=== PATIENT | female | born 1930 | race Caucasian/White ===

== ENCOUNTER 2017-06-30 16:02 | Emergency (ER) | payer OTHER, MEDICARE ==
[~2017-06-30] VITALS: Ht 152.4 cm; Wt 60.0 kg
[~2017-06-30 16:02] MED LIST: ASPI325T PO; BRIM0.2S EACH EYE; CHOL1CAP6 PO; EVIS60TA PO; LEVO EACH EYE; OMEG100010 MT; OXYC5 PO; ROSU40 PO; SYNT75TA PO; VITD400 PO
[2017-06-30 16:11] VITALS: BP 172/94; PULSE 77; RESP 16; TEMP 98.2; O2SAT 98
[2017-06-30] MEDS ORDERED: LEVO75TA3 PO (17:21)
[2017-06-30] MEDS ORDERED: OMEGCAP PO (17:21)
[2017-06-30] MEDS ORDERED: ASPI-516 CHEW (17:21)
[2017-06-30] MEDS ORDERED: VITA1000 PO (17:21)
[2017-06-30] MEDS ORDERED: COEN1CAP19 PO (17:21)
[2017-06-30] MEDS ORDERED: VITA10002 PO (17:21)
[2017-06-30] MEDS ORDERED: LOVA40TA PO (17:21)
[2017-06-30] MEDS ORDERED: DOXY100C PO (17:21)
[2017-06-30] MEDS ORDERED: TRAM50TA PO (17:21)
[2017-06-30] MEDS ORDERED: SODIUM CHLOR 0.9% 1000 ML INJ 1,000 ML IV SCH (17:23)
--- NOTE | 2017-06-30 17:25 | PD ---
HPI Chief Complaint: GI Complaint Time Seen by Provider: 17:17 Travel History International Travel<30 days: No Contact w/Intl Traveler<30days: No Traveled to known affect area: No History of Present Illness HPI 87-year-old female here for evaluation of nausea and vomiting. The patient had a basal cell carcinoma removed from her nose yesterday and was started on doxycycline and tramadol. Symptoms started shortly after taking these medications. The patient is had several episodes of vomiting since yesterday evening. She reports the emesis is brown, nonbloody. Last bowel movement was yesterday. No diarrhea. No abdominal pain. No chest pain or dyspnea. No fevers. PFSH Past Medical History Cancer: Yes (SKIN LESION) High Cholesterol: Yes Endocrine: Yes Immune Disorder: No Musculoskeletal: No Neurologic: Yes (NEUROPATHY) Psychiatric: No Thyroid Disease: Yes ?: Not Menopausal: Yes Tubal Ligation: Yes Past Surgical History Appendectomy: Yes Gynecologic Surgery: Yes (TUBAL LIGATION) Pacemaker: No Social History Alcohol Use: Yes (1 WINE EVERY OTHER MONTH) Tobacco Use: No Substance Use: No Allergies-Medications (Allergen,Severity, Reaction): Coded Allergies: guaifenesin (Verified Adverse Reaction, Severe, "MAKES ME HIGH", 06/30/17) Reported Meds & Prescriptions Reported Meds & Active Scripts Active Reported Vitamin B-12 (Cyanocobalamin) 1,000 Mcg Tab 1,000 Mcg PO DAILY [place]-3 Fish Oil/Vitamin (Fish Oil-Cholecalciferol) 1,000-1,000 Mg Cap 1 Cap PO DAILY Vitamin D-1000 (Cholecalciferol) 1,000 Unit Tab 1,000 Units PO DAILY Tramadol (Tramadol HCl) 50 Mg Tab 50 Mg PO Q4H PRN Doxycycline Hyclate 100 Mg Cap 100 Mg PO BID Lovastatin 40 Mg Tab 40 Mg PO DAILY Levothyroxine (Levothyroxine Sodium) 75 Mcg Tab 75 Mcg PO DAILY Aspirin 81 Mg Chew 81 Mg CHEW DAILY Co Q10 (Ubidecarenone) 100 Mg Capsule 1 Cap PO DAILY Review of Systems Except as stated in HPI: all other systems reviewed are Neg Physical Exam Narrative GENERAL: Well-developed, well-nourished, comfortable, no apparent distress. SKIN: Focused skin assessment warm/dry. Dressing on the nose that is clean, dry , intact. HEAD: Atraumatic. Normocephalic. EYES: Pupils equal and round. No scleral icterus. No injection or drainage. ENT: Mucous membranes pink and dry. NECK: Trachea midline. No JVD. CARDIOVASCULAR: Regular rate and rhythm. RESPIRATORY: No accessory muscle use. Clear to auscultation. Breath sounds equal bilaterally. GASTROINTESTINAL: Abdomen soft, non-tender, nondistended. Normal bowel sounds. MUSCULOSKELETAL: No obvious deformities. No clubbing. No cyanosis. No edema. NEUROLOGICAL: Awake and alert. No obvious cranial nerve deficits. Motor grossly within normal limits. Normal speech. PSYCHIATRIC: Appropriate mood and affect; insight and judgment normal. Data Data Last Documented VS Vital Signs Date Time Temp Pulse Resp B/P (MAP) Pulse Ox O2 Delivery O2 Flow Rate FiO2 06/30/17 17:39 97 Room Air 06/30/17 16:11 98.2 77 16 172/94 (120) Orders Orders Complete Blood Count With Diff (06/30/17 17:23) Comprehensive Metabolic Panel (06/30/17 17:23) Lipase (06/30/17 17:23) Prothrombin Time / Inr (Pt) (06/30/17 17:23) Act Partial Throm Time (Ptt) (06/30/17 17:23) Iv Access Insert/Monitor (06/30/17 17:23) Ecg Monitoring (06/30/17 17:23) Oximetry (06/30/17 17:23) Ondansetron Inj (Zofran Inj) (06/30/17 17:30) Sodium Chlor 0.9% 1000 Ml Inj (Ns 1000 M (06/30/17 17:23) Sodium Chloride 0.9% Flush (Ns Flush) (06/30/17 17:30) Labs Laboratory Tests Test 06/30/17 17:35 White Blood Count 11.0 TH/MM3 Red Blood Count 5.77 MIL/MM3 Hemoglobin 16.5 GM/DL Hematocrit 49.0 % Mean Corpuscular Volume 84.9 FL Mean Corpuscular Hemoglobin 28.7 PG Mean Corpuscular Hemoglobin Concent 33.8 % Red Cell Distribution Width 12.9 % Platelet Count 345 TH/MM3 Mean Platelet Volume 7.5 FL Neutrophils (%) (Auto) 79.2 % Lymphocytes (%) (Auto) 9.6 % Monocytes (%) (Auto) 6.7 % Eosinophils (%) (Auto) 0.1 % Basophils (%) (Auto) 4.4 % Neutrophils # (Auto) 8.7 TH/MM3 Lymphocytes # (Auto) 1.1 TH/MM3 Monocytes # (Auto) 0.7 TH/MM3 Eosinophils # (Auto) 0.0 TH/MM3 Basophils # (Auto) 0.5 TH/MM3 CBC Comment DIFF FINAL Differential Comment Prothrombin Time 10.5 SEC Prothromb Time International Ratio 1.0 RATIO Activated Partial Thromboplast Time 24.4 SEC Blood Urea Nitrogen 18 MG/DL Creatinine 0.68 MG/DL Random Glucose 157 MG/DL Total Protein 8.2 GM/DL Albumin 3.6 GM/DL Calcium Level 9.0 MG/DL Alkaline Phosphatase 102 U/L Aspartate Amino Transf (AST/SGOT) 19 U/L Alanine Aminotransferase (ALT/SGPT) 20 U/L Total Bilirubin 0.8 MG/DL Sodium Level 131 MEQ/L Potassium Level 4.0 MEQ/L Chloride Level 95 MEQ/L Carbon Dioxide Level 25.1 MEQ/L Anion Gap 11 MEQ/L Estimat Glomerular Filtration Rate 82 ML/MIN Lipase 72 U/L MDM Medical Decision Making Medical Screen Exam Complete: Yes Emergency Medical Condition: Yes Differential Diagnosis Adverse medication reaction, dehydration, bowel obstruction, Narrative Course Vital signs show heart rate 77, blood pressure 172/94, pulse ox 98% on room air , oral temp of 98.2F. CBC: WBC 11, hemoglobin 16.5, hematocrit 49, platelets 345. CMP is remarkable for sodium 131, chloride 95, random glucose 157, otherwise unremarkable. Lipase is 72. Patient was given a liter of normal saline IV, IV Zofran, and on reassessment she feels improved. She is tolerating clear liquids orally and has not vomited while in the emergency department. I believe that her nausea is likely secondary to the medication she was started on yesterday which include doxycycline and tramadol. Her license issuer has recommended that she discontinue these medications. I will discharge her home with a prescription for Zofran, and she will follow-up with her license issuer tomorrow. She'll be staying with her daughter madeleine who is in the exam room with her. They feel very comfortable with this plan. They were advised on when to return to the emergency department. Diagnosis Primary Impression: Nausea and vomiting Qualified Codes: R11.2 - Nausea with vomiting, unspecified Referrals: Diving Supervisor 1 day Primary Care Physician 3 days Additional Instructions: Follow-up with your license issuer tomorrow as scheduled. Stay hydrated with plenty of fluids. Takes Zofran for nausea. Return to the emergency department for worsening symptoms or any other concerns as discussed. Scripts Ondansetron Odt (Zofran Odt) 4 Mg Tab 4 MG SL Q8HR Y for Nausea/Vomiting, #20 TAB 0 Refills Prov: Anurag Felipe MD 06/30/17 Disposition: 01 DISCHARGE HOME Condition: Stable Anurag Felipe MD Jun 30, 2017 17:25
[2017-06-30] MEDS ORDERED: ONDANSETRON HCL 4 MG/2 ML VIAL IVP ONE (17:30)
[2017-06-30] MEDS ORDERED: SODIUM CHLORIDE 0.9% FLUSH 10 ML FLUSH IV FLUSH PRN (17:30)
[2017-06-30 17:39] VITALS: O2SAT 97
[2017-06-30 17:42] LABS: AUTOMATED NEUTROPHIL # 8.7 TH/MM3 (1.8-7.7); BASOPHIL # 0.5 TH/MM3 (0-0.2); BASOPHIL % 4.4 % (0.0-2.0); EOSINOPHIL % 0.1 % (0.0-4.0); HEMOGLOBIN 16.5 GM/DL (11.6-15.3); LYMPH % 9.6 % (9.0-44.0); LYMPHOCYTE # 1.1 TH/MM3 (1.0-4.8); MEAN CELL VOLUME 84.9 FL (80.0-100.0); MEAN CORPUSCULAR HEMOGLOBIN 28.7 PG (27.0-34.0); MEAN CORPUSCULAR HGB CONC 33.8 % (32.0-36.0); MEAN PLATELET VOLUME 7.5 FL (7.0-11.0); MONO % 6.7 % (0.0-8.0); MONOCYTE # 0.7 TH/MM3 (0-0.9); NEUT % 79.2 % (16.0-70.0); PLATELET COUNT 345 TH/MM3 (150-450); RED BLOOD COUNT 5.77 MIL/MM3 (4.00-5.30); RED CELL DISTRIBUTION WIDTH 12.9 % (11.6-17.2)
[2017-06-30 18:06] LABS: CHLORIDE 95 MEQ/L (98-107); SODIUM (NA) 131 MEQ/L (136-145)
[2017-06-30 18:11] LABS: ALBUMIN 3.6 GM/DL (3.4-5.0); BICARBONATE 25.1 MEQ/L (21.0-32.0); BLOOD UREA NITROGEN 18 MG/DL (7-18); GLUCOSE,RANDOM 157 MG/DL (74-106); LIPASE 72 U/L (73-393)
[2017-06-30 18:13] LABS: ALT (GPT) 20 U/L (10-53); AST (GOT) 19 U/L (15-37); CREATININE 0.68 MG/DL (0.50-1.00); GLOMERULAR FILTRATION RATE 82 ML/MIN (>89)
[2017-06-30 18:15] LABS: TOTAL BILIRUBIN ADULT 0.8 MG/DL (0.2-1.0); TOTAL PROTEIN 8.2 GM/DL (6.4-8.2)
[2017-06-30 18:16] LABS: ALKALINE PHOSPHATASE 102 U/L (45-117)
[2017-06-30 18:30] LABS: PROTHROMBIN TIME - PATIENT 10.5 SEC (9.8-11.6)
[2017-06-30] MEDS ORDERED: ZOFR4TAB3 SL (19:17)
[2017-06-30 19:45] VITALS: BP 156/66
== END 2017-06-30 19:53 | disposition home or self-care (01) ==
LOC: PHED 16:02
DX: R11.2 Nausea with vomiting, unspecified (principal); E78.00 Pure hypercholesterolemia, unspecified; E07.9 Disorder of thyroid, unspecified; G62.9 Polyneuropathy, unspecified; Z98.890 Other specified postprocedural states; Z85.828 Personal history of other malignant neoplasm of skin
CPT/HCPCS: 80053; 83690; 85025; 85610; 85730; 96361; 96374; 99284; J2405; J7030

== ENCOUNTER 2017-11-06 21:24 | Emergency (ER) | payer MEDICARE, OTHER ==
[~2017-11-06] VITALS: Ht 157.5 cm; Wt 57.0 kg
[~2017-11-06 21:24] MED LIST changes: +ASPI-516 CHEW; -ASPI325T PO; -BRIM0.2S EACH EYE; -CHOL1CAP6 PO; +COEN1CAP19 PO; +DOXY100C PO; -EVIS60TA PO; -LEVO EACH EYE; +LEVO75TA3 PO; +LOVA40TA PO; -OMEG100010 MT; +OMEGCAP PO; -OXYC5 PO; -ROSU40 PO; -SYNT75TA PO; +TRAM50TA PO; +VITA1000 PO; +VITA10002 PO; -VITD400 PO; +ZOFR4TAB3 SL
[2017-11-06 21:33] VITALS: BP 185/78; PULSE 81; RESP 18; TEMP 98.3; O2SAT 99
[2017-11-06] MEDS ORDERED: LISI40TA PO (21:55)
[2017-11-06 22:08] VITALS: BP 156/75; PULSE 83; RESP 18; O2SAT 98
[2017-11-06] MEDS ORDERED: SODIUM CHLORIDE 0.9% FLUSH 10 ML FLUSH IVF PRN (22:30)
[2017-11-06 22:55] LABS: AUTOMATED NEUTROPHIL # 7.2 TH/MM3 (1.8-7.7); BASOPHIL # 0.3 TH/MM3 (0-0.2); BASOPHIL % 2.9 % (0.0-2.0); EOSINOPHIL # 0.3 TH/MM3 (0-0.4); EOSINOPHIL % 2.2 % (0.0-4.0); HEMATOCRIT 43.9 % (35.0-46.0); LYMPH % 20.5 % (9.0-44.0); LYMPHOCYTE # 2.4 TH/MM3 (1.0-4.8); MEAN CELL VOLUME 84.8 FL (80.0-100.0); MEAN CORPUSCULAR HEMOGLOBIN 28.9 PG (27.0-34.0); MEAN PLATELET VOLUME 7.5 FL (7.0-11.0); MONO % 11.1 % (0.0-8.0); MONOCYTE # 1.3 TH/MM3 (0-0.9); NEUT % 63.3 % (16.0-70.0); PLATELET COUNT 351 TH/MM3 (150-450); RED BLOOD COUNT 5.18 MIL/MM3 (4.00-5.30); RED CELL DISTRIBUTION WIDTH 12.5 % (11.6-17.2); WHITE BLOOD COUNT 11.5 TH/MM3 (4.0-11.0)
[2017-11-06 23:02] LABS: CHLORIDE 100 MEQ/L (98-107); SODIUM (NA) 134 MEQ/L (136-145)
[2017-11-06 23:05] LABS: ALBUMIN 3.6 GM/DL (3.4-5.0); BICARBONATE 26.8 MEQ/L (21.0-32.0); CALCIUM 8.7 MG/DL (8.5-10.1); GLUCOSE,RANDOM 150 MG/DL (74-106)
[2017-11-06 23:06] LABS: BLOOD UREA NITROGEN 18 MG/DL (7-18)
[2017-11-06 23:07] LABS: PROTHROMBIN TIME - PATIENT 10.1 SEC (9.8-11.6)
[2017-11-06 23:08] LABS: ALT (GPT) 21 U/L (10-53); AST (GOT) 13 U/L (15-37)
[2017-11-06 23:09] LABS: CREATININE 0.73 MG/DL (0.50-1.00); GLOMERULAR FILTRATION RATE 75 ML/MIN (>89)
--- NOTE | 2017-11-06 23:09 | PD ---
HPI Chief Complaint: Hypertension Time Seen by Provider: 21:32 Travel History International Travel<30 days: No Contact w/Intl Traveler<30days: No Traveled to known affect area: No History of Present Illness HPI Patient is an 87-year-old female with history of hypertension, hyperlipidemia, presents the emergency room with multiple complaints. Patient reports that she was recently diagnosed with hypertension, reports that she was initially started on lisinopril 10 mg, she is currently taking lisinopril 40 mg. Patient reports that she feels as if her blood pressure is not well controlled, reports that today, her blood pressure went up to systolics of 190s. Patient reports that for the past month, she has not been feeling well. Patient reports that over the past month, she has been feeling weak in her arms or legs, reports that sometimes she feels so weak, sometimes she has difficulty ambulating. She did see her primary care doctor, Dr. Mckinnon, reports that he ordered a bunch of blood work last week which included a CBC, BMP, TSH, vitamin B12 levels, reports that all her lab work was normal. Patient unsure why she feels this weakness. Patient denies any headache or dizziness, denies any vision changes, denies any chest pain or shortness of breath. Patient reports that she has a normal appetite, denies any abdominal pain. Patient denies any dysuria, urinary urgency or frequency. Patient requesting cardiac cath for further evaluation of her symptoms. Patient at this time has no chest pain or shortness of breath, reports that she does not see a sales department manager but is in the process of getting a sales department manager. Patient would like to know why she has been feeling so weak for the past month. PFSH Past Medical History Cancer: Yes (SKIN LESION) High Cholesterol: Yes Diminished Hearing: No Endocrine: Yes Immune Disorder: No Musculoskeletal: No Neurologic: Yes (NEUROPATHY) Psychiatric: No Thyroid Disease: Yes Tetanus Vaccination: > 5 Years Influenza Vaccination: Yes ?: Not Menopausal: Yes Tubal Ligation: Yes Past Surgical History Appendectomy: Yes Gynecologic Surgery: Yes (TUBAL LIGATION) Pacemaker: No Other Surgery: Yes Social History Alcohol Use: Yes (1 WINE EVERY OTHER MONTH) Tobacco Use: No Substance Use: No Allergies-Medications (Allergen,Severity, Reaction): Coded Allergies: guaifenesin (Verified Adverse Reaction, Severe, "MAKES ME HIGH", 11/06/17) Reported Meds & Prescriptions Reported Meds & Active Scripts Active Reported Lisinopril 40 Mg Tab 40 Mg PO DAILY Vitamin B-12 (Cyanocobalamin) 1,000 Mcg Tab 1,000 Mcg PO DAILY [place]-3 Fish Oil/Vitamin (Fish Oil-Cholecalciferol) 1,000-1,000 Mg Cap 1 Cap PO DAILY Vitamin D-1000 (Cholecalciferol) 1,000 Unit Tab 1,000 Units PO DAILY Lovastatin 40 Mg Tab 40 Mg PO DAILY Levothyroxine (Levothyroxine Sodium) 75 Mcg Tab 75 Mcg PO DAILY Aspirin 81 Mg Chew 81 Mg CHEW DAILY Co Q10 (Ubidecarenone) 100 Mg Capsule 1 Cap PO DAILY Review of Systems General / Constitutional: No: Fever Eyes: No: Visual changes HENT: No: Headaches Cardiovascular: No: Chest Pain or Discomfort Respiratory: No: Shortness of Breath Gastrointestinal: No: Abdominal Pain Genitourinary: No: Dysuria Musculoskeletal: No: Pain Skin: No Rash Neurologic: Positive: Weakness Psychiatric: No: Depression Endocrine: No: Polydipsia Hematologic/Lymphatic: No: Easy Bruising Physical Exam Narrative GENERAL: NAD SKIN: Focused skin assessment warm/dry. HEAD: Atraumatic. Normocephalic. EYES: Pupils equal and round. No scleral icterus. No injection or drainage. ENT: No nasal bleeding or discharge. Mucous membranes pink and moist. NECK: Trachea midline. No JVD. CARDIOVASCULAR: Regular rate and rhythm. No murmur appreciated. RESPIRATORY: No accessory muscle use. Clear to auscultation. Breath sounds equal bilaterally. GASTROINTESTINAL: Abdomen soft, non-tender, nondistended. Hepatic and splenic margins not palpable. MUSCULOSKELETAL: No obvious deformities. No clubbing. No cyanosis. No edema. NEUROLOGICAL: Awake and alert. No obvious cranial nerve deficits. Motor grossly within normal limits. Normal speech. CN 2- 12 grossly intact with no neurological deficits PSYCHIATRIC: Appropriate mood and affect; insight and judgment normal. Data Data Last Documented VS Vital Signs Date Time Temp Pulse Resp B/P (MAP) Pulse Ox O2 Delivery O2 Flow Rate FiO2 11/06/17 23:51 78 18 156/74 (101) 98 Room Air 11/06/17 21:33 98.3 Orders Orders Electrocardiogram (11/06/17 22:27) Prothrombin Time / Inr (Pt) (11/06/17 22:27) Act Partial Throm Time (Ptt) (11/06/17 22:27) Complete Blood Count With Diff (11/06/17 22:27) Comprehensive Metabolic Panel (11/06/17 22:) Creatine Kinase (Cpk) (11/06/17 22:27) Troponin I (11/06/17 22:27) Urinalysis - C+S If Indicated (11/06/17 22:27) Ct Brain W/O Iv Contrast(Rout) (11/06/17 22:27) Chest, Single Ap (11/06/17 22:27) Ecg Monitoring (11/06/17 22:) Iv Access Insert/Monitor (11/06/17 22:) Oximetry (11/06/17 22:) Sodium Chloride 0.9% Flush (Ns Flush) (11/06/17 22:30) Urine Culture (11/06/17 23:50) Ceftriaxone Inj (Rocephin Inj) (11/07/17 00:15) Labs Laboratory Tests Test 11/06/17 22:45 11/06/17 23:50 White Blood Count 11.5 TH/MM3 Red Blood Count 5.18 MIL/MM3 Hemoglobin 15.0 GM/DL Hematocrit 43.9 % Mean Corpuscular Volume 84.8 FL Mean Corpuscular Hemoglobin 28.9 PG Mean Corpuscular Hemoglobin Concent 34.0 % Red Cell Distribution Width 12.5 % Platelet Count 351 TH/MM3 Mean Platelet Volume 7.5 FL Neutrophils (%) (Auto) 63.3 % Lymphocytes (%) (Auto) 20.5 % Monocytes (%) (Auto) 11.1 % Eosinophils (%) (Auto) 2.2 % Basophils (%) (Auto) 2.9 % Neutrophils # (Auto) 7.2 TH/MM3 Lymphocytes # (Auto) 2.4 TH/MM3 Monocytes # (Auto) 1.3 TH/MM3 Eosinophils # (Auto) 0.3 TH/MM3 Basophils # (Auto) 0.3 TH/MM3 CBC Comment DIFF FINAL Differential Comment Prothrombin Time 10.1 SEC Prothromb Time International Ratio 1.0 RATIO Activated Partial Thromboplast Time 25.1 SEC Blood Urea Nitrogen 18 MG/DL Creatinine 0.73 MG/DL Random Glucose 150 MG/DL Total Protein 7.4 GM/DL Albumin 3.6 GM/DL Calcium Level 8.7 MG/DL Alkaline Phosphatase 87 U/L Aspartate Amino Transf (AST/SGOT) 13 U/L Alanine Aminotransferase (ALT/SGPT) 21 U/L Total Bilirubin 0.4 MG/DL Sodium Level 134 MEQ/L Potassium Level 3.7 MEQ/L Chloride Level 100 MEQ/L Carbon Dioxide Level 26.8 MEQ/L Anion Gap 7 MEQ/L Estimat Glomerular Filtration Rate 75 ML/MIN Total Creatine Kinase 31 U/L Troponin I 0.02 NG/ML Urine Color YELLOW Urine Turbidity CLEAR Urine pH 5.5 Urine Specific [place] 1.010 Urine Protein NEG mg/dL Urine Glucose (UA) NEG mg/dL Urine Ketones NEG mg/dL Urine Occult Blood TRACE Urine Nitrite NEG Urine Bilirubin NEG Urine Urobilinogen 0.2 MG/DL Urine Leukocyte Esterase SMALL Urine RBC 3-5 /hpf Urine WBC 9-14 /hpf Urine Squamous Epithelial Cells 6-8 /hpf Urine Bacteria MANY /hpf Microscopic Urinalysis Comment CULTURE INDICATED MDM Medical Decision Making Medical Screen Exam Complete: Yes Emergency Medical Condition: Yes Medical Record Reviewed: Yes Interpretation(s) EKG at 2237: NSR at 80bpm, qt/qtc: 357/393, no acute st or t wave changes Vital Signs Date Time Temp Pulse Resp B/P (MAP) Pulse Ox O2 Delivery O2 Flow Rate FiO2 11/06/17 22:08 83 18 156/75 (102) 98 Room Air 11/06/17 21:37 81 18 99 Room Air 11/06/17 21:33 98.3 81 18 185/78 (113) 99 Differential Diagnosis Accelerated hypertension, CVA, ACS, arrhythmia, electrolyte abnormality, infection Narrative Course During the course of the patients emergency department visit, the patients history, examination, and differential diagnosis were reviewed with the patient. The patient was placed on a director private music therapy agency with oximetry and frequent blood pressure monitoring. The patient had an IV access obtained and blood work sent for analysis. The patients laboratory studies were reviewed and remarkable for Laboratory Tests Test 11/06/17 22:45 11/06/17 23:50 White Blood Count 11.5 TH/MM3 (4.0-11.0) Red Blood Count 5.18 MIL/MM3 (4.00-5.30) Hemoglobin 15.0 GM/DL (11.6-15.3) Hematocrit 43.9 % (35.0-46.0) Mean Corpuscular Volume 84.8 FL (80.0-100.0) Mean Corpuscular Hemoglobin 28.9 PG (27.0-34.0) Mean Corpuscular Hemoglobin Concent 34.0 % (32.0-36.0) Red Cell Distribution Width 12.5 % (11.6-17.2) Platelet Count 351 TH/MM3 (150-450) Mean Platelet Volume 7.5 FL (7.0-11.0) Neutrophils (%) (Auto) 63.3 % (16.0-70.0) Lymphocytes (%) (Auto) 20.5 % (9.0-44.0) Monocytes (%) (Auto) 11.1 % (0.0-8.0) Eosinophils (%) (Auto) 2.2 % (0.0-4.0) Basophils (%) (Auto) 2.9 % (0.0-2.0) Neutrophils # (Auto) 7.2 TH/MM3 (1.8-7.7) Lymphocytes # (Auto) 2.4 TH/MM3 (1.0-4.8) Monocytes # (Auto) 1.3 TH/MM3 (0-0.9) Eosinophils # (Auto) 0.3 TH/MM3 (0-0.4) Basophils # (Auto) 0.3 TH/MM3 (0-0.2) CBC Comment DIFF FINAL Differential Comment Prothrombin Time 10.1 SEC (9.8-11.6) Prothromb Time International Ratio 1.0 RATIO Activated Partial Thromboplast Time 25.1 SEC (24.3-30.1) Blood Urea Nitrogen 18 MG/DL (7-18) Creatinine 0.73 MG/DL (0.50-1.00) Random Glucose 150 MG/DL (74-106) Total Protein 7.4 GM/DL (6.4-8.2) Albumin 3.6 GM/DL (3.4-5.0) Calcium Level 8.7 MG/DL (8.5-10.1) Alkaline Phosphatase 87 U/L (45-117) Aspartate Amino Transf (AST/SGOT) 13 U/L (15-37) Alanine Aminotransferase (ALT/SGPT) 21 U/L (10-53) Total Bilirubin 0.4 MG/DL (0.2-1.0) Sodium Level 134 MEQ/L (136-145) Potassium Level 3.7 MEQ/L (3.5-5.1) Chloride Level 100 MEQ/L (98-107) Carbon Dioxide Level 26.8 MEQ/L (21.0-32.0) Anion Gap 7 MEQ/L (5-15) Estimat Glomerular Filtration Rate 75 ML/MIN (>89) Total Creatine Kinase 31 U/L (26-192) Troponin I 0.02 NG/ML (0.02-0.05) Urine Color YELLOW (YELLW/STRAW) Urine Turbidity CLEAR (CLEAR) Urine pH 5.5 (5.0-8.5) Urine Specific [place] 1.010 (1.002-1.035) Urine Protein NEG mg/dL (NEG-TRACE) Urine Glucose (UA) NEG mg/dL (NEG) Urine Ketones NEG mg/dL (NEG) Urine Occult Blood TRACE (NEG) Urine Nitrite NEG (NEG) Urine Bilirubin NEG (NEG) Urine Urobilinogen 0.2 MG/DL (LESS THAN Urine Leukocyte Esterase SMALL (NEG) Urine RBC 3-5 /hpf (0-3) Urine WBC 9-14 /hpf (0-5) Urine Squamous Epithelial Cells 6-8 /hpf (0-5) Urine Bacteria MANY /hpf (NONE) Microscopic Urinalysis Comment CULTURE INDICATED Radiology studies were reviewed and remarkable for Last Impressions Head CT 11/06/172226 Signed Impressions: Service Date/Time: Monday, November 06, 2017 22:54 - CONCLUSION: 1. No acute intracranial abnormalities. Michael Rodriguez MD Chest X-Ray 11/06/[id number] Signed Impressions: Service Date/Time: Monday, November 06, 2017 22:47 - CONCLUSION: 1. No active disease. Apical pleural thickening. Michael Rodriguez MD All labs reviewed, CT of the head with no acute intracranial abnormalities, x- ray of the chest with no active disease. UA is positive for small leuk esterase , 9-14 white blood cells, many bacteria, culture was sent. Patient was given 1 g of Rocephin IV, she will be sent home with a prescription for Macrobid. Her EKG was benign. Patient is smiling and laughing on exam, she is nontoxic and well-appearing. Vital Signs Date Time Temp Pulse Resp B/P (MAP) Pulse Ox O2 Delivery O2 Flow Rate FiO2 11/06/17 23:51 78 18 156/74 (101) 98 Room Air 11/06/17 22:08 83 18 156/75 (102) 98 Room Air 11/06/17 21:37 81 18 99 Room Air 11/06/17 21:33 98.3 81 18 185/78 (113) 99 Vital signs have been stable while in the emergency room. Plan to treat patient for her UTI, this could be the source of patient's generalized weakness. Plan to have patient follow-up with her primary care doctor and return to the emergency room as needed. Patient as well as family members happy with plan of care, they will return to the emergency room as needed. Diagnosis Primary Impression: Generalized weakness Additional Impression: UTI (urinary tract infection) Qualified Codes: N30.01 - Acute cystitis with hematuria Patient Instructions: General Instructions Additional Instructions: Please provide patient with a copy of their lab work and studies at discharge* * Please follow up with your primary care doctor in 1-2 days Return to the ER if symptoms worsen or progress Return to the ER as needed Please follow up with all cultures from today Med/Other Pt SpecificInfo: Prescription(s) given Scripts Nitrofurantoin Monohydrate Macrocrystals (Macrobid) 100 Mg Capsule 100 MG PO BID for Infection for 10 Days, #20 CAP 0 Refills Prov: Melba Horn DO 11/07/17 Disposition: 01 DISCHARGE HOME Condition: Stable Melba Horn DO November 06, 2017 23:09
[2017-11-06 23:10] LABS: TOTAL BILIRUBIN ADULT 0.4 MG/DL (0.2-1.0); TOTAL PROTEIN 7.4 GM/DL (6.4-8.2)
[2017-11-06 23:11] LABS: ALKALINE PHOSPHATASE 87 U/L (45-117)
--- NOTE | 2017-11-06 23:12 | RADRPT ---
EXAM DATE/TIME: 11/06/2017 22:47 [facility] COMPARISON: No previous studies available for comparison. INDICATIONS : Shortness of breath. MEDICAL HISTORY : None. SURGICAL HISTORY : None. ENCOUNTER: Initial ACUITY: 1 day PAIN SCORE: 0/10 LOCATION: Bilateral chest FINDINGS: A single view of the chest demonstrates the lungs to be symmetrically aerated without evidence of mas s, infiltrate or effusion. There is apical pleural thickening. The cardiomediastinal contours are unr emarkable. Osseous structures are intact. CONCLUSION: 1. No active disease. Apical pleural thickening. Michael Rodriguez MD on November 06, 2017 at 23:10 Board Certified Radiologist. This report was verified electronically.
[2017-11-06 23:13] LABS: TROPONIN I 0.02 NG/ML (0.02-0.05)
--- NOTE | 2017-11-06 23:14 | RADRPT ---
EXAM DATE/TIME: 11/06/2017 22:54 [facility] COMPARISON: CT BRAIN W/O CONTRAST, May 07, 2013, 1:19. INDICATIONS : General weakness. RADIATION DOSE: 55.69 CTDIvol (mGy) MEDICAL HISTORY : Hypertension. SURGICAL HISTORY : None. ENCOUNTER: Initial ACUITY: 1 day PAIN SCALE: 0/10 LOCATION: cranial TECHNIQUE: Multiple contiguous axial images were obtained of the head. Using automated exposure control and adj ustment of the mA and/or kV according to patient size, radiation dose was kept as low as reasonably a chievable to obtain optimal diagnostic quality images. DICOM format image data is available electro nically for review and comparison. FINDINGS: CEREBRUM: The ventricles are normal for age. No evidence of midline shift, mass lesion, hemorrhage or acute in farction. No extra-axial fluid collections are seen. POSTERIOR FOSSA: The cerebellum and brainstem are intact. The 4th ventricle is midline. The cerebellopontine angle i s unremarkable. EXTRACRANIAL: The visualized portion of the orbits is intact. SKULL: The calvaria is intact. No evidence of skull fracture. CONCLUSION: 1. No acute intracranial abnormalities. Michael Rodriguez MD on November 06, 2017 at 23:11 Board Certified Radiologist. This report was verified electronically.
[2017-11-06 23:51] VITALS: BP 156/74; PULSE 78; RESP 18; O2SAT 98
[2017-11-06 23:56] LABS: BILIRUBIN, URINE NEG (NEG); BLOOD, URINE TRACE (NEG); GLUCOSE,URINE NEG (NEG); KETONE, URINE NEG (NEG); NITRITE,URINE NEG (NEG); PH, URINE 5.5 (5.0-8.5); URINE COLOR YELLOW (YELLW/STRAW); URINE LEUKOCYTE ESTERASE SMALL (NEG)
[2017-11-07 00:04] LABS: BACTERIA, URINE MANY /hpf
[2017-11-07] MEDS ORDERED: cefTRIAXone INJ 1,000 MG in SODIUM CHLORIDE 0.9% INJ 100 ML IV ONE (00:15)
[2017-11-07] MEDS ORDERED: MACR100C2 PO (00:20)
[2017-11-07 01:05] VITALS: BP 157/72; PULSE 77; RESP 18; O2SAT 98
--- NOTE | 2017-11-07 13:44 | EKG ---
Date Performed: 11/06/2017 Time Performed: 22:37:29 PTAGE: 87 years EKG: Sinus rhythm NORMAL ECG PREVIOUS TRACING : 05/07/2013 08.13 Since the previous tracing, no significant change noted DOCTOR: Evaristo Haas Interpretating Date/Time 11/07/2017 13:42:01
== END 2017-11-07 01:10 | disposition home or self-care (01) ==
LOC: PHED 21:24
DX: R53.1 Weakness (principal); N30.01 Acute cystitis with hematuria; I10 Essential (primary) hypertension; B96.20 Unspecified Escherichia coli [E. coli] as the cause of diseases classified elsewhere; E78.00 Pure hypercholesterolemia, unspecified; E07.9 Disorder of thyroid, unspecified; Z86.69 Personal history of other diseases of the nervous system and sense organs; Z85.828 Personal history of other malignant neoplasm of skin
CPT/HCPCS: 70450; 71045; 80053; 81001; 82550; 84484; 85025; 85610; 85730; 87077; 87086; 87186; 93005; 96374; 99285; J0696

== ENCOUNTER 2018-01-07 17:14 | Inpatient (IN) ==
--- NOTE | 2018-01-07 19:23 | ED ---
HPI General Chief complaint: Weakness Stated complaint: weakness/evac Time Seen by Provider: 01/07/18 19:16 Source: patient and family Mode of arrival: wheelchair Limitations: physical limitation History of Present Illness HPI Narrative: 87-year-old female patient presents to the ER today brought in by family because she has had worsening weakness which is generalized, worse over the last 2 days to the point where she cannot get up on her own, having difficulty doing daily functions, feels she has trouble clearing her throat, coughing up clear phlegm. Family states that this has been an ongoing thing for 5 months, and is currently being evaluated by neurology Dr. 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 Patient was also seen by ENT today and they had thought that she is having sinusitis and has her on antibiotics currently as well. Patient denies any fevers, chest pains, vomiting, diarrhea, abdominal pains, or other symptoms. They do not know of any sick contacts. Related Data Home Medications Medication Instructions Recorded Confirmed aspirin [Aspir-81] 81 mg PO DAILY 12/25/17 01/07/18 levothyroxine 75 mcg PO DAILY 12/25/17 01/07/18 montelukast 10 mg PO QPM 12/25/17 01/07/18 omeprazole 40 mg PO DAILY 12/25/17 01/07/18 cholecalciferol (vitamin D3) 4,000 unit PO DAILY 01/07/18 01/07/18 [Vitamin D3] coenzyme Q10 [Co Q-10] 30 mg PO DAILY 01/07/18 01/07/18 docosahexanoic acid-epa [Fish Oil] 1 cap PO DAILY 01/07/18 01/07/18 ipratropium bromide 2 spray INTRANASAL BID 01/07/18 01/07/18 metoprolol succinate 50 mg PO DAILY 01/07/18 01/07/18 mupirocin 1 applic TOPICAL BID 01/07/18 01/07/18 spironolactone 25 mg PO DAILY 01/07/18 01/07/18 valsartan 320 mg PO DAILY 01/07/18 01/07/18 Allergies Allergy/AdvReac Type Severity Reaction Status Date / Time doxycycline Allergy Severe Nausea/Vomi Verified 01/07/18 19:34 ting guaifenesin AdvReac Severe "MAKES ME Verified 01/07/18 19:30 HIGH" Review of Systems Except as stated in HPI: all other systems reviewed are negative [facility] Medical History Medical History Basal cell carcinoma (Acute) GERD (gastroesophageal reflux disease) (Acute) High cholesterol (Acute) Hypertension (Acute) Hypothyroid (Acute) Surgical History Surgical History H/O endarterectomy (Acute) Social History Social History Substance History: No History of Abuse Second Hand Smoke Exposure: No Smoking Status: Never smoker How Often Do You Have a Drink Containing Alcohol: Never Recent Travel in [facility] within the Last 8 Weeks: No Recent Out of Country Travel within the Last 8 Weeks: No Exam Narrative Exam Narrative: GENERAL: Well-developed elderly female patient currently in moderate distress. Awake and oriented 3. SKIN: Focused skin assessment warm/dry. HEAD: Atraumatic. Normocephalic. EYES: Pupils equal and round. No scleral icterus. No injection or drainage. ENT: No nasal bleeding or discharge. Mucous membranes pink and moist. NECK: Trachea midline. No JVD. Supple. CARDIOVASCULAR: Regular rate and rhythm. No murmur appreciated. RESPIRATORY: No accessory muscle use. Clear to auscultation. Breath sounds equal bilaterally. GASTROINTESTINAL: Abdomen soft, non-tender, nondistended. Hepatic and splenic margins not palpable. MUSCULOSKELETAL: No obvious deformities. No clubbing. No cyanosis. No edema. NEUROLOGICAL: Awake and alert. No obvious cranial nerve deficits. Motor grossly weak, no asymmetry. Normal speech. PSYCHIATRIC: Appropriate mood and affect; insight and judgment normal. Course Hospital Course: Patient has no focal deficits but this appears to be generalized weakness, and is gotten acutely worse according to her daughters. She cannot perform functions of daily living, cannot get up and do things on her own, and this is a significant change from the recent baseline. CAT scan did not show any signs of acute processes. Her lab work was fairly unremarkable except for low sodium. She was given IV fluids in the ER. At this point, my plan would be to admit her for further evaluation by PT and neurology. Case is discussed with Dr. Mcdowell for admission. Initial Documented Vital Signs Temperature 98.1 F 01/07/18 17:25 Pulse Rate 77 01/07/18 17:25 Respiratory Rate 16 01/07/18 17:25 Blood Pressure 149/82 H 01/07/18 17:25 Pulse Oximetry 97 01/07/18 17:25 Last Documented Vital Signs Temperature 98.1 F 01/07/18 17:25 Pulse Rate 74 01/07/18 20:52 Respiratory Rate 16 01/07/18 20:52 Blood Pressure 128/62 01/07/18 20:52 Pulse Oximetry 97 01/07/18 20:52 Medical Decision Making Differential Diagnosis Differential Diagnosis: Electrolyte abnormalities versus sepsis versus pneumonia versus CVA versus GBS Lab Data Result diagrams: 01/07/18 19:33 01/07/18 19:33 Lab Results 01/07/18 01/07/18 01/07/18 Range/Units 19:33 19:33 19:33 WBC (4.0-11.0) th/mm3 RBC (4.00-5.30) mil/mm3 Hgb (11.6-15.3) gm/dL Hct (35.0-46.0) % MCV (80.0-100.0) fL MCH (27.0-34.0) pg MCHC (32.0-36.0) % RDW (11.6-17.2) % Plt Count (150-450) th/mm3 MPV (7.0-11.0) fL Neut % (Auto) (16.0-70.0) % Lymph % (Auto) (9.0-44.0) % [place] % (Auto) (0.0-8.0) % Eos % (Auto) (0.0-4.0) % Baso % (Auto) (0.0-2.0) % Neut # (Auto) (1.8-7.7) th/mm3 Lymph # (Auto) (1.0-4.8) th/mm3 [place] # (Auto) (0.0-0.9) th/mm3 Eos # (Auto) (0.0-0.4) th/mm3 Baso # (Auto) (0.0-0.2) th/mm3 WBC Differential Differential Comment ESR (0-30) mm/hr Sodium (136-145) meq/L Potassium (3.5-5.1) meq/L Chloride (98-107) meq/L Carbon Dioxide (21.0-32.0) meq/L Anion Gap (5-15) meq/L BUN (7-18) mg/dL Creatinine (0.50-1.00) mg/dL Estimated GFR (>89) mL/min Random Glucose (74-106) mg/dL Calcium (8.5-10.1) mg/dL Phosphorus 3.4 (2.5-4.9) mg/dL Magnesium 2.4 (1.5-2.5) mg/dL Total Bilirubin (0.2-1.0) mg/dL AST (15-37) U/L ALT (10-53) U/L Alkaline Phosphatase (45-117) U/L Troponin I (0.02-0.05) ng/mL B-Natriuretic Peptide 23 (0-100) pg/mL Total Protein (6.4-8.2) g/dL Albumin (3.4-5.0) g/dL TSH 1.430 (0.358-3.740) uIU/mL Cortisol 13.5 mcg/dL Urine Color (Yellw/Straw) Urine Clarity (Clear) Urine pH (5.0-8.5) Ur Specific [place] (1.002-1.035) Urine Protein (Neg-Trace) mg/dL Urine Glucose (UA) (Negative) mg/dL Urine Ketones (Negative) mg/dL Urine Occult Blood (Negative) Urine Nitrate (Negative) Urine Bilirubin (Negative) Urine Urobilinogen (Less than 2) mg/dL Ur Leukocyte Esterase (Negative) Urine RBC (0-3) /hpf Urine WBC (0-5) /hpf Ur Squamous Epith Cells (0-5) /hpf Urine Mucus (Occasional) /lpf Micro UA Comment Urine Culture Comments 01/07/18 01/07/18 01/07/18 Range/Units 19:33 19:33 19:33 WBC 12.3 H (4.0-11.0) th/mm3 RBC 5.71 H (4.00-5.30) mil/mm3 Hgb 16.2 H (11.6-15.3) gm/dL Hct 48.7 H (35.0-46.0) % MCV 85.3 (80.0-100.0) fL MCH 28.4 (27.0-34.0) pg MCHC 33.3 (32.0-36.0) % RDW 13.0 (11.6-17.2) % Plt Count 414 (150-450) th/mm3 MPV 7.6 (7.0-11.0) fL Neut % (Auto) 68.4 (16.0-70.0) % Lymph % (Auto) 20.8 (9.0-44.0) % [place] % (Auto) 8.6 H (0.0-8.0) % Eos % (Auto) 1.2 (0.0-4.0) % Baso % (Auto) 1.0 (0.0-2.0) % Neut # (Auto) 8.4 H (1.8-7.7) th/mm3 Lymph # (Auto) 2.6 (1.0-4.8) th/mm3 [place] # (Auto) 1.1 H (0.0-0.9) th/mm3 Eos # (Auto) 0.1 (0.0-0.4) th/mm3 Baso # (Auto) 0.1 (0.0-0.2) th/mm3 WBC Differential . Differential Comment Auto diff final ESR 5 (0-30) mm/hr Sodium 130 L (136-145) meq/L Potassium 4.9 (3.5-5.1) meq/L Chloride 97 L (98-107) meq/L Carbon Dioxide 20.3 L (21.0-32.0) meq/L Anion Gap 13 (5-15) meq/L BUN 21 H (7-18) mg/dL Creatinine 0.89 (0.50-1.00) mg/dL Estimated GFR 60 L (>89) mL/min Random Glucose 164 H (74-106) mg/dL Calcium 9.2 (8.5-10.1) mg/dL Phosphorus (2.5-4.9) mg/dL Magnesium (1.5-2.5) mg/dL Total Bilirubin 0.6 (0.2-1.0) mg/dL AST 24 (15-37) U/L ALT 19 (10-53) U/L Alkaline Phosphatase 87 (45-117) U/L Troponin I Less than 0.02 L (0.02-0.05) ng/mL B-Natriuretic Peptide (0-100) pg/mL Total Protein 7.8 (6.4-8.2) g/dL Albumin 3.5 (3.4-5.0) g/dL TSH (0.358-3.740) uIU/mL Cortisol mcg/dL Urine Color (Yellw/Straw) Urine Clarity (Clear) Urine pH (5.0-8.5) Ur Specific [place] (1.002-1.035) Urine Protein (Neg-Trace) mg/dL Urine Glucose (UA) (Negative) mg/dL Urine Ketones (Negative) mg/dL Urine Occult Blood (Negative) Urine Nitrate (Negative) Urine Bilirubin (Negative) Urine Urobilinogen (Less than 2) mg/dL Ur Leukocyte Esterase (Negative) Urine RBC (0-3) /hpf Urine WBC (0-5) /hpf Ur Squamous Epith Cells (0-5) /hpf Urine Mucus (Occasional) /lpf Micro UA Comment Urine Culture Comments 01/07/18 Range/Units 20:46 WBC (4.0-11.0) th/mm3 RBC (4.00-5.30) mil/mm3 Hgb (11.6-15.3) gm/dL Hct (35.0-46.0) % MCV (80.0-100.0) fL MCH (27.0-34.0) pg MCHC (32.0-36.0) % RDW (11.6-17.2) % Plt Count (150-450) th/mm3 MPV (7.0-11.0) fL Neut % (Auto) (16.0-70.0) % Lymph % (Auto) (9.0-44.0) % [place] % (Auto) (0.0-8.0) % Eos % (Auto) (0.0-4.0) % Baso % (Auto) (0.0-2.0) % Neut # (Auto) (1.8-7.7) th/mm3 Lymph # (Auto) (1.0-4.8) th/mm3 [place] # (Auto) (0.0-0.9) th/mm3 Eos # (Auto) (0.0-0.4) th/mm3 Baso # (Auto) (0.0-0.2) th/mm3 WBC Differential Differential Comment ESR (0-30) mm/hr Sodium (136-145) meq/L Potassium (3.5-5.1) meq/L Chloride (98-107) meq/L Carbon Dioxide (21.0-32.0) meq/L Anion Gap (5-15) meq/L BUN (7-18) mg/dL Creatinine (0.50-1.00) mg/dL Estimated GFR (>89) mL/min Random Glucose (74-106) mg/dL Calcium (8.5-10.1) mg/dL Phosphorus (2.5-4.9) mg/dL Magnesium (1.5-2.5) mg/dL Total Bilirubin (0.2-1.0) mg/dL AST (15-37) U/L ALT (10-53) U/L Alkaline Phosphatase (45-117) U/L Troponin I (0.02-0.05) ng/mL B-Natriuretic Peptide (0-100) pg/mL Total Protein (6.4-8.2) g/dL Albumin (3.4-5.0) g/dL TSH (0.358-3.740) uIU/mL Cortisol mcg/dL Urine Color Yellow (Yellw/Straw) Urine Clarity Clear (Clear) Urine pH 6.0 (5.0-8.5) Ur Specific [place] 1.014 (1.002-1.035) Urine Protein Negative (Neg-Trace) mg/dL Urine Glucose (UA) 50 (Negative) mg/dL Urine Ketones Negative (Negative) mg/dL Urine Occult Blood Negative (Negative) Urine Nitrate Negative (Negative) Urine Bilirubin Negative (Negative) Urine Urobilinogen Less than 2 (Less than 2) mg/dL Ur Leukocyte Esterase Negative (Negative) Urine RBC Less than 1 (0-3) /hpf Urine WBC Less than 1 (0-5) /hpf Ur Squamous Epith Cells <1 (0-5) /hpf Urine Mucus Few H (Occasional) /lpf Micro UA Comment Cath-culture not ind Urine Culture Comments Cath-cult not ind Imaging Data Radiologist's impression: Chest X-Ray 01/07/18 19:16 CONCLUSION: The lungs are clear. Head CT 01/07/18 19:16 CONCLUSION: 1. No acute findings in the brain. 2. Pansinusitis. Discharge Plan Discharge Disposition Patient Disposition: 30 Still Patient Discharge Condition Condition: Stable Discharge Details Anticipated Discharge Date: 01/07/18 Diagnosis: Dehydration, Weakness Physicians Team ED Provider: Taylor Sims Primary Care Provider: Priyanka Mckinnon Attending Provider: Andie Mcdowell Discharge Interventions Interventions: Vital Signs Last Done: 01/07/18 20:52 Status ED Status: Admitted Observation Patient
--- NOTE | 2018-01-07 19:40 | XR ---
EXAM DATE: 01/07/2018 7:35 PM EDT AGE/SEX: 87 years / Female INDICATIONS: Cough CLINICAL DATA: This is the patient's initial encounter. Patient reports that signs and symptoms have been present for 2 days and indicates a pain score of 0/10. MEDICAL/SURGICAL HISTORY: None. None. [place] [facility] [place]. . FINDINGS: A single AP view of the chest demonstrates the lungs to be symmetrically aerated without evidence of mass, infiltrate or effusion. Stable biapical pleural calcification. The cardiomediastinal contours are unremarkable. Osseous structures are intact. CONCLUSION: The lungs are clear. Electronically signed by: Wilmer Ferrer MD 01/07/2018 7:39 PM EDT
--- NOTE | 2018-01-07 20:14 | CT ---
EXAM DATE: 01/07/2018 8:11 PM EDT AGE/SEX: 87 years / Female INDICATIONS: General weakness and numbness in extremities for five months. CLINICAL DATA: This is the patient's initial encounter. Patient reports that signs and symptoms have been present for 4 - 6 months and indicates a pain score of 0/10. MEDICAL/SURGICAL HISTORY: Hypertension. Carcinoma, basal cell. Hypothyroidism. None. RADIATION DOSE: 56.35 CTDI (mGy) COMPARISON: No prior exams available for comparison. TECHNIQUE: CT of the head without contrast. Using automated exposure control and adjustment of the mA and/or kV according to patient size, radiation dose was kept as low as reasonably achievable to ob tain optimal diagnostic quality images. DICOM format image data is available electronically for revi ew and comparison. FINDINGS: Cerebrum: The ventricles are normal for age. No evidence of midline shift, mass lesion, hemorrhage or acute infarction. No extraaxial fluid collections are seen. Posterior Fossa: The cerebellum and brainstem are intact. The 4th ventricle is midline. The cerebe llopontine angle is unremarkable. Extracranial: The visualized portion of the orbits is intact. Bilateral air-fluid levels in the maxi llary sinuses, left greater than right and opacification of bilateral ethmoid and frontal sinuses. Mi nimal mucosal thickening in the right sphenoid sinus. Skull: The calvaria is intact. No evidence of skull fracture. CONCLUSION: 1. No acute findings in the brain. 2. Pansinusitis. Electronically signed by: Wilmer Ferrer MD 01/07/2018 8:13 PM EDT
[2018-01-07 20:30] LABS: Baso # (Auto) 0.1 th/mm3 (0.0-0.2); Eos # (Auto) 0.1 th/mm3 (0.0-0.4); Eos % (Auto) 1.2 % (0.0-4.0); Hematocrit 48.7 % (35.0-46.0); Hemoglobin 16.2 gm/dL (11.6-15.3); Lymph # (Auto) 2.6 th/mm3 (1.0-4.8); Lymph % (Auto) 20.8 % (9.0-44.0); Mean Corpuscular HGB Conc 33.3 % (32.0-36.0); Mean Corpuscular Hemoglobin 28.4 pg (27.0-34.0); Mean Corpuscular Volume 85.3 fL (80.0-100.0); Mean Platelet Volume 7.6 fL (7.0-11.0); Mono # (Auto) 1.1 th/mm3 (0.0-0.9); Mono % (Auto) 8.6 % (0.0-8.0); Neut # (Auto) 8.4 th/mm3 (1.8-7.7); Neut % (Auto) 68.4 % (16.0-70.0); Platelet Count 414 th/mm3 (150-450); Red Blood Count 5.71 mil/mm3 (4.00-5.30); White Blood Count 12.3 th/mm3 (4.0-11.0)
[2018-01-07 20:40] LABS: Alanine Aminotransferase 19 U/L (10-53)
[2018-01-07 20:43] LABS: Alkaline Phosphatase 87 U/L (45-117); Total Protein 7.8 g/dL (6.4-8.2)
[2018-01-07 20:55] LABS: Thyroid Stimulating Hormone 1.43 uIU/mL (0.358-3.740)
[2018-01-07 21:00] LABS: Albumin 3.5 g/dL (3.4-5.0); Anion Gap 13 meq/L (5-15); Aspartate Aminotransferase 24 U/L (15-37); Blood Urea Nitrogen 21 mg/dL (7-18); Calcium 9.2 mg/dL (8.5-10.1); Carbon Dioxide 20.3 meq/L (21.0-32.0); Chloride 97 meq/L (98-107); Glomerular Filtration Rate 60 mL/min (>89); Glucose,Random 164 mg/dL (74-106); Magnesium 2.4 mg/dL (1.5-2.5); Sodium 130 meq/L (136-145)
[2018-01-07 21:13] LABS: Phosphorus 3.4 mg/dL (2.5-4.9)
[2018-01-07 21:18] LABS: Potassium 4.9 meq/L (3.5-5.1)
[2018-01-07] MEDS ORDERED: Sodium Chlor 0.9% Inj 500 ML IV.SIG ONE (21:20)
[2018-01-07 21:46] LABS: Bilirubin,Urine Negative (Negative); Clarity,Urine Clear (Clear); Color,Urine Yellow (Yellw/Straw); Glucose,Urine (UA) 50 mg/dL (Negative); Leukocyte Esterase,Urine Negative (Negative); Mucus,Urine Few /lpf (Occasional); Nitrite,Urine Negative (Negative); Specific Gravity,Urine 1.014 (1.002-1.035); Squamous Epithelial Cell,Urine <1 /hpf (0-5)
[2018-01-07] MEDS ORDERED: Temazepam 15 MG Capsule PO PRN (21:46)
[2018-01-07] MEDS ORDERED: Bisacodyl 10 MG Supp RECTAL PRN (21:46)
--- NOTE | 2018-01-07 21:48 | P.HPIM ---
History of Present Illness Primary Care Physician: Priyanka Mckinnon MD History of Present Illness: This is an 87-year-old female with a PMH of basal Cell CA, HTN, Hyperlipidemia and Hypothyroidism was brought to the ER by Daughter secondary to generalized weakness and inability to ambulate. Per Daughter, patient states symptoms started in June, pt having to use walker and requiring some assistance w/ ambulation since that time, however since Thursday, pt now unable to ambulate at all, completely reliant on wheelchair. Was seen by Dr. Roe today and was referred for multiple laboratory studies, MRI Head/MRI C-Spine, LP and EMG/NCS. Daughter states no work up has been done yet as she has been unable to lift patient to get her into/out of the wheelchair or in the car. Also notes cough, nasal congestion and difficulty swallowing for which she's been seen by Dr. Salazar w/ ENT, started on antibiotics for sinusitis and referred for Barium Swallow. Pt states prior to June she was highly active but has had rapid decline x3 days. Denies fever, chills, trauma/injury, sick contacts. On arrival,BP 150/66, HR 83, O2 sat 97% on RA, Afebrile. WBC 12.3. BUN 21, GFR 60. Troponin negative. UA negative for UTI. CT Head with no acute findings, pansinusitis. CXR negative. - Diagnosis (1) Weakness (2) Gait instability (3) HTN (hypertension) Review of Systems All other systems reviewed negative except as stated in HPI PMFSH - History History Provided By: Patient - Medical History Medical History: Medical History (Last Reviewed 01/07/18 @ 19:22 by Taylor Sims MD) Basal cell carcinoma GERD (gastroesophageal reflux disease) High cholesterol Hypertension Hypothyroid - Surgical History Surgical History: Surgical History (Last Reviewed 01/07/18 @ 19:22 by Taylor Sims MD) H/O endarterectomy - Tobacco History Second Hand Smoke Exposure: No Tobacco Use In Past 30 Days: No Smoking Status: Never smoker - Alcohol History How Often Do You Have a Drink Containing Alcohol: Never - Substance Use History Substance History: No History of Abuse - Travel History Recent Travel in the [place] Within the Last 8 Weeks: No Recent Travel Out of the Country Within the Last 8 Weeks: No - Immunization History Tetanus Immunization: Unsure Hx Influenza Vaccine This Season: Yes Medications and Allergies Active Medications: Active Medications Al Hydroxide/Mg Hydroxide (Milk Of Magnesia Liq) 30 ml PO Q12H PRN PRN Reason: Mild Constipation Bisacodyl (Dulcolax Supp) 10 mg RECTAL DAILY PRN PRN Reason: SEVERE CONSITIPATION Sodium Chloride (Ns Inj) 1,000 mls @ 100 mls/hr IV.CONT .Q10H SACHIN Lactulose (Lactulose Liq) 30 ml PO DAILY PRN PRN Reason: SEVERE CONSITIPATION Ondansetron HCl (Zofran Inj) 4 mg IV.PUSH Q6H PRN PRN Reason: NAUSEA OR VOMITING Senna/Docusate Sodium (Sahra-Colace) 1 tab PO BID SACHIN Sennosides (Senokot) 17.2 mg PO Q12H PRN PRN Reason: Moderate Constipation Sodium Chloride (Ns Flush) 2 ml IV.FLUSH PRN PRN PRN Reason: FLUSH AFTER USING IV ACCESS Temazepam (Restoril) 15 mg PO HS PRN PRN Reason: INSOMNIA Allergies Allergy/AdvReac Type Severity Reaction Status Date / Time doxycycline Allergy Severe Nausea/Vomi Verified 01/07/18 19:34 ting guaifenesin AdvReac Severe "MAKES ME Verified 01/07/18 19:30 HIGH" Home Medications Medication Instructions Recorded Confirmed Type aspirin [Aspir-81] 81 mg PO DAILY 12/25/17 01/07/18 History levothyroxine 75 mcg PO DAILY 12/25/17 01/07/18 History montelukast 10 mg PO QPM 12/25/17 01/07/18 History omeprazole 40 mg PO DAILY 12/25/17 01/07/18 History cholecalciferol (vitamin D3) 4,000 unit PO DAILY 01/07/18 01/07/18 History [Vitamin D3] coenzyme Q10 [Co Q-10] 30 mg PO DAILY 01/07/18 01/07/18 History docosahexanoic acid-epa [Fish Oil] 1 cap PO DAILY 01/07/18 01/07/18 History ipratropium bromide 2 spray INTRANASAL BID 01/07/18 01/07/18 History metoprolol succinate 50 mg PO DAILY 01/07/18 01/07/18 History mupirocin 1 applic TOPICAL BID 01/07/18 01/07/18 History spironolactone 25 mg PO DAILY 01/07/18 01/07/18 History valsartan 320 mg PO DAILY 01/07/18 01/07/18 History Exam Vital signs: Vital Signs 01/07/18 17:25 01/07/18 19:42 01/07/18 20:52 Temperature 98.1 F Pulse Rate 77 76 74 Respiratory Rate 16 16 16 Blood Pressure 149/82 H 163/67 H 128/62 Pulse Oximetry 97 97 97 Intake & Output 01/07/18 01/07/18 01/08/18 06:59 18:59 06:59 Weight 64.864 kg Narrative: PE: GENERAL: Very pleasant elderly white female in no acute distress. HEENT: PERRLA, EOMI. No scleral icterus or conjunctival pallor. No lid lag or facial droop. CARDIOVASCULAR: Regular rate and rhythm. No obvious murmurs to auscultation. No chest tenderness to palpation. RESPIRATORY: No obvious rhonchi or wheezing. Clear to auscultation. Breath sounds equal bilaterally. GASTROINTESTINAL: Abdomen soft, non-tender, nondistended. BS normal. MUSCULOSKELETAL: Extremities without clubbing, cyanosis, or edema. No obvious deformities. NEUROLOGICAL: Awake, alert and oriented x4. No focal neurologic deficits. Generalized weakness all extremities. Moving both upper and lower extremities spontaneously. Results - Labs CBC & Chem 7: 01/07/18 19:33 01/07/18 19:33 Labs: Short CBC 01/07/18 Range/Units 19:33 WBC 12.3 H (4.0-11.0) th/mm3 Hgb 16.2 H (11.6-15.3) gm/dL Hct 48.7 H (35.0-46.0) % Plt Count 414 (150-450) th/mm3 BMP 01/07/18 19:33 Sodium 130 L Potassium 4.9 Chloride 97 L Carbon Dioxide 20.3 L BUN 21 H Creatinine 0.89 Calcium 9.2 Cardiac Enzymes 01/07/18 Range/Units 19:33 Troponin I Less than 0.02 L (0.02-0.05) ng/mL Liver Function 01/07/18 Range/Units 19:33 Total Bilirubin 0.6 (0.2-1.0) mg/dL AST 24 (15-37) U/L ALT 19 (10-53) U/L Alkaline Phosphatase 87 (45-117) U/L Albumin 3.5 (3.4-5.0) g/dL Urine 01/07/18 Range/Units 20:46 Urine Color Yellow (Yellw/Straw) Urine Clarity Clear (Clear) Urine pH 6.0 (5.0-8.5) Ur Specific [place] 1.014 (1.002-1.035) Urine Protein Negative (Neg-Trace) mg/dL Urine Glucose (UA) 50 (Negative) mg/dL - Imaging Impressions Chest X-Ray 01/07/18 19:16 CONCLUSION: The lungs are clear. Head CT 01/07/18 19:16 CONCLUSION: 1. No acute findings in the brain. 2. Pansinusitis. Caprini VTE Risk Assessment Caprini VTE Risk Assessment: No/Low Risk (score <= 1) Caprini Risk Assessment Model: Point Value = 1 Point Value = 2 Point Value = 3 Point Value = 5 Age 41-60 Minor surgery BMI > 25 kg/m2 Swollen legs Varicose veins or History of unexplained or recurrent spontaneous Oral contraceptives or hormone replacement Sepsis (< 1 month) Serious lung disease, including pneumonia (< 1 month) Abnormal pulmonary function Acute myocardial infarction Congestive heart failure (< 1 month) History of inflammatory bowel disease Medical patient at bed rest Age 61-74 Arthroscopic surgery Major open surgery (> 45 min) Laparoscopic surgery (> 45 min) Malignancy Confined to bed (> 72 hours) Immobilizing plaster cast Central venous access Age >= 75 History of VTE Family history of VTE Factor V Leiden Prothrombin [id number] Lupus anticoagulant Anticardiolipin antibodies Elevated serum homocysteine Heparin-induced thrombocytopenia Other congenital or acquired thrombophilia Stroke (< 1 month) Elective arthroplasty Hip, pelvis, or leg fracture Acute spinal cord injury (< 1 month) Prophylaxis Regimen: Total Risk Factor Score Risk Level Prophylaxis Regimen 0-1 Low Early ambulation 2 Moderate Order ONE of the following: *Sequential Compression Device (SCD) *Heparin 5000 units SQ BID 3-4 Higher Order ONE of the following medications: *Heparin 5000 units SQ TID *Enoxaparin/Lovenox 40 mg SQ daily (WT < 150 kg, CrCl > 30 mL/min) *Enoxaparin/Lovenox 30 mg SQ daily (WT < 150 kg, CrCl > 10-29 mL/min) *Enoxaparin/Lovenox 30 mg SQ BID (WT < 150 kg, CrCl > 30 mL/min) AND/OR *Sequential Compression Device (SCD) 5 or more Highest Order ONE of the following medications: *Heparin 5000 units SQ TID (Preferred with Epidurals) *Enoxaparin/Lovenox 40 mg SQ daily (WT < 150 kg, CrCl > 30 mL/min) *Enoxaparin/Lovenox 30 mg SQ daily (WT < 150 kg, CrCl > 10-29 mL/min) *Enoxaparin/Lovenox 30 mg SQ BID (WT < 150 kg, CrCl > 30 mL/min) AND *Sequential Compression Device (SCD) Assessment and Plan - Assessment (1) Weakness Code(s): R53.1 - Weakness Status: Acute (2) Gait instability Code(s): R26.81 - Unsteadiness on feet Status: Acute (3) HTN (hypertension) Code(s): I10 - Essential (primary) hypertension Status: Acute - Plan A/P: 1. Weakness: Generalized weakness x6 months, now w/ acute/rapid decline x3 days. No trauma/injury, no recent viral illness. Seen by Dr. Roe today, referred for multiple lab studies and imaging (Daughter has copy at bedside). Will obtain MRI Brain/C-Spine to eval for weakness/dysphagia, Consult Speech for eval/tx regarding dysphagia. Check Hgb A1c, TSH, Free T4, Hep Panel, SPEP/ UPEP, CRP, KARSTEN. Will also check B12/folate. Has upcoming appointment for EMG/ NCS and is to be scheduled for outpatient LP. Will Consult Neurology for further eval/recommendations. 2. Gait Instability: secondary to above, unable to ambulate without assistance , unsafe d/c home. PT for eval/tx, work up as above. 3. HTN: BP 150's, resume home medications, informed Daughter that Valsartan is non-formulary, may give own medication if she chooses. Monitor BP. 4. DVT Prophylaxis: SCD/Teds 5. Social work for d/c planning as needed. 6. Case discussed w/ ER physician at length, labs/records/imaging reviewed by me.
[2018-01-07] MEDS ORDERED: IPRATROPIUM BROMIDE NASAL SCH (22:00)
[2018-01-07] MEDS: Sod Chloride 0.9% Inj 1,000 ML IV.CONT SCH (22:16)
[2018-01-07] MEDS: Montelukast 10 MG Tablet PO SCH (23:00)
[2018-01-08] MEDS: Levothyroxine 75 MCG Tablet PO SCH (06:17)
[2018-01-08] MEDS: Sod Chloride 0.9% Inj 1,000 ML IV.CONT SCH ×2 (08:27→21:29)
[2018-01-08] MEDS ORDERED: [UNRECOGNIZED DRUG - OTHER] PO SCH (09:00)
[2018-01-08] MEDS ORDERED: COENZYME Q10 30 MG PO SCH (09:00)
[2018-01-08 10:02] LABS: Baso # (Auto) 0.1 th/mm3 (0.0-0.2); Baso % (Auto) 1.1 % (0.0-2.0); Eos # (Auto) 0.1 th/mm3 (0.0-0.4); Eos % (Auto) 1.5 % (0.0-4.0); Hemoglobin 15.1 gm/dL (11.6-15.3); Lymph % (Auto) 20.7 % (9.0-44.0); Mean Corpuscular HGB Conc 33.6 % (32.0-36.0); Mean Corpuscular Hemoglobin 28.9 pg (27.0-34.0); Mean Corpuscular Volume 85.9 fL (80.0-100.0); Mean Platelet Volume 7.4 fL (7.0-11.0); Mono # (Auto) 0.9 th/mm3 (0.0-0.9); Mono % (Auto) 9.4 % (0.0-8.0); Neut # (Auto) 6.6 th/mm3 (1.8-7.7); Neut % (Auto) 67.3 % (16.0-70.0); Platelet Count 389 th/mm3 (150-450); Red Blood Count 5.24 mil/mm3 (4.00-5.30); Red Cell Distribution Width 12.6 % (11.6-17.2); White Blood Count 9.9 th/mm3 (4.0-11.0)
--- NOTE | 2018-01-08 10:37 | ECG ---
Date Performed: 01/07/2018 Time Performed: 19:25:45 PTAGE: 87 years EKG: Sinus rhythm NORMAL ECG PREVIOUS TRACING 12/25/2017 20.02 Since the previous tracing, no significant change noted DOCTOR: Karolina Fernández Interpretating Date/Time 01/08/2018 10:35:51
[2018-01-08 10:39] LABS: Alanine Aminotransferase 15 U/L (10-53); Albumin 3.3 g/dL (3.4-5.0); Alkaline Phosphatase 81 U/L (45-117); Anion Gap 7 meq/L (5-15); Aspartate Aminotransferase 14 U/L (15-37); Blood Urea Nitrogen 17 mg/dL (7-18); Calcium 8.4 mg/dL (8.5-10.1); Carbon Dioxide 24.5 meq/L (21.0-32.0); Chloride 106 meq/L (98-107); Glomerular Filtration Rate 64 mL/min (>89); Glucose,Random 98 mg/dL (74-106); Potassium 4.3 meq/L (3.5-5.1); Sodium 137 meq/L (136-145); Total Protein 6.8 g/dL (6.4-8.2)
[2018-01-08 10:44] LABS: C-Reactive Protein 0.3 mg/dL (0.00-0.30); Free T4 (Free Thyroxine) 1.49 ng/dL (0.76-1.46); Thyroid Stimulating Hormone 1.32 uIU/mL (0.358-3.740)
[2018-01-08 10:56] LABS: % Iron Saturation 31.8 % (20-50); Iron 114 mcg/dL (50-170); Total Iron Binding Capacity 358 mcg/dL (250-450)
[2018-01-08 11:12] LABS: Hepatitis A IgM Antibody Nonreactive (Nonreactive)
[2018-01-08 11:20] LABS: Hepatitits B Surface Antigen Nonreactive (Nonreactive)
[2018-01-08] MEDS: Spironolactone 25 MG Tablet PO SCH (12:00)
[2018-01-08] MEDS: Senna/Docusate Sodium 8.6/50 MG Tablet PO SCH ×2 (12:01→21:42)
--- NOTE | 2018-01-08 12:49 | MR ---
EXAM DATE: 01/08/2018 12:25 PM EDT AGE/SEX: 87 years / Female INDICATIONS: . Increasing generalized weakness. CLINICAL DATA: This is the patient's subsequent encounter. Patient reports that signs and symptoms h ave been present for 4 - 6 months and indicates a pain score of 0/10. MEDICAL/SURGICAL HISTORY: Hypertension. Gastroesophageal reflux disease. basal cell carcinoma Carotid endarterectomy. COMPARISON: No prior exams available for comparison. TECHNIQUE: Multiplanar, multisequence examination of the brain was performed without contrast. FINDINGS: Cerebrum: Atrophy. The ventricles are normal for age. No evidence of midline shift, mass lesion, he morrhage or acute infarction. No extraaxial fluid collections are seen. The pituitary gland and sup rasellar cistern are normal in configuration. White Matter: No significant signal abnormalities are seen in the white matter. Posterior Fossa: The cerebellum and brainstem are intact. The 4th ventricle is midline. The cerebel lopontine angle is unremarkable. The cerebellar tonsils are normal in position. Diffusion Imaging: No focal areas of restricted diffusion are seen. No evidence of acute infarction . Extracranial: The visualized portions of the orbits are unremarkable. Mucosal thickening is seen in volving bilateral ethmoid air cells, bilateral maxillary sinuses, and bilateral frontal sinuses. Air- fluid levels are seen involving the maxillary sinuses bilaterally. Fluid signal seen within the masto id air cells bilaterally.. CONCLUSION: 1. No acute intracranial abnormality. 2. Atrophy. 3. Stiles sinus disease. 4. Fluid signal within the mastoid air cells bilaterally. Clinical evaluation for any signs of acute mastoiditis suggested. Electronically signed by: Wilmer Sandoval MD 01/08/2018 12:48 PM EDT
--- NOTE | 2018-01-08 13:42 | MR ---
EXAM DATE: 01/08/2018 1:20 PM EDT AGE/SEX: 87 years / Female INDICATIONS: . Increasing generalized weakness. CLINICAL DATA: This is the patient's subsequent encounter. Patient reports that signs and symptoms h ave been present for 4 - 6 months and indicates a pain score of 0/10. MEDICAL/SURGICAL HISTORY: Hypertension. Gastroesophageal reflux disease. basal cell carcinoma Carotid endarterectomy. COMPARISON: No prior exams available for comparison. TECHNIQUE: Multiplanar, multisequence MRI examination of the cervical spine was performed without co ntrast. FINDINGS: The marrow signal appears intact, and the spinal cord appears intact for technique. C2-C3: No appreciable compromise to the thecal sac, exiting nerve roots are seen. The neural foramin a are patent bilaterally. No appreciable thecal sac stenosis is seen. C3-C4: No appreciable compromise to the thecal sac, exiting nerve roots are seen. The neural foramin a are patent bilaterally. No appreciable thecal sac stenosis is seen. C4-C5: No appreciable compromise to the thecal sac, exiting nerve roots are seen. The neural foramin a are patent bilaterally. No appreciable thecal sac stenosis is seen. C5-C6: There is slight neural foramina compromise on the right due to asymmetrical bulging disc and hypertrophic changes. No appreciable thecal sac stenosis is seen. Slight degenerative changes are pr esent in the disc space and facets. C6-C7: No appreciable compromise to the thecal sac, exiting nerve roots are seen. The neural foramin a are patent bilaterally. No appreciable thecal sac stenosis is seen. Slight degenerative changes are present in the disc space and facets. Slight bulging disc and hypertrophic changes are seen with indentation on the thecal sac and no signi ficant compromise to the thecal sac or the exiting nerve roots. C7-T1: No appreciable compromise to the thecal sac, exiting nerve roots are seen. The neural foramin a are patent bilaterally. No appreciable thecal sac stenosis is seen. CONCLUSION: Slight neural foraminal compromise right C5-6. Electronically signed by: Peggy Alegria MD 01/08/2018 1:41 PM EDT
[2018-01-08 15:42] LABS: Hemoglobin A1c 5.7 % (4.3-6.0)
--- NOTE | 2018-01-08 17:12 | P.PNIM ---
Subjective Interval history: Patient reports progressive worsening of weakness since June, however with worsening over the past week. She does report sore throat, and was started on treatment for sinusitis prior to admission with Augmentin, however has not received. Denies any chest pain or shortness of breath. Denies nausea or vomiting. Physical Exam Vital signs: Vital Signs 01/07/18 17:25 01/07/18 19:42 01/07/18 20:52 Temperature 98.1 F Pulse Rate 77 76 74 Respiratory Rate 16 16 16 Blood Pressure 149/82 H 163/67 H 128/62 Pulse Oximetry 97 97 97 01/07/18 23:05 01/08/18 00:00 01/08/18 01:50 Temperature 98.1 F 97.5 F L Pulse Rate 83 79 Respiratory Rate 16 18 18 Blood Pressure 150/66 H 123/63 Pulse Oximetry 97 01/08/18 04:00 01/08/18 07:37 01/08/18 12:00 Temperature 97.7 F 97.8 F Pulse Rate 70 65 Respiratory Rate 18 16 Blood Pressure 137/63 141/64 H 165/72 H Pulse Oximetry 95 95 Intake & Output 01/07/18 01/08/18 01/08/18 18:59 06:59 18:59 Intake Total 1060 / 1060 1100 / 1100 Balance 1060 / 1060 1100 / 1100 Weight 64.864 kg 65.54 kg Intake: IV 500 / 500 1000 / 1000 NS Inj 1,000 ML @ 100 mls/hr IV 1000 / 1000 .CONT .Q10H SACHIN Rx#:[id number] NS Inj 500 ML @ Wide Open IV. 500 / 500 SIG BOLUS ONE Rx#:[id number] Oral 60 / 60 Other 500 / 500 100 / 100 Other: Other Intake Source Saline Solution Saline Solution # Voids 1 1 Narrative: GENERAL: Patient sitting up in bed. Appears comfortable. SKIN: Warm and dry. HEAD: Normocephalic. EYES: No scleral icterus. No injection or drainage. NECK: Supple, trachea midline. No JVD or lymphadenopathy. CARDIOVASCULAR: Regular rate and rhythm without murmurs, gallops, or rubs. RESPIRATORY: Breath sounds equal bilaterally. No accessory muscle use. GASTROINTESTINAL: Abdomen soft, non-tender, nondistended. MUSCULOSKELETAL: No cyanosis, or edema. 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 BACK: Nontender without obvious deformity. No CVA tenderness. Results - Labs CBC & Chem 7: 01/08/18 09:23 01/08/18 09:23 Laboratory Results - last 24 hr 01/07/18 01/07/18 01/07/18 19:33 19:33 19:33 WBC RBC Hgb Hct MCV MCH MCHC RDW Plt Count MPV Neut % (Auto) Lymph % (Auto) [place] % (Auto) Eos % (Auto) Baso % (Auto) Neut # (Auto) Lymph # (Auto) [place] # (Auto) Eos # (Auto) Baso # (Auto) WBC Differential Differential Comment ESR Sodium Potassium Chloride Carbon Dioxide Anion Gap BUN Creatinine Estimated GFR Random Glucose Hemoglobin A1c Calcium Phosphorus 3.4 Magnesium 2.4 Iron TIBC % Saturation Total Bilirubin AST ALT Alkaline Phosphatase Troponin I C-Reactive Protein B-Natriuretic Peptide 23 Total Protein Albumin Vitamin B12 TSH 1.430 Free T4 Cortisol 13.5 Urine Color Urine Clarity Urine pH Ur Specific [place] Urine Protein Urine Glucose (UA) Urine Ketones Urine Occult Blood Urine Nitrate Urine Bilirubin Urine Urobilinogen Ur Leukocyte Esterase Urine RBC Urine WBC Ur Squamous Epith Cells Urine Mucus Micro UA Comment Urine Culture Comments Hepatitis A IgM Ab Hep Bs Antigen Hep B Core IgM Ab Hep C IgG Ab 01/07/18 01/07/18 01/07/18 19:33 19:33 19:33 WBC 12.3 H RBC 5.71 H Hgb 16.2 H Hct 48.7 H MCV 85.3 MCH 28.4 MCHC 33.3 RDW 13.0 Plt Count 414 MPV 7.6 Neut % (Auto) 68.4 Lymph % (Auto) 20.8 [place] % (Auto) 8.6 H Eos % (Auto) 1.2 Baso % (Auto) 1.0 Neut # (Auto) 8.4 H Lymph # (Auto) 2.6 [place] # (Auto) 1.1 H Eos # (Auto) 0.1 Baso # (Auto) 0.1 WBC Differential . Differential Comment Auto diff final ESR 5 Sodium 130 L Potassium 4.9 Chloride 97 L Carbon Dioxide 20.3 L Anion Gap 13 BUN 21 H Creatinine 0.89 Estimated GFR 60 L Random Glucose 164 H Hemoglobin A1c Calcium 9.2 Phosphorus Magnesium Iron TIBC % Saturation Total Bilirubin 0.6 AST 24 ALT 19 Alkaline Phosphatase 87 Troponin I Less than 0.02 L C-Reactive Protein B-Natriuretic Peptide Total Protein 7.8 Albumin 3.5 Vitamin B12 TSH Free T4 Cortisol Urine Color Urine Clarity Urine pH Ur Specific [place] Urine Protein Urine Glucose (UA) Urine Ketones Urine Occult Blood Urine Nitrate Urine Bilirubin Urine Urobilinogen Ur Leukocyte Esterase Urine RBC Urine WBC Ur Squamous Epith Cells Urine Mucus Micro UA Comment Urine Culture Comments Hepatitis A IgM Ab Hep Bs Antigen Hep B Core IgM Ab Hep C IgG Ab 01/07/18 01/08/18 01/08/18 20:46 09:23 09:23 WBC 9.9 RBC 5.24 Hgb 15.1 Hct 45.0 MCV 85.9 MCH 28.9 MCHC 33.6 RDW 12.6 Plt Count 389 MPV 7.4 Neut % (Auto) 67.3 Lymph % (Auto) 20.7 [place] % (Auto) 9.4 H Eos % (Auto) 1.5 Baso % (Auto) 1.1 Neut # (Auto) 6.6 Lymph # (Auto) 2.0 [place] # (Auto) 0.9 Eos # (Auto) 0.1 Baso # (Auto) 0.1 WBC Differential . Differential Comment Auto diff final ESR Sodium 137 Potassium 4.3 Chloride 106 D Carbon Dioxide 24.5 Anion Gap 7 BUN 17 Creatinine 0.84 Estimated GFR 64 L Random Glucose 98 Hemoglobin A1c Calcium 8.4 L D Phosphorus Magnesium Iron TIBC % Saturation Total Bilirubin 0.7 AST 14 L ALT 15 Alkaline Phosphatase 81 Troponin I C-Reactive Protein B-Natriuretic Peptide Total Protein 6.8 D Albumin 3.3 L Vitamin B12 TSH Free T4 Cortisol Urine Color Yellow Urine Clarity Clear Urine pH 6.0 Ur Specific [place] 1.014 Urine Protein Negative Urine Glucose (UA) 50 Urine Ketones Negative Urine Occult Blood Negative Urine Nitrate Negative Urine Bilirubin Negative Urine Urobilinogen Less than 2 Ur Leukocyte Esterase Negative Urine RBC Less than 1 Urine WBC Less than 1 Ur Squamous Epith Cells <1 Urine Mucus Few H Micro UA Comment Cath-culture not ind Urine Culture Comments Cath-cult not ind Hepatitis A IgM Ab Hep Bs Antigen Hep B Core IgM Ab Hep C IgG Ab 01/08/18 01/08/18 01/08/18 09:23 09:23 09:23 WBC RBC Hgb Hct MCV MCH MCHC RDW Plt Count MPV Neut % (Auto) Lymph % (Auto) [place] % (Auto) Eos % (Auto) Baso % (Auto) Neut # (Auto) Lymph # (Auto) [place] # (Auto) Eos # (Auto) Baso # (Auto) WBC Differential Differential Comment ESR Sodium Potassium Chloride Carbon Dioxide Anion Gap BUN Creatinine Estimated GFR Random Glucose Hemoglobin A1c 5.7 Calcium Phosphorus Magnesium Iron TIBC % Saturation Total Bilirubin AST ALT Alkaline Phosphatase Troponin I C-Reactive Protein 0.30 B-Natriuretic Peptide Total Protein Albumin Vitamin B12 TSH 1.320 Free T4 1.49 H Cortisol Urine Color Urine Clarity Urine pH Ur Specific [place] Urine Protein Urine Glucose (UA) Urine Ketones Urine Occult Blood Urine Nitrate Urine Bilirubin Urine Urobilinogen Ur Leukocyte Esterase Urine RBC Urine WBC Ur Squamous Epith Cells Urine Mucus Micro UA Comment Urine Culture Comments Hepatitis A IgM Ab Nonreactive Hep Bs Antigen Nonreactive Hep B Core IgM Ab Nonreactive Hep C IgG Ab Nonreactive 01/08/18 09:23 WBC RBC Hgb Hct MCV MCH MCHC RDW Plt Count MPV Neut % (Auto) Lymph % (Auto) [place] % (Auto) Eos % (Auto) Baso % (Auto) Neut # (Auto) Lymph # (Auto) [place] # (Auto) Eos # (Auto) Baso # (Auto) WBC Differential Differential Comment ESR Sodium Potassium Chloride Carbon Dioxide Anion Gap BUN Creatinine Estimated GFR Random Glucose Hemoglobin A1c Calcium Phosphorus Magnesium Iron 114 TIBC 358 % Saturation 31.8 Total Bilirubin AST ALT Alkaline Phosphatase Troponin I C-Reactive Protein B-Natriuretic Peptide Total Protein Albumin Vitamin B12 Greater than 2000 H TSH Free T4 Cortisol Urine Color Urine Clarity Urine pH Ur Specific [place] Urine Protein Urine Glucose (UA) Urine Ketones Urine Occult Blood Urine Nitrate Urine Bilirubin Urine Urobilinogen Ur Leukocyte Esterase Urine RBC Urine WBC Ur Squamous Epith Cells Urine Mucus Micro UA Comment Urine Culture Comments Hepatitis A IgM Ab Hep Bs Antigen Hep B Core IgM Ab Hep C IgG Ab Microbiology 01/07/18 20:30 Blood - Peripheral Aerobic Blood Culture - Preliminary No growth in 1 day 01/07/18 20:30 Blood - Peripheral Anaerobic Blood Culture - Preliminary No growth in 1 day 01/07/18 20:25 Blood - Peripheral Aerobic Blood Culture - Preliminary No growth in 1 day 01/07/18 20:25 Blood - Peripheral Anaerobic Blood Culture - Preliminary No growth in 1 day - Imaging Impressions Chest X-Ray 01/07/18 19:16 CONCLUSION: The lungs are clear. Head CT 01/07/18 19:16 CONCLUSION: 1. No acute findings in the brain. 2. Pansinusitis. Cervical Spine MRI 01/08/18 00:00 CONCLUSION: Slight neural foraminal compromise right C5-6. Head MRI 01/08/18 00:00 CONCLUSION: 1. No acute intracranial abnormality. 2. Atrophy. 3. Stiles sinus disease. 4. Fluid signal within the mastoid air cells bilaterally. Clinical evaluation for any signs of acute mastoiditis suggested. Assessment and Plan - Assessment (1) Weakness Code(s): R53.1 - Weakness Status: Acute (2) Gait instability Code(s): R26.81 - Unsteadiness on feet Status: Acute (3) HTN (hypertension) Code(s): I10 - Essential (primary) hypertension Status: Acute - Plan //Weakness: Generalized weakness x6 months, now w/ acute/rapid decline x3 days. No trauma/injury, no recent viral illness. Seen by Dr. Roe today, referred for multiple lab studies and imaging (Daughter has copy at bedside). Will obtain MRI Brain/C-Spine to eval for weakness/dysphagia, Consult Speech for eval/tx regarding dysphagia. Check Hgb A1c, TSH, Free T4, Hep Panel, SPEP/ UPEP, CRP, KARSTEN. Will also check B12/folate. Has upcoming appointment for EMG/ NCS and is to be scheduled for outpatient LP. Will Consult Neurology for further eval/recommendations. 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 Sedimentation rate, EMG, vitamin D, CK, aldolase. Discussed with neurology who will evaluate the patient. //Sinusitis. 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 Will continue on Augmentin suspension. //Gait Instability: secondary to above, unable to ambulate without assistance, unsafe d/c home. PT for eval/tx, work up as above. //HTN: BP 150's = Renal blood pressure appears acceptable. Will continue metoprolol. Monitor blood pressure and adjust as necessary. //DVT Prophylaxis: SCD/Teds Discussed Condition With: Patient, nurse, family at bedside.
[2018-01-08] MEDS: Montelukast 10 MG Tablet PO SCH (17:48)
--- NOTE | 2018-01-08 18:39 | P.CONNEU ---
History of Present Illness Service: neurology Primary Care Provider: Priyanka Mckinnon MD Family Provider: Priyanka Mckinnon MD History of Present Illness: 87-year-old female with a PMH of basal Cell CA, HTN, Hyperlipidemia and Hypothyroidism was brought to the ER by Daughter secondary to generalized weakness and inability to ambulate x 6 months. feels weak in her hands and legs. began having diffiuclty driving turning the ignition in jun 2017. used to go to the [facility]week. mild neck pain, no radicular symptoms. has had mild dysphagia. denies any stiffness, tremors, rigidity, cramps. no diplopia, no ptosis. chronic numbness in her feet. Review of Systems All other systems reviewed negative except as stated in HPI [facility] - History History Provided By: Patient - Medical History Medical History: Medical History (Last Reviewed 01/08/18 @ 07:45 by Mahad Hanson) Basal cell carcinoma GERD (gastroesophageal reflux disease) High cholesterol Hypertension Hypothyroid - Surgical History Surgical History: Surgical History (Last Reviewed 01/08/18 @ 07:45 by Mahad Hanson) H/O endarterectomy - Tobacco History Second Hand Smoke Exposure: No Tobacco Use In Past 30 Days: No Smoking Status: Never smoker - Alcohol History How Often Do You Have a Drink Containing Alcohol: Never - Substance Use History Substance History: No History of Abuse - Travel History Recent Travel in the [place] Within the Last 8 Weeks: No Recent Travel Out of the Country Within the Last 8 Weeks: No - Immunization History Tetanus Immunization: Unsure Hx Influenza Vaccine This Season: Yes Medications and Allergies Active Medications: Active Medications Al Hydroxide/Mg Hydroxide (Milk Of Rachell Masters) 30 ml PO Q12H PRN PRN Reason: Mild Constipation Amoxicillin/Clavulanate Potassium (Augmentin 875/125 Mg) 1 tab PO BID [facility] Aspirin (Ecotrin) 81 mg PO DAILY [facility] Last Admin: 01/08/18 12:00 Dose: Not Given Bisacodyl (Dulcolax Supp) 10 mg RECTAL DAILY PRN PRN Reason: SEVERE CONSITIPATION Brimonidine Tartrate (Alphagan 0.2% Opth Drops) 1 drops EACH EYE BID [facility] Sodium Chloride (Ns Inj) 1,000 mls @ 100 mls/hr IV.CONT .Q10H [facility] Last Admin: 01/08/18 08:27 Dose: 100 mls/hr Lactulose (Lactulose Liq) 30 ml PO DAILY PRN PRN Reason: SEVERE CONSITIPATION Levobunolol HCl (Betagan 0.5% Opth Drops) 1 drop EACH EYE DAILY@1200 [facility] Levothyroxine Sodium (Synthroid) 75 mcg PO DAILY@0600 [facility] Last Admin: 01/08/18 06:17 Dose: Not Given Losartan Potassium (Cozaar) 25 mg PO DAILY [facility] Last Admin: 01/08/18 17:48 Dose: 25 mg Metoprolol Succinate (Toprol Xl) 50 mg PO DAILY [facility] Last Admin: 01/08/18 12:18 Dose: Not Given Montelukast Sodium (Singulair) 10 mg PO QPM [facility] Last Admin: 01/08/18 17:48 Dose: 10 mg Mupirocin (Bactroban 2% Oint) 1 applicatio TOPICAL BID [facility] Last Admin: 01/08/18 12:00 Dose: Not Given Ondansetron HCl (Zofran Inj) 4 mg IV.PUSH Q6H PRN PRN Reason: NAUSEA OR VOMITING Pantoprazole Sodium (Protonix) 40 mg PO DAILY [facility] Last Admin: 01/08/18 12:01 Dose: Not Given Patient Own Med- Ipratropium [place] Nasal [place] 0 each NASAL BID [facility] Last Admin: 01/07/18 22:15 Dose: Not Given Senna/Docusate Sodium (Sahra-Colace) 1 tab PO BID [facility] Last Admin: 01/08/18 12:01 Dose: Not Given Sennosides (Senokot) 17.2 mg PO Q12H PRN PRN Reason: Moderate Constipation Sodium Chloride (Ns Flush) 2 ml IV.FLUSH PRN PRN PRN Reason: FLUSH AFTER USING IV ACCESS Spironolactone (Aldactone) 25 mg PO DAILY [facility] Last Admin: 01/08/18 12:00 Dose: Not Given Temazepam (Restoril) 15 mg PO HS PRN PRN Reason: INSOMNIA Vitamin D (Vitamin D3) 4,000 unit PO DAILY [facility] Last Admin: 01/08/18 12:19 Dose: Not Given Allergies Allergy/AdvReac Type Severity Reaction Status Date / Time doxycycline Allergy Severe Nausea/Vomi Verified 01/07/18 19:34 ting guaifenesin AdvReac Severe "MAKES ME Verified 01/07/18 19:30 HIGH" Home Medications Medication Instructions Recorded Confirmed Type aspirin [Aspir-81] 81 mg PO DAILY 12/25/17 01/07/18 History levothyroxine 75 mcg PO DAILY 12/25/17 01/07/18 History montelukast 10 mg PO QPM 12/25/17 01/07/18 History omeprazole 40 mg PO DAILY 12/25/17 01/07/18 History cholecalciferol (vitamin D3) 4,000 unit PO DAILY 01/07/18 01/07/18 History [Vitamin D3] coenzyme Q10 [Co Q-10] 30 mg PO DAILY 01/07/18 01/07/18 History docosahexanoic acid-epa [Fish Oil] 1 cap PO DAILY 01/07/18 01/07/18 History ipratropium bromide 2 spray INTRANASAL BID 01/07/18 01/07/18 History metoprolol succinate 50 mg PO DAILY 01/07/18 01/07/18 History mupirocin 1 applic TOPICAL BID 01/07/18 01/07/18 History spironolactone 25 mg PO DAILY 01/07/18 01/07/18 History valsartan 320 mg PO DAILY 01/07/18 01/07/18 History brimonidine 1 drp OPHTHALMIC (EYE) BID 01/08/18 01/08/18 History levobunolol 1 drp OPHTHALMIC (EYE) QNOON 01/08/18 01/08/18 History Exam Vital signs: Vital Signs 01/07/18 19:42 01/07/18 20:52 01/07/18 23:05 Temperature 98.1 F Pulse Rate 76 74 83 Respiratory Rate 16 16 16 Blood Pressure 163/67 H 128/62 150/66 H Pulse Oximetry 97 97 01/08/18 00:00 01/08/18 01:50 01/08/18 04:00 Temperature 97.5 F L 97.7 F Pulse Rate 79 70 Respiratory Rate 18 18 18 Blood Pressure 123/63 137/63 Pulse Oximetry 97 95 01/08/18 07:37 01/08/18 12:00 01/08/18 16:00 Temperature 97.8 F 97.7 F Pulse Rate 65 69 Respiratory Rate 16 14 Blood Pressure 141/64 H 165/72 H 150/66 H Pulse Oximetry 95 98 Intake & Output 01/07/18 01/08/18 01/08/18 18:59 06:59 18:59 Intake Total 1060 / 1060 1100 / 1100 Balance 1060 / 1060 1100 / 1100 Weight 64.864 kg 65.54 kg Intake: IV 500 / 500 1000 / 1000 NS Inj 1,000 ML @ 100 mls/hr IV 1000 / 1000 .CONT .Q10H [facility] Rx#:[id number] NS Inj 500 ML @ Wide Open IV. 500 / 500 SIG BOLUS ONE Rx#:[id number] Oral 60 / 60 Other 500 / 500 100 / 100 Other: Other Intake Source Saline Solution Saline Solution # Voids 1 1 # Bowel Movements 1 - Constitutional no acute distress - Routine HEENT Exam Head: Present: normocephalic - Routine Neck Exam Present: supple - Routine Cardiovascular Exam Present: RRR - Routine Abdominal Exam Present: soft - Routine Neurological Exam Present: alert, oriented X3 ox 3, fluent, eomi, face sym, [place] to gravity with mild distal ext weakness, msr 1+, no clonus, planterflexor, mild distal reduced pin in distal le, proprioception minimally reduced, gait not assessed 2/2 fall risk, no fasciculations seen Results - Labs CBC & Chem 7: 01/08/18 09:23 01/08/18 09:23 Labs: Laboratory Results - last 24 hr 01/07/18 01/07/18 01/07/18 19:33 19:33 19:33 WBC RBC Hgb Hct MCV MCH MCHC RDW Plt Count MPV Neut % (Auto) Lymph % (Auto) [place] % (Auto) Eos % (Auto) Baso % (Auto) Neut # (Auto) Lymph # (Auto) [place] # (Auto) Eos # (Auto) Baso # (Auto) WBC Differential Differential Comment ESR Sodium Potassium Chloride Carbon Dioxide Anion Gap BUN Creatinine Estimated GFR Random Glucose Hemoglobin A1c Calcium Phosphorus 3.4 Magnesium 2.4 Iron TIBC % Saturation Total Bilirubin AST ALT Alkaline Phosphatase Lactate Dehydrogenase Troponin I C-Reactive Protein B-Natriuretic Peptide 23 Total Protein Albumin Vitamin B12 TSH 1.430 Free T4 Cortisol 13.5 Urine Color Urine Clarity Urine pH Ur Specific [place] Urine Protein Urine Glucose (UA) Urine Ketones Urine Occult Blood Urine Nitrate Urine Bilirubin Urine Urobilinogen Ur Leukocyte Esterase Urine RBC Urine WBC Ur Squamous Epith Cells Urine Mucus Micro UA Comment Urine Culture Comments Hepatitis A IgM Ab Hep Bs Antigen Hep B Core IgM Ab Hep C IgG Ab 01/07/18 01/07/18 01/07/18 19:33 19:33 19:33 WBC 12.3 H RBC 5.71 H Hgb 16.2 H Hct 48.7 H MCV 85.3 MCH 28.4 MCHC 33.3 RDW 13.0 Plt Count 414 MPV 7.6 Neut % (Auto) 68.4 Lymph % (Auto) 20.8 [place] % (Auto) 8.6 H Eos % (Auto) 1.2 Baso % (Auto) 1.0 Neut # (Auto) 8.4 H Lymph # (Auto) 2.6 [place] # (Auto) 1.1 H Eos # (Auto) 0.1 Baso # (Auto) 0.1 WBC Differential . Differential Comment Auto diff final ESR 5 Sodium 130 L Potassium 4.9 Chloride 97 L Carbon Dioxide 20.3 L Anion Gap 13 BUN 21 H Creatinine 0.89 Estimated GFR 60 L Random Glucose 164 H Hemoglobin A1c Calcium 9.2 Phosphorus Magnesium Iron TIBC % Saturation Total Bilirubin 0.6 AST 24 ALT 19 Alkaline Phosphatase 87 Lactate Dehydrogenase Troponin I Less than 0.02 L C-Reactive Protein B-Natriuretic Peptide Total Protein 7.8 Albumin 3.5 Vitamin B12 TSH Free T4 Cortisol Urine Color Urine Clarity Urine pH Ur Specific [place] Urine Protein Urine Glucose (UA) Urine Ketones Urine Occult Blood Urine Nitrate Urine Bilirubin Urine Urobilinogen Ur Leukocyte Esterase Urine RBC Urine WBC Ur Squamous Epith Cells Urine Mucus Micro UA Comment Urine Culture Comments Hepatitis A IgM Ab Hep Bs Antigen Hep B Core IgM Ab Hep C IgG Ab 01/07/18 01/08/18 01/08/18 20:46 09:23 09:23 WBC 9.9 RBC 5.24 Hgb 15.1 Hct 45.0 MCV 85.9 MCH 28.9 MCHC 33.6 RDW 12.6 Plt Count 389 MPV 7.4 Neut % (Auto) 67.3 Lymph % (Auto) 20.7 [place] % (Auto) 9.4 H Eos % (Auto) 1.5 Baso % (Auto) 1.1 Neut # (Auto) 6.6 Lymph # (Auto) 2.0 [place] # (Auto) 0.9 Eos # (Auto) 0.1 Baso # (Auto) 0.1 WBC Differential . Differential Comment Auto diff final ESR Sodium 137 Potassium 4.3 Chloride 106 D Carbon Dioxide 24.5 Anion Gap 7 BUN 17 Creatinine 0.84 Estimated GFR 64 L Random Glucose 98 Hemoglobin A1c Calcium 8.4 L D Phosphorus Magnesium Iron TIBC % Saturation Total Bilirubin 0.7 AST 14 L ALT 15 Alkaline Phosphatase 81 Lactate Dehydrogenase Troponin I C-Reactive Protein B-Natriuretic Peptide Total Protein 6.8 D Albumin 3.3 L Vitamin B12 TSH Free T4 Cortisol Urine Color Yellow Urine Clarity Clear Urine pH 6.0 Ur Specific [place] 1.014 Urine Protein Negative Urine Glucose (UA) 50 Urine Ketones Negative Urine Occult Blood Negative Urine Nitrate Negative Urine Bilirubin Negative Urine Urobilinogen Less than 2 Ur Leukocyte Esterase Negative Urine RBC Less than 1 Urine WBC Less than 1 Ur Squamous Epith Cells <1 Urine Mucus Few H Micro UA Comment Cath-culture not ind Urine Culture Comments Cath-cult not ind Hepatitis A IgM Ab Hep Bs Antigen Hep B Core IgM Ab Hep C IgG Ab 01/08/18 01/08/18 01/08/18 09:23 09:23 09:23 WBC RBC Hgb Hct MCV MCH MCHC RDW Plt Count MPV Neut % (Auto) Lymph % (Auto) [place] % (Auto) Eos % (Auto) Baso % (Auto) Neut # (Auto) Lymph # (Auto) [place] # (Auto) Eos # (Auto) Baso # (Auto) WBC Differential Differential Comment ESR Sodium Potassium Chloride Carbon Dioxide Anion Gap BUN Creatinine Estimated GFR Random Glucose Hemoglobin A1c 5.7 Calcium Phosphorus Magnesium Iron TIBC % Saturation Total Bilirubin AST ALT Alkaline Phosphatase Lactate Dehydrogenase Troponin I C-Reactive Protein 0.30 B-Natriuretic Peptide Total Protein Albumin Vitamin B12 TSH 1.320 Free T4 1.49 H Cortisol Urine Color Urine Clarity Urine pH Ur Specific [place] Urine Protein Urine Glucose (UA) Urine Ketones Urine Occult Blood Urine Nitrate Urine Bilirubin Urine Urobilinogen Ur Leukocyte Esterase Urine RBC Urine WBC Ur Squamous Epith Cells Urine Mucus Micro UA Comment Urine Culture Comments Hepatitis A IgM Ab Nonreactive Hep Bs Antigen Nonreactive Hep B Core IgM Ab Nonreactive Hep C IgG Ab Nonreactive 01/08/18 01/08/18 09:23 09:23 WBC RBC Hgb Hct MCV MCH MCHC RDW Plt Count MPV Neut % (Auto) Lymph % (Auto) [place] % (Auto) Eos % (Auto) Baso % (Auto) Neut # (Auto) Lymph # (Auto) [place] # (Auto) Eos # (Auto) Baso # (Auto) WBC Differential Differential Comment ESR Sodium Potassium Chloride Carbon Dioxide Anion Gap BUN Creatinine Estimated GFR Random Glucose Hemoglobin A1c Calcium Phosphorus Magnesium Iron 114 TIBC 358 % Saturation 31.8 Total Bilirubin AST ALT Alkaline Phosphatase Lactate Dehydrogenase 175 Troponin I C-Reactive Protein B-Natriuretic Peptide Total Protein Albumin Vitamin B12 Greater than 2000 H TSH Free T4 Cortisol Urine Color Urine Clarity Urine pH Ur Specific [place] Urine Protein Urine Glucose (UA) Urine Ketones Urine Occult Blood Urine Nitrate Urine Bilirubin Urine Urobilinogen Ur Leukocyte Esterase Urine RBC Urine WBC Ur Squamous Epith Cells Urine Mucus Micro UA Comment Urine Culture Comments Hepatitis A IgM Ab Hep Bs Antigen Hep B Core IgM Ab Hep C IgG Ab - Imaging Impressions Chest X-Ray 01/07/18 19:16 CONCLUSION: The lungs are clear. Head CT 01/07/18 19:16 CONCLUSION: 1. No acute findings in the brain. 2. Pansinusitis. Cervical Spine MRI 01/08/18 00:00 CONCLUSION: Slight neural foraminal compromise right C5-6. Head MRI 01/08/18 00:00 CONCLUSION: 1. No acute intracranial abnormality. 2. Atrophy. 3. [place] sinus disease. 4. Fluid signal within the mastoid air cells bilaterally. Clinical evaluation for any signs of acute mastoiditis suggested. 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 follow exam
[2018-01-08] MEDS: Amoxicillin/Clavulanate 875/125 MG Tablet PO SCH (22:09)
[2018-01-08] MEDS: Brimonidine 0.2% Opth Drops 5 ML Bottle EACH EYE SCH (22:09)
[2018-01-09] MEDS: Levothyroxine 75 MCG Tablet PO SCH (05:16)
[2018-01-09 09:15] LABS: Magnesium 2.2 mg/dL (1.5-2.5)
[2018-01-09] MEDS: Sod Chloride 0.9% Inj 1,000 ML IV.CONT SCH ×2 (09:36→13:59)
[2018-01-09] MEDS: Amoxicillin/Clavulanate 875/125 MG Tablet PO SCH ×2 (09:37→23:21)
[2018-01-09] MEDS: Brimonidine 0.2% Opth Drops 5 ML Bottle EACH EYE SCH ×2 (09:38→23:21)
[2018-01-09] MEDS: Senna/Docusate Sodium 8.6/50 MG Tablet PO SCH ×2 (09:38→23:22)
[2018-01-09] MEDS: Spironolactone 25 MG Tablet PO SCH (09:38)
--- NOTE | 2018-01-09 10:47 | P.PNNEU ---
Subjective Subjective Comments: No acute events reported Feels better this a.m. Daughter at bedside discussed with both No headache No chest pain No dyspnea Active Medications: Active Medications Al Hydroxide/Mg Hydroxide (Milk Of Magnesia Liq) 30 ml PO Q12H PRN PRN Reason: Mild Constipation Amoxicillin/Clavulanate Potassium (Augmentin 875/125 Mg) 1 tab PO BID [facility] Last Admin: 01/09/18 09:37 Dose: 1 tab Aspirin (Ecotrin) 81 mg PO DAILY [facility] Last Admin: 01/09/18 09:37 Dose: 81 mg Bisacodyl (Dulcolax Supp) 10 mg RECTAL DAILY PRN PRN Reason: SEVERE CONSITIPATION Brimonidine Tartrate (Alphagan 0.2% Opth Drops) 1 drops EACH EYE BID [facility] Last Admin: 01/09/18 09:38 Dose: 1 drops Sodium Chloride (Ns Inj) 1,000 mls @ 100 mls/hr IV.CONT .Q10H [facility] Last Admin: 01/09/18 09:36 Dose: 100 mls/hr Lactulose (Lactulose Liq) 30 ml PO DAILY PRN PRN Reason: SEVERE CONSITIPATION Levobunolol HCl (Betagan 0.5% Opth Drops) 1 drop EACH EYE DAILY@1200 [facility] Levothyroxine Sodium (Synthroid) 75 mcg PO DAILY@0600 [facility] Last Admin: 01/09/18 05:16 Dose: 75 mcg Losartan Potassium (Cozaar) 25 mg PO DAILY [facility] Last Admin: 01/09/18 09:37 Dose: 25 mg Metoprolol Succinate (Toprol Xl) 50 mg PO DAILY [facility] Last Admin: 01/09/18 09:37 Dose: 50 mg Montelukast Sodium (Singulair) 10 mg PO QPM [facility] Last Admin: 01/08/18 17:48 Dose: 10 mg Mupirocin (Bactroban 2% Oint) 1 applicatio TOPICAL BID [facility] Last Admin: 01/09/18 09:38 Dose: 1 applicatio Ondansetron HCl (Zofran Inj) 4 mg IV.PUSH Q6H PRN PRN Reason: NAUSEA OR VOMITING Pantoprazole Sodium (Protonix) 40 mg PO DAILY [facility] Last Admin: 01/09/18 09:37 Dose: 40 mg Patient Own Med- Ipratropium [place] Nasal [place] 0 each NASAL BID [facility] Last Admin: 01/07/18 22:15 Dose: Not Given Senna/Docusate Sodium (Sahra-Colace) 1 tab PO BID [facility] Last Admin: 01/09/18 09:38 Dose: 1 tab Sennosides (Senokot) 17.2 mg PO Q12H PRN PRN Reason: Moderate Constipation Sodium Chloride (Ns Flush) 2 ml IV.FLUSH PRN PRN PRN Reason: FLUSH AFTER USING IV ACCESS Spironolactone (Aldactone) 25 mg PO DAILY [facility] Last Admin: 01/09/18 09:38 Dose: 25 mg Temazepam (Restoril) 15 mg PO HS PRN PRN Reason: INSOMNIA Vitamin D (Vitamin D3) 4,000 unit PO DAILY [facility] Last Admin: 01/09/18 09:37 Dose: 4,000 unit Allergies/Adverse Reactions: Allergies Allergy/AdvReac Type Severity Reaction Status Date / Time doxycycline Allergy Severe Nausea/Vomi Verified 01/07/18 19:34 ting guaifenesin AdvReac Severe "MAKES ME Verified 01/07/18 19:30 HIGH" Review of Systems All other systems reviewed negative except as stated in HPI Physical Exam Vital signs: Vital Signs 01/08/18 12:00 01/08/18 16:00 01/09/18 00:00 Temperature 97.7 F 97.9 F Pulse Rate 69 69 Respiratory Rate 14 16 Blood Pressure 165/72 H 150/66 H 148/67 H Pulse Oximetry 98 96 01/09/18 04:00 01/09/18 08:00 Temperature 97.9 F 97.5 F L Pulse Rate 69 75 Respiratory Rate 16 18 Blood Pressure 163/84 H 164/77 H Pulse Oximetry 98 97 Intake & Output 01/08/18 01/09/18 01/09/18 18:59 06:59 18:59 Intake Total 1100 / 1100 1000 / 1000 950 / 950 Balance 1100 / 1100 1000 / 1000 950 / 950 Intake: IV 1000 / 1000 1000 / 1000 950 / 950 NS Inj 1,000 ML @ 100 mls/hr IV 1000 / 1000 1000 / 1000 950 / 950 .CONT .Q10H [facility] Rx#:[id number] Other 100 / 100 Other: Other Intake Source Saline Solution # Voids 1 Date of Last Bowel Movement 01/09/18 # Bowel Movements 1 Narrative: Awake alert sitting up eating breakfast oriented 3 pleasant articulate mild distal extremity weakness 4 out of 5 strength on solid propellant 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 strength but able to hold objects mild distal reduce pinprick light touch stocking distribution no neglect gait not assessed secondary to potential fall risk - Constitutional no acute distress - Routine HEENT Exam Head: Present: normocephalic, atraumatic Eye: Present: EOMI - Routine Neck Exam Present: supple - Routine Cardiovascular Exam Present: RRR - Routine Abdominal Exam Present: soft, normoactive bowel sounds - Routine Neurological Exam Present: alert, oriented X3 Objective Laboratory Results - last 24 hr 01/08/18 01/08/18 01/08/18 09:23 09:23 09:23 ESR Hemoglobin A1c 5.7 Magnesium Iron TIBC % Saturation Lactate Dehydrogenase Total Creatine Kinase C-Reactive Protein 0.30 Total Protein (PEP) Vitamin B12 Vitamin D 25-Hydroxy TSH 1.320 Free T4 1.49 H Hepatitis A IgM Ab Nonreactive Hep Bs Antigen Nonreactive Hep B Core IgM Ab Nonreactive Hep C IgG Ab Nonreactive 01/08/18 01/08/18 01/08/18 09:23 09:23 09:23 ESR Hemoglobin A1c Magnesium Iron 114 TIBC 358 % Saturation 31.8 Lactate Dehydrogenase 175 Total Creatine Kinase C-Reactive Protein Total Protein (PEP) Vitamin B12 Greater than 2000 H Vitamin D 25-Hydroxy 22.7 L TSH Free T4 Hepatitis A IgM Ab Hep Bs Antigen Hep B Core IgM Ab Hep C IgG Ab 01/08/18 01/08/18 01/08/18 19:54 19:54 19:54 ESR 18 Hemoglobin A1c Magnesium Iron TIBC % Saturation Lactate Dehydrogenase Total Creatine Kinase 29 C-Reactive Protein Total Protein (PEP) 6.4 Vitamin B12 Vitamin D 25-Hydroxy TSH Free T4 Hepatitis A IgM Ab Hep Bs Antigen Hep B Core IgM Ab Hep C IgG Ab 01/09/18 07:24 ESR Hemoglobin A1c Magnesium 2.2 Iron TIBC % Saturation Lactate Dehydrogenase Total Creatine Kinase C-Reactive Protein Total Protein (PEP) 6.3 L Vitamin B12 Vitamin D 25-Hydroxy TSH Free T4 Hepatitis A IgM Ab Hep Bs Antigen Hep B Core IgM Ab Hep C IgG Ab Microbiology 01/07/18 20:30 Aerobic Blood Culture - Preliminary Blood - Peripheral No growth in 1 day Anaerobic Blood Culture - Preliminary No growth in 1 day 01/07/18 20:25 Aerobic Blood Culture - Preliminary Blood - Peripheral No growth in 1 day Anaerobic Blood Culture - Preliminary No growth in 1 day Review/Management - Diagnosis (1) Neuropathy Code(s): G62.9 - Polyneuropathy, unspecified Status: Acute Current Visit: Yes (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 Regular floor for floor if possible with telemetry Discussed with patient and daughter agree with above
--- NOTE | 2018-01-09 13:01 | P.PNIM ---
Subjective Interval history: Patient reports that strength is a little better today. Able to lift her arms off the bed. Physical Exam Vital signs: Vital Signs 01/08/18 16:00 01/09/18 00:00 01/09/18 04:00 Temperature 97.7 F 97.9 F 97.9 F Pulse Rate 69 69 69 Respiratory Rate 14 16 16 Blood Pressure 150/66 H 148/67 H 163/84 H Pulse Oximetry 98 96 98 01/09/18 08:00 01/09/18 12:00 Temperature 97.5 F L 97.7 F Pulse Rate 75 67 Respiratory Rate 18 18 Blood Pressure 164/77 H 124/59 L Pulse Oximetry 97 98 Intake & Output 01/08/18 01/09/18 01/09/18 18:59 06:59 18:59 Intake Total 1100 / 1100 1000 / 1000 950 / 950 Balance 1100 / 1100 1000 / 1000 950 / 950 Intake: IV 1000 / 1000 1000 / 1000 950 / 950 NS Inj 1,000 ML @ 100 mls/hr IV 1000 / 1000 1000 / 1000 950 / 950 .CONT .Q10H [facility] Rx#:[id number] Other 100 / 100 Other: Other Intake Source Saline Solution # Voids 1 Date of Last Bowel Movement 01/09/18 # Bowel Movements 1 Narrative: GENERAL: Patient sitting up in bed. Appears comfortable. SKIN: Warm and dry. HEAD: Normocephalic. EYES: No scleral icterus. No injection or drainage. NECK: Supple, trachea midline. No JVD. CARDIOVASCULAR: Regular rate and rhythm without murmurs, gallops, or rubs. RESPIRATORY: Breath sounds equal bilaterally. No accessory muscle use. GASTROINTESTINAL: Abdomen soft, non-tender, nondistended. MUSCULOSKELETAL: No cyanosis, or edema. BACK: Nontender without obvious deformity. No CVA tenderness. Results - Labs CBC & Chem 7: 01/08/18 09:23 01/08/18 09:23 Laboratory Results - last 24 hr 01/08/18 01/08/18 01/08/18 09:23 09:23 09:23 ESR Hemoglobin A1c 5.7 Magnesium Lactate Dehydrogenase 175 Total Creatine Kinase Total Protein (PEP) Vitamin D 25-Hydroxy 22.7 L 01/08/18 01/08/18 01/08/18 19:54 19:54 19:54 ESR 18 Hemoglobin A1c Magnesium Lactate Dehydrogenase Total Creatine Kinase 29 Total Protein (PEP) 6.4 Vitamin D 25-Hydroxy 01/09/18 07:24 ESR Hemoglobin A1c Magnesium 2.2 Lactate Dehydrogenase Total Creatine Kinase Total Protein (PEP) 6.3 L Vitamin D 25-Hydroxy Microbiology 01/07/18 20:30 Blood - Peripheral Aerobic Blood Culture - Preliminary No growth in 2 days 01/07/18 20:30 Blood - Peripheral Anaerobic Blood Culture - Preliminary No growth in 2 days 01/07/18 20:25 Blood - Peripheral Aerobic Blood Culture - Preliminary No growth in 2 days 01/07/18 20:25 Blood - Peripheral Anaerobic Blood Culture - Preliminary No growth in 2 days - Imaging Impressions Cervical Spine MRI 01/08/18 00:00 CONCLUSION: Slight neural foraminal compromise right C5-6. Assessment and Plan - Assessment (1) Weakness Code(s): R53.1 - Weakness Status: Acute (2) Gait instability Code(s): R26.81 - Unsteadiness on feet Status: Acute (3) HTN (hypertension) Code(s): I10 - Essential (primary) hypertension Status: Acute - Plan //Weakness: Generalized weakness x6 months, now w/ acute/rapid decline x3 days. No trauma/injury, no recent viral illness. Seen by Dr. Roe today, referred for multiple lab studies and imaging (Daughter has copy at bedside). Will obtain MRI Brain/C-Spine to eval for weakness/dysphagia, Consult Speech for eval/tx regarding dysphagia. Check Hgb A1c, TSH, Free T4, Hep Panel, SPEP/ UPEP, CRP, KARSTEN. Will also check B12/folate. Has upcoming appointment for EMG/ NCS and is to be scheduled for outpatient LP. Will Consult Neurology for further eval/recommendations. 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 Sedimentation rate, EMG, vitamin D, CK, aldolase. Discussed with neurology who will evaluate the patient. = 01/09. Testing pending ordered by neurologist. Appreciate assistance. EMG hopefully can be done on Thursday. May need LP. //Sinusitis. 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 Will continue on Augmentin suspension. //Gait Instability: secondary to above, unable to ambulate without assistance, unsafe d/c home. PT for eval/tx, work up as above. //HTN: BP 150's = blood pressure appears acceptable. Will continue metoprolol. Monitor blood pressure and adjust as necessary. //DVT Prophylaxis: SCD/Teds Discharge Planning: We will need neurology clearance. PT following. Will likely need rehab.
[2018-01-09] MEDS: LEVOBUNOLOL 0.5% EACH EYE SCH (13:57)
[2018-01-09] MEDS: OPTH EACH EYE SCH (13:57)
--- NOTE | 2018-01-09 16:43 | P.RAD ---
Post Procedure Progress Note - Pre Procedure Diagnosis (1) Weakness (2) Gait instability (3) Neuropathy - Post Procedure Diagnosis (1) Weakness (2) Gait instability (3) Neuropathy - Procedure Information Procedure Date: 01/09/18 Supervising Radiologist: Gary Quevedo MD Anesthesia: Local - Plan of Activity Patient to Unit: Nursing Unit Patient Condition: Good See PACS Report for procedural detail/treatment. Spinal Procedure Lumbar Puncture L3-L4 Fluid Removal (CCs): 16 Fluid Description: Clear Puncture Time: 16:15
[2018-01-09 18:39] LABS: Lymphocytes, CSF 100 %; Neutrophils,CSF 0 %; RBC on Tube 4 15 /mm3
[2018-01-09] MEDS: Montelukast 10 MG Tablet PO SCH (19:16)
--- NOTE | 2018-01-09 19:47 | IR ---
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 CLINICAL DATA: This is the patient's initial encounter. Patient reports that signs and symptoms have been present for 2 days and indicates a pain score of 7/10. MEDICAL/SURGICAL HISTORY: Hypertension. Cardiovascular disease. GERD . basal cell carcinoma, fx cervical, lt ankle. COMPARISON: No prior exams available for comparison. FLUORO TIME (min): 1.4 IMAGE SERIES: 1 ACCESS SITE: L3-4 LUMBAR PUNCTURE TIME: 1615 hours FLUID: Total volume of 16 cc of clear fluid was removed. Fluid was sent to lab for ordered studies. . . PROCEDURE: 1. Fluoroscopic guided lumbar puncture. The risks, benefits and alternatives to the procedure were explained and verbal and written consent w as obtained. The site was prepped in sterile fashion. Full sterile technique was used, including ca p, mask, sterile gloves and gown and a large sterile sheet. Hand hygiene and 2% chlorhexidine and/or betadine/alcohol prep was utilized per protocol for cutaneous antisepsis. The skin and subcutaneous tissues were infiltrated with local anesthetic solution. With fluoroscopic guidance the lumbar thecal sac was punctured at the level above. The fluid describ ed above was removed without difficulty. The patient tolerated the procedure well and there were no complications. CONCLUSION: 1. Uncomplicated fluoroscopically guided lumbar puncture. Electronically signed by: Gary Quevedo MD 01/09/2018 7:46 PM EDT
[2018-01-09] MEDS ORDERED: DIOVAN 320 MG PO SCH (21:00)
[2018-01-10] MEDS: Sod Chloride 0.9% Inj 1,000 ML IV.CONT SCH ×3 (05:35→22:23)
[2018-01-10] MEDS: Levothyroxine 75 MCG Tablet PO SCH (06:21)
--- NOTE | 2018-01-10 10:36 | P.PNNEU ---
Subjective Subjective Comments: No acute events reported No headache No chest pain No dyspnea Active Medications: Active Medications Al Hydroxide/Mg Hydroxide (Milk Of Magnesia Liq) 30 ml PO Q12H PRN PRN Reason: Mild Constipation Amoxicillin/Clavulanate Potassium (Augmentin 875/125 Mg) 1 tab PO BID [facility] Last Admin: 01/09/18 23:21 Dose: 1 tab Aspirin (Ecotrin) 81 mg PO DAILY [facility] Last Admin: 01/09/18 09:37 Dose: 81 mg Bisacodyl (Dulcolax Supp) 10 mg RECTAL DAILY PRN PRN Reason: SEVERE CONSITIPATION Brimonidine Tartrate (Alphagan 0.2% Opth Drops) 1 drops EACH EYE BID [facility] Last Admin: 01/09/18 23:21 Dose: 1 drops Sodium Chloride (Ns Inj) 1,000 mls @ 100 mls/hr IV.CONT .Q10H [facility] Last Admin: 01/10/18 05:35 Dose: 100 mls/hr Lactulose (Lactulose Liq) 30 ml PO DAILY PRN PRN Reason: SEVERE CONSITIPATION Levobunolol HCl (Betagan 0.5% Opth Drops) 1 drop EACH EYE DAILY@1200 [facility] Last Admin: 01/09/18 13:57 Dose: Not Given Levothyroxine Sodium (Synthroid) 75 mcg PO DAILY@0600 [facility] Last Admin: 01/10/18 06:21 Dose: 75 mcg Losartan Potassium (Cozaar) 25 mg PO DAILY [facility] Last Admin: 01/09/18 09:37 Dose: 25 mg Metoprolol Succinate (Toprol Xl) 50 mg PO DAILY [facility] Last Admin: 01/09/18 09:37 Dose: 50 mg Montelukast Sodium (Singulair) 10 mg PO QPM [facility] Last Admin: 01/09/18 19:16 Dose: 10 mg Mupirocin (Bactroban 2% Oint) 1 applicatio TOPICAL BID [facility] Last Admin: 01/09/18 23:21 Dose: 1 applicatio Ondansetron HCl (Zofran Inj) 4 mg IV.PUSH Q6H PRN PRN Reason: NAUSEA OR VOMITING Pantoprazole Sodium (Protonix) 40 mg PO DAILY [facility] Last Admin: 01/09/18 09:37 Dose: 40 mg Patient Own Med- Ipratropium [place] Nasal [place] 0 each NASAL BID [facility] Last Admin: 01/07/18 22:15 Dose: Not Given Senna/Docusate Sodium (Sahra-Colace) 1 tab PO BID [facility] Last Admin: 01/09/18 23:22 Dose: 1 tab Sennosides (Senokot) 17.2 mg PO Q12H PRN PRN Reason: Moderate Constipation Sodium Chloride (Ns Flush) 2 ml IV.FLUSH PRN PRN PRN Reason: FLUSH AFTER USING IV ACCESS Spironolactone (Aldactone) 25 mg PO DAILY [facility] Last Admin: 01/09/18 09:38 Dose: 25 mg Temazepam (Restoril) 15 mg PO HS PRN PRN Reason: INSOMNIA Vitamin D (Vitamin D3) 4,000 unit PO DAILY [facility] Last Admin: 01/09/18 09:37 Dose: 4,000 unit Allergies/Adverse Reactions: Allergies Allergy/AdvReac Type Severity Reaction Status Date / Time doxycycline Allergy Severe Nausea/Vomi Verified 01/07/18 19:34 ting guaifenesin AdvReac Severe "MAKES ME Verified 01/07/18 19:30 HIGH" Review of Systems All other systems reviewed negative except as stated in HPI Physical Exam Vital signs: Vital Signs 01/09/18 12:00 01/09/18 15:39 01/09/18 16:56 Temperature 97.7 F 97.8 F 98.5 F Pulse Rate 67 69 64 Respiratory Rate 18 18 16 Blood Pressure 124/59 L 141/65 H 149/67 H Pulse Oximetry 98 98 95 01/09/18 20:00 01/09/18 23:10 01/10/18 03:31 Temperature 97.6 F 98.0 F Pulse Rate 64 65 Respiratory Rate 17 16 Blood Pressure 187/72 H 147/70 H 146/64 H Pulse Oximetry 98 97 Intake & Output 01/09/18 01/10/18 01/10/18 18:59 06:59 18:59 Intake Total 950 / 950 300 / 300 Balance 950 / 950 300 / 300 Intake: IV 950 / 950 NS Inj 1,000 ML @ 100 mls/hr IV 950 / 950 .CONT .Q10H [facility] Rx#:[id number] Oral 300 / 300 Other: # Voids 4 3 Date of Last Bowel Movement 01/09/18 01/09/18 Narrative: GENERAL: Awake alert oriented 3 pleasant, SKIN: Warm and dry. HEAD: Normocephalic. EYES: No scleral icterus. No injection or drainage. NECK: Supple, trachea midline. No JVD. CARDIOVASCULAR: Regular rate and rhythm RESPIRATORY: Breath sounds equal bilaterally. No accessory muscle use. GASTROINTESTINAL: Abdomen soft, non-tender, nondistended. MUSCULOSKELETAL: No cyanosis, or edema. Neurology: Awake alert oriented 3, fluent articulate follows., Pleasant. Extraocular movements intact no facial asymmetry tongue midline visual roger full. Moving all extremities to gravity no pronator drift. Objective Laboratory Results - last 24 hr 01/09/18 16:15 CSF Volume (1) 5.0 CSF Supernat Color (1) Clear CSF Gross Blood (1) Trace CSF Volume (2) 5.0 CSF Supernat Color (2) Clear CSF Volume (3) 5.0 CSF Supernat Color (3) Clear CSF Volume (4) 10.0 CSF Supernat Color (4) Clear CSF Gross Blood (4) Trace CSF WBC (4) 5 CSF RBC (4) 15 H CSF Neutrophils % 0 CSF Lymphocytes % 100 Microbiology 01/07/18 20:30 Aerobic Blood Culture - Preliminary Blood - Peripheral No growth in 2 days Anaerobic Blood Culture - Preliminary No growth in 2 days 01/07/18 20:25 Aerobic Blood Culture - Preliminary Blood - Peripheral No growth in 2 days Anaerobic Blood Culture - Preliminary No growth in 2 days Review/Management - Diagnosis (1) Neuropathy Code(s): G62.9 - Polyneuropathy, unspecified Status: Acute Current Visit: Yes (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 lesser likely [employer] lesion MRI brain scan mild atrophy no acute lesion. 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 CSF protein glucose pending EMG nerve conduction by rehab physicians. This can be done in the outpatient setting or in [place] rehab May require muscle biopsy at some point as well p.t. Regular floor for floor if possible with telemetry Discussed with patient and daughter and son at bedside
[2018-01-10] MEDS: Spironolactone 25 MG Tablet PO SCH (11:56)
[2018-01-10] MEDS: Amoxicillin/Clavulanate 875/125 MG Tablet PO SCH ×2 (11:56→21:17)
[2018-01-10] MEDS: Senna/Docusate Sodium 8.6/50 MG Tablet PO SCH ×2 (11:56→21:17)
[2018-01-10] MEDS: Brimonidine 0.2% Opth Drops 5 ML Bottle EACH EYE SCH ×2 (11:57→22:21)
--- NOTE | 2018-01-10 12:51 | P.PNIM ---
Subjective Interval history: Patient says that today strength is a little better. Denies any chest pain shortness of breath. Denies nausea vomiting. Physical Exam Vital signs: Vital Signs 01/09/18 15:39 01/09/18 16:56 01/09/18 20:00 Temperature 97.8 F 98.5 F 97.6 F Pulse Rate 69 64 64 Respiratory Rate 18 16 17 Blood Pressure 141/65 H 149/67 H 187/72 H Pulse Oximetry 98 95 98 01/09/18 23:10 01/10/18 03:31 01/10/18 12:00 Temperature 98.0 F 97.7 F Pulse Rate 65 75 Respiratory Rate 16 14 Blood Pressure 147/70 H 146/64 H 168/75 H Pulse Oximetry 97 95 Intake & Output 01/09/18 01/10/18 01/10/18 18:59 06:59 18:59 Intake Total 950 / 950 300 / 300 1000 / 1000 Balance 950 / 950 300 / 300 1000 / 1000 Intake: IV 950 / 950 1000 / 1000 NS Inj 1,000 ML @ 100 mls/hr IV 950 / 950 1000 / 1000 .CONT .Q10H [facility] Rx#:[id number] Oral 300 / 300 Other: # Voids 4 3 Date of Last Bowel Movement 01/09/18 01/09/18 Narrative: GENERAL: She is sitting up in bed. Appears comfortable. SKIN: Warm and dry. HEAD: Normocephalic. EYES: No scleral icterus. No injection or drainage. NECK: Supple, trachea midline. No JVD or lymphadenopathy. CARDIOVASCULAR: Regular rate and rhythm without murmurs, gallops, or rubs. RESPIRATORY: Breath sounds equal bilaterally. No accessory muscle use. GASTROINTESTINAL: Abdomen soft, non-tender, nondistended. MUSCULOSKELETAL: No cyanosis, or edema. BACK: Nontender without obvious deformity. No CVA tenderness. Results - Labs CBC & Chem 7: 01/08/18 09:23 01/08/18 09:23 Laboratory Results - last 24 hr 01/09/18 16:15 CSF Volume (1) 5.0 CSF Supernat Color (1) Clear CSF Gross Blood (1) Trace CSF Volume (2) 5.0 CSF Supernat Color (2) Clear CSF Volume (3) 5.0 CSF Supernat Color (3) Clear CSF Volume (4) 10.0 CSF Supernat Color (4) Clear CSF Gross Blood (4) Trace CSF WBC (4) 5 CSF RBC (4) 15 H CSF Neutrophils % 0 CSF Lymphocytes % 100 Microbiology 01/07/18 20:30 Blood - Peripheral Aerobic Blood Culture - Preliminary No growth in 3 days 01/07/18 20:30 Blood - Peripheral Anaerobic Blood Culture - Preliminary No growth in 3 days 01/07/18 20:25 Blood - Peripheral Aerobic Blood Culture - Preliminary No growth in 3 days 01/07/18 20:25 Blood - Peripheral Anaerobic Blood Culture - Preliminary No growth in 3 days - Imaging Impressions Lumbar Puncture Fluoroscopy 01/09/18 10:49 CONCLUSION: 1. Uncomplicated fluoroscopically guided lumbar puncture. Assessment and Plan - Assessment (1) Weakness Code(s): R53.1 - Weakness Status: Acute (2) Gait instability Code(s): R26.81 - Unsteadiness on feet Status: Acute (3) HTN (hypertension) Code(s): I10 - Essential (primary) hypertension Status: Acute - Plan //Weakness: Generalized weakness x6 months, now w/ acute/rapid decline x3 days. No trauma/injury, no recent viral illness. Seen by Dr. Roe today, referred for multiple lab studies and imaging (Daughter has copy at bedside). Will obtain MRI Brain/C-Spine to eval for weakness/dysphagia, Consult Speech for eval/tx regarding dysphagia. Check Hgb A1c, TSH, Free T4, Hep Panel, SPEP/ UPEP, CRP, KARSTEN. Will also check B12/folate. Has upcoming appointment for EMG/ NCS and is to be scheduled for outpatient LP. Will Consult Neurology for further eval/recommendations. 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 Sedimentation rate, EMG, vitamin D, CK, aldolase. Discussed with neurology who will evaluate the patient. = 01/09. Testing pending ordered by neurologist. Appreciate assistance. EMG hopefully can be done on Thursday. May need LP. = 01/10. Slight improvement. Workup pending. Appreciate neurology assistance. //Sinusitis. 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 Will continue on Augmentin suspension. //Gait Instability: secondary to above, unable to ambulate without assistance, unsafe d/c home. PT for eval/tx, work up as above. //HTN: BP 150's = blood pressure appears acceptable. Will continue metoprolol. Monitor blood pressure and adjust as necessary. //DVT Prophylaxis: SCD/Teds Discharge Planning: We will need neurology clearance. PT following. Will likely need rehab.
[2018-01-10] MEDS: LEVOBUNOLOL 0.5% EACH EYE SCH (16:12)
[2018-01-10] MEDS: OPTH EACH EYE SCH (16:12)
[2018-01-10] MEDS: Montelukast 10 MG Tablet PO SCH (18:11)
[2018-01-11] MEDS: Levothyroxine 75 MCG Tablet PO SCH (05:53)
[2018-01-11 07:48] LABS: Alanine Aminotransferase 17 U/L (10-53); Anion Gap 10 meq/L (5-15); Aspartate Aminotransferase 13 U/L (15-37); Blood Urea Nitrogen 10 mg/dL (7-18); Calcium 8.8 mg/dL (8.5-10.1); Carbon Dioxide 24.3 meq/L (21.0-32.0); Chloride 101 meq/L (98-107); Glomerular Filtration Rate 88 mL/min (>89); Glucose,Random 82 mg/dL (74-106); Potassium 3.8 meq/L (3.5-5.1); Sodium 135 meq/L (136-145)
[2018-01-11 07:50] LABS: Alkaline Phosphatase 79 U/L (45-117); Total Protein 6.7 g/dL (6.4-8.2)
[2018-01-11] MEDS: Brimonidine 0.2% Opth Drops 5 ML Bottle EACH EYE SCH ×2 (09:26→20:24)
[2018-01-11] MEDS: Sod Chloride 0.9% Inj 1,000 ML IV.CONT SCH (09:28)
[2018-01-11] MEDS: Spironolactone 25 MG Tablet PO SCH (09:31)
[2018-01-11] MEDS: Senna/Docusate Sodium 8.6/50 MG Tablet PO SCH ×2 (09:31→20:23)
[2018-01-11] MEDS: Amoxicillin/Clavulanate 875/125 MG Tablet PO SCH ×2 (09:33→20:24)
--- NOTE | 2018-01-11 09:36 | P.PNNEU ---
Subjective Subjective Comments: No acute events reported No headache No chest pain No dyspnea Active Medications: Active Medications Al Hydroxide/Mg Hydroxide (Milk Of Magnesia Liq) 30 ml PO Q12H PRN PRN Reason: Mild Constipation Amoxicillin/Clavulanate Potassium (Augmentin 875/125 Mg) 1 tab PO BID [facility] Last Admin: 01/10/18 21:17 Dose: 1 tab Aspirin (Ecotrin) 81 mg PO DAILY [facility] Last Admin: 01/10/18 11:56 Dose: 81 mg Bisacodyl (Dulcolax Supp) 10 mg RECTAL DAILY PRN PRN Reason: SEVERE CONSITIPATION Brimonidine Tartrate (Alphagan 0.2% Opth Drops) 1 drops EACH EYE BID [facility] Last Admin: 01/11/18 09:26 Dose: 1 drops Sodium Chloride (Ns Inj) 1,000 mls @ 100 mls/hr IV.CONT .Q10H [facility] Last Admin: 01/11/18 09:28 Dose: 100 mls/hr Lactulose (Lactulose Liq) 30 ml PO DAILY PRN PRN Reason: SEVERE CONSITIPATION Levobunolol HCl (Betagan 0.5% Opth Drops) 1 drop EACH EYE DAILY@1200 [facility] Last Admin: 01/10/18 16:12 Dose: 1 drop Levothyroxine Sodium (Synthroid) 75 mcg PO DAILY@0600 [facility] Last Admin: 01/11/18 05:53 Dose: 75 mcg Losartan Potassium (Cozaar) 25 mg PO DAILY [facility] Last Admin: 01/10/18 11:56 Dose: 25 mg Metoprolol Succinate (Toprol Xl) 50 mg PO DAILY [facility] Last Admin: 01/10/18 11:56 Dose: 50 mg Montelukast Sodium (Singulair) 10 mg PO QPM [facility] Last Admin: 01/10/18 18:11 Dose: 10 mg Mupirocin (Bactroban 2% Oint) 1 applicatio TOPICAL BID [facility] Last Admin: 01/10/18 22:21 Dose: 1 applicatio Ondansetron HCl (Zofran Inj) 4 mg IV.PUSH Q6H PRN PRN Reason: NAUSEA OR VOMITING Pantoprazole Sodium (Protonix) 40 mg PO DAILY [facility] Last Admin: 01/10/18 11:56 Dose: 40 mg Patient Own Med- Ipratropium [place] Nasal [place] 0 each NASAL BID [facility] Last Admin: 01/07/18 22:15 Dose: Not Given Senna/Docusate Sodium (Sahra-Colace) 1 tab PO BID [facility] Last Admin: 01/10/18 21:17 Dose: 1 tab Sennosides (Senokot) 17.2 mg PO Q12H PRN PRN Reason: Moderate Constipation Sodium Chloride (Ns Flush) 2 ml IV.FLUSH PRN PRN PRN Reason: FLUSH AFTER USING IV ACCESS Spironolactone (Aldactone) 25 mg PO DAILY [facility] Last Admin: 01/10/18 11:56 Dose: 25 mg Temazepam (Restoril) 15 mg PO HS PRN PRN Reason: INSOMNIA Vitamin D (Vitamin D3) 4,000 unit PO DAILY [facility] Last Admin: 01/10/18 11:57 Dose: 4,000 unit Allergies/Adverse Reactions: Allergies Allergy/AdvReac Type Severity Reaction Status Date / Time doxycycline Allergy Severe Nausea/Vomi Verified 01/07/18 19:34 ting guaifenesin AdvReac Severe "MAKES ME Verified 01/07/18 19:30 HIGH" Physical Exam Vital signs: Vital Signs 01/10/18 12:00 01/10/18 16:00 01/10/18 19:56 Temperature 97.7 F 97.9 F Pulse Rate 75 70 71 Respiratory Rate 14 18 17 Blood Pressure 168/75 H 180/78 H 142/68 H Pulse Oximetry 95 99 97 01/10/18 23:48 01/11/18 04:00 01/11/18 07:22 Temperature 98.1 F 98.4 F 97.7 F Pulse Rate 61 61 63 Respiratory Rate 17 16 16 Blood Pressure 104/52 L 164/70 H 180/73 H Pulse Oximetry 96 99 98 Intake & Output 01/10/18 01/11/18 01/11/18 18:59 06:59 18:59 Intake Total 1000 / 1000 1000 / 1000 1000 / 1000 Balance 1000 / 1000 1000 / 1000 1000 / 1000 Intake: IV 1000 / 1000 1000 / 1000 1000 / 1000 NS Inj 1,000 ML @ 100 mls/hr IV 1000 / 1000 1000 / 1000 1000 / 1000 .CONT .Q10H [facility] Rx#:[id number] Other: # Voids 6 Date of Last Bowel Movement 01/09/18 Narrative: GENERAL: She is sitting up in bed. Appears comfortable. SKIN: Warm and dry. HEAD: Normocephalic. EYES: No scleral icterus. No injection or drainage. NECK: Supple, trachea midline. No JVD or lymphadenopathy. CARDIOVASCULAR: Regular rate and rhythm without murmurs, gallops, or rubs. RESPIRATORY: Breath sounds equal bilaterally. No accessory muscle use. GASTROINTESTINAL: Abdomen soft, non-tender, nondistended. MUSCULOSKELETAL: No cyanosis, or edema. BACK: Nontender without obvious deformity. No CVA tenderness. NEUROLOGY: Awake alert oriented 3, extraocular was intact no facial asymmetry, mild distal extremity weakness without any significant atrophy slight reduced pinprick lower extremities - Constitutional no acute distress - Routine HEENT Exam Head: Present: normocephalic Eye: Present: EOMI - Routine Neck Exam Present: supple Objective Laboratory Results - last 24 hr 01/09/18 01/09/18 01/11/18 16:15 16:15 06:35 Sodium 135 L Potassium 3.8 Chloride 101 Carbon Dioxide 24.3 Anion Gap 10 BUN 10 Creatinine 0.64 Estimated GFR 88 L Random Glucose 82 Calcium 8.8 Total Bilirubin 0.5 AST 13 L ALT 17 Alkaline Phosphatase 79 Total Protein 6.7 Albumin 3.0 L CSF Glucose 69 CSF Total Protein 121.5 H Microbiology 01/07/18 20:30 Aerobic Blood Culture - Preliminary Blood - Peripheral No growth in 3 days Anaerobic Blood Culture - Preliminary No growth in 3 days 01/07/18 20:25 Aerobic Blood Culture - Preliminary Blood - Peripheral No growth in 3 days Anaerobic Blood Culture - Preliminary No growth in 3 days Review/Management - Diagnosis (1) Neuropathy Code(s): G62.9 - Polyneuropathy, unspecified Status: Acute Current Visit: Yes (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, unspecified Status: Acute Current Visit: Yes (3) Dehydration Code(s): E86.0 - Dehydration Status: Acute Current Visit: Yes (4) Weakness Code(s): R53.1 - Weakness Status: Acute Current Visit: Yes (5) Gait instability Code(s): R26.81 - Unsteadiness on feet Status: Acute Current Visit: Yes (6) HTN (hypertension) Code(s): I10 - Essential (primary) hypertension Status: Acute Current Visit : Yes - Review/Management Plan: slowly progressive weakness with chronic distal sensory neuropathy etiology: myopathy vs cidp Elevated CSF protein restless studies negative no sign of infection MRI brain scan mild atrophy no acute lesion. 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 This can be done in the outpatient setting or in [facility]-EMG nerve conduction pending May require muscle biopsy at some point as well p.t. Fifth floor [place] tower with telemetry; requested previously Discussed with patient and daughter (6) HTN (hypertension) Qualifiers: Hypertension type: essential hypertension Qualified Code(s): I10 - Essential (primary) hypertension
[2018-01-11 10:00] LABS: Baso # (Auto) 0.1 th/mm3 (0.0-0.2); Baso % (Auto) 1.3 % (0.0-2.0); Eos # (Auto) 0.2 th/mm3 (0.0-0.4); Eos % (Auto) 2.2 % (0.0-4.0); Hematocrit 40.4 % (35.0-46.0); Lymph # (Auto) 1.6 th/mm3 (1.0-4.8); Lymph % (Auto) 16.2 % (9.0-44.0); Mean Corpuscular HGB Conc 34.6 % (32.0-36.0); Mean Corpuscular Hemoglobin 29.2 pg (27.0-34.0); Mean Corpuscular Volume 84.5 fL (80.0-100.0); Mean Platelet Volume 7.4 fL (7.0-11.0); Mono # (Auto) 1.1 th/mm3 (0.0-0.9); Mono % (Auto) 11.3 % (0.0-8.0); Neut # (Auto) 6.9 th/mm3 (1.8-7.7); Platelet Count 345 th/mm3 (150-450); Red Blood Count 4.79 mil/mm3 (4.00-5.30); Red Cell Distribution Width 12.6 % (11.6-17.2)
[2018-01-11] MEDS ORDERED: IVIG (Immune Globulin) Inj 25 GM in Syringe/Bag 1 EACH IV.SIG SCH (11:00)
[2018-01-11] MEDS: Sodium Chlor 0.9% Inj 500 ML IV.SIG SCH (11:16)
--- NOTE | 2018-01-11 11:30 | P.PNIM ---
Subjective Interval history: Patient says she is feeling all right. No change in strength today. Denies any chest pain shortness of breath. Physical Exam Vital signs: Vital Signs 01/10/18 12:00 01/10/18 16:00 01/10/18 19:56 Temperature 97.7 F 97.9 F Pulse Rate 75 70 71 Respiratory Rate 14 18 17 Blood Pressure 168/75 H 180/78 H 142/68 H Pulse Oximetry 95 99 97 01/10/18 23:48 01/11/18 04:00 01/11/18 07:22 Temperature 98.1 F 98.4 F 97.7 F Pulse Rate 61 61 63 Respiratory Rate 17 16 16 Blood Pressure 104/52 L 164/70 H 180/73 H Pulse Oximetry 96 99 98 Intake & Output 01/10/18 01/11/18 01/11/18 18:59 06:59 18:59 Intake Total 1000 / 1000 1000 / 1000 1000 / 1000 Balance 1000 / 1000 1000 / 1000 1000 / 1000 Intake: IV 1000 / 1000 1000 / 1000 1000 / 1000 NS Inj 1,000 ML @ 100 mls/hr IV 1000 / 1000 1000 / 1000 1000 / 1000 .CONT .Q10H [facility] Rx#:[id number] Other: # Voids 6 Date of Last Bowel Movement 01/09/18 Narrative: GENERAL: Patient sitting up in bed. Appears comfortable. SKIN: Warm and dry. HEAD: Normocephalic. EYES: No scleral icterus. No injection or drainage. NECK: Supple, trachea midline. No JVD or lymphadenopathy. CARDIOVASCULAR: Regular rate and rhythm without murmurs, gallops, or rubs. RESPIRATORY: Breath sounds equal bilaterally. No accessory muscle use. GASTROINTESTINAL: Abdomen soft, non-tender, nondistended. MUSCULOSKELETAL: No cyanosis, or edema. BACK: Nontender without obvious deformity. No CVA tenderness. Results - Labs CBC & Chem 7: 01/11/18 09:17 01/11/18 06:35 Laboratory Results - last 24 hr 01/09/18 01/09/18 01/11/18 16:15 16:15 06:35 WBC RBC Hgb Hct MCV MCH MCHC RDW Plt Count MPV Neut % (Auto) Lymph % (Auto) Greene % (Auto) Eos % (Auto) Baso % (Auto) Neut # (Auto) Lymph # (Auto) Greene # (Auto) Eos # (Auto) Baso # (Auto) WBC Differential Differential Comment Sodium 135 L Potassium 3.8 Chloride 101 Carbon Dioxide 24.3 Anion Gap 10 BUN 10 Creatinine 0.64 Estimated GFR 88 L Random Glucose 82 Calcium 8.8 Total Bilirubin 0.5 AST 13 L ALT 17 Alkaline Phosphatase 79 Total Protein 6.7 Albumin 3.0 L CSF Glucose 69 CSF Total Protein 121.5 H 01/11/18 09:17 WBC 10.0 RBC 4.79 Hgb 14.0 Hct 40.4 MCV 84.5 MCH 29.2 MCHC 34.6 RDW 12.6 Plt Count 345 MPV 7.4 Neut % (Auto) 69.0 Lymph % (Auto) 16.2 Greene % (Auto) 11.3 H Eos % (Auto) 2.2 Baso % (Auto) 1.3 Neut # (Auto) 6.9 Lymph # (Auto) 1.6 Greene # (Auto) 1.1 H Eos # (Auto) 0.2 Baso # (Auto) 0.1 WBC Differential . Differential Comment Auto diff final Sodium Potassium Chloride Carbon Dioxide Anion Gap BUN Creatinine Estimated GFR Random Glucose Calcium Total Bilirubin AST ALT Alkaline Phosphatase Total Protein Albumin CSF Glucose CSF Total Protein Microbiology 01/07/18 20:30 Blood - Peripheral Aerobic Blood Culture - Preliminary No growth in 4 days 01/07/18 20:30 Blood - Peripheral Anaerobic Blood Culture - Preliminary No growth in 4 days 01/07/18 20:25 Blood - Peripheral Aerobic Blood Culture - Preliminary No growth in 4 days 01/07/18 20:25 Blood - Peripheral Anaerobic Blood Culture - Preliminary No growth in 4 days Assessment and Plan - Assessment (1) Weakness Code(s): R53.1 - Weakness Status: Acute (2) Gait instability Code(s): R26.81 - Unsteadiness on feet Status: Acute (3) HTN (hypertension) Code(s): I10 - Essential (primary) hypertension Status: Acute - Plan //Weakness: Generalized weakness x6 months, now w/ acute/rapid decline x3 days. No trauma/injury, no recent viral illness. Seen by Dr. Roe today, referred for multiple lab studies and imaging (Daughter has copy at bedside). Will obtain MRI Brain/C-Spine to eval for weakness/dysphagia, Consult Speech for eval/tx regarding dysphagia. Check Hgb A1c, TSH, Free T4, Hep Panel, SPEP/ UPEP, CRP, KARSTEN. Will also check B12/folate. Has upcoming appointment for EMG/ NCS and is to be scheduled for outpatient LP. Will Consult Neurology for further eval/recommendations. 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 Sedimentation rate, EMG, vitamin D, CK, aldolase. Discussed with neurology who will evaluate the patient. = 01/09. Testing pending ordered by neurologist. Appreciate assistance. EMG hopefully can be done on Thursday. May need LP. = 01/10. Slight improvement. Workup pending. Appreciate neurology assistance. = 01/11. 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 Appreciate assistance. Discussed with case management and nursing. Trying to get a bed upstairs. //Sinusitis. Family reports the patient was started on Augmentin the day prior to admission for sinusitis by her powder blender and pourer. Will continue on Augmentin suspension. //Gait Instability: secondary to above, unable to ambulate without assistance, unsafe d/c home. PT for eval/tx, work up as above. //HTN: BP 150's = blood pressure appears acceptable. Will continue metoprolol. Monitor blood pressure and adjust as necessary. = 01/11. Systolic blood pressures in the 180s. Will order Vasotec as needed. Decrease IV fluids. //DVT Prophylaxis: SCD/Teds Discharge Planning: Patient will receive IVIG inpatient. PT following. Will likely need rehab. (3) HTN (hypertension) Qualifiers: Hypertension type: essential hypertension Qualified Code(s): I10 - Essential (primary) hypertension
[2018-01-11] MEDS: OPTH EACH EYE SCH (18:59)
[2018-01-11] MEDS: LEVOBUNOLOL 0.5% EACH EYE SCH (18:59)
[2018-01-11] MEDS: Montelukast 10 MG Tablet PO SCH (20:24)
--- NOTE | 2018-01-11 21:01 | P.PN ---
Subjective Interval history: F/u weakness Physical Exam Vital signs: Vital Signs 01/10/18 23:48 01/11/18 04:00 01/11/18 07:22 Temperature 98.1 F 98.4 F 97.7 F Pulse Rate 61 61 63 Respiratory Rate 17 16 16 Blood Pressure 104/52 L 164/70 H 180/73 H Pulse Oximetry 96 99 98 01/11/18 12:00 01/11/18 16:00 01/11/18 20:00 Temperature 98.0 F 97.8 F 98.5 F Pulse Rate 65 65 67 Respiratory Rate 14 14 16 Blood Pressure 125/60 165/69 H 145/68 H Pulse Oximetry 98 97 98 Intake & Output 01/11/18 01/11/18 01/12/18 06:59 18:59 06:59 Intake Total 1000 / 1000 1000 / 1000 Balance 1000 / 1000 1000 / 1000 Intake: IV 1000 / 1000 1000 / 1000 NS Inj 1,000 ML @ 100 mls/hr IV 1000 / 1000 1000 / 1000 .CONT .Q10H [facility] Rx#:[id number] Narrative: GENERAL: Patient sitting up in bed. Appears comfortable. SKIN: Warm and dry. CARDIOVASCULAR: Regular rate and rhythm without murmurs, gallops, or rubs. RESPIRATORY: Breath sounds equal bilaterally. No accessory muscle use. GASTROINTESTINAL: Abdomen soft, non-tender, nondistended. MUSCULOSKELETAL: No cyanosis, or edema. BACK: Nontender without obvious deformity. No CVA tenderness. Results - Labs CBC & Chem 7: 01/11/18 09:17 01/11/18 06:35 Laboratory Results - last 24 hr 01/08/18 01/08/18 01/11/18 09:23 09:23 06:35 WBC RBC Hgb Hct MCV MCH MCHC RDW Plt Count MPV Neut % (Auto) Lymph % (Auto) [place] % (Auto) Eos % (Auto) Baso % (Auto) Neut # (Auto) Lymph # (Auto) [place] # (Auto) Eos # (Auto) Baso # (Auto) WBC Differential Differential Comment Sodium 135 L Potassium 3.8 Chloride 101 Carbon Dioxide 24.3 Anion Gap 10 BUN 10 Creatinine 0.64 Estimated GFR 88 L Random Glucose 82 Calcium 8.8 Total Bilirubin 0.5 AST 13 L ALT 17 Alkaline Phosphatase 79 Total Protein 6.7 Albumin 3.0 L KARSTEN Screen Neg RPR Nonreactive 01/11/18 09:17 WBC 10.0 RBC 4.79 Hgb 14.0 Hct 40.4 MCV 84.5 MCH 29.2 MCHC 34.6 RDW 12.6 Plt Count 345 MPV 7.4 Neut % (Auto) 69.0 Lymph % (Auto) 16.2 [place] % (Auto) 11.3 H Eos % (Auto) 2.2 Baso % (Auto) 1.3 Neut # (Auto) 6.9 Lymph # (Auto) 1.6 [place] # (Auto) 1.1 H Eos # (Auto) 0.2 Baso # (Auto) 0.1 WBC Differential . Differential Comment Auto diff final Sodium Potassium Chloride Carbon Dioxide Anion Gap BUN Creatinine Estimated GFR Random Glucose Calcium Total Bilirubin AST ALT Alkaline Phosphatase Total Protein Albumin KARSTEN Screen RPR Microbiology 01/07/18 20:30 Blood - Peripheral Aerobic Blood Culture - Preliminary No growth in 4 days 01/07/18 20:30 Blood - Peripheral Anaerobic Blood Culture - Preliminary No growth in 4 days 01/07/18 20:25 Blood - Peripheral Aerobic Blood Culture - Preliminary No growth in 4 days 01/07/18 20:25 Blood - Peripheral Anaerobic Blood Culture - Preliminary No growth in 4 days - Imaging ITS Impressions Chest X-Ray 01/07/18 19:16 CONCLUSION: The lungs are clear. Head CT 01/07/18 19:16 CONCLUSION: 1. No acute findings in the brain. 2. Pansinusitis. Cervical Spine MRI 01/08/18 00:00 CONCLUSION: Slight neural foraminal compromise right C5-6. Head MRI 01/08/18 00:00 CONCLUSION: 1. No acute intracranial abnormality. 2. Atrophy. 3. Stiles sinus disease. 4. Fluid signal within the mastoid air cells bilaterally. Clinical evaluation for any signs of acute mastoiditis suggested. Lumbar Puncture Fluoroscopy 01/09/18 10:49 CONCLUSION: 1. Uncomplicated fluoroscopically guided lumbar puncture. - Procedures LP Assessment and Plan - Assessment (1) Weakness Code(s): R53.1 - Weakness Status: Acute (2) Gait instability Code(s): R26.81 - Unsteadiness on feet Status: Acute (3) HTN (hypertension) Code(s): I10 - Essential (primary) hypertension Status: Acute - Plan //Weakness: Generalized weakness x6 months, now w/ acute/rapid decline x3 days. No trauma/injury, no recent viral illness. Seen by Dr. Roe, referred for multiple lab studies and imaging (Daughter has copy at bedside). Will obtain MRI Brain/C-Spine to eval for weakness/dysphagia, Consult Speech for eval /tx regarding dysphagia. Check Hgb A1c, TSH, Free T4, Hep Panel, SPEP/UPEP, CRP , KARSTEN. Will also check B12/folate. Has upcoming appointment for EMG/NCS and is to be scheduled for outpatient LP. Will Consult Neurology for further eval/ recommendations. 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 Sedimentation rate, EMG, vitamin D, CK, aldolase. Discussed with neurology who will evaluate the patient. = 01/09. Testing pending ordered by neurologist. Appreciate assistance. EMG hopefully can be done on Thursday. May need LP. = 01/10. Slight improvement. Workup pending. Appreciate neurology assistance. = 01/11. 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 Appreciate assistance. Discussed with case management and nursing. Trying to get a bed upstairs. //Sinusitis. Family reports the patient was started on Augmentin the day prior to admission for sinusitis by her sleep manager. Will continue on Augmentin suspension. //Gait Instability: secondary to above, unable to ambulate without assistance, unsafe d/c home. PT for eval/tx, work up as above. //HTN: BP 150's = blood pressure appears acceptable. Will continue metoprolol, aldactone and losartan. Monitor blood pressure and adjust as necessary. = 01/11. Systolic blood pressures in the 180s. Will order Vasotec as needed. Decrease IV fluids. //DVT Prophylaxis: SCD/Teds (3) HTN (hypertension) Qualifiers: Hypertension type: essential hypertension Qualified Code(s): I10 - Essential (primary) hypertension
[2018-01-12] MEDS: Levothyroxine 75 MCG Tablet PO SCH (06:25)
[2018-01-12] MEDS: Amoxicillin/Clavulanate 875/125 MG Tablet PO SCH ×2 (09:28→21:33)
[2018-01-12] MEDS: Spironolactone 25 MG Tablet PO SCH (09:31)
[2018-01-12] MEDS: Senna/Docusate Sodium 8.6/50 MG Tablet PO SCH ×2 (09:32→21:33)
[2018-01-12] MEDS: Brimonidine 0.2% Opth Drops 5 ML Bottle EACH EYE SCH ×2 (09:35→21:34)
--- NOTE | 2018-01-12 11:19 | P.PN ---
Subjective Interval history: awake and alert denies any pain, no headahces, nausea or vomiting, good po appetitie denies any incontinence states feels stronger- denies any numbness Physical Exam Vital signs: Vital Signs 01/11/18 12:00 01/11/18 16:00 01/11/18 20:00 Temperature 98.0 F 97.8 F 98.5 F Pulse Rate 65 65 67 Respiratory Rate 14 14 16 Blood Pressure 125/60 165/69 H 145/68 H Pulse Oximetry 98 97 98 01/11/18 21:00 01/12/18 00:00 01/12/18 04:00 Temperature 97.4 F L 97.9 F 98.0 F Pulse Rate 64 68 60 Respiratory Rate 14 14 14 Blood Pressure 132/78 124/79 121/70 Pulse Oximetry 94 L 95 95 01/12/18 04:17 01/12/18 08:00 Temperature 98.0 F 97.9 F Pulse Rate 60 64 Respiratory Rate 14 16 Blood Pressure 121/70 152/72 H Pulse Oximetry 95 96 Intake & Output 01/11/18 01/12/18 01/12/18 18:59 06:59 18:59 Intake Total 1500 / 1500 Balance 1500 / 1500 Weight 65.54 kg Intake: IV 1500 / 1500 NS Inj 1,000 ML @ 100 mls/hr IV 1000 / 1000 .CONT .Q10H [facility] Rx#:[id number] NS Inj 500 ML @ 500 mls/hr IV. 500 / 500 SIG Q24H [facility] Rx#:[id number] Other: Post Void Residual 300 # Voids 2 Date of Last Bowel Movement 01/11/18 01/11/18 Narrative: awake nad alert, oriented x 3. speech clear anicteric pupils equal no nuchal rigidity lungs- clear regular rhythm abdomen soft, good bowel sounds extremities no edema motor moves all extremities equally 4+/5, grossly no sensory deficits, but weak with against resistance Results - Labs CBC & Chem 7: 01/11/18 09:17 01/11/18 06:35 Laboratory Results - last 24 hr 01/08/18 01/08/18 01/08/18 09:23 09:23 19:54 Total Protein (PEP) Cancelled Albumin (PEP) Cancelled Albumin/Globulin Ratio Cancelled Azhla-5-Xkomvngfd Cancelled Irujk-1-Cqnorykix Cancelled Beta Globulins Cancelled Gamma Globulins Cancelled PEP Pathologist Comment Cancelled KARSTEN Screen Neg RPR Nonreactive 01/09/18 07:24 Total Protein (PEP) Albumin (PEP) 3.55 Albumin/Globulin Ratio 1.29 L Siesy-7-Gxxgoreqp 0.20 Zqlsl-3-Vzxmnmsii 0.93 Beta Globulins 0.71 Gamma Globulins 0.91 PEP Pathologist Comment KARSTEN Screen RPR Microbiology 01/07/18 20:30 Blood - Peripheral Aerobic Blood Culture - Final No growth in 5 days 01/07/18 20:30 Blood - Peripheral Anaerobic Blood Culture - Final No growth in 5 days 01/07/18 20:25 Blood - Peripheral Aerobic Blood Culture - Final No growth in 5 days 01/07/18 20:25 Blood - Peripheral Anaerobic Blood Culture - Final No growth in 5 days - Procedures LP Assessment and Plan - Assessment (1) Weakness Code(s): R53.1 - Weakness Status: Acute (2) Gait instability Code(s): R26.81 - Unsteadiness on feet Status: Acute (3) HTN (hypertension) Code(s): I10 - Essential (primary) hypertension Status: Acute - Plan 87 years old right handed female Myopathy vs cidp Generalized weakness x6 months, now w/ acute/rapid decline x3 days. Elevated CSF protein restless studies negative no sign of infectionlab studies and imaging (Daughter has copy at bedside). Will obtain MRI Brain/C-Spine to eval for weakness/dysphagia, Consult Speech for eval/tx regarding dysphagia. folate. Has upcoming appointment for EMG/NCS and is to be scheduled for outpatient LP. Will Consult Neurology for further eval/recommendations. 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 Sedimentation rate, EMG, vitamin D, CK, aldolase. Discussed with neurology who will evaluate the patient. - awaiting EMG hopefully can be done as IP May need LP per neurology 01/11. 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 possible reaction- erythema, no SOB - awaiting Neurology to re evaluate today Sinusitis. Family reports the patient was started on Augmentin the day prior to admission for sinusitis by her watch dial maker. Will continue on Augmentin suspension. Gait Instability: secondary to above, unable to ambulate without assistance, unsafe d/c home. PT for eval/tx HTN: improved readings =- continue on torpol XL and cozaar. Monitor and adjust HYpothyroidism- continue on Synthroid GERD- on PPI //DVT Prophylaxis: SCD/Teds Discharge Planning: Patient will receive IVIG inpatient. PT following. Will likely need rehab. (3) HTN (hypertension) Qualifiers: Hypertension type: essential hypertension Qualified Code(s): I10 - Essential (primary) hypertension
[2018-01-12] MEDS: OPTH EACH EYE SCH (13:04)
[2018-01-12] MEDS: LEVOBUNOLOL 0.5% EACH EYE SCH (13:04)
--- NOTE | 2018-01-12 15:28 | P.PNNEU ---
Subjective Subjective Comments: No acute events reported Tolerated IVIG; felt like she is able to eat her food more easily today No headache No chest pain No dyspnea Active Medications: Active Medications Al Hydroxide/Mg Hydroxide (Milk Of Magnesia Liq) 30 ml PO Q12H PRN PRN Reason: Mild Constipation Amoxicillin/Clavulanate Potassium (Augmentin 875/125 Mg) 1 tab PO BID [facility] Stop: 01/16/18 20:59 Last Admin: 01/12/18 09:28 Dose: 1 tab Aspirin (Ecotrin) 81 mg PO DAILY [facility] Last Admin: 01/12/18 09:30 Dose: 81 mg Bisacodyl (Dulcolax Supp) 10 mg RECTAL DAILY PRN PRN Reason: SEVERE CONSITIPATION Brimonidine Tartrate (Alphagan 0.2% Opth Drops) 1 drops EACH EYE BID [facility] Last Admin: 01/12/18 09:35 Dose: 1 drops Enalaprilat (Vasotec Inj) 1.25 mg IV.PUSH Q6H PRN PRN Reason: SBP>180, DBP>110 Immune Globulin 25 gm/ Syringe (/Bag) 250 mls @ 0 mls/hr IV.SIG Q24HR [facility]; Protocol Stop: 01/16/18 10:59 Last Admin: 01/11/18 13:19 Dose: 17.7 mls/hr Sodium Chloride (Ns Inj) 500 mls @ 500 mls/hr IV.SIG Q24H [facility] Stop: 01/16/18 09:59 Last Infusion: 01/11/18 12:15 Dose: Infused Lactulose (Lactulose Liq) 30 ml PO DAILY PRN PRN Reason: SEVERE CONSITIPATION Levobunolol HCl (Betagan 0.5% Opth Drops) 1 drop EACH EYE DAILY@1200 [facility] Last Admin: 01/12/18 13:04 Dose: 1 drop Levothyroxine Sodium (Synthroid) 75 mcg PO DAILY@0600 [facility] Last Admin: 01/12/18 06:25 Dose: 75 mcg Losartan Potassium (Cozaar) 25 mg PO DAILY [facility] Last Admin: 01/12/18 09:30 Dose: 25 mg Metoprolol Succinate (Toprol Xl) 50 mg PO DAILY [facility] Last Admin: 01/12/18 09:32 Dose: 50 mg Montelukast Sodium (Singulair) 10 mg PO QPM [facility] Last Admin: 01/11/18 20:24 Dose: 10 mg Mupirocin (Bactroban 2% Oint) 1 applicatio TOPICAL BID [facility] Last Admin: 01/12/18 09:35 Dose: 1 applicatio Ondansetron HCl (Zofran Inj) 4 mg IV.PUSH Q6H PRN PRN Reason: NAUSEA OR VOMITING Pantoprazole Sodium (Protonix) 40 mg PO DAILY [facility] Last Admin: 01/12/18 09:31 Dose: 40 mg Patient Own Med- Ipratropium [place] Nasal [place] 0 each NASAL BID [facility] Last Admin: 01/07/18 22:15 Dose: Not Given Senna/Docusate Sodium (Sahra-Colace) 1 tab PO BID [facility] Last Admin: 01/12/18 09:32 Dose: 1 tab Sennosides (Senokot) 17.2 mg PO Q12H PRN PRN Reason: Moderate Constipation Sodium Chloride (Ns Flush) 2 ml IV.FLUSH PRN PRN PRN Reason: FLUSH AFTER USING IV ACCESS Spironolactone (Aldactone) 25 mg PO DAILY [facility] Last Admin: 01/12/18 09:31 Dose: 25 mg Temazepam (Restoril) 15 mg PO HS PRN PRN Reason: INSOMNIA Vitamin D (Vitamin D3) 4,000 unit PO DAILY [facility] Last Admin: 01/12/18 09:29 Dose: 4,000 unit Allergies/Adverse Reactions: Allergies Allergy/AdvReac Type Severity Reaction Status Date / Time doxycycline Allergy Severe Nausea/Vomi Verified 01/07/18 19:34 ting guaifenesin AdvReac Severe "MAKES ME Verified 01/07/18 19:30 HIGH" Review of Systems All other systems reviewed negative except as stated in HPI Physical Exam Vital signs: Vital Signs 01/11/18 16:00 01/11/18 20:00 01/11/18 21:00 Temperature 97.8 F 98.5 F 97.4 F L Pulse Rate 65 67 64 Respiratory Rate 14 16 14 Blood Pressure 165/69 H 145/68 H 132/78 Pulse Oximetry 97 98 94 L 01/12/18 00:00 01/12/18 04:00 01/12/18 04:17 Temperature 97.9 F 98.0 F 98.0 F Pulse Rate 68 60 60 Respiratory Rate 14 14 14 Blood Pressure 124/79 121/70 121/70 Pulse Oximetry 95 95 95 01/12/18 08:00 01/12/18 12:00 Temperature 97.9 F 98 F Pulse Rate 64 59 L Respiratory Rate 16 16 Blood Pressure 152/72 H 113/56 L Pulse Oximetry 96 96 Intake & Output 01/11/18 01/12/18 01/12/18 18:59 06:59 18:59 Intake Total 1500 / 1500 Balance 1500 / 1500 Weight 65.54 kg Intake: IV 1500 / 1500 NS Inj 1,000 ML @ 100 mls/hr IV 1000 / 1000 .CONT .Q10H [facility] Rx#:[id number] NS Inj 500 ML @ 500 mls/hr IV. 500 / 500 SIG Q24H [facility] Rx#:[id number] Other: Post Void Residual 300 # Voids 2 1 Date of Last Bowel Movement 01/11/18 01/11/18 Narrative: GENERAL: Well nourished patient, in no apparent distress. SKIN: Warm and dry. HEAD: Atraumatic. Normocephalic. EYES: Pupils equal and round. No scleral icterus. No injection or drainage. ENT: Nose without drainage. NECK: Trachea midline. Neck is supple. CARDIOVASCULAR: Normal rate and regular rhythm without murmurs, RESPIRATORY: Symmetric, unlabored respirations. Breath sounds equal and clear to auscultation bilaterally. No wheezes, crackles, rales, or rhonchi. GASTROINTESTINAL: Abdomen soft, non-tender, non-distended. NEUROLOGICAL: Awake alert oriented 3 fluent articulate no aphasia. Extraocular movements intact no facial asymmetry tongue midline able raise upper extremity gravity without difficulty, resident care spec strength 4+ out of 5 bilateral able to raise all 4 extremity gravity, reflexes 1+ symmetric plantarflex response no clonus gait not assessed secondary to fall risk - Constitutional no acute distress - Routine HEENT Exam Head: Present: normocephalic, atraumatic Eye: Present: EOMI Objective Laboratory Results - last 24 hr 01/08/18 01/09/18 19:54 07:24 Total Protein (PEP) Cancelled Albumin (PEP) Cancelled 3.55 Albumin/Globulin Ratio Cancelled 1.29 L Krwpc-9-Igqhmuiqi Cancelled 0.20 Uopck-5-Xpjphbymp Cancelled 0.93 Beta Globulins Cancelled 0.71 Gamma Globulins Cancelled 0.91 PEP Pathologist Comment Cancelled Microbiology 01/07/18 20:30 Aerobic Blood Culture - Final Blood - Peripheral No growth in 5 days Anaerobic Blood Culture - Final No growth in 5 days 01/07/18 20:25 Aerobic Blood Culture - Final Blood - Peripheral No growth in 5 days Anaerobic Blood Culture - Final No growth in 5 days Review/Management - Diagnosis (1) Neuropathy Code(s): G62.9 - Polyneuropathy, unspecified Status: Acute Current Visit: Yes (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, unspecified Status: Acute Current Visit: Yes (3) Dehydration Code(s): E86.0 - Dehydration Status: Acute Current Visit: Yes (4) Weakness Code(s): R53.1 - Weakness Status: Acute Current Visit: Yes (5) Gait instability Code(s): R26.81 - Unsteadiness on feet Status: Acute Current Visit: Yes (6) HTN (hypertension) Code(s): I10 - Essential (primary) hypertension Status: Acute Current Visit : Yes (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
[2018-01-12] MEDS: Sodium Chlor 0.9% Inj 500 ML IV.SIG SCH (17:07)
[2018-01-12] MEDS: Acetaminophen 325 MG Tablet PO SCH (17:43)
[2018-01-12] MEDS: diphenhydrAMINE HCl 12.5 MG/5 ML Elixir UDC PO SCH (17:44)
[2018-01-12] MEDS: IVIG (Immune Globulin) Inj 25 GM in Syringe/Bag 1 EACH IV.SIG SCH (18:12)
[2018-01-12] MEDS: Montelukast 10 MG Tablet PO SCH (18:16)
[2018-01-13] MEDS: Levothyroxine 75 MCG Tablet PO SCH (05:35)
--- NOTE | 2018-01-13 07:41 | P.PNNEU ---
Subjective Subjective Comments: No acute events reported Tolerating IVIG no reaction Feeling stronger very excited about her strength is coming back No headache No chest pain No dyspnea Active Medications: Active Medications Acetaminophen (Tylenol) 325 mg PO DAILY@1730 [facility] Stop: 01/15/18 17:31 Last Admin: 01/12/18 17:43 Dose: 325 mg Al Hydroxide/Mg Hydroxide (Milk Of Magnesia Liq) 30 ml PO Q12H PRN PRN Reason: Mild Constipation Amoxicillin/Clavulanate Potassium (Augmentin 875/125 Mg) 1 tab PO BID [facility] Stop: 01/16/18 20:59 Last Admin: 01/12/18 21:33 Dose: 1 tab Aspirin (Ecotrin) 81 mg PO DAILY [facility] Last Admin: 01/12/18 09:30 Dose: 81 mg Bisacodyl (Dulcolax Supp) 10 mg RECTAL DAILY PRN PRN Reason: SEVERE CONSITIPATION Brimonidine Tartrate (Alphagan 0.2% Opth Drops) 1 drops EACH EYE BID [facility] Last Admin: 01/12/18 21:34 Dose: 1 drops Diphenhydramine HCl (Benadryl Liq) 12.5 mg PO DAILY@1730 [facility] Stop: 01/15/18 17:31 Last Admin: 01/12/18 17:44 Dose: 12.5 mg Enalaprilat (Vasotec Inj) 1.25 mg IV.PUSH Q6H PRN PRN Reason: SBP>180, DBP>110 Immune Globulin 25 gm/ Syringe (/Bag) 250 mls @ 19.66 mls/hr IV.SIG DAILY@1800 [facility]; Protocol Stop: 01/16/18 06:43 Last Admin: 01/12/18 18:12 Dose: 19.66 mls/hr Dextrose (D5w Inj) 500 mls @ 30 mls/hr IV.SIG UNSCH PRN PRN Reason: SEE LABEL COMMENTS Stop: 01/16/18 06:43 Sodium Chloride (Ns Inj) 500 mls @ 500 mls/hr IV.SIG Q24H [facility] Stop: 01/16/18 09:59 Last Infusion: 01/12/18 21:48 Dose: 0 mls/hr Lactulose (Lactulose Liq) 30 ml PO DAILY PRN PRN Reason: SEVERE CONSITIPATION Levobunolol HCl (Betagan 0.5% Opth Drops) 1 drop EACH EYE DAILY@1200 [facility] Last Admin: 01/12/18 13:04 Dose: 1 drop Levothyroxine Sodium (Synthroid) 75 mcg PO DAILY@0600 [facility] Last Admin: 01/13/18 05:35 Dose: 75 mcg Losartan Potassium (Cozaar) 25 mg PO DAILY [facility] Last Admin: 01/12/18 09:30 Dose: 25 mg Metoprolol Succinate (Toprol Xl) 50 mg PO DAILY [facility] Last Admin: 01/12/18 09:32 Dose: 50 mg Montelukast Sodium (Singulair) 10 mg PO QPM [facility] Last Admin: 01/12/18 18:16 Dose: 10 mg Mupirocin (Bactroban 2% Oint) 1 applicatio TOPICAL BID [facility] Last Admin: 01/12/18 21:39 Dose: 1 applicatio Ondansetron HCl (Zofran Inj) 4 mg IV.PUSH Q6H PRN PRN Reason: NAUSEA OR VOMITING Pantoprazole Sodium (Protonix) 40 mg PO DAILY [facility] Last Admin: 01/12/18 09:31 Dose: 40 mg Patient Own Med- Ipratropium [place] Nasal [place] 0 each NASAL BID [facility] Last Admin: 01/07/18 22:15 Dose: Not Given Senna/Docusate Sodium (Sahra-Colace) 1 tab PO BID [facility] Last Admin: 01/12/18 21:33 Dose: 1 tab Sennosides (Senokot) 17.2 mg PO Q12H PRN PRN Reason: Moderate Constipation Sodium Chloride (Ns Flush) 2 ml IV.FLUSH PRN PRN PRN Reason: FLUSH AFTER USING IV ACCESS Spironolactone (Aldactone) 25 mg PO DAILY [facility] Last Admin: 01/12/18 09:31 Dose: 25 mg Temazepam (Restoril) 15 mg PO HS PRN PRN Reason: INSOMNIA Vitamin D (Vitamin D3) 4,000 unit PO DAILY [facility] Last Admin: 01/12/18 09:29 Dose: 4,000 unit Allergies/Adverse Reactions: Allergies Allergy/AdvReac Type Severity Reaction Status Date / Time doxycycline Allergy Severe Nausea/Vomi Verified 01/07/18 19:34 ting guaifenesin AdvReac Severe "MAKES ME Verified 01/07/18 19:30 HIGH" Review of Systems All other systems reviewed negative except as stated in HPI Physical Exam Vital signs: Vital Signs 01/12/18 08:00 01/12/18 12:00 01/12/18 16:00 Temperature 97.9 F 98 F 97.9 F Pulse Rate 64 59 L 65 Respiratory Rate 16 16 17 Blood Pressure 152/72 H 113/56 L 123/57 L Pulse Oximetry 96 96 95 01/12/18 18:12 01/12/18 18:32 01/12/18 18:47 Temperature 98.1 F 98.5 F Pulse Rate 66 57 L Respiratory Rate 16 16 16 Blood Pressure 162/60 H 164/70 H 122/61 Pulse Oximetry 95 01/12/18 19:15 01/12/18 19:36 01/12/18 20:00 Temperature 97.6 F 97.7 F 97.8 F Pulse Rate 60 58 L 63 Respiratory Rate 17 18 Blood Pressure 179/86 H 168/74 H 212/88 H Pulse Oximetry 98 98 98 01/13/18 00:00 Temperature 97.8 F Pulse Rate 60 Respiratory Rate 18 Blood Pressure 130/59 L Pulse Oximetry 95 Intake & Output 01/12/18 01/13/18 01/13/18 18:59 06:59 18:59 Intake Total 1100 / 1100 Balance 1100 / 1100 Intake: IV 1100 / 1100 NS Inj 500 ML @ 500 mls/hr IV. 100 / 100 SIG Q24H [facility] Rx#:[id number] Other: # Voids 1 Date of Last Bowel Movement 01/11/18 01/12/18 Narrative: GENERAL: Well nourished patient, in no apparent distress. SKIN: Warm and dry. HEAD: Atraumatic. Normocephalic. EYES: Pupils equal and round. No scleral icterus. No injection or drainage. ENT: Nose without drainage. NECK: Trachea midline. Neck is supple. CARDIOVASCULAR: Normal rate and regular rhythm without murmurs, RESPIRATORY: Symmetric, unlabored respirations. Breath sounds equal and clear to auscultation bilaterally. No wheezes, crackles, rales, or rhonchi. GASTROINTESTINAL: Abdomen soft, non-tender, non-distended. NEUROLOGICAL: Awake alert oriented 3 fluent articulate no aphasia. Extraocular movements intact no facial asymmetry tongue midline able raise upper extremity gravity without difficulty, beam builder helper strength 5- out of 5 bilateral able to raise all 4 extremity gravity, reflexes 1+ symmetric plantarflex response no clonus gait not assessed secondary to fall risk - Constitutional no acute distress - Routine HEENT Exam Head: Present: normocephalic Eye: Present: EOMI Objective Laboratory Results - last 24 hr 01/09/18 07:24 PEP Pathologist Comment Microbiology 01/07/18 20:30 Aerobic Blood Culture - Final Blood - Peripheral No growth in 5 days Anaerobic Blood Culture - Final No growth in 5 days 01/07/18 20:25 Aerobic Blood Culture - Final Blood - Peripheral No growth in 5 days Anaerobic Blood Culture - Final No growth in 5 days Review/Management - Diagnosis (1) CIDP (chronic inflammatory demyelinating polyneuropathy) Code(s): G61.81 - Chronic inflammatory demyelinating polyneuritis Status: Acute Current Visit: Yes (2) Neuropathy Code(s): G62.9 - Polyneuropathy, unspecified Status: Acute Current Visit: Yes (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, unspecified Status: Acute Current Visit: Yes (4) Dehydration Code(s): E86.0 - Dehydration Status: Acute Current Visit: Yes (5) Weakness Code(s): R53.1 - Weakness Status: Acute Current Visit: Yes (6) Gait instability Code(s): R26.81 - Unsteadiness on feet Status: Acute Current Visit: Yes (7) HTN (hypertension) Code(s): I10 - Essential (primary) hypertension Status: Acute Current Visit : Yes - Review/Management Plan: slowly progressive weakness with chronic distal sensory neuropathy Probable cidp Elevated CSF protein restless studies negative no sign of infection MRI brain scan mild atrophy no acute lesion. 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
[2018-01-13] MEDS: Amoxicillin/Clavulanate 875/125 MG Tablet PO SCH ×2 (09:49→21:26)
[2018-01-13] MEDS: Senna/Docusate Sodium 8.6/50 MG Tablet PO SCH ×2 (09:50→21:26)
[2018-01-13] MEDS: Spironolactone 25 MG Tablet PO SCH (09:50)
[2018-01-13] MEDS: Brimonidine 0.2% Opth Drops 5 ML Bottle EACH EYE SCH ×2 (09:51→21:29)
[2018-01-13] MEDS: Sodium Chlor 0.9% Inj 500 ML IV.SIG SCH (11:26)
--- NOTE | 2018-01-13 12:27 | P.PN ---
Subjective Interval history: patient feels great now able to feed heself no incontinence Physical Exam Vital signs: Vital Signs 01/12/18 16:00 01/12/18 18:12 01/12/18 18:32 Temperature 97.9 F 98.1 F Pulse Rate 65 66 57 L Respiratory Rate 17 16 16 Blood Pressure 123/57 L 162/60 H 164/70 H Pulse Oximetry 95 01/12/18 18:47 01/12/18 19:15 01/12/18 19:36 Temperature 98.5 F 97.6 F 97.7 F Pulse Rate 60 58 L Respiratory Rate 16 17 Blood Pressure 122/61 179/86 H 168/74 H Pulse Oximetry 95 98 98 01/12/18 20:00 01/13/18 00:00 01/13/18 04:00 Temperature 97.8 F 97.8 F 97.4 F L Pulse Rate 63 60 59 L Respiratory Rate 18 18 18 Blood Pressure 212/88 H 130/59 L 137/62 Pulse Oximetry 98 95 97 01/13/18 08:00 Temperature 98.5 F Pulse Rate 60 Respiratory Rate 18 Blood Pressure 132/83 Pulse Oximetry 93 L Intake & Output 01/12/18 01/13/18 01/13/18 18:59 06:59 18:59 Intake Total 1100 / 1100 400 / 400 Balance 1100 / 1100 400 / 400 Weight 65.5 kg Intake: IV 1100 / 1100 400 / 400 NS Inj 500 ML @ 500 mls/hr IV. 100 / 100 400 / 400 SIG Q24H [facility] Rx#:[id number] Other: # Voids 1 2 Date of Last Bowel Movement 01/11/18 01/12/18 Narrative: GENERAL: Well nourished patient, in no apparent distress. SKIN: Warm and dry. HEAD: Atraumatic. Normocephalic. EYES: Pupils equal and round. No scleral icterus. No injection or drainage. ENT: Nose without drainage. NECK: Trachea midline. Neck is supple. CARDIOVASCULAR: Normal rate and regular rhythm without murmurs, RESPIRATORY: Symmetric, unlabored respirations. Breath sounds equal and clear to auscultation bilaterally. No wheezes, crackles, rales, or rhonchi. GASTROINTESTINAL: Abdomen soft, non-tender, non-distended. NEUROLOGICAL: Awake alert oriented 3 fluent articulate no aphasia. Extraocular movements intact no facial asymmetry tongue midline able raise upper extremity gravity without difficulty, exterminator helper termite strength 5- out of 5 bilateral able to raise all 4 extremity gravity, reflexes 1+ symmetric plantarflex response no clonus gait not assessed secondary to fall risk Results - Labs CBC & Chem 7: 01/11/18 09:17 01/11/18 06:35 Laboratory Results - last 24 hr 01/09/18 07:24 PEP Pathologist Comment Microbiology 01/07/18 20:30 Blood - Peripheral Aerobic Blood Culture - Final No growth in 5 days 01/07/18 20:30 Blood - Peripheral Anaerobic Blood Culture - Final No growth in 5 days 01/07/18 20:25 Blood - Peripheral Aerobic Blood Culture - Final No growth in 5 days 01/07/18 20:25 Blood - Peripheral Anaerobic Blood Culture - Final No growth in 5 days - Procedures LP Assessment and Plan - Assessment (1) Weakness Code(s): R53.1 - Weakness Status: Acute (2) Gait instability Code(s): R26.81 - Unsteadiness on feet Status: Acute (3) HTN (hypertension) Code(s): I10 - Essential (primary) hypertension Status: Acute - Plan 87 years old right handed female Myopathy vs cidp Generalized weakness x6 months, now w/ acute/rapid decline x3 days. Elevated CSF protein restless studies negative no sign of infectionlab studies and imaging (Daughter has copy at bedside). Will obtain MRI Brain/C-Spine to eval for weakness/dysphagia, Consult Speech for eval/tx regarding dysphagia. folate. Has upcoming appointment for EMG/NCS and is to be scheduled for outpatient LP. Will Consult Neurology for further eval/recommendations. 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 Sedimentation rate, EMG, vitamin D, CK, aldolase. Discussed with neurology who will evaluate the patient. - awaiting EMG hopefully can be done as IP May need LP per neurology 01/11. Per Neurology notes - IVIG x 5 days for suspected CIDP- received first dose yesterday - -conrinue total 5 sessions till 01/16 Sinusitis. Family reports the patient was started on Augmentin the day prior to admission for sinusitis by her audio visual aide. Will continue on Augmentin suspension. Gait Instability: secondary to above, unable to ambulate without assistance, unsafe d/c home. PT for eval/tx HTN: improved readings =- continue on torpol XL and cozaar. Monitor and adjust HYpothyroidism- continue on Synthroid GERD- on PPI //DVT Prophylaxis: SCD/Teds Discharge Planning: Patient will receive IVIG inpatient. PT following. Will likely need rehab. CM ccnuslt for rehab choice (3) HTN (hypertension) Qualifiers: Hypertension type: essential hypertension Qualified Code(s): I10 - Essential (primary) hypertension
[2018-01-13] MEDS: LEVOBUNOLOL 0.5% EACH EYE SCH (12:47)
[2018-01-13] MEDS: OPTH EACH EYE SCH (12:47)
[2018-01-13] MEDS: diphenhydrAMINE HCl 12.5 MG/5 ML Elixir UDC PO SCH (17:56)
[2018-01-13] MEDS: Acetaminophen 325 MG Tablet PO SCH (17:56)
[2018-01-13] MEDS: IVIG (Immune Globulin) Inj 25 GM in Syringe/Bag 1 EACH IV.SIG SCH (18:45)
[2018-01-13] MEDS: Montelukast 10 MG Tablet PO SCH (19:11)
[2018-01-14] MEDS: Levothyroxine 75 MCG Tablet PO SCH (05:52)
[2018-01-14] MEDS: Amoxicillin/Clavulanate 875/125 MG Tablet PO SCH ×2 (08:48→20:53)
[2018-01-14] MEDS: Brimonidine 0.2% Opth Drops 5 ML Bottle EACH EYE SCH ×2 (08:48→21:13)
[2018-01-14] MEDS: Spironolactone 25 MG Tablet PO SCH (08:49)
--- NOTE | 2018-01-14 09:29 | P.PNNEU ---
Subjective Subjective Comments: No acute events reported Slept well feels stronger has been ambulating the halls with a walker Daughter bedside notices a difference No headache No chest pain No dyspnea Active Medications: Active Medications Acetaminophen (Tylenol) 325 mg PO DAILY@1730 [facility] Stop: 01/15/18 17:31 Last Admin: 01/13/18 17:56 Dose: 325 mg Al Hydroxide/Mg Hydroxide (Milk Of Magnesia Liq) 30 ml PO Q12H PRN PRN Reason: Mild Constipation Amoxicillin/Clavulanate Potassium (Augmentin 875/125 Mg) 1 tab PO BID [facility] Stop: 01/16/18 20:59 Last Admin: 01/14/18 08:48 Dose: 1 tab Aspirin (Ecotrin) 81 mg PO DAILY [facility] Last Admin: 01/14/18 08:49 Dose: 81 mg Bisacodyl (Dulcolax Supp) 10 mg RECTAL DAILY PRN PRN Reason: SEVERE CONSITIPATION Brimonidine Tartrate (Alphagan 0.2% Opth Drops) 1 drops EACH EYE BID [facility] Last Admin: 01/14/18 08:48 Dose: 1 drops Diphenhydramine HCl (Benadryl Liq) 12.5 mg PO DAILY@1730 [facility] Stop: 01/15/18 17:31 Last Admin: 01/13/18 17:56 Dose: 12.5 mg Enalaprilat (Vasotec Inj) 1.25 mg IV.PUSH Q6H PRN PRN Reason: SBP>180, DBP>110 Immune Globulin 25 gm/ Syringe (/Bag) 250 mls @ 19.66 mls/hr IV.SIG DAILY@1800 [facility]; Protocol Stop: 01/16/18 06:43 Last Admin: 01/13/18 18:45 Dose: 19.66 mls/hr Dextrose (D5w Inj) 500 mls @ 30 mls/hr IV.SIG UNSCH PRN PRN Reason: SEE LABEL COMMENTS Stop: 01/16/18 06:43 Sodium Chloride (Ns Inj) 500 mls @ 500 mls/hr IV.SIG Q24H [facility] Stop: 01/15/18 17:59 Lactulose (Lactulose Liq) 30 ml PO DAILY PRN PRN Reason: SEVERE CONSITIPATION Levobunolol HCl (Betagan 0.5% Opth Drops) 1 drop EACH EYE DAILY@1200 [facility] Last Admin: 01/13/18 12:47 Dose: 1 drop Levothyroxine Sodium (Synthroid) 75 mcg PO DAILY@0600 [facility] Last Admin: 01/14/18 05:52 Dose: 75 mcg Losartan Potassium (Cozaar) 25 mg PO DAILY [facility] Last Admin: 01/14/18 08:49 Dose: 25 mg Metoprolol Succinate (Toprol Xl) 50 mg PO DAILY [facility] Last Admin: 01/14/18 08:49 Dose: 50 mg Montelukast Sodium (Singulair) 10 mg PO QPM [facility] Last Admin: 01/13/18 19:11 Dose: 10 mg Mupirocin (Bactroban 2% Oint) 1 applicatio TOPICAL BID [facility] Last Admin: 01/14/18 08:50 Dose: 1 applicatio Ondansetron HCl (Zofran Inj) 4 mg IV.PUSH Q6H PRN PRN Reason: NAUSEA OR VOMITING Pantoprazole Sodium (Protonix) 40 mg PO DAILY [facility] Last Admin: 01/14/18 08:49 Dose: 40 mg Patient Own Med- Ipratropium [place] Nasal [place] 0 each NASAL BID [facility] Last Admin: 01/07/18 22:15 Dose: Not Given Senna/Docusate Sodium (Sahra-Colace) 1 tab PO BID [facility] Last Admin: 01/13/18 21:26 Dose: 1 tab Sennosides (Senokot) 17.2 mg PO Q12H PRN PRN Reason: Moderate Constipation Sodium Chloride (Ns Flush) 2 ml IV.FLUSH PRN PRN PRN Reason: FLUSH AFTER USING IV ACCESS Spironolactone (Aldactone) 25 mg PO DAILY [facility] Last Admin: 01/14/18 08:49 Dose: 25 mg Temazepam (Restoril) 15 mg PO HS PRN PRN Reason: INSOMNIA Vitamin D (Vitamin D3) 4,000 unit PO DAILY [facility] Last Admin: 01/14/18 08:49 Dose: 4,000 unit Allergies/Adverse Reactions: Allergies Allergy/AdvReac Type Severity Reaction Status Date / Time doxycycline Allergy Severe Nausea/Vomi Verified 01/07/18 19:34 ting guaifenesin AdvReac Severe "MAKES ME Verified 01/07/18 19:30 HIGH" Physical Exam Vital signs: Vital Signs 01/13/18 12:00 01/13/18 16:00 01/13/18 18:45 Temperature 97.7 F 97.7 F Pulse Rate 65 61 65 Respiratory Rate 18 18 18 Blood Pressure 105/65 140/59 L 140/56 L Pulse Oximetry 96 96 01/13/18 20:00 01/13/18 21:00 01/13/18 23:00 Temperature 98.7 F 98.1 F Pulse Rate 65 66 61 Respiratory Rate 18 18 Blood Pressure 151/67 H 154/70 H 130/64 Pulse Oximetry 98 98 01/14/18 00:00 01/14/18 01:00 01/14/18 02:00 Temperature 98.1 F Pulse Rate 60 80 64 Respiratory Rate 18 18 Blood Pressure 177/77 H 144/64 H 194/82 H Pulse Oximetry 98 01/14/18 03:00 01/14/18 04:00 01/14/18 08:00 Temperature 98 F Pulse Rate 61 66 64 Respiratory Rate 18 20 Blood Pressure 132/72 132/70 150/66 H Pulse Oximetry 96 Intake & Output 01/13/18 01/14/18 01/14/18 18:59 06:59 18:59 Intake Total 400 / 400 200 / 200 Balance 400 / 400 200 / 200 Weight 65.2 kg Intake: IV 400 / 400 NS Inj 500 ML @ 500 mls/hr IV. 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, unspecified Status: Acute Current Visit: Yes (4) Dehydration Code(s): E86.0 - Dehydration Status: Acute Current Visit: Yes (5) Weakness Code(s): R53.1 - Weakness Status: Acute Current Visit: Yes (6) Gait instability Code(s): R26.81 - Unsteadiness on feet Status: Acute Current Visit: Yes (7) HTN (hypertension) Code(s): I10 - Essential (primary) hypertension Status: Acute Current Visit : Yes - Review/Management Plan: slowly progressive weakness with chronic distal sensory neuropathy Probable cidp Elevated CSF protein restless studies negative no sign of infection MRI brain scan mild atrophy no acute lesion. 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 Social work to assist. She can get the IVIG first thing in the morning to facilitate discharge discussed with nurse as well and patient's daughter. Discussed with patient and daughter (7) HTN (hypertension) Qualifiers: Hypertension type: essential hypertension Qualified Code(s): I10 - Essential (primary) hypertension
--- NOTE | 2018-01-14 13:48 | P.PN ---
Subjective Interval history: feels great up and ambulated well with PT today with a FWW voiding Physical Exam Vital signs: Vital Signs 01/13/18 16:00 01/13/18 18:45 01/13/18 20:00 Temperature 97.7 F 98.7 F Pulse Rate 61 65 65 Respiratory Rate 18 18 18 Blood Pressure 140/59 L 140/56 L 151/67 H Pulse Oximetry 96 98 01/13/18 21:00 01/13/18 23:00 01/14/18 00:00 Temperature 98.1 F Pulse Rate 66 61 60 Respiratory Rate 18 18 Blood Pressure 154/70 H 130/64 177/77 H Pulse Oximetry 98 01/14/18 01:00 01/14/18 02:00 01/14/18 03:00 Temperature 98.1 F Pulse Rate 80 64 61 Respiratory Rate 18 18 Blood Pressure 144/64 H 194/82 H 132/72 Pulse Oximetry 98 01/14/18 04:00 01/14/18 08:00 01/14/18 12:00 Temperature 98 F 97.3 F L Pulse Rate 66 64 65 Respiratory Rate 20 20 Blood Pressure 132/70 150/66 H 118/60 Pulse Oximetry 96 96 Intake & Output 01/13/18 01/14/18 01/14/18 18:59 06:59 18:59 Intake Total 400 / 400 200 / 200 Balance 400 / 400 200 / 200 Weight 65.2 kg Intake: IV 400 / 400 NS Inj 500 ML @ 500 mls/hr IV. 400 / 400 SIG Q24H [facility] Rx#:[id number] Oral 200 / 200 Other: # Voids 1 3 Narrative: GENERAL: Well nourished patient, in no apparent distress. SKIN: Warm and dry. HEAD: Atraumatic. Normocephalic. EYES: Pupils equal and round. No scleral icterus. No injection or drainage. ENT: Nose without drainage. NECK: Trachea midline. Neck is supple. CARDIOVASCULAR: Normal rate and regular rhythm without murmurs, RESPIRATORY: Symmetric, unlabored respirations. Breath sounds equal and clear to auscultation bilaterally. No wheezes, crackles, rales, or rhonchi. GASTROINTESTINAL: Abdomen soft, non-tender, non-distended. NEUROLOGICAL: Awake alert oriented 3 fluent articulate no aphasia. Extraocular movements intact no facial asymmetry tongue midline able raise upper extremity gravity without difficulty, maintenance aide strength 5- out of 5 bilateral able to raise all 4 extremity gravity, reflexes 1+ symmetric plantarflex response no clonus - seen during PT session- walked well with walker Results - Labs CBC & Chem 7: 01/11/18 09:17 01/11/18 06:35 Laboratory Results - last 24 hr 01/08/18 01/08/18 01/09/18 19:54 19:54 13:32 Aldolase 6.5 Volt-[place] Ca Channel Ab ND Striated Muscle Ab Ttr ND Striated Muscle Ab Negative Acetylchol Rcpt Bind Ab Less than 0.30 - Procedures LP Assessment and Plan - Assessment (1) Weakness Code(s): R53.1 - Weakness Status: Acute (2) Gait instability Code(s): R26.81 - Unsteadiness on feet Status: Acute (3) HTN (hypertension) Code(s): I10 - Essential (primary) hypertension Status: Acute - Plan 87 years old right handed female cidp Generalized weakness x6 months, now w/ acute/rapid decline x3 days. Elevated CSF protein restless studies negative no sign of infectionlab studies and imaging (Daughter has copy at bedside). Will obtain MRI Brain/C-Spine to eval for weakness/dysphagia, Consult Speech for eval/tx regarding dysphagia. folate. Has upcoming appointment for EMG/NCS and is to be scheduled for outpatient LP. Will Consult Neurology for further eval/recommendations. 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 Sedimentation rate, EMG, vitamin D, CK, aldolase. Discussed with neurology who will evaluate the patient. - awaiting EMG hopefully can be done as IP - if not OP 01/11. Per Neurology notes - IVIG x 5 days for suspected CIDP- received first dose yesterday - -conrinue total 5 sessions till 01/16 Sinusitis. Family reports the patient was started on Augmentin the day prior to admission for sinusitis by her senior vice president and chief information officer. Will continue on Augmentin suspension. course Incentive spirometry hourly when awake CXR clear/lungs- clear Gait Instability: secondary to above, unable to ambulate without assistance, unsafe d/c home. PT for eval/tx HTN: improved readings =- continue on torpol XL and cozaar. Monitor and adjust HYpothyroidism- continue on Synthroid GERD- on PPI //DVT Prophylaxis: SCD/Teds Discharge Planning: Patient will receive IVIG inpatient. PT following. Will likely need rehab. CM roby for rehab choice- [facility], also consulted [facility] - good candidate for [facility] in am after IVIG last dose (3) HTN (hypertension) Qualifiers: Hypertension type: essential hypertension Qualified Code(s): I10 - Essential (primary) hypertension
[2018-01-14] MEDS: OPTH EACH EYE SCH (13:58)
[2018-01-14] MEDS: Senna/Docusate Sodium 8.6/50 MG Tablet PO SCH ×2 (13:58→20:53)
[2018-01-14] MEDS: LEVOBUNOLOL 0.5% EACH EYE SCH (13:58)
[2018-01-14] MEDS: Acetaminophen 325 MG Tablet PO SCH (18:02)
[2018-01-14] MEDS: diphenhydrAMINE HCl 12.5 MG/5 ML Elixir UDC PO SCH (18:03)
[2018-01-14] MEDS: Sodium Chlor 0.9% Inj 500 ML IV.SIG SCH (18:14)
[2018-01-14] MEDS: IVIG (Immune Globulin) Inj 25 GM in Syringe/Bag 1 EACH IV.SIG SCH (20:00)
[2018-01-14] MEDS: Montelukast 10 MG Tablet PO SCH (20:17)
[2018-01-15] MEDS: Levothyroxine 75 MCG Tablet PO SCH (05:04)
--- NOTE | 2018-01-15 08:44 | P.PNNEU ---
Subjective Subjective Comments: No acute events reported feeling stronger. tolerating ivig No headache No chest pain No dyspnea Active Medications: Active Medications Acetaminophen (Tylenol) 325 mg PO DAILY@1730 [facility] Stop: 01/15/18 17:31 Last Admin: 01/14/18 18:02 Dose: 325 mg Al Hydroxide/Mg Hydroxide (Milk Of Magnesia Liq) 30 ml PO Q12H PRN PRN Reason: Mild Constipation Amoxicillin/Clavulanate Potassium (Augmentin 875/125 Mg) 1 tab PO BID [facility] Stop: 01/16/18 20:59 Last Admin: 01/14/18 20:53 Dose: 1 tab Aspirin (Ecotrin) 81 mg PO DAILY [facility] Last Admin: 01/14/18 08:49 Dose: 81 mg Bisacodyl (Dulcolax Supp) 10 mg RECTAL DAILY PRN PRN Reason: SEVERE CONSITIPATION Brimonidine Tartrate (Alphagan 0.2% Opth Drops) 1 drops EACH EYE BID [facility] Last Admin: 01/14/18 21:13 Dose: 1 drops Diphenhydramine HCl (Benadryl Liq) 12.5 mg PO DAILY@1730 [facility] Stop: 01/15/18 17:31 Last Admin: 01/14/18 18:03 Dose: 12.5 mg Enalaprilat (Vasotec Inj) 1.25 mg IV.PUSH Q6H PRN PRN Reason: SBP>180, DBP>110 Immune Globulin 25 gm/ Syringe (/Bag) 250 mls @ 19.66 mls/hr IV.SIG DAILY@1800 [facility]; Protocol Stop: 01/16/18 06:43 Last Admin: 01/14/18 20:00 Dose: 19.66 mls/hr Dextrose (D5w Inj) 500 mls @ 30 mls/hr IV.SIG UNSCH PRN PRN Reason: SEE LABEL COMMENTS Stop: 01/16/18 06:43 Sodium Chloride (Ns Inj) 500 mls @ 500 mls/hr IV.SIG Q24H [facility] Stop: 01/15/18 17:59 Last Admin: 01/14/18 18:14 Dose: 500 mls/hr Lactulose (Lactulose Liq) 30 ml PO DAILY PRN PRN Reason: SEVERE CONSITIPATION Levobunolol HCl (Betagan 0.5% Opth Drops) 1 drop EACH EYE DAILY@1200 [facility] Last Admin: 01/14/18 13:58 Dose: 1 drop Levothyroxine Sodium (Synthroid) 75 mcg PO DAILY@0600 [facility] Last Admin: 01/15/18 05:04 Dose: 75 mcg Losartan Potassium (Cozaar) 25 mg PO DAILY [facility] Last Admin: 01/14/18 08:49 Dose: 25 mg Metoprolol Succinate (Toprol Xl) 50 mg PO DAILY [facility] Last Admin: 01/14/18 08:49 Dose: 50 mg Montelukast Sodium (Singulair) 10 mg PO QPM [facility] Last Admin: 01/14/18 20:17 Dose: 10 mg Mupirocin (Bactroban 2% Oint) 1 applicatio TOPICAL BID [facility] Last Admin: 01/14/18 21:13 Dose: 1 applicatio Ondansetron HCl (Zofran Inj) 4 mg IV.PUSH Q6H PRN PRN Reason: NAUSEA OR VOMITING Pantoprazole Sodium (Protonix) 40 mg PO DAILY [facility] Last Admin: 01/14/18 08:49 Dose: 40 mg Patient Own Med- Ipratropium [place] Nasal [place] 0 each NASAL BID [facility] Last Admin: 01/07/18 22:15 Dose: Not Given Senna/Docusate Sodium (Sahra-Colace) 1 tab PO BID [facility] Last Admin: 01/14/18 20:53 Dose: 1 tab Sennosides (Senokot) 17.2 mg PO Q12H PRN PRN Reason: Moderate Constipation Sodium Chloride (Ns Flush) 2 ml IV.FLUSH PRN PRN PRN Reason: FLUSH AFTER USING IV ACCESS Spironolactone (Aldactone) 25 mg PO DAILY [facility] Last Admin: 01/14/18 08:49 Dose: 25 mg Temazepam (Restoril) 15 mg PO HS PRN PRN Reason: INSOMNIA Vitamin D (Vitamin D3) 4,000 unit PO DAILY [facility] Last Admin: 01/14/18 08:49 Dose: 4,000 unit Allergies/Adverse Reactions: Allergies Allergy/AdvReac Type Severity Reaction Status Date / Time doxycycline Allergy Severe Nausea/Vomi Verified 01/07/18 19:34 ting guaifenesin AdvReac Severe "MAKES ME Verified 01/07/18 19:30 HIGH" Review of Systems All other systems reviewed negative except as stated in HPI Physical Exam Vital signs: Vital Signs 01/14/18 12:00 01/14/18 16:00 01/14/18 20:00 Temperature 97.3 F L 98.3 F 98.1 F Pulse Rate 65 67 68 Respiratory Rate 20 20 18 Blood Pressure 118/60 125/61 150/66 H Pulse Oximetry 96 95 97 01/15/18 00:00 01/15/18 04:00 Temperature 98.0 F 98.2 F Pulse Rate 95 H 66 Respiratory Rate 18 18 Blood Pressure 117/59 L 128/61 Pulse Oximetry 95 95 Intake & Output 01/14/18 01/15/18 01/15/18 18:59 06:59 18:59 Weight 65.2 kg 58.5 kg Other: # Voids 2 Narrative: GENERAL: Well nourished patient, in no apparent distress. SKIN: Warm and dry. HEAD: Atraumatic. Normocephalic. EYES: Pupils equal and round. No scleral icterus. No injection or drainage. ENT: Nose without drainage. NECK: Trachea midline. Neck is supple. CARDIOVASCULAR: Normal rate and regular rhythm RESPIRATORY: Symmetric, unlabored respirations. GASTROINTESTINAL: Abdomen soft, non-tender, non-distended. NEUROLOGICAL: Awake alert oriented 3 fluent articulate no aphasia. sitting up in chair, looks well. Extraocular movements intact no facial asymmetry tongue midline able raise upper extremity gravity without difficulty, insurance checker strength 5- out of 5 bilateral able to raise all 4 extremity gravity, reflexes 1+ symmetric plantarflex response no clonus - - Constitutional no acute distress - Routine HEENT Exam Head: Present: normocephalic Eye: Present: EOMI, PERRL ENT: Present: mucous membranes moist Review/Management - Diagnosis (1) CIDP (chronic inflammatory demyelinating polyneuropathy) Code(s): G61.81 - Chronic inflammatory demyelinating polyneuritis Status: Acute Current Visit: Yes (2) Neuropathy Code(s): G62.9 - Polyneuropathy, unspecified Status: Acute Current Visit: Yes (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, unspecified Status: Acute Current Visit: Yes (4) Dehydration Code(s): E86.0 - Dehydration Status: Acute Current Visit: Yes (5) Weakness Code(s): R53.1 - Weakness Status: Acute Current Visit: Yes (6) Gait instability Code(s): R26.81 - Unsteadiness on feet Status: Acute Current Visit: Yes (7) HTN (hypertension) Code(s): I10 - Essential (primary) hypertension Status: Acute Current Visit : Yes - Review/Management Plan: slowly progressive weakness with chronic distal sensory neuropathy Probable cidp Elevated CSF protein restless studies negative no sign of infection MRI brain scan mild atrophy no acute lesion. 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 Social work to assist. emg/ncv outpatient f/u with us in 2 weeks (7) HTN (hypertension) Qualifiers: Hypertension type: essential hypertension Qualified Code(s): I10 - Essential (primary) hypertension
[2018-01-15] MEDS: Senna/Docusate Sodium 8.6/50 MG Tablet PO SCH ×2 (09:38→22:40)
[2018-01-15] MEDS: Brimonidine 0.2% Opth Drops 5 ML Bottle EACH EYE SCH ×2 (09:47→22:41)
[2018-01-15] MEDS: Amoxicillin/Clavulanate 875/125 MG Tablet PO SCH ×2 (09:47→22:40)
[2018-01-15] MEDS: Spironolactone 25 MG Tablet PO SCH (10:12)
[2018-01-15] MEDS ORDERED: IVIG (Immune Globulin) Inj 25 GM in Syringe/Bag 1 EACH IV.SIG SCH (11:00)
[2018-01-15] MEDS: LEVOBUNOLOL 0.5% EACH EYE SCH (12:49)
[2018-01-15] MEDS: OPTH EACH EYE SCH (12:49)
--- NOTE | 2018-01-15 13:30 | P.PN ---
Subjective Interval history: feels great, stronger in good spirits Physical Exam Vital signs: Vital Signs 01/14/18 16:00 01/14/18 20:00 01/15/18 00:00 Temperature 98.3 F 98.1 F 98.0 F Pulse Rate 67 68 95 H Respiratory Rate 20 18 18 Blood Pressure 125/61 150/66 H 117/59 L Pulse Oximetry 95 97 95 01/15/18 04:00 01/15/18 09:35 01/15/18 13:00 Temperature 98.2 F 98.2 F 98.4 F Pulse Rate 66 67 65 Respiratory Rate 18 16 16 Blood Pressure 128/61 124/64 126/57 L Pulse Oximetry 95 96 93 L Intake & Output 01/14/18 01/15/18 01/15/18 18:59 06:59 18:59 Weight 65.2 kg 58.5 kg Other: # Voids 2 Date of Last Bowel Movement 01/15/18 Narrative: Well nourished patient, in no apparent distress. SKIN: Warm and dry. HEAD: Atraumatic. Normocephalic. EYES: Pupils equal and round. No scleral icterus. No injection or drainage. ENT: Nose without drainage. NECK: Trachea midline. Neck is supple. CARDIOVASCULAR: Normal rate and regular rhythm RESPIRATORY: Symmetric, unlabored respirations. GASTROINTESTINAL: Abdomen soft, non-tender, non-distended. NEUROLOGICAL: Awake alert oriented 3 fluent articulate no aphasia. sitting up in chair, looks well. Extraocular movements intact no facial asymmetry tongue midline able raise upper extremity gravity without difficulty, grinder hardboard strength 5- out of 5 bilateral able to raise all 4 extremity gravity, reflexes 1+ symmetric plantarflex response no clonus - Results - Labs CBC & Chem 7: 01/11/18 09:17 01/11/18 06:35 - Procedures LP Assessment and Plan - Assessment (1) Weakness Code(s): R53.1 - Weakness Status: Acute (2) Gait instability Code(s): R26.81 - Unsteadiness on feet Status: Acute (3) HTN (hypertension) Code(s): I10 - Essential (primary) hypertension Status: Acute - Plan 87 years old right handed female cidp - clinically improving Generalized weakness x6 months, now w/ acute/rapid decline x3 days. Elevated CSF protein restless studies negative no sign of infectionlab studies and imaging (Daughter has copy at bedside). Will obtain MRI Brain/C-Spine to eval for weakness/dysphagia, Consult Speech for eval/tx regarding dysphagia. folate. Has upcoming appointment for EMG/NCS and is to be scheduled for outpatient LP. Will Consult Neurology for further eval/recommendations. - VIG x 5 days- last dose today Sinusitis. Family reports the patient was started on Augmentin the day prior to admission for sinusitis by her optical technician. Will continue on Augmentin suspension. course Incentive spirometry hourly when awake CXR clear/lungs- clear Gait Instability: secondary to above, unable to ambulate without assistance, unsafe d/c home. PT for eval/tx HTN: improved readings =- continue on torpol XL and cozaar. Monitor and adjust HYpothyroidism- continue on Synthroid GERD- on PPI //DVT Prophylaxis: SCD/Teds Discharge Planning: Patient will receive IVIG inpatient. PT following. Will likely need rehab. CM consult for rehab choice- [facility], also consulted [facility] - good candidate for [facility] DC today to SNF after lasi IVIG dose OP ff up with Dr. Bay in 1-2 weks (3) HTN (hypertension) Qualifiers: Hypertension type: essential hypertension Qualified Code(s): I10 - Essential (primary) hypertension
--- NOTE | 2018-01-15 13:42 | P.DS ---
Date of admission: 01/10/18 12:57 Primary care physician: Priyanka Mckinnon MD Anticipated date of discharge: 01/15/18 Brief History from admission: This is an 87-year-old female with a PMH of basal Cell CA, HTN, Hyperlipidemia and Hypothyroidism was brought to the ER by Daughter secondary to generalized weakness and inability to ambulate. Per Daughter, patient states symptoms started in June, pt having to use walker and requiring some assistance w/ ambulation since that time, however since Thursday, pt now unable to ambulate at all, completely reliant on wheelchair. Was seen by Dr. Roe today and was referred for multiple laboratory studies, MRI Head/MRI C-Spine, LP and EMG/NCS. Daughter states no work up has been done yet as she has been unable to lift patient to get her into/out of the wheelchair or in the car. Also notes cough, nasal congestion and difficulty swallowing for which she's been seen by Dr. Salazar w/ ENT, started on antibiotics for sinusitis and referred for Barium Swallow. Pt states prior to June she was highly active but has had rapid decline x3 days. Denies fever, chills, trauma/injury, sick contacts. On arrival,BP 150/66, HR 83, O2 sat 97% on RA, Afebrile. WBC 12.3. BUN 21, GFR 60. Troponin negative. UA negative for UTI. CT Head with no acute findings, pansinusitis. CXR negative. DS: Diagnosis - Discharge Diagnosis (1) Weakness Status: Acute (2) Gait instability Status: Acute (3) HTN (hypertension) Status: Acute DS: Medications - Discharge Medications Prescriptions: amoxicillin-pot clavulanate 1 tab PO BID #3 tab DS: Summary Hospital Course: 87 years old right handed female cidp - clinically improving Generalized weakness x6 months, now w/ acute/rapid decline x3 days. Elevated CSF protein restless studies negative no sign of infectionlab studies and imaging (Daughter has copy at bedside). Will obtain MRI Brain/C-Spine to eval for weakness/dysphagia, Consult Speech for eval/tx regarding dysphagia. folate. Has upcoming appointment for EMG/NCS and is to be scheduled for outpatient LP. Will Consult Neurology for further eval/recommendations. - VIG x 5 days- last dose today 01/15 Sinusitis. Family reports the patient was started on Augmentin the day prior to admission for sinusitis by her review scheduling coordinator. Will continue on Augmentin suspension. course Incentive spirometry hourly when awake CXR clear/lungs- clear Gait Instability: secondary to above, unable to ambulate without assistance, unsafe d/c home. PT for eval/tx HTN: improved readings =- continue on torpol XL and cozaar 25 mg daily . Monitor and adjust HYpothyroidism- continue on Synthroid GERD- on PPI //DVT Prophylaxis: SCD/Teds Discharge Planning: SNF today- [facility] consult OP ff up with Dr. Smith in 2 weks - Time Spent with Patient Total time spent providing and/or coordinating discharge services: Greater than 30 minutes - Quality: VTE Deep Vein Thrombosis/Pulmonary Embolism Present on Admission: No Exam Vital signs: Vital Signs 01/14/18 16:00 01/14/18 20:00 01/15/18 00:00 Temperature 98.3 F 98.1 F 98.0 F Pulse Rate 67 68 95 H Respiratory Rate 20 18 18 Blood Pressure 125/61 150/66 H 117/59 L Pulse Oximetry 95 97 95 01/15/18 04:00 01/15/18 09:35 01/15/18 13:00 Temperature 98.2 F 98.2 F 98.4 F Pulse Rate 66 67 65 Respiratory Rate 18 16 16 Blood Pressure 128/61 124/64 126/57 L Pulse Oximetry 95 96 93 L Intake & Output 01/14/18 01/15/18 01/15/18 18:59 06:59 18:59 Weight 65.2 kg 58.5 kg Other: # Voids 2 Date of Last Bowel Movement 01/15/18 Results Procedures completed during hospitalization: LP - Impressions ITS Impressions Chest X-Ray 01/07/18 19:16 CONCLUSION: The lungs are clear. Head CT 01/07/18 19:16 CONCLUSION: 1. No acute findings in the brain. 2. Pansinusitis. Cervical Spine MRI 01/08/18 00:00 CONCLUSION: Slight neural foraminal compromise right C5-6. Head MRI 01/08/18 00:00 CONCLUSION: 1. No acute intracranial abnormality. 2. Atrophy. 3. Stiles sinus disease. 4. Fluid signal within the mastoid air cells bilaterally. Clinical evaluation for any signs of acute mastoiditis suggested. Lumbar Puncture Fluoroscopy 07/21/18 10:49 CONCLUSION: 1. Uncomplicated fluoroscopically guided lumbar puncture. Discharge Plan - Discharge Disposition Patient Disposition: 03 Discharge to SNF - Discharge Condition Condition: Stable - Discharge Order Discharge Orders: Discharge Order (Routine); Ordered 01/15/18 Ordered By: Lawrence Spivey Neurology Clear for Discharge (Routine); Ordered 01/15/18 Ordered By: Kirit Polanco - Discharge Details Anticipated Discharge Date: 01/16/18 - Physicians Team Primary Care Provider: Priyanka Mckinnon Attending Provider: Lawrence Spivey Other Providers: Kirit Polanco MD ; [employer] ; Jayleen Freitas MD ; [facility]
[2018-01-15] MEDS: Sodium Chlor 0.9% Inj 500 ML IV.SIG SCH (18:32)
[2018-01-15] MEDS: Acetaminophen 325 MG Tablet PO SCH (18:33)
[2018-01-15] MEDS: Montelukast 10 MG Tablet PO SCH (18:34)
[2018-01-15] MEDS: diphenhydrAMINE HCl 12.5 MG/5 ML Elixir UDC PO SCH (18:34)
[2018-01-16] MEDS: Levothyroxine 75 MCG Tablet PO SCH (05:33)
--- NOTE | 2018-01-16 08:25 | P.PN ---
Subjective Interval history: feels stronger no complains Physical Exam Vital signs: Vital Signs 01/15/18 09:35 01/15/18 13:00 01/15/18 18:38 Temperature 98.2 F 98.4 F 98.8 F Pulse Rate 67 65 66 Respiratory Rate 16 16 16 Blood Pressure 124/64 126/57 L 147/66 H Pulse Oximetry 96 93 L 96 01/15/18 20:00 01/16/18 00:00 01/16/18 04:00 Temperature 98.2 F 98.5 F 98.6 F Pulse Rate 67 58 L 60 Respiratory Rate 18 18 Blood Pressure 134/66 111/60 125/70 Pulse Oximetry 96 95 99 Intake & Output 01/15/18 01/16/18 01/16/18 18:59 06:59 18:59 Intake Total 360 / 360 Balance 360 / 360 Weight 58.1 kg Intake: Oral 360 / 360 Other: # Voids 3 # Urine Diapers 1 Date of Last Bowel Movement 01/15/18 Narrative: Well nourished patient, in no apparent distress. SKIN: Warm and dry. HEAD: Atraumatic. Normocephalic. EYES: Pupils equal and round. No scleral icterus. No injection or drainage. ENT: Nose without drainage. NECK: Trachea midline. Neck is supple. CARDIOVASCULAR: Normal rate and regular rhythm RESPIRATORY: Symmetric, no rales, no wheezes . GASTROINTESTINAL: Abdomen soft, non-tender, non-distended. NEUROLOGICAL: Awake alert oriented 3 fluent articulate. Extraocular movements intact no facial asymmetry tongue midline able raise upper extremity gravity without difficulty, library specialist strength 5- out of 5 bilateral able to raise all 4 extremity gravity, reflexes 1+ symmetric plantarflex response no clonus - Results - Labs CBC & Chem 7: 01/11/18 09:17 01/11/18 06:35 - Procedures LP Assessment and Plan - Assessment (1) Weakness Code(s): R53.1 - Weakness Status: Acute (2) Gait instability Code(s): R26.81 - Unsteadiness on feet Status: Acute (3) HTN (hypertension) Code(s): I10 - Essential (primary) hypertension Status: Acute - Plan 87 years old right handed female cidp - clinically improving Generalized weakness x6 months, now w/ acute/rapid decline x3 days. Elevated CSF protein restless studies negative no sign of infectionlab studies and imaging (Daughter has copy at bedside). Will obtain MRI Brain/C-Spine to eval for weakness/dysphagia, Consult Speech for eval/tx regarding dysphagia. folate. Has upcoming appointment for EMG/NCS and is to be scheduled for outpatient LP. Will Consult Neurology for further eval/recommendations. - VIG x 5 days- last dose today 01/15 Sinusitis. Family reports the patient was started on Augmentin the day prior to admission for sinusitis by her boilerhouse mechanic. Will continue on Augmentin suspension. course Incentive spirometry hourly when awake CXR clear/lungs- clear Gait Instability: secondary to above, unable to ambulate without assistance, unsafe d/c home. PT for eval/tx HTN: improved readings =- continue on torpol XL and cozaar 25 mg daily . Monitor and adjust HYpothyroidism- continue on Synthroid GERD- on PPI //DVT Prophylaxis: SCD/Teds Discharge Planning: SNF today- [facility] CM consult OP ff up with Dr. Smith in 2 weks (3) HTN (hypertension) Qualifiers: Hypertension type: essential hypertension Qualified Code(s): I10 - Essential (primary) hypertension
[2018-01-16] MEDS: Senna/Docusate Sodium 8.6/50 MG Tablet PO SCH (08:58)
[2018-01-16] MEDS: Amoxicillin/Clavulanate 875/125 MG Tablet PO SCH (08:58)
[2018-01-16] MEDS: Spironolactone 25 MG Tablet PO SCH (09:00)
[2018-01-16] MEDS: Brimonidine 0.2% Opth Drops 5 ML Bottle EACH EYE SCH (09:00)
== END 2018-01-16 10:26 ==
LOC: NEDA 17:14 → NEPC 17:14 → NEDA 23:25 → NEPFCDU 01-08 00:09 → N05 01-11 21:51
PROVIDERS: ADMIT Internal Medicine; ATTEND Internal Medicine

== ENCOUNTER 2018-02-06 17:19 | Inpatient (IN) ==
--- NOTE | 2018-02-06 20:50 | ED ---
HPI General Chief complaint: Weakness Stated complaint: Doctor sent Time Seen by Provider: 02/06/18 20:24 Source: patient and family Mode of arrival: ambulatory Limitations: no limitations History of Present Illness HPI Narrative: 87-year-old female presents to the emergency department by private vehicle from home in the care of her daughters for evaluation of 2 days of progressive hand weakness and difficulty with gross and fine motor function as well as weakness of numbness of the feet and lower legs for the past 2 days. Patient was recently hospitalized in December with a similar type progressively worsening weakness and neuropathy at which time she was evaluated in detail with lumbar punctures CT and MRI MRA studies. Patient was diagnosed with chronic inflammatory demyelinating polyneuropathy and was treated with IVIG therapy 5 days with good response. Patient has been doing well until 2 days ago. Family reports they did call the neurologist today around 3 PM and case was discussed with on-call neurologist Dr. Vega who recommended that the patient come to the emergency room for admission for ongoing treatment. Patient has also noted a slight cough and her blood pressure has been increasing. Patient typically does not have high blood pressure and is not actively have a cough although she noted the same symptoms with her last episode of CIDP. Cough is nonproductive. Patient does not report any shortness of breath or chest pain. The patient has had no fall or injury. The patient does not report any headache altered mentation change in vision change in speech difficulty swallowing proximal extremity muscle weakness or paresthesia no chest pain no shortness of breath no nausea no vomiting no abdominal pain no flank pain no bladder or bowel dysfunction. MD Complaint: generalized weakness and difficulty walking Onset (ago): day(s) Duration: progressively worsening Location: left hand, right hand, LLE and RLE Migration: ascending Severity: moderate Quality: numbness Relieving factors: none Exacerbating factors: none Context: history of similar Associated symptoms: other (cough) Related Data Home Medications Medication Instructions Recorded Confirmed aspirin [Aspir-81] 81 mg PO DAILY 12/25/17 02/06/18 levothyroxine 75 mcg PO DAILY 12/25/17 02/06/18 montelukast 10 mg PO QPM 12/25/17 02/06/18 omeprazole 40 mg PO DAILY 12/25/17 02/06/18 cholecalciferol (vitamin D3) 4,000 unit PO DAILY 07/19/18 08/18/18 [Vitamin D3] coenzyme Q10 [Co Q-10] 30 mg PO DAILY 01/07/18 02/06/18 docosahexanoic acid-epa [Fish Oil] 1 cap PO DAILY 01/07/18 02/06/18 ipratropium bromide 2 spray INTRANASAL BID 01/07/18 02/06/18 metoprolol succinate 50 mg PO HS 01/07/18 02/06/18 mupirocin 1 applic TOPICAL BID 01/07/18 02/06/18 spironolactone 25 mg PO DAILY 01/07/18 02/06/18 brimonidine 1 drp OPHTHALMIC (EYE) BID 01/08/18 02/06/18 levobunolol 1 drp OPHTHALMIC (EYE) QNOON 01/08/18 02/06/18 losartan [Cozaar] 25 mg PO HS 02/06/18 02/06/18 Allergies Allergy/AdvReac Type Severity Reaction Status Date / Time doxycycline Allergy Severe Nausea/Vomi Verified 01/07/18 19:34 ting guaifenesin AdvReac Severe "MAKES ME Verified 01/07/18 19:30 HIGH" Review of Systems ROS: all other systems reviewed are negative Constitutional Denies body ache(s) and Denies fever(s) PMFSH Medical History Medical History CIDP (chronic inflammatory demyelinating polyneuropathy) (Acute) Basal cell carcinoma (Acute) GERD (gastroesophageal reflux disease) (Acute) High cholesterol (Acute) Hypertension (Acute) Hypothyroid (Acute) Surgical History Surgical History H/O endarterectomy (Acute) Social History Social History Substance History: No History of Abuse Second Hand Smoke Exposure: No Smoking Status: Never smoker How Often Do You Have a Drink Containing Alcohol: Never Recent Travel in [facility] within the Last 8 Weeks: No Recent Out of Country Travel within the Last 8 Weeks: No Immunization History Tetanus Immunization: <5 Years Hx Influenza Vaccine This Season: No Exam Narrative Exam Narrative: GENERAL: Well-nourished female no acute distress no respiratory distress sitting upright GCS 15 SKIN: Focused skin assessment warm/dry. HEAD: Atraumatic. Normocephalic. EYES: Pupils equal and round. No scleral icterus. No injection or drainage. ENT: No nasal bleeding or discharge. Mucous membranes pink and moist. NECK: Trachea midline. No JVD. CARDIOVASCULAR: Regular rate and rhythm. No murmur appreciated. RESPIRATORY: No accessory muscle use. Clear to auscultation. Breath sounds equal bilaterally. GASTROINTESTINAL: Abdomen soft, non-tender, nondistended. Hepatic and splenic margins not palpable. MUSCULOSKELETAL: No obvious deformities. No clubbing. No cyanosis. No edema. NEUROLOGICAL: Awake and alert. No obvious cranial nerve deficits. Motor grossly within normal limits. No pronator drift. No limb ataxia. DTRs bilateral upper extremity 1+ and equal bilateral lower extremity 2+ and equal without clonus. Sensory exam grossly intact as tested.Normal speech. PSYCHIATRIC: Appropriate mood and affect; insight and judgment normal. Course Reevaluation(s) Reevaluation #1: Call placed to Dr. Vega covering for patient's neurologist Dr. Polanco; per Dr. Vega he is very familiar with the patient's case would like patient started on IVIG 0.4 g/kg IV administration over 8 hours every 24 hours 5 days and will see patient in consultation in the a.m. Call placed to [facility] for admission Time: 21:30 Initial Documented Vital Signs Temperature 97.7 F 02/06/18 17:43 Pulse Rate 70 02/06/18 17:43 Respiratory Rate 19 02/06/18 17:43 Blood Pressure 189/79 H 02/06/18 17:43 Pulse Oximetry 100 02/06/18 17:43 Last Documented Vital Signs Temperature 97.7 F 02/06/18 17:43 Pulse Rate 70 02/06/18 17:43 Respiratory Rate 19 02/06/18 17:43 Blood Pressure 189/79 H 02/06/18 17:43 Pulse Oximetry 100 02/06/18 17:43 Medical Decision Making [facility] Narrative Medical decision making narrative: Well-developed well-nourished female in no acute distress no respiratory distress with voiced report of weakness and sensory change affecting the hands and fingers primarily distal upper extremity bilaterally and distal lower extremity bilaterally with the feet and lower legs. Patient recently hospitalized in December for diagnosis of chronic inflammatory demyelinating polyneuropathy treated with IVIG. Bedside glucose 99 patient placed on donor specialist IV access obtained specimens collected and sent for resulting call placed to neurologist Dr. Vega Patient with family at bedside aware of plan for admission for ongoing IVIG infusion. Patient aware that her case has been discussed with Dr. Vega who encouraged her to come to the emergency room for admission and IVIG therapy. Patient's case discussed with on-call medicine physician Dr. Woods who is accepted patient for admission for IVIG therapy. Medical Screen Exam Complete: Yes Emergency Medical Condition: Yes Differential Diagnosis Differential Diagnosis: CIDP, Guyon Goodwin, CVA Medical Records Medical records reviewed: Yes I reviewed the patient's medical records. 12/2017 CIDP treated with IVIG Lab Data Lab results reviewed: Yes I reviewed the patient's lab results. Result diagrams: 02/06/18 21:46 02/06/18 21:46 Lab Results 02/06/18 02/06/18 02/06/18 Range/Units 21:27 21:46 21:46 WBC 9.1 (4.0-11.0) th/mm3 RBC 4.64 (4.00-5.30) mil/mm3 Hgb 13.8 (11.6-15.3) gm/dL Hct 40.4 (35.0-46.0) % MCV 87.0 (80.0-100.0) fL MCH 29.8 (27.0-34.0) pg MCHC 34.2 (32.0-36.0) % RDW 14.6 (11.6-17.2) % Plt Count 330 (150-450) th/mm3 MPV 7.6 (7.0-11.0) fL Neut % (Auto) 61.1 (16.0-70.0) % Lymph % (Auto) 23.9 (9.0-44.0) % [place] % (Auto) 11.8 H (0.0-8.0) % Eos % (Auto) 1.9 (0.0-4.0) % Baso % (Auto) 1.3 (0.0-2.0) % Neut # (Auto) 5.6 (1.8-7.7) th/mm3 Lymph # (Auto) 2.2 (1.0-4.8) th/mm3 [place] # (Auto) 1.1 H (0.0-0.9) th/mm3 Eos # (Auto) 0.2 (0.0-0.4) th/mm3 Baso # (Auto) 0.1 (0.0-0.2) th/mm3 WBC Differential . Differential Comment Auto diff final ESR (0-30) mm/hr PT 10.2 (9.8-11.6) sec INR 1.0 Ratio Sodium (136-145) meq/L Potassium (3.5-5.1) meq/L Chloride (98-107) meq/L Carbon Dioxide (21.0-32.0) meq/L Anion Gap (5-15) meq/L BUN (7-18) mg/dL Creatinine (0.50-1.00) mg/dL Estimated GFR (>89) mL/min POC Glucose 99 (68-110) mg/dl Random Glucose (74-106) mg/dL Calcium (8.5-10.1) mg/dL Magnesium (1.5-2.5) mg/dL Total Bilirubin (0.2-1.0) mg/dL AST (15-37) U/L ALT (10-53) U/L Alkaline Phosphatase (45-117) U/L Total Creatine Kinase (26-192) U/L Troponin I (0.02-0.05) ng/mL Total Protein (6.4-8.2) g/dL Albumin (3.4-5.0) g/dL TSH (0.358-3.740) uIU/mL Urine Color (Yellw/Straw) Urine Clarity (Clear) Urine pH (5.0-8.5) Ur Specific [place] (1.002-1.035) Urine Protein (Neg-Trace) mg/dL Urine Glucose (UA) (Negative) mg/dL Urine Ketones (Negative) mg/dL Urine Occult Blood (Negative) Urine Nitrate (Negative) Urine Bilirubin (Negative) Urine Urobilinogen (Less than 2) mg/dL Ur Leukocyte Esterase (Negative) Urine RBC (0-3) /hpf Urine WBC (0-5) /hpf Ur Squamous Epith Cells (0-5) /hpf Urine Bacteria (None) /hpf Micro UA Comment Urine Culture Comments 02/06/18 02/06/18 02/06/18 Range/Units 21:46 21:46 21:53 WBC (4.0-11.0) th/mm3 RBC (4.00-5.30) mil/mm3 Hgb (11.6-15.3) gm/dL Hct (35.0-46.0) % MCV (80.0-100.0) fL MCH (27.0-34.0) pg MCHC (32.0-36.0) % RDW (11.6-17.2) % Plt Count (150-450) th/mm3 MPV (7.0-11.0) fL Neut % (Auto) (16.0-70.0) % Lymph % (Auto) (9.0-44.0) % [place] % (Auto) (0.0-8.0) % Eos % (Auto) (0.0-4.0) % Baso % (Auto) (0.0-2.0) % Neut # (Auto) (1.8-7.7) th/mm3 Lymph # (Auto) (1.0-4.8) th/mm3 [place] # (Auto) (0.0-0.9) th/mm3 Eos # (Auto) (0.0-0.4) th/mm3 Baso # (Auto) (0.0-0.2) th/mm3 WBC Differential Differential Comment ESR 59 H (0-30) mm/hr PT (9.8-11.6) sec INR Ratio Sodium 134 L (136-145) meq/L Potassium 4.3 (3.5-5.1) meq/L Chloride 101 (98-107) meq/L Carbon Dioxide 24.5 (21.0-32.0) meq/L Anion Gap 9 (5-15) meq/L BUN 12 (7-18) mg/dL Creatinine 0.69 (0.50-1.00) mg/dL Estimated GFR 80 L (>89) mL/min POC Glucose (68-110) mg/dl Random Glucose 92 (74-106) mg/dL Calcium 8.6 (8.5-10.1) mg/dL Magnesium 2.2 (1.5-2.5) mg/dL Total Bilirubin 0.4 (0.2-1.0) mg/dL AST 23 (15-37) U/L ALT 18 (10-53) U/L Alkaline Phosphatase 81 (45-117) U/L Total Creatine Kinase 45 (26-192) U/L Troponin I 0.03 (0.02-0.05) ng/mL Total Protein 8.1 (6.4-8.2) g/dL Albumin 3.2 L (3.4-5.0) g/dL TSH 2.080 (0.358-3.740) uIU/mL Urine Color Straw (Yellw/Straw) Urine Clarity Clear (Clear) Urine pH 7.0 (5.0-8.5) Ur Specific [place] 1.009 (1.002-1.035) Urine Protein Negative (Neg-Trace) mg/dL Urine Glucose (UA) Negative (Negative) mg/dL Urine Ketones Negative (Negative) mg/dL Urine Occult Blood Negative (Negative) Urine Nitrate Negative (Negative) Urine Bilirubin Negative (Negative) Urine Urobilinogen Less than 2 (Less than 2) mg/dL Ur Leukocyte Esterase Trace H (Negative) Urine RBC 1 (0-3) /hpf Urine WBC 1 (0-5) /hpf Ur Squamous Epith Cells 4 (0-5) /hpf Urine Bacteria Rare H (None) /hpf Micro UA Comment Culture not ind Urine Culture Comments Culture not ind Imaging Data Radiologist's impression: Chest X-Ray 02/06/18 20:45 CONCLUSION: The lungs are clear. ECG Data EKG Prior to Arrival: No Attestation: I personally reviewed and interpreted this ECG as follows: Prior ECG tracings: available for review Interpretation: EKG: Normal sinus rhythm rate 66 normal axis and intervals mild baseline artifact present no acute ST elevation injury pattern change noted Discharge Plan Discharge Disposition Patient Disposition: 30 Still Patient Discharge Condition Condition: Stable Discharge Details Diagnosis: CIDP (chronic inflammatory demyelinating polyneuropathy) Physicians Team ED Provider: Eun Hernandez Primary Care Provider: Priyanka Mckinnon Rxs /Orders / Referrals /Forms Prescriptions: No Action metoprolol succinate 50 mg Tablet Extended Release 24 Hr 50 mg PO HS RF: 0 spironolactone 25 mg Tablet 25 mg PO DAILY RF: 0 mupirocin 2 % Ointment 1 applic TOPICAL BID RF: 0 ipratropium bromide 0.03 % [place],Non-Aerosol 2 spray INTRANASAL BID RF: 0 coenzyme Q10 [Co Q-10] 30 mg Capsule 30 mg PO DAILY RF: 0 docosahexanoic acid-epa [Fish Oil] 120-180 mg Capsule 1 cap PO DAILY RF: 0 cholecalciferol (vitamin D3) [Vitamin D3] 2,000 unit Tablet 4,000 unit PO DAILY RF: 0 levobunolol 0.5 % Drops 1 drp OPHTHALMIC (EYE) QNOON RF: 0 brimonidine 0.2 % Drops 1 drp OPHTHALMIC (EYE) BID RF: 0 losartan [Cozaar] 25 mg tablet 25 mg PO HS RF: 0 aspirin [Aspir-81] 81 mg Tablet,Delayed Release (Dr/Ec) 81 mg PO DAILY RF: 0 montelukast 10 mg Tablet 10 mg PO QPM RF: 0 omeprazole 20 mg Tablet,Delayed Release (Dr/Ec) 40 mg PO DAILY RF: 0 levothyroxine 75 mcg Capsule 75 mcg PO DAILY RF: 0 Status ED Status: Pending Admission
--- NOTE | 2018-02-06 21:23 | XR ---
EXAM DATE: 02/06/2018 9:11 PM EDT AGE/SEX: 87 years / Female INDICATIONS: Cough. Patient reports that she has weakness in her hands bilaterally. CLINICAL DATA: This is the patient's initial encounter. Patient reports that signs and symptoms have been present for 1 day and indicates a pain score of 0/10. MEDICAL/SURGICAL HISTORY: None. None. COMPAR[place]: [facility] [place] 1[place] SING[place] AP, [place]/07/2018. . FINDINGS: A single AP view of the chest demonstrates the lungs to be symmetrically aerated without evidence of mass, infiltrate or effusion. Stable right apical pleural calcification The cardiomediastinal contou rs are unremarkable. Osseous structures are intact. CONCLUSION: The lungs are clear. Electronically signed by: Wilmer Ferrer MD 02/06/2018 9:22 PM EDT
[2018-02-06 22:06] LABS: Baso # (Auto) 0.1 th/mm3 (0.0-0.2); Baso % (Auto) 1.3 % (0.0-2.0); Eos # (Auto) 0.2 th/mm3 (0.0-0.4); Eos % (Auto) 1.9 % (0.0-4.0); Hematocrit 40.4 % (35.0-46.0); Hemoglobin 13.8 gm/dL (11.6-15.3); Lymph # (Auto) 2.2 th/mm3 (1.0-4.8); Lymph % (Auto) 23.9 % (9.0-44.0); Mean Corpuscular HGB Conc 34.2 % (32.0-36.0); Mean Corpuscular Hemoglobin 29.8 pg (27.0-34.0); Mean Platelet Volume 7.6 fL (7.0-11.0); Mono # (Auto) 1.1 th/mm3 (0.0-0.9); Mono % (Auto) 11.8 % (0.0-8.0); Neut # (Auto) 5.6 th/mm3 (1.8-7.7); Neut % (Auto) 61.1 % (16.0-70.0); Platelet Count 330 th/mm3 (150-450); Red Blood Count 4.64 mil/mm3 (4.00-5.30); Red Cell Distribution Width 14.6 % (11.6-17.2); White Blood Count 9.1 th/mm3 (4.0-11.0)
[2018-02-06 22:10] LABS: Prothrombin Time 10.2 sec (9.8-11.6)
[2018-02-06 22:22] LABS: Albumin 3.2 g/dL (3.4-5.0); Anion Gap 9 meq/L (5-15); Aspartate Aminotransferase 23 U/L (15-37); Blood Urea Nitrogen 12 mg/dL (7-18); Calcium 8.6 mg/dL (8.5-10.1); Carbon Dioxide 24.5 meq/L (21.0-32.0); Chloride 101 meq/L (98-107); Glomerular Filtration Rate 80 mL/min (>89); Glucose,Random 92 mg/dL (74-106); Magnesium 2.2 mg/dL (1.5-2.5); Potassium 4.3 meq/L (3.5-5.1); Sodium 134 meq/L (136-145)
[2018-02-06 22:23] LABS: Alanine Aminotransferase 18 U/L (10-53)
[2018-02-06 22:33] LABS: Alkaline Phosphatase 81 U/L (45-117); Total Protein 8.1 g/dL (6.4-8.2); Troponin I 0.03 ng/mL (0.02-0.05)
[2018-02-06 22:37] LABS: Creatine Kinase 45 U/L (26-192)
[2018-02-06 22:43] LABS: Bacteria,Urine Rare /hpf; Bilirubin,Urine Negative (Negative); Clarity,Urine Clear (Clear); Color,Urine Straw (Yellw/Straw); Glucose,Urine (UA) Negative (Negative); Leukocyte Esterase,Urine Trace (Negative); Nitrite,Urine Negative (Negative); Specific Gravity,Urine 1.009 (1.002-1.035); Squamous Epithelial Cell,Urine 4 /hpf (0-5)
[2018-02-07] MEDS: Acetaminophen 325 MG Tablet PO SCH ×2 (00:08→23:03)
--- NOTE | 2018-02-07 00:23 | P.HP ---
History of Present Illness Service: [facility] Primary Care Physician: Priyanka Mckinnon MD History of Present Illness: 87-year-old female with past medical history significant for hypertension, hyperlipidemia, hypothyroidism, GERD and chronic inflammatory demyelinating polyneuropathy presents to the emergency department for evaluation of 2 days of weakness. The patient reports her symptoms are similar to her CIDP exacerbations. She reports mental health counselor strength weakness and having difficulty opening pill bottles or turning on lights. She also reports a difficulty with walking and has been requiring a walker for the past 2 days whereas prior to this she was able to walk without difficulty. She was last treated with IVIG approximately 3 weeks ago which resulted in resolution of her symptoms. Her neurologist is Dr. Polanco. She denies any chest pain or shortness of breath. No headaches. No loss of bowel or bladder. No loss of consciousness. She does report some difficulty swallowing which has been chronic. No abdominal pain. No nausea/vomiting/diarrhea. No fever/chills. Inpatient Certification: I certify that the inpatient services were ordered in accordance with Medicare regulations governing the order. This includes certification that hospital inpatient services are reasonable and necessary and in the case of services not specified as inpatient-only under 42 CFR 419.22(n), that they are appropriately provided as inpatient services in accordance to with the 2-midnight benchmark under 43 CFR 412.3(e) Estimated Total Length of Stay (Days): 2 Plans for Post Hospital Care: Home Review of Systems All other systems reviewed negative except as stated in HPI [facility] - History History Provided By: Patient - Medical History Medical History: Medical History (Last Reviewed 02/06/18 @ 21:40 by Eun Hernandez MD) CIDP (chronic inflammatory demyelinating polyneuropathy) Basal cell carcinoma GERD (gastroesophageal reflux disease) High cholesterol Hypertension Hypothyroid - Surgical History Surgical History: Surgical History (Last Updated 02/07/18 @ 00:16 by Melba Woods MD) H/O tubal ligation History of appendectomy H/O endarterectomy - Family History Family History: Family History (Last Updated 02/07/18 @ 00:16 by Melba Woods MD) Other Family history normal - Tobacco History Second Hand Smoke Exposure: No Tobacco Use In Past 30 Days: No Smoking Status: Never smoker - Alcohol History How Often Do You Have a Drink Containing Alcohol: Never - Substance Use History Substance History: No History of Abuse - Travel History Recent Travel in the [place] Within the Last 8 Weeks: No Recent Travel Out of the Country Within the Last 8 Weeks: No - Immunization History Tetanus Immunization: <5 Years Hx Influenza Vaccine This Season: No Medications and Allergies Active Medications: Active Medications Acetaminophen (Tylenol) 650 mg PO Q24H SACHIN Stop: 02/07/18 23:14 Last Admin: 02/07/18 00:08 Dose: 650 mg Diphenhydramine HCl (Benadryl Inj) 50 mg IV.PUSH PRN PRN PRN Reason: ALLERGIC REACTION Stop: 02/08/18 23:13 Diphenhydramine HCl (Benadryl) 25 mg PO Q24H SACHIN Stop: 02/07/18 23:14 Last Admin: 02/07/18 00:08 Dose: 25 mg Epinephrine HCl (Epinephrine (1:1000) Inj) 0.3 mg OTHER Q10M PRN PRN Reason: Anaphylactic Reaction Stop: 02/08/18 23:13 Immune Globulin 25 gm/ Syringe (/Bag) 250 mls @ 31.25 mls/hr IV.SIG Q24HR SACHIN; Protocol Stop: 02/07/18 12:00 Dextrose (D5w Inj) 500 mls @ 30 mls/hr OTHER Q24H SACHIN Stop: 02/07/18 23:14 Sodium Chloride (Ns Inj) 500 mls @ 500 mls/hr IV.SIG Q24H SACHIN Stop: 02/07/18 23:44 Ondansetron HCl (Zofran Inj) 4 mg IV.PUSH Q6H PRN PRN Reason: NAUSEA OR VOMITING Sodium Chloride (Ns Flush) 2 ml IV.FLUSH PRN PRN PRN Reason: FLUSH AFTER USING IV ACCESS Allergies Allergy/AdvReac Type Severity Reaction Status Date / Time doxycycline Allergy Severe Nausea/Vomi Verified 01/07/18 19:34 ting guaifenesin AdvReac Severe "MAKES ME Verified 01/07/18 19:30 HIGH" Home Medications Medication Instructions Recorded Confirmed Type aspirin [Aspir-81] 81 mg PO DAILY 12/25/17 02/06/18 History levothyroxine 75 mcg PO DAILY 12/25/17 02/06/18 History montelukast 10 mg PO QPM 12/25/17 02/06/18 History omeprazole 40 mg PO DAILY 12/25/17 02/06/18 History cholecalciferol (vitamin D3) 4,000 unit PO DAILY 01/07/18 02/06/18 History [Vitamin D3] coenzyme Q10 [Co Q-10] 30 mg PO DAILY 01/07/18 02/06/18 History docosahexanoic acid-epa [Fish Oil] 1 cap PO DAILY 01/07/18 02/06/18 History ipratropium bromide 2 spray INTRANASAL BID 01/07/18 02/06/18 History metoprolol succinate 50 mg PO HS 01/07/18 02/06/18 History mupirocin 1 applic TOPICAL BID 01/07/18 02/06/18 History spironolactone 25 mg PO DAILY 01/07/18 02/06/18 History brimonidine 1 drp OPHTHALMIC (EYE) BID 01/08/18 02/06/18 History levobunolol 1 drp OPHTHALMIC (EYE) QNOON 01/08/18 02/06/18 History losartan [Cozaar] 25 mg PO HS 02/06/18 02/06/18 History Exam Vital signs: Vital Signs 02/06/18 17:43 02/07/18 00:05 Temperature 97.7 F Pulse Rate 70 67 Respiratory Rate 19 18 Blood Pressure 189/79 H 159/70 H Pulse Oximetry 100 98 Intake & Output 02/06/18 02/06/18 02/07/18 06:59 18:59 06:59 Weight 56.699 kg Narrative: Gen.: No acute distress Head: Normocephalic. Atraumatic. EENT: Pupils equal round and reactive to light. Nose without drainage. Airway intact. Throat without injection. Cardiovascular: Regular rate and rhythm. No murmurs, rubs or gallops. Respiratory: Lungs clear to auscultation bilaterally. No wheezes or rhonchi. Abdomen: Soft, nontender, nondistended. No peritoneal signs. Musculoskeletal: No gross deformities. No edema. Skin: No obvious rashes or erythema. Neuro: Cranial nerves II through XII intact. 3/5 mental health counselor strength and 2/5 bilateral lower extremity strength. Results - Labs CBC & Chem 7: 02/06/18 21:46 02/06/18 21:46 Labs: Laboratory Results - last 24 hr 02/06/18 02/06/18 02/06/18 21:27 21:46 21:46 WBC 9.1 RBC 4.64 Hgb 13.8 Hct 40.4 MCV 87.0 MCH 29.8 MCHC 34.2 RDW 14.6 Plt Count 330 MPV 7.6 Neut % (Auto) 61.1 Lymph % (Auto) 23.9 [place] % (Auto) 11.8 H Eos % (Auto) 1.9 Baso % (Auto) 1.3 Neut # (Auto) 5.6 Lymph # (Auto) 2.2 [place] # (Auto) 1.1 H Eos # (Auto) 0.2 Baso # (Auto) 0.1 WBC Differential . Differential Comment Auto diff final ESR PT 10.2 INR 1.0 Sodium Potassium Chloride Carbon Dioxide Anion Gap BUN Creatinine Estimated GFR POC Glucose 99 Random Glucose Calcium Magnesium Total Bilirubin AST ALT Alkaline Phosphatase Total Creatine Kinase Troponin I Total Protein Albumin TSH Urine Color Urine Clarity Urine pH Ur Specific [place] Urine Protein Urine Glucose (UA) Urine Ketones Urine Occult Blood Urine Nitrate Urine Bilirubin Urine Urobilinogen Ur Leukocyte Esterase Urine RBC Urine WBC Ur Squamous Epith Cells Urine Bacteria Micro UA Comment Urine Culture Comments 02/06/18 02/06/18 02/06/18 21:46 21:46 21:53 WBC RBC Hgb Hct MCV MCH MCHC RDW Plt Count MPV Neut % (Auto) Lymph % (Auto) [place] % (Auto) Eos % (Auto) Baso % (Auto) Neut # (Auto) Lymph # (Auto) [place] # (Auto) Eos # (Auto) Baso # (Auto) WBC Differential Differential Comment ESR 59 H PT INR Sodium 134 L Potassium 4.3 Chloride 101 Carbon Dioxide 24.5 Anion Gap 9 BUN 12 Creatinine 0.69 Estimated GFR 80 L POC Glucose Random Glucose 92 Calcium 8.6 Magnesium 2.2 Total Bilirubin 0.4 AST 23 ALT 18 Alkaline Phosphatase 81 Total Creatine Kinase 45 Troponin I 0.03 Total Protein 8.1 Albumin 3.2 L TSH 2.080 Urine Color Straw Urine Clarity Clear Urine pH 7.0 Ur Specific [place] 1.009 Urine Protein Negative Urine Glucose (UA) Negative Urine Ketones Negative Urine Occult Blood Negative Urine Nitrate Negative Urine Bilirubin Negative Urine Urobilinogen Less than 2 Ur Leukocyte Esterase Trace H Urine RBC 1 Urine WBC 1 Ur Squamous Epith Cells 4 Urine Bacteria Rare H Micro UA Comment Culture not ind Urine Culture Comments Culture not ind - Imaging Impressions Chest X-Ray 02/06/18 20:45 CONCLUSION: The lungs are clear. Caprini VTE Risk Assessment Caprini VTE Risk Assessment: Moderate/High Risk (score >= 2) Caprini Risk Assessment Model: Point Value = 1 Point Value = 2 Point Value = 3 Point Value = 5 Age 41-60 Minor surgery BMI > 25 kg/m2 Swollen legs Varicose veins or History of unexplained or recurrent spontaneous Oral contraceptives or hormone replacement Sepsis (< 1 month) Serious lung disease, including pneumonia (< 1 month) Abnormal pulmonary function Acute myocardial infarction Congestive heart failure (< 1 month) History of inflammatory bowel disease Medical patient at bed rest Age 61-74 Arthroscopic surgery Major open surgery (> 45 min) Laparoscopic surgery (> 45 min) Malignancy Confined to bed (> 72 hours) Immobilizing plaster cast Central venous access Age >= 75 History of VTE Family history of VTE Factor V Leiden Prothrombin [id number] Lupus anticoagulant Anticardiolipin antibodies Elevated serum homocysteine Heparin-induced thrombocytopenia Other congenital or acquired thrombophilia Stroke (< 1 month) Elective arthroplasty Hip, pelvis, or leg fracture Acute spinal cord injury (< 1 month) Prophylaxis Regimen: Total Risk Factor Score Risk Level Prophylaxis Regimen 0-1 Low Early ambulation 2 Moderate Order ONE of the following: *Sequential Compression Device (SCD) *Heparin 5000 units SQ BID 3-4 Higher Order ONE of the following medications: *Heparin 5000 units SQ TID *Enoxaparin/Lovenox 40 mg SQ daily (WT < 150 kg, CrCl > 30 mL/min) *Enoxaparin/Lovenox 30 mg SQ daily (WT < 150 kg, CrCl > 10-29 mL/min) *Enoxaparin/Lovenox 30 mg SQ BID (WT < 150 kg, CrCl > 30 mL/min) AND/OR *Sequential Compression Device (SCD) 5 or more Highest Order ONE of the following medications: *Heparin 5000 units SQ TID (Preferred with Epidurals) *Enoxaparin/Lovenox 40 mg SQ daily (WT < 150 kg, CrCl > 30 mL/min) *Enoxaparin/Lovenox 30 mg SQ daily (WT < 150 kg, CrCl > 10-29 mL/min) *Enoxaparin/Lovenox 30 mg SQ BID (WT < 150 kg, CrCl > 30 mL/min) AND *Sequential Compression Device (SCD) Assessment and Plan - Plan Assessment/plan: 1. CIDP exacerbation Patient with weakness Status post IVIG 01/10 Neurology consulted, recommend IVIG Physical therapy consulted 2. Hypertension/hyperlipidemia/GERD/hypothyroidism Continue home medications FEN Heart healthy diet Electrolytes: Monitor and replete as needed Heparin
[2018-02-07] MEDS: Sodium Chlor 0.9% Inj 500 ML IV.SIG SCH ×2 (00:31→23:05)
[2018-02-07] MEDS: Levothyroxine 75 MCG Tablet PO SCH (08:23)
[2018-02-07] MEDS: Heparin - SQ 10,000 UNITS/ML Vial SQ SCH ×2 (08:24→20:45)
[2018-02-07] MEDS: Spironolactone 25 MG Tablet PO SCH (08:24)
[2018-02-07 08:40] LABS: Baso % (Auto) 0.7 % (0.0-2.0); Eos # (Auto) 0.1 th/mm3 (0.0-0.4); Eos % (Auto) 2.2 % (0.0-4.0); Hematocrit 38.2 % (35.0-46.0); Hemoglobin 13.3 gm/dL (11.6-15.3); Lymph # (Auto) 1.5 th/mm3 (1.0-4.8); Lymph % (Auto) 24.5 % (9.0-44.0); Mean Corpuscular HGB Conc 34.9 % (32.0-36.0); Mean Corpuscular Hemoglobin 30.5 pg (27.0-34.0); Mean Corpuscular Volume 87.4 fL (80.0-100.0); Mean Platelet Volume 7.7 fL (7.0-11.0); Mono # (Auto) 0.8 th/mm3 (0.0-0.9); Mono % (Auto) 12.9 % (0.0-8.0); Neut # (Auto) 3.6 th/mm3 (1.8-7.7); Neut % (Auto) 59.7 % (16.0-70.0); Platelet Count 292 th/mm3 (150-450); Red Blood Count 4.37 mil/mm3 (4.00-5.30); Red Cell Distribution Width 14.6 % (11.6-17.2)
[2018-02-07 08:59] LABS: Calcium 8.3 mg/dL (8.5-10.1); Carbon Dioxide 24.7 meq/L (21.0-32.0); Potassium 4.1 meq/L (3.5-5.1)
--- NOTE | 2018-02-07 11:46 | MB ---
cc: Odin Vega MD, PhD DATE: 02/07/2018 REASON FOR CONSULTATION: Worsening CIDP. HISTORY OF PRESENT ILLNESS: Ms. Davila is a very pleasant 87-year-old female with recent diagnosis of CIDP when she presented with bilateral upper and lower extremity weakness several weeks ago, at which time she was evaluated with negative MRI of the spine. Cervical spine MRI showed no significant stenosis. The cord appeared normal. There was a slight disk bulge at C6-C7 and hypertrophic changes, but no cord compression. Minimal neural foraminal encroachment is seen at C5-C6, but no cord compression. She also had an MRI of the brain, which is normal for age. She underwent lumbar puncture, and there were in the CSF 5 wbc's, 0% neutrophils, 100% lymphocytes, 15 rbc's, glucose 69. Total protein was very elevated at 121.5. She was diagnosed as having CIDP based on those criteria and was treated with IVIG for 5 days total with marked improvement in her strength back to normal. She went to rehabilitation about a week ago, was at home, was doing well, but 2 days ago began to notice some weakness in the hands and numbness, difficulty at the Y with inability to perform as before due to generalized weakness. She, therefore, presented to the emergency room yesterday because of generalized weakness. I recommended admission for IVIG therapy. She received her first dose over the night, 0.4 g/kg and tolerated it well. PAST MEDICAL HISTORY: CIDP, hypercholesterolemia, hypertension, hypothyroidism, GERD, tubal ligation, appendectomy, history of endarterectomy. CURRENT MEDICATIONS: 1. Tylenol. 2. Ecotrin 81 mg daily. 3. Benadryl p.r.n. 4. Subcutaneous heparin 5000 units b.i.d. 5. IVIG 25 g. 6. Synthroid. 7. Cozaar. 8. Toprol-XL 50 mg daily. 9. Zofran p.r.n. 10. Protonix 40 mg daily. PHYSICAL EXAMINATION: VITAL SIGNS: Blood pressure is 153/64, pulse 60, respirations 18, temperature 97 degrees. NEUROLOGIC: Higher cortical functions normal. Cranial nerves 2-12 are normal. Motor: She has 4/5 weakness of the interossei bilaterally with 5/5 deltoid strength, 4/5 biceps, 4/5 triceps symmetric. Lower extremity strength in the iliopsoas is 4-/5, quads 4+/5, hamstring 4/5, tibialis anterior 4/5. Sensory exam intact. Reflexes are areflexic. There is no Babinski sign present. LABORATORY DATA: White count 6000, hemoglobin 13.3, hematocrit 38.2%, platelet count 292,000. Sedimentation rate is 59. PT 10.2, INR 1. Sodium is 136, potassium is 4.1, chloride 105, CO2 of 24.7. The BUN is 11, creatinine 0.71, GFR is 78, glucose 86. TSH 2.080. Urinalysis: pH is 7, specific gravity 1.009, otherwise negative, 1 wbc, 1 rbc. IMPRESSION: Chronic inflammatory demyelinating polyradiculoneuropathy, now with relapse. RECOMMENDATION: IVIG 0.4 g/kg daily, given slowly over about 8 hours each day. Would recommend at least 3 days of this therapy, possibly extending to 5 days depending on her response. I also recommend physical therapy consult. Odin Vega MD, PhD MARLIN/pennie , 10:20 AM , 10:29 AM
--- NOTE | 2018-02-07 14:26 | ECG ---
Date Performed: 02/06/2018 Time Performed: 22:00:53 PTAGE: 87 years EKG: Sinus rhythm NORMAL ECG Since PREVIOUS TRACING , no significant change noted PREVIOUS TRACIN01/07/2018 19.25 DOCTOR: Lenny Lama Interpretating Date/Time 02/07/2018 14:24:27
[2018-02-08] MEDS: IVIG (Immune Globulin) Inj 25 GM in Syringe/Bag 1 EACH IV.SIG SCH ×2 (00:14→23:01)
[2018-02-08] MEDS: Levothyroxine 75 MCG Tablet PO SCH (06:09)
--- NOTE | 2018-02-08 08:02 | P.PN ---
Subjective Interval history: Follow up on patient with CIDP with relapse. Patient seen and examined. Patient states she feels better. She is concerned her medication is being dripped in too slowly. She denies any acute medical complaints. BP elevated 193/82. She is not sure what medications she is on at home. Physical Exam Vital signs: Vital Signs 02/07/18 09:14 02/07/18 12:00 02/07/18 16:00 Temperature 97.7 F 98.9 F Pulse Rate 55 L 62 62 Respiratory Rate 16 16 Blood Pressure 115/53 L 121/60 Pulse Oximetry 99 98 02/07/18 20:00 02/07/18 23:00 02/08/18 00:14 Temperature 97.8 F 97.2 F L Pulse Rate 64 61 57 L Respiratory Rate 18 18 15 Blood Pressure 135/79 164/72 H 155/67 H Pulse Oximetry 99 99 02/08/18 00:47 02/08/18 01:27 02/08/18 02:43 Temperature 97.4 F L 97.6 F 97.3 F L Pulse Rate 58 L 54 L 60 Respiratory Rate 15 15 15 Blood Pressure 147/64 H 143/67 H 142/62 H Pulse Oximetry 97 96 02/08/18 04:00 02/08/18 05:04 Temperature 97.7 F 98 F Pulse Rate 58 L 59 L Respiratory Rate 15 15 Blood Pressure 147/64 H 147/63 H Pulse Oximetry 97 99 Intake & Output 02/07/18 02/08/18 02/08/18 18:59 06:59 18:59 Intake Total 580 / 580 Balance 580 / 580 Weight 60.1 kg Intake: IV 500 / 500 NS Inj 500 ML @ 500 mls/hr IV. 500 / 500 SIG Q24H [facility] Rx#:[id number] Oral 80 / 80 Other: # Voids 3 4 Date of Last Bowel Movement 02/06/18 02/06/18 Narrative: GENERAL: WDWN elderly female patient, INAD. Awake and alert. Sitting up eating breakfast. SKIN: Warm and dry. HEAD: Atraumatic. Normocephalic. EYES: Pupils equal and round. No scleral icterus. No injection or drainage. ENT: No nasal bleeding or discharge. Mucous membranes pink and moist. NECK: Trachea midline. CARDIOVASCULAR: Regular rate and rhythm. RESPIRATORY: No accessory muscle use. Clear to auscultation. Breath sounds equal bilaterally. GASTROINTESTINAL: Abdomen soft, non-tender, nondistended. +BS. MUSCULOSKELETAL: Extremities without clubbing, cyanosis, or edema. No obvious deformities. NEUROLOGICAL: Awake and alert. No obvious cranial nerve deficits. Motor grossly within normal limits. Good die maker trim strength bilaterally. Normal speech. PSYCHIATRIC: Appropriate mood and affect; insight and judgment normal. Results - Labs CBC & Chem 7: 02/07/18 07:50 02/07/18 07:50 Laboratory Results - last 24 hr 02/07/18 02/07/18 07:50 07:50 WBC 6.0 RBC 4.37 Hgb 13.3 Hct 38.2 MCV 87.4 MCH 30.5 MCHC 34.9 RDW 14.6 Plt Count 292 MPV 7.7 Neut % (Auto) 59.7 Lymph % (Auto) 24.5 [place] % (Auto) 12.9 H Eos % (Auto) 2.2 Baso % (Auto) 0.7 Neut # (Auto) 3.6 Lymph # (Auto) 1.5 [place] # (Auto) 0.8 Eos # (Auto) 0.1 Baso # (Auto) 0.0 WBC Differential . Differential Comment Auto diff final Sodium 136 Potassium 4.1 Chloride 105 Carbon Dioxide 24.7 Anion Gap 6 BUN 11 Creatinine 0.71 Estimated GFR 78 L Random Glucose 86 Calcium 8.3 L - Imaging ITS Impressions Chest X-Ray 02/06/18 20:45 CONCLUSION: The lungs are clear. Assessment and Plan - Assessment (1) CIDP (chronic inflammatory demyelinating polyneuropathy) Code(s): G61.81 - Chronic inflammatory demyelinating polyneuritis Status: Acute - Plan 87-year-old female with past medical history significant for hypertension, hyperlipidemia, hypothyroidism, GERD and chronic inflammatory demyelinating polyneuropathy presents to the emergency department for evaluation of 2 days of weakness. CIDP exacerbation Patient with weakness Status post IVIG 01/10 -Neurology following, plan for 3 to 5 days of IVIG given slowly over 8 hours each day -Continue with PT, recommends C PT -Add OT eval/recs -fall precautions Hypertension, not well controlled BP 193/82 -Continue on home meds of Cozaar and Toprol XL -Add Norvasc 5mg daily -IV Vasotec prn with parameters -continue to monitor BP and adjust treatment accordingly Hyperlipidemia/GERD/hypothyroidism/Glaucoma -Continue home medications DVT prophylaxis -Heparin sq Code Status: FULL Discussed Condition With: patient, nursing staff, Dr. Michael Discharge Planning: Not ready for discharge. Neurology following. Plan for IVIG treatments for next 3-5 days depending on patients response.
[2018-02-08] MEDS: Spironolactone 25 MG Tablet PO SCH (08:10)
[2018-02-08] MEDS: Heparin - SQ 10,000 UNITS/ML Vial SQ SCH ×2 (08:10→21:19)
[2018-02-08] MEDS ORDERED: [UNRECOGNIZED DRUG - OTHER] PO SCH (09:00)
[2018-02-08] MEDS ORDERED: COENZYME Q10 30 MG PO SCH (09:00)
[2018-02-08] MEDS: IPRATROPIUM 0.03% NASAL SCH ×2 (09:49→21:18)
[2018-02-08] MEDS: amLODIPine 5 MG Tablet PO SCH (10:17)
[2018-02-08] MEDS: LEVOBUNOLOL 0.5% EACH EYE SCH (12:00)
[2018-02-08] MEDS: OPTH EACH EYE SCH (12:00)
--- NOTE | 2018-02-08 16:45 | P.PNNEU ---
Subjective Subjective Comments: Pt has had two doses of ivig and tolerating it well. She feels strength is improving but not yet back to baseline. Active Medications: Active Medications Amlodipine Besylate (Norvasc) 5 mg PO DAILY [facility] Last Admin: 02/08/18 10:17 Dose: 5 mg Diphenhydramine HCl (Benadryl Inj) 50 mg IV.PUSH PRN PRN PRN Reason: ALLERGIC REACTION Stop: 02/08/18 23:13 Enalaprilat (Vasotec Inj) 1.25 mg IV.PUSH Q6H PRN PRN Reason: SBP>180, DBP>95 Epinephrine HCl (Epinephrine (1:1000) Inj) 0.3 mg OTHER Q10M PRN PRN Reason: Anaphylactic Reaction Stop: 02/08/18 23:13 Heparin Sodium (Porcine) (Heparin Inj) 5,000 units SQ Q12HR [facility] Last Admin: 02/08/18 08:10 Dose: 5,000 units Immune Globulin 25 gm/ Syringe (/Bag) 250 mls @ 31.25 mls/hr IV.SIG Q24HR [facility]; Protocol Stop: 02/11/18 12:00 Last Infusion: 02/08/18 02:02 Dose: 31.25 mls/hr Levobunolol HCl (Betagan 0.5% Opth Drops) 1 drop EACH EYE Q24H [facility] Last Admin: 02/08/18 12:00 Dose: 1 drop Levothyroxine Sodium (Synthroid) 75 mcg PO DAILY@0700 [facility] Last Admin: 02/08/18 06:09 Dose: 75 mcg Losartan Potassium (Cozaar) 25 mg PO [facility] Last Admin: 02/07/18 20:45 Dose: 25 mg Metoprolol Succinate (Toprol Xl) 50 mg PO HS [facility] Last Admin: 02/07/18 20:45 Dose: 50 mg Montelukast Sodium (Singulair) 10 mg PO QPM [facility] Ondansetron HCl (Zofran Inj) 4 mg IV.PUSH Q6H PRN PRN Reason: NAUSEA OR VOMITING Pantoprazole Sodium (Protonix) 40 mg PO DAILY [facility] Last Admin: 02/08/18 08:10 Dose: 40 mg Patient Own Medication ( Ipratropium 0.03% Nasal [place]) 0 each NASAL BID [facility] Last Admin: 02/08/18 09:49 Dose: 1 each Sodium Chloride (Ns Flush) 2 ml IV.FLUSH PRN PRN PRN Reason: FLUSH AFTER USING IV ACCESS Spironolactone (Aldactone) 25 mg PO DAILY [facility] Last Admin: 02/08/18 08:10 Dose: 25 mg Vitamin D (Vitamin D3) 4,000 unit PO DAILY [facility] Last Admin: 02/08/18 09:00 Dose: 4,000 unit Allergies/Adverse Reactions: Allergies Allergy/AdvReac Type Severity Reaction Status Date / Time doxycycline Allergy Severe Nausea/Vomi Verified 01/07/18 19:34 ting guaifenesin AdvReac Severe "MAKES ME Verified 01/07/18 19:30 HIGH" Physical Exam Vital signs: Vital Signs 02/07/18 20:00 02/07/18 23:00 02/08/18 00:14 Temperature 97.8 F 97.2 F L Pulse Rate 64 61 57 L Respiratory Rate 18 18 15 Blood Pressure 135/79 164/72 H 155/67 H Pulse Oximetry 99 99 02/08/18 00:47 02/08/18 01:27 02/08/18 02:43 Temperature 97.4 F L 97.6 F 97.3 F L Pulse Rate 58 L 54 L 60 Respiratory Rate 15 15 15 Blood Pressure 147/64 H 143/67 H 142/62 H Pulse Oximetry 97 96 02/08/18 04:00 02/08/18 05:04 02/08/18 08:00 Temperature 97.7 F 98 F 97.2 F L Pulse Rate 58 L 59 L 67 Respiratory Rate 15 15 16 Blood Pressure 147/64 H 147/63 H 193/82 H Pulse Oximetry 97 99 98 Intake & Output 02/07/18 02/08/18 02/08/18 18:59 06:59 18:59 Intake Total 580 / 580 Balance 580 / 580 Weight 60.1 kg Intake: IV 500 / 500 NS Inj 500 ML @ 500 mls/hr IV. 500 / 500 SIG Q24H [facility] Rx#:[id number] Oral 80 / 80 Other: # Voids 3 4 Date of Last Bowel Movement 02/06/18 02/06/18 02/07/18 - Routine Neurological Exam alert, speech normal CN intact MOTOR---5/5 BUE. 4/5 bilateral iliopsoas, 4/5 bilateral quads, 4/5 bilateral hamstring. 4/5 bilateral tibialis anterior. Review/Management - Diagnosis (1) Neuropathy Code(s): G62.9 - Polyneuropathy, unspecified Status: Acute Current Visit: No (2) CIDP (chronic inflammatory demyelinating polyneuropathy) Code(s): G61.81 - Chronic inflammatory demyelinating polyneuritis Status: Acute Current Visit: No - Review/Management Plan: continue ivig total of 5 doses
[2018-02-08] MEDS: Montelukast 10 MG Tablet PO SCH (18:21)
[2018-02-08] MEDS: Sodium Chlor 0.9% Inj 500 ML IV.SIG SCH (18:27)
[2018-02-08] MEDS: Acetaminophen 325 MG Tablet PO SCH (21:59)
[2018-02-09] MEDS: Levothyroxine 75 MCG Tablet PO SCH (06:06)
--- NOTE | 2018-02-09 07:31 | P.PN ---
Subjective Interval history: Follow up on patient with CIDP with relapse. Patient states she is improving but does not feel her upper extremity strength has returned to baseline. She denies any new medical complaints. She states that she is to have a procedure with ENT on Thursday and was told by their office to not have Heparin while she is here in the hospital?? She is afebrile. Vital signs are stable. Physical Exam Vital signs: Vital Signs 02/08/18 08:00 02/08/18 16:00 02/08/18 20:00 Temperature 97.2 F L 97.9 F 98.5 F Pulse Rate 67 67 70 Respiratory Rate 16 16 17 Blood Pressure 193/82 H 139/66 137/63 Pulse Oximetry 98 98 97 02/08/18 23:00 02/08/18 23:01 02/08/18 23:15 Temperature 98.2 F 97.9 F Pulse Rate 65 65 60 Respiratory Rate 16 16 16 Blood Pressure 146/69 H 146/69 H 147/64 H Pulse Oximetry 100 99 02/08/18 23:30 02/09/18 00:00 02/09/18 01:00 Temperature 98 F 98.4 F 98.7 F Pulse Rate 55 L 57 L 61 Respiratory Rate 16 17 16 Blood Pressure 106/57 L 114/55 L 136/63 Pulse Oximetry 98 94 L 02/09/18 02:30 02/09/18 04:00 Temperature 97.8 F 98.4 F Pulse Rate 60 61 Respiratory Rate 18 17 Blood Pressure 127/59 L 143/75 H Pulse Oximetry 98 96 Intake & Output 02/08/18 02/09/18 02/09/18 18:59 06:59 18:59 Intake Total 500 / 500 Balance 500 / 500 Weight 60.1 kg Intake: IV 500 / 500 Privigen Inj 25 GM In Bag/ 500 / 500 Syringe 1 EACH @ 31.25 mls/hr IV.SIG Q24HR [facility] Rx#:[id number] Other: # Voids 3 Date of Last Bowel Movement 02/07/18 02/07/18 Narrative: GENERAL: WDWN elderly female patient, INAD. Sleepy but easily awakens to voice. Appears comfortable. SKIN: Warm and dry. HEAD: Atraumatic. Normocephalic. EYES: Pupils equal and round. No scleral icterus. No injection or drainage. ENT: No nasal bleeding or discharge. Mucous membranes pink and moist. NECK: Trachea midline. CARDIOVASCULAR: Regular rate and rhythm. RESPIRATORY: No accessory muscle use. Clear to auscultation. Breath sounds equal bilaterally. GASTROINTESTINAL: Abdomen soft, non-tender, nondistended. +BS. MUSCULOSKELETAL: Extremities without clubbing, cyanosis, or edema. No obvious deformities. NEUROLOGICAL: Awake and alert. No obvious cranial nerve deficits. Motor grossly within normal limits. Good cost specialist strength bilaterally. Normal speech. PSYCHIATRIC: Appropriate mood and affect; insight and judgment normal. Results - Labs CBC & Chem 7: 02/07/18 07:50 02/07/18 07:50 - Imaging ITS Impressions Chest X-Ray 02/06/18 20:45 CONCLUSION: The lungs are clear. Assessment and Plan - Assessment (1) CIDP (chronic inflammatory demyelinating polyneuropathy) Code(s): G61.81 - Chronic inflammatory demyelinating polyneuritis Status: Acute - Plan 87-year-old female with past medical history significant for hypertension, hyperlipidemia, hypothyroidism, GERD and chronic inflammatory demyelinating polyneuropathy presents to the emergency department for evaluation of 2 days of weakness. CIDP exacerbation Patient with weakness Status post IVIG 01/10 -Neurology following, plan for 3 to 5 days of IVIG given slowly over 8 hours each day -Continue with PT, recommends [facility] PT -OT requested, no needs identified -fall precautions Hypertension, much improved -Continue on home meds of Cozaar and Toprol XL -BP actually running a little low, will continue on Norvasc but decrease dose to 2.5mg -IV Vasotec prn with parameters -continue to monitor BP and adjust treatment accordingly Hyperlipidemia/GERD/hypothyroidism/Glaucoma -Continue home medications DVT prophylaxis -Heparin sq Code Status: FULL Discussed Condition With: patient, Dr. Michael Discharge Planning: Not ready for discharge. Neurology following. Plan for IVIG treatments for next 1-3 days depending on patients response.
[2018-02-09] MEDS: Spironolactone 25 MG Tablet PO SCH (09:07)
[2018-02-09] MEDS: amLODIPine 5 MG Tablet PO SCH (09:07)
[2018-02-09] MEDS: Heparin - SQ 10,000 UNITS/ML Vial SQ SCH ×2 (09:44→21:25)
[2018-02-09] MEDS: IPRATROPIUM 0.03% NASAL SCH ×2 (09:44→22:16)
[2018-02-09] MEDS ORDERED: amLODIPine 5 MG Tablet PO SCH (10:45)
[2018-02-09] MEDS: LEVOBUNOLOL 0.5% EACH EYE SCH (12:59)
[2018-02-09] MEDS: OPTH EACH EYE SCH (12:59)
[2018-02-09] MEDS: Montelukast 10 MG Tablet PO SCH (17:35)
--- NOTE | 2018-02-09 21:08 | P.PNNEU ---
Subjective Subjective Comments: tolerating ivig, feels strength improving Active Medications: Active Medications Acetaminophen (Tylenol) 650 mg PO [facility] Stop: 02/11/18 17:59 Last Admin: 02/08/18 21:59 Dose: 650 mg Amlodipine Besylate (Norvasc) 2.5 mg PO DAILY [facility] Diphenhydramine HCl (Benadryl Inj) 50 mg IV.PUSH PRN PRN PRN Reason: ALLERGIC REACTION Stop: 02/12/18 23:59 Diphenhydramine HCl (Benadryl) 25 mg PO [facility] Stop: 02/11/18 23:59 Last Admin: 02/08/18 21:59 Dose: 25 mg Enalaprilat (Vasotec Inj) 1.25 mg IV.PUSH Q6H PRN PRN Reason: SBP>180, DBP>95 Epinephrine HCl (Epinephrine (1:1000) Inj) 0.3 mg OTHER Q10M PRN PRN Reason: Anaphylactic Reaction Stop: 02/12/18 23:59 Heparin Sodium (Porcine) (Heparin Inj) 5,000 units SQ Q12HR [facility] Last Admin: 02/09/18 09:44 Dose: Not Given Immune Globulin 25 gm/ Syringe (/Bag) 250 mls @ 31.25 mls/hr IV.SIG Q24HR [facility]; Protocol Stop: 02/11/18 12:00 Last Infusion: 02/09/18 04:00 Dose: Infused Sodium Chloride (Ns Inj) 500 mls @ 500 mls/hr IV.SIG Q24H [facility] Stop: 02/11/18 23:59 Last Admin: 02/08/18 18:27 Dose: Not Given Dextrose (D5w Inj) 500 mls @ 30 mls/hr OTHER Q24H [facility] Stop: 02/11/18 23:59 Last Admin: 02/08/18 18:21 Dose: Not Given Levobunolol HCl (Betagan 0.5% Opth Drops) 1 drop EACH EYE Q24H [facility] Last Admin: 02/09/18 12:59 Dose: 1 drop Levothyroxine Sodium (Synthroid) 75 mcg PO DAILY@0700 [facility] Last Admin: 02/09/18 06:06 Dose: 75 mcg Losartan Potassium (Cozaar) 25 mg PO [facility] Last Admin: 02/08/18 21:18 Dose: 25 mg Metoprolol Succinate (Toprol Xl) 50 mg PO HS [facility] Last Admin: 02/08/18 21:18 Dose: 50 mg Miscellaneous (Pill Splitter) 1 each OTHER ONCE [facility] Montelukast Sodium (Singulair) 10 mg PO QPM [facility] Last Admin: 02/09/18 17:35 Dose: 10 mg Ondansetron HCl (Zofran Inj) 4 mg IV.PUSH Q6H PRN PRN Reason: NAUSEA OR VOMITING Pantoprazole Sodium (Protonix) 40 mg PO DAILY [facility] Last Admin: 02/09/18 09:07 Dose: 40 mg Patient Own Medication ( Ipratropium 0.03% Nasal [place]) 0 each NASAL BID [facility] Last Admin: 02/09/18 09:44 Dose: Not Given Sodium Chloride (Ns Flush) 2 ml IV.FLUSH PRN PRN PRN Reason: FLUSH AFTER USING IV ACCESS Spironolactone (Aldactone) 25 mg PO DAILY [facility] Last Admin: 02/09/18 09:07 Dose: 25 mg Vitamin D (Vitamin D3) 4,000 unit PO DAILY [facility] Last Admin: 02/09/18 09:07 Dose: 4,000 unit Allergies/Adverse Reactions: Allergies Allergy/AdvReac Type Severity Reaction Status Date / Time doxycycline Allergy Severe Nausea/Vomi Verified 01/07/18 19:34 ting guaifenesin AdvReac Severe "MAKES ME Verified 01/07/18 19:30 HIGH" Physical Exam Vital signs: Vital Signs 02/08/18 23:00 02/08/18 23:01 02/08/18 23:15 Temperature 98.2 F 97.9 F Pulse Rate 65 65 60 Respiratory Rate 16 16 16 Blood Pressure 146/69 H 146/69 H 147/64 H Pulse Oximetry 100 99 02/08/18 23:30 02/09/18 00:00 02/09/18 01:00 Temperature 98 F 98.4 F 98.7 F Pulse Rate 55 L 57 L 61 Respiratory Rate 16 17 16 Blood Pressure 106/57 L 114/55 L 136/63 Pulse Oximetry 98 94 L 02/09/18 02:30 02/09/18 04:00 02/09/18 08:00 Temperature 97.8 F 98.4 F 97.3 F L Pulse Rate 60 61 60 Respiratory Rate 18 17 18 Blood Pressure 127/59 L 143/75 H 114/56 L Pulse Oximetry 98 96 97 02/09/18 12:00 02/09/18 15:46 Temperature 97.9 F 97.9 F Pulse Rate 64 61 Respiratory Rate 18 18 Blood Pressure 106/58 L 113/63 Pulse Oximetry 98 99 Intake & Output 02/09/18 02/09/18 02/10/18 06:59 18:59 06:59 Intake Total 500 / 500 960 / 960 Balance 500 / 500 960 / 960 Weight 60.1 kg Intake: IV 500 / 500 Privigen Inj 25 GM In Bag/ 500 / 500 Syringe 1 EACH @ 31.25 mls/hr IV.SIG Q24HR [facility] Rx#:[id number] Oral 960 / 960 Other: # Voids 3 5 Date of Last Bowel Movement 02/07/18 - Routine Neurological Exam alert, speech normal CN intact MOTOR 4+/5 BUE and BLE gait--walking with walker Review/Management - Diagnosis (1) Neuropathy Code(s): G62.9 - Polyneuropathy, unspecified Status: Acute Current Visit: No (2) CIDP (chronic inflammatory demyelinating polyneuropathy) Code(s): G61.81 - Chronic inflammatory demyelinating polyneuritis Status: Acute Current Visit: No - Review/Management Plan: continue ivig total of 5 doses
[2018-02-09] MEDS: Sodium Chlor 0.9% Inj 500 ML IV.SIG SCH (22:27)
[2018-02-10] MEDS: Acetaminophen 325 MG Tablet PO SCH ×2 (00:35→18:00)
[2018-02-10] MEDS: IVIG (Immune Globulin) Inj 25 GM in Syringe/Bag 1 EACH IV.SIG SCH ×2 (01:49→23:04)
[2018-02-10] MEDS: Levothyroxine 75 MCG Tablet PO SCH (06:45)
--- NOTE | 2018-02-10 07:40 | P.PN ---
Subjective Interval history: She states she is doing well. She denies any acute medical complaints. She reports she is feeling stronger. Plan for 1 more treatment of IVIG per neurology prior to discharge. Physical Exam Vital signs: Vital Signs 02/09/18 08:00 02/09/18 12:00 02/09/18 15:46 Temperature 97.3 F L 97.9 F 97.9 F Pulse Rate 60 64 61 Respiratory Rate 18 18 18 Blood Pressure 114/56 L 106/58 L 113/63 Pulse Oximetry 97 98 99 02/09/18 20:00 02/10/18 00:00 02/10/18 01:45 Temperature 97.4 F L 97.9 F 97.9 F Pulse Rate 71 58 L 56 L Respiratory Rate 17 16 18 Blood Pressure 119/56 L 103/56 L 100/53 L Pulse Oximetry 97 97 97 02/10/18 01:49 02/10/18 02:25 02/10/18 03:30 Temperature 97.2 F L 97.8 F Pulse Rate 56 L 57 L 54 L Respiratory Rate 18 18 18 Blood Pressure 100/53 L 110/53 L 118/56 L Pulse Oximetry 98 95 02/10/18 04:00 02/10/18 04:30 Temperature 97.2 F L 97.6 F Pulse Rate 60 57 L Respiratory Rate 19 18 Blood Pressure 131/63 110/54 L Pulse Oximetry 97 97 Intake & Output 02/09/18 02/10/18 02/10/18 18:59 06:59 18:59 Intake Total 960 / 960 1230 / 1230 Balance 960 / 960 1230 / 1230 Intake: IV 750 / 750 Privigen Inj 25 GM In Bag/ 250 / 250 Syringe 1 EACH @ 31.25 mls/hr IV.SIG Q24HR [facility] Rx#:[id number] NS Inj 500 ML @ 500 mls/hr IV. 500 / 500 SIG Q24H [facility] Rx#:[id number] Oral 960 / 960 480 / 480 Other: # Voids 5 2 Narrative: GENERAL: WDWN elderly female patient, INAD. Sitting up in bedside chair eating breakfast. Appears comfortable. SKIN: Warm and dry. HEAD: Atraumatic. Normocephalic. EYES: Pupils equal and round. No scleral icterus. No injection or drainage. ENT: No nasal bleeding or discharge. Mucous membranes pink and moist. NECK: Trachea midline. CARDIOVASCULAR: Regular rate and rhythm. RESPIRATORY: No accessory muscle use. Clear to auscultation. Breath sounds equal bilaterally. GASTROINTESTINAL: Abdomen soft, non-tender, nondistended. +BS. MUSCULOSKELETAL: Extremities without clubbing, cyanosis, or edema. No obvious deformities. NEUROLOGICAL: Awake and alert. No obvious cranial nerve deficits. Motor grossly within normal limits. Good pie topper strength bilaterally. Normal speech. PSYCHIATRIC: Appropriate mood and affect; insight and judgment normal. Results - Labs CBC & Chem 7: 02/07/18 07:50 02/07/18 07:50 Assessment and Plan - Assessment (1) CIDP (chronic inflammatory demyelinating polyneuropathy) Code(s): G61.81 - Chronic inflammatory demyelinating polyneuritis Status: Acute - Plan 87-year-old female with past medical history significant for hypertension, hyperlipidemia, hypothyroidism, GERD and chronic inflammatory demyelinating polyneuropathy presents to the emergency department for evaluation of 2 days of weakness. CIDP exacerbation, improving Patient with weakness Status post IVIG 01/10 -Neurology following, plan for 3 to 5 days of IVIG given slowly over 8 hours each day. Plan to receive 1 additional IVIG treatment prior to discharge for total of 5 -Continue with PT, recommends [facility] PT -OT requested, no needs identified -fall precautions Hypertension, much improved -Continue on home meds of Cozaar and Toprol XL. Patient also on spironolactone. -BP continues to run low, discontinue Norvasc -IV Vasotec prn with parameters -continue to monitor BP and adjust treatment accordingly Hyperlipidemia/GERD/hypothyroidism/Glaucoma -Continue home medications DVT prophylaxis -Heparin sq Code Status: FULL Discussed Condition With: patient, Dr. Michael Discharge Planning: Not ready for discharge. Neurology following. Plan for one additional IVIG treatment - likely discharge tomorrow.
[2018-02-10] MEDS: Heparin - SQ 10,000 UNITS/ML Vial SQ SCH ×3 (08:32→23:02)
[2018-02-10] MEDS: Spironolactone 25 MG Tablet PO SCH (08:32)
[2018-02-10] MEDS: IPRATROPIUM 0.03% NASAL SCH (08:33)
--- NOTE | 2018-02-10 08:57 | P.PNNEU ---
Subjective Subjective Comments: no new c/o. feeling stronger. tolerated ivig well--last night #4 Active Medications: Active Medications Acetaminophen (Tylenol) 650 mg PO [facility] Stop: 02/11/18 17:59 Last Admin: 02/10/18 00:35 Dose: 650 mg Amlodipine Besylate (Norvasc) 2.5 mg PO DAILY [facility] Last Admin: 02/10/18 08:32 Dose: 2.5 mg Diphenhydramine HCl (Benadryl Inj) 50 mg IV.PUSH PRN PRN PRN Reason: ALLERGIC REACTION Stop: 02/12/18 23:59 Diphenhydramine HCl (Benadryl) 25 mg PO [facility] Stop: 02/11/18 23:59 Last Admin: 02/10/18 00:35 Dose: 25 mg Enalaprilat (Vasotec Inj) 1.25 mg IV.PUSH Q6H PRN PRN Reason: SBP>180, DBP>95 Epinephrine HCl (Epinephrine (1:1000) Inj) 0.3 mg OTHER Q10M PRN PRN Reason: Anaphylactic Reaction Stop: 02/12/18 23:59 Heparin Sodium (Porcine) (Heparin Inj) 5,000 units SQ Q12HR [facility] Last Admin: 02/10/18 08:35 Dose: Not Given Immune Globulin 25 gm/ Syringe (/Bag) 250 mls @ 31.25 mls/hr IV.SIG Q24HR [facility]; Protocol Stop: 02/11/18 12:00 Last Infusion: 02/10/18 04:35 Dose: Infused Sodium Chloride (Ns Inj) 500 mls @ 500 mls/hr IV.SIG Q24H [facility] Stop: 02/11/18 23:59 Last Infusion: 02/09/18 23:30 Dose: Infused Dextrose (D5w Inj) 500 mls @ 30 mls/hr OTHER Q24H [facility] Stop: 02/11/18 23:59 Last Admin: 02/10/18 01:48 Dose: 30 mls/hr Levobunolol HCl (Betagan 0.5% Opth Drops) 1 drop EACH EYE Q24H [facility] Last Admin: 02/09/18 12:59 Dose: 1 drop Levothyroxine Sodium (Synthroid) 75 mcg PO DAILY@0700 [facility] Last Admin: 02/10/18 06:45 Dose: 75 mcg Losartan Potassium (Cozaar) 25 mg PO HS [facility] Last Admin: 02/09/18 22:16 Dose: 25 mg Metoprolol Succinate (Toprol Xl) 50 mg PO HS [facility] Last Admin: 02/09/18 22:16 Dose: 50 mg Miscellaneous (Pill Splitter) 1 each OTHER ONCE [facility] Montelukast Sodium (Singulair) 10 mg PO QPM [facility] Last Admin: 02/09/18 17:35 Dose: 10 mg Ondansetron HCl (Zofran Inj) 4 mg IV.PUSH Q6H PRN PRN Reason: NAUSEA OR VOMITING Pantoprazole Sodium (Protonix) 40 mg PO DAILY [facility] Last Admin: 02/10/18 08:32 Dose: 40 mg Patient Own Medication ( Ipratropium 0.03% Nasal [place]) 0 each NASAL BID [facility] Last Admin: 02/10/18 08:33 Dose: Not Given Sodium Chloride (Ns Flush) 2 ml IV.FLUSH PRN PRN PRN Reason: FLUSH AFTER USING IV ACCESS Spironolactone (Aldactone) 25 mg PO DAILY [facility] Last Admin: 02/10/18 08:32 Dose: 25 mg Vitamin D (Vitamin D3) 4,000 unit PO DAILY [facility] Last Admin: 02/10/18 08:32 Dose: 4,000 unit Allergies/Adverse Reactions: Allergies Allergy/AdvReac Type Severity Reaction Status Date / Time doxycycline Allergy Severe Nausea/Vomi Verified 01/07/18 19:34 ting guaifenesin AdvReac Severe "MAKES ME Verified 01/07/18 19:30 HIGH" Physical Exam Vital signs: Vital Signs 02/09/18 12:00 02/09/18 15:46 02/09/18 20:00 Temperature 97.9 F 97.9 F 97.4 F L Pulse Rate 64 61 71 Respiratory Rate 18 18 17 Blood Pressure 106/58 L 113/63 119/56 L Pulse Oximetry 98 99 97 02/10/18 00:00 02/10/18 01:45 02/10/18 01:49 Temperature 97.9 F 97.9 F Pulse Rate 58 L 56 L 56 L Respiratory Rate 16 18 18 Blood Pressure 103/56 L 100/53 L 100/53 L Pulse Oximetry 97 97 02/10/18 02:25 02/10/18 03:30 02/10/18 04:00 Temperature 97.2 F L 97.8 F 97.2 F L Pulse Rate 57 L 54 L 60 Respiratory Rate 18 18 19 Blood Pressure 110/53 L 118/56 L 131/63 Pulse Oximetry 98 95 97 02/10/18 04:30 Temperature 97.6 F Pulse Rate 57 L Respiratory Rate 18 Blood Pressure 110/54 L Pulse Oximetry 97 Intake & Output 02/09/18 02/10/18 02/10/18 18:59 06:59 18:59 Intake Total 960 / 960 1230 / 1230 Balance 960 / 960 1230 / 1230 Intake: IV 750 / 750 Privigen Inj 25 GM In Bag/ 250 / 250 Syringe 1 EACH @ 31.25 mls/hr IV.SIG Q24HR [facility] Rx#:[id number] NS Inj 500 ML @ 500 mls/hr IV. 500 / 500 SIG Q24H [facility] Rx#:[id number] Oral 960 / 960 480 / 480 Other: # Voids 5 2 - Routine Neurological Exam alert, speech normal CN intact MOTORO 4+/5 bue and ble Review/Management - Diagnosis (1) Neuropathy Code(s): G62.9 - Polyneuropathy, unspecified Status: Acute Current Visit: No (2) CIDP (chronic inflammatory demyelinating polyneuropathy) Code(s): G61.81 - Chronic inflammatory demyelinating polyneuritis Status: Acute Current Visit: No - Review/Management Plan: continue ivig total of 5 doses
[2018-02-10] MEDS: OPTH EACH EYE SCH (12:00)
[2018-02-10] MEDS: LEVOBUNOLOL 0.5% EACH EYE SCH (12:00)
[2018-02-10] MEDS: Montelukast 10 MG Tablet PO SCH (17:53)
[2018-02-10] MEDS: Sodium Chlor 0.9% Inj 500 ML IV.SIG SCH (17:53)
[2018-02-11] MEDS: Levothyroxine 75 MCG Tablet PO SCH (06:45)
[2018-02-11] MEDS: IPRATROPIUM 0.03% NASAL SCH ×2 (06:47→11:58)
--- NOTE | 2018-02-11 07:18 | P.DCO ---
- Physical Therapy Order: Evaluate and treat, Improve ambulation, Strength and gait training - Certification I have seen patient Nahed Davila on 02/11/18. My clinical findings support the need for the requested home health care services because: Limited mobility due to disease progression, Deconditioned with increased weakness, Limited ability to care for self, High risk of falls I certify that my clinical findings support that this patient is homebound because: Unsteady gait/balance, Unsafe to leave home unassisted, Unable to use public transportation
--- NOTE | 2018-02-11 07:19 | P.PN ---
Subjective Interval history: Follow-up on patient with CIDP exacerbation. Completed 5th IVIG treatment last night. Patient states she feels good. She reports her strength has returned to baseline. She is hoping to be discharged home. She denies any new medical complaints Physical Exam Vital signs: Vital Signs 02/10/18 08:00 02/10/18 09:00 02/10/18 12:00 Temperature 97.1 F L 97.3 F L Pulse Rate 63 65 62 Respiratory Rate 16 17 Blood Pressure 137/63 107/51 L Pulse Oximetry 100 99 02/10/18 16:00 02/10/18 20:00 02/10/18 23:15 Temperature 97.9 F 97.6 F 97.8 F Pulse Rate 67 63 62 Respiratory Rate 17 16 18 Blood Pressure 144/63 H 108/57 L 131/62 Pulse Oximetry 97 97 100 02/10/18 23:30 02/11/18 00:00 02/11/18 00:26 Temperature 97.9 F 97.8 F Pulse Rate 58 L 58 L 58 L Respiratory Rate 18 16 20 Blood Pressure 123/59 L 123/59 L 114/52 L Pulse Oximetry 99 99 98 02/11/18 01:30 02/11/18 04:00 Temperature 97.8 F 97.6 F Pulse Rate 60 64 Respiratory Rate 20 16 Blood Pressure 113/56 L 117/55 L Pulse Oximetry 98 96 Intake & Output 02/10/18 02/11/18 02/11/18 18:59 06:59 18:59 Intake Total 960 / 960 Balance 960 / 960 Weight 59.9 kg Intake: Oral 960 / 960 Other: # Voids 4 2 Date of Last Bowel Movement 02/07/18 # Bowel Movements 1 Narrative: GENERAL: WDWN elderly female patient, INAD. Sitting up in bed reading a book. Appears comfortable. SKIN: Warm and dry. HEENT: Atraumatic. Normocephalic. Pupils equal and round. No scleral icterus. No injection or drainage. No nasal bleeding or discharge. Mucous membranes pink and moist. NECK: Trachea midline. Airway patent. CARDIOVASCULAR: Regular rate and rhythm. RESPIRATORY: No accessory muscle use. Clear to auscultation. Breath sounds equal bilaterally. GASTROINTESTINAL: Abdomen soft, non-tender, nondistended. +BS. MUSCULOSKELETAL: Extremities without clubbing, cyanosis, or edema. No obvious deformities. NEUROLOGICAL: Awake and alert. No obvious cranial nerve deficits. Motor grossly within normal limits. 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 Normal speech. PSYCHIATRIC: Appropriate mood and affect; insight and judgment normal. Results - Labs CBC & Chem 7: 02/07/18 07:50 02/07/18 07:50 Assessment and Plan - Assessment (1) Weakness Code(s): R53.1 - Weakness Status: Acute (2) Gait instability Code(s): R26.81 - Unsteadiness on feet Status: Acute (3) Neuropathy Code(s): G62.9 - Polyneuropathy, unspecified Status: Acute (4) 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, unspecified Status: Acute (5) CIDP (chronic inflammatory demyelinating polyneuropathy) Code(s): G61.81 - Chronic inflammatory demyelinating polyneuritis Status: Acute (6) Risk for falls Code(s): Z91.81 - History of falling Status: Acute - Plan 87-year-old female with past medical history significant for hypertension, hyperlipidemia, hypothyroidism, GERD and chronic inflammatory demyelinating polyneuropathy presents to the emergency department for evaluation of 2 days of weakness. CIDP exacerbation, improved Patient with weakness Status post IVIG 01/10 -Neurology following, completed 5 doses of IVIG. Patient reporting her strength has returned to baseline. Plan for discharge today once cleared by Neurology. -Continue with PT, recommends [facility] PT -OT requested, no needs identified -fall precautions Hypertension, much improved -Continue on home meds of Cozaar and Toprol XL. Patient also on spironolactone. -BP continues to run low, discontinue Norvasc -IV Vasotec prn with parameters -continue to monitor BP and adjust treatment accordingly Hyperlipidemia/GERD/hypothyroidism/Glaucoma -Continue home medications DVT prophylaxis -Heparin sq Code Status: FULL Discussed Condition With: patient, Dr. Michael Discharge Planning: Discharge once cleared by neurology. CM to assist with setting up home health care PT at time of discharge.
--- NOTE | 2018-02-11 07:26 | P.DS ---
Date of admission: 02/06/18 23:23 Primary care physician: Priyanka Mckinnon MD Attending physician on discharge: Ricki Michael Anticipated date of discharge: 02/11/18 Brief History from admission: 87-year-old female with past medical history significant for hypertension, hyperlipidemia, hypothyroidism, GERD and chronic inflammatory demyelinating polyneuropathy presents to the emergency department for evaluation of 2 days of weakness. The patient reports her symptoms are similar to her CIDP exacerbations. 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 She also reports a difficulty with walking and has been requiring a walker for the past 2 days whereas prior to this she was able to walk without difficulty. She was last treated with IVIG approximately 3 weeks ago which resulted in resolution of her symptoms. Her neurologist is Dr. Polanco. She denies any chest pain or shortness of breath. No headaches. No loss of bowel or bladder. No loss of consciousness. She does report some difficulty swallowing which has been chronic. No abdominal pain. No nausea/vomiting/diarrhea. No fever/chills. DS: Diagnosis - Discharge Diagnosis (1) CIDP (chronic inflammatory demyelinating polyneuropathy) Status: Acute (2) Weakness Status: Acute (3) Neuropathy Status: Acute (4) Gait instability Status: Acute (5) Myopathy Status: Acute (6) Risk for falls Status: Acute DS: Summary Hospital Course: She was admitted with planes of weakness 2 days felt to be secondary to CIDP exacerbation. Patient had a previous IVIG treatment on . Patient was seen in consultation by neurology who recommended 5 days of IVIG treatment. Patient was treated by both occupational therapy and physical therapy while hospitalized. Patient improved clinically. Her strength returned to baseline. Patient was cleared for discharge from a neurologic standpoint. Patient was set up for home health care PT. No OT needs were identified at discharge. - Time Spent with Patient Total time spent providing and/or coordinating discharge services: Greater than 30 minutes - Quality: VTE Deep Vein Thrombosis/Pulmonary Embolism Present on Admission: No Exam Vital signs: Vital Signs 02/10/18 08:00 02/10/18 09:00 02/10/18 12:00 Temperature 97.1 F L 97.3 F L Pulse Rate 63 65 62 Respiratory Rate 16 17 Blood Pressure 137/63 107/51 L Pulse Oximetry 100 99 02/10/18 16:00 02/10/18 20:00 08/22/18 23:15 Temperature 97.9 F 97.6 F 97.8 F Pulse Rate 67 63 62 Respiratory Rate 17 16 18 Blood Pressure 144/63 H 108/57 L 131/62 Pulse Oximetry 97 97 100 02/10/18 23:30 02/11/18 00:00 02/11/18 00:26 Temperature 97.9 F 97.8 F Pulse Rate 58 L 58 L 58 L Respiratory Rate 18 16 20 Blood Pressure 123/59 L 123/59 L 114/52 L Pulse Oximetry 99 99 98 02/11/18 01:30 02/11/18 04:00 Temperature 97.8 F 97.6 F Pulse Rate 60 64 Respiratory Rate 20 16 Blood Pressure 113/56 L 117/55 L Pulse Oximetry 98 96 Intake & Output 02/10/18 02/11/18 02/11/18 18:59 06:59 18:59 Intake Total 960 / 960 Balance 960 / 960 Weight 59.9 kg Intake: Oral 960 / 960 Other: # Voids 4 2 Date of Last Bowel Movement 02/07/18 # Bowel Movements 1 Narrative: GENERAL: WDWN elderly female patient, INAD. Sitting up in bedside chair eating breakfast. Appears comfortable. SKIN: Warm and dry. HEENT: Atraumatic. Normocephalic. Pupils equal and round. No scleral icterus. No injection or drainage. No nasal bleeding or discharge. Mucous membranes pink and moist. NECK: Trachea midline. CARDIOVASCULAR: Regular rate and rhythm. RESPIRATORY: No accessory muscle use. Clear to auscultation. Breath sounds equal bilaterally. GASTROINTESTINAL: Abdomen soft, non-tender, nondistended. +BS. MUSCULOSKELETAL: Extremities without clubbing, cyanosis, or edema. No obvious deformities. NEUROLOGICAL: Awake and alert. No obvious cranial nerve deficits. Motor grossly within normal limits. 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 Normal speech. PSYCHIATRIC: Appropriate mood and affect; insight and judgment normal. Results Procedures completed during hospitalization: None - Impressions ITS Impressions Chest X-Ray 02/06/18 20:45 CONCLUSION: The lungs are clear. Discharge Plan - Discharge Disposition Patient Disposition: W/Home Health Service - Discharge Condition Condition: Stable - Discharge Order Discharge Orders: Discharge Order (Routine); Ordered 02/11/18 Ordered By: Starr Polanco - Discharge Details Anticipated Discharge Date: 02/11/18 - Physicians Team Primary Care Provider: Priyanka Mckinnon Attending Provider: Ricki Michael Other Providers: Odin Vega MD, PhD ; Janeth Fowler
[2018-02-11] MEDS: LEVOBUNOLOL 0.5% EACH EYE SCH (11:57)
[2018-02-11] MEDS: OPTH EACH EYE SCH (11:57)
[2018-02-11] MEDS: Heparin - SQ 10,000 UNITS/ML Vial SQ SCH (11:58)
== END 2018-02-11 15:42 | disposition home health service (06) ==
LOC: NEPC 17:19 → NEDA 23:23 → NEPFCDU 02-07 01:51 → N06 02-07 19:00
PROVIDERS: ADMIT Hospitalist; ATTEND Hospitalist

== ENCOUNTER 2018-03-07 19:19 | Inpatient (IN) ==
--- NOTE | 2018-03-07 20:20 | ED ---
HPI General Chief complaint: Weakness Stated complaint: Weakness Time Seen by Provider: 03/07/18 20:01 Source: patient Limitations: no limitations History of Present Illness HPI narrative: The patient is an 87 year old female who presents to the [facility] emergency department with a history of increased weakness in her hands that first began on Thursday. She reports that the weakness was initially mild. She reports that it has been progressive since then. She did call her neurologist, regarding this on Thursday and spoke to the covering physician, . She was instructed to come to the emergency department if the symptoms continue to progress. The patient reports that since June she has had waxing and waning similar symptoms. She reports that she was diagnosed with chronic inflammatory demyelinating polyneuropathy. She reports that she has had 2 courses of IVIG for treatment which she reports has helped. The last treatment was done in the hospital on February 11. She reports that she has not had a follow-up appointment with her neurologist as an outpatient since then. She reports that she is scheduled for neurologic testing, however her follow-up appointment is not until April. The patient reports having an incidental cough since Thursday. She reports that it is productive sounding, however she is not able to bring anything up. She denies having any chest pain, chest pressure , or shortness of breath. She reports having difficulty with her balance associated with this which she reports is also been present with her prior exacerbations. On review of systems otherwise, the patient denies having any known recent fevers, cough, congestion, neck pain, abdominal pain, vomiting, diarrhea, urinary symptoms, or neurologic symptoms. Related Data Home Medications Medication Instructions Recorded Confirmed aspirin [Aspir-81] 81 mg PO DAILY 12/25/17 03/07/18 levothyroxine 75 mcg PO DAILY 12/25/17 03/07/18 cholecalciferol (vitamin D3) 4,000 unit PO DAILY 01/07/18 03/07/18 [Vitamin D3] coenzyme Q10 [Co Q-10] 30 mg PO DAILY 01/07/18 03/07/18 metoprolol succinate 50 mg PO HS 01/07/18 03/07/18 spironolactone 25 mg PO DAILY 01/07/18 03/07/18 Allergies Allergy/AdvReac Type Severity Reaction Status Date / Time doxycycline Allergy Severe Nausea/Vomi Verified 03/07/18 19:44 ting guaifenesin AdvReac Severe "MAKES ME Verified 03/07/18 19:44 HIGH" Review of Systems ROS: all other systems reviewed are negative [facility] Medical History Medical History Basal cell carcinoma (Acute) CIDP (chronic inflammatory demyelinating polyneuropathy) (Acute) GERD (gastroesophageal reflux disease) (Acute) High cholesterol (Acute) Hypertension (Acute) Hypothyroid (Acute) Surgical History Surgical History H/O endarterectomy (Acute) H/O tubal ligation (Acute) History of appendectomy (Acute) Family History Family History Other Family history normal Social History Social History Substance History: No History of Abuse Second Hand Smoke Exposure: No Smoking Status: Never smoker How Often Do You Have a Drink Containing Alcohol: Monthly or less Immunization History Tetanus Immunization: Unsure Hx Influenza Vaccine This Season: No Exam Const General: cooperative, no acute distress and well developed Nutritional Appearance: well nourished Orientation: alert, awake and oriented x3 HENMT Head: normocephalic and atraumatic Nose: no nasal discharge and no epistaxis Mouth: other (Tacky mucous membranes.) Throat: posterior oropharynx normal and uvula midline Eyes Sclera: normal sclerae Pupils: PERRL Neck Neck: trachea midline and no JVD Resp Effort & Inspection: no use of accessory muscles Auscultation: clear to auscultation bilaterally Cardio Rate: regular rate Rhythm: regular rhythm Heart Sounds: no murmurs GI Inspection: non-distended Palpation: soft, no hepatosplenomegaly and nontender Back/Spine/Pelvis Back: no CVA tenderness Cervical Spine: No cervical spinal tenderness Thoracic/Lumbar Spine: No thoracic spinal tenderness and No lumbar spinal tenderness Skin General: dry skin (warm) Neuro General: alert, awake and oriented x3 Cranial Nerves: CN's II-XI intact bilaterally Speech: speech normal Motor: strength 5/5 throughout (Strength 5/5 in large muscle groups. The patient reports having a subjective sense of weakness with fine motor skills and putty glazer in the hands bilaterally.) and no movement abnormalities noted Sensory Exam: no sensory deficits noted Extrem General: normal to inspection, no clubbing, no cyanosis and no edema Psych Mood: congruent mood Affect: normal affect Judgment: judgment good Course Consultations Consultation #1: The patient's case including history, pertinent physical examination findings, and laboratory studies were discussed with Dr. Talbert, the covering neurologist for Dr. Polanco, the patient's neurologist. It was agreed that the patient would be admitted to the hospitalist service with a consultation to neurology. Dr. Talbert came in to evaluate the patient in the ED. Consultation #2: The patient's case including history, pertinent physical examination findings, and laboratory studies were discussed with Dr. Mcdowell. It was agreed that the patient would be admitted to the hospitalist service. Initial Documented Vital Signs Temperature 97.2 F L 03/07/18 19:40 Pulse Rate 68 03/07/18 19:40 Respiratory Rate 13 03/07/18 19:40 Blood Pressure 106/63 03/07/18 19:40 Pulse Oximetry 98 03/07/18 19:40 Last Documented Vital Signs Temperature 98.6 F 03/09/18 04:00 Pulse Rate 63 03/09/18 04:00 Respiratory Rate 17 03/09/18 04:00 Blood Pressure 120/70 03/09/18 04:00 Pulse Oximetry 99 03/09/18 04:00 Medical Decision Making [facility] Narrative Medical decision making narrative: During the course of the patient's emergency department visit, the patient's history, examination, and differential diagnosis were reviewed with the patient. The patient was placed on a director of digital platforms with oximetry and frequent blood pressure monitoring. The patient had IV access obtained and blood work sent for analysis. A diagnostic evaluation was started regarding the patient's progressively worsening weakness. A call was placed out to the patient's neurologist. I spoke to the covering neurologist, who did come into the emergency department and evaluate the patient in person. She requested that the patient be admitted to the hospitalist service with consultation to neurology. The patient was initially provided normal saline a 500 mL bolus 1. monocytes, PT 10.2, PTT 25.2, chemistry is remarkable for a sodium of 131, BUN 22, GFR of 68, glucose 110. Total protein is 8.6, albumin 3.1, BNP 35, troponin I 0.04, CPK 27, magnesium 2.2. Urinalysis shows no acute abnormality. A chest x-ray showed no acute cardiopulmonary disease. The patient's results were discussed with the patient, including the plan of care. I explained that further testing and/ or monitoring is indicated based on the patient's history, examination, and/ or laboratory findings. Therefore, I recommended admission for additional evaluation. The patient expressed understanding and was agreeable with this plan. The patient was admitted to the hospital in stable condition and sent to a bed under the care of the [facility] service. The patient's diagnostic evaluation is remarkable for a normal white count of 8.5, hemoglobin 15.2, platelets 336 with 11.1 monocytes, chemistry is remarkable forSodium of 131, BUN 22, glucose 110, total protein 8.6, albumin 3.1 , BNP 35, troponin I 0.04. Chest x-ray showed no evidence of acute cardiopulmonary disease. The patient's results were discussed with the patient, including the plan of care. I explained that further testing and/ or monitoring is indicated based on the patient's history, examination, and/ or laboratory findings. Therefore, I recommended admission for additional evaluation. The patient expressed understanding and was agreeable with this plan. The patient was admitted to the hospital in stable condition and sent to a bed under the care of the [facility] service. Medical Screen Exam Complete: Yes Emergency Medical Condition: Yes Lab Data Result diagrams: 03/08/18 05:19 03/08/18 05:19 Lab Results 03/07/18 03/07/18 03/07/18 Range/Units 20:40 20:40 20:40 WBC 8.5 (4.0-11.0) th/mm3 RBC 5.05 (4.00-5.30) mil/mm3 Hgb 15.2 (11.6-15.3) gm/dL Hct 44.7 (35.0-46.0) % MCV 88.6 (80.0-100.0) fL MCH 30.1 (27.0-34.0) pg MCHC 34.0 (32.0-36.0) % RDW 15.0 (11.6-17.2) % Plt Count 336 (150-450) th/mm3 MPV 8.0 (7.0-11.0) fL Neut % (Auto) 62.6 (16.0-70.0) % Lymph % (Auto) 22.6 (9.0-44.0) % [place] % (Auto) 11.1 H (0.0-8.0) % Eos % (Auto) 2.3 (0.0-4.0) % Baso % (Auto) 1.4 (0.0-2.0) % Neut # (Auto) 5.3 (1.8-7.7) th/mm3 Lymph # (Auto) 1.9 (1.0-4.8) th/mm3 [place] # (Auto) 0.9 (0.0-0.9) th/mm3 Eos # (Auto) 0.2 (0.0-0.4) th/mm3 Baso # (Auto) 0.1 (0.0-0.2) th/mm3 WBC Differential . Differential Comment Auto diff final PT (9.8-11.6) sec INR Ratio APTT (24.3-30.1) sec Sodium 131 L (136-145) meq/L Potassium 4.6 (3.5-5.1) meq/L Chloride 98 (98-107) meq/L Carbon Dioxide 22.8 (21.0-32.0) meq/L Anion Gap 10 (5-15) meq/L BUN 22 H (7-18) mg/dL Creatinine 0.80 (0.50-1.00) mg/dL Estimated GFR 68 L (>89) mL/min Random Glucose 110 H (74-106) mg/dL Calcium 8.7 (8.5-10.1) mg/dL Magnesium (1.5-2.5) mg/dL Total Bilirubin 0.4 (0.2-1.0) mg/dL AST 22 (15-37) U/L ALT 18 (10-53) U/L Alkaline Phosphatase 90 (45-117) U/L Total Creatine Kinase (26-192) U/L Troponin I 0.04 (0.02-0.05) ng/mL B-Natriuretic Peptide 35 (0-100) pg/mL Total Protein 8.6 H (6.4-8.2) g/dL Albumin 3.1 L (3.4-5.0) g/dL Beta HCG, Quant (0-5) mIU/mL Urine Color (Yellw/Straw) Urine Clarity (Clear) Urine pH (5.0-8.5) Ur Specific [place] (1.002-1.035) Urine Protein (Neg-Trace) mg/dL Urine Glucose (UA) (Negative) mg/dL Urine Ketones (Negative) mg/dL Urine Occult Blood (Negative) Urine Nitrate (Negative) Urine Bilirubin (Negative) Urine Urobilinogen (Less than 2) mg/dL Ur Leukocyte Esterase (Negative) Urine WBC (0-5) /hpf Micro UA Comment Ur Microscopic Review Urine Culture Comments 03/07/18 03/07/18 03/07/18 Range/Units 20:40 20:40 21:20 WBC (4.0-11.0) th/mm3 RBC (4.00-5.30) mil/mm3 Hgb (11.6-15.3) gm/dL Hct (35.0-46.0) % MCV (80.0-100.0) fL MCH (27.0-34.0) pg MCHC (32.0-36.0) % RDW (11.6-17.2) % Plt Count (150-450) th/mm3 MPV (7.0-11.0) fL Neut % (Auto) (16.0-70.0) % Lymph % (Auto) (9.0-44.0) % [place] % (Auto) (0.0-8.0) % Eos % (Auto) (0.0-4.0) % Baso % (Auto) (0.0-2.0) % Neut # (Auto) (1.8-7.7) th/mm3 Lymph # (Auto) (1.0-4.8) th/mm3 [place] # (Auto) (0.0-0.9) th/mm3 Eos # (Auto) (0.0-0.4) th/mm3 Baso # (Auto) (0.0-0.2) th/mm3 WBC Differential Differential Comment PT 10.2 (9.8-11.6) sec INR 1.0 Ratio APTT 25.2 (24.3-30.1) sec Sodium (136-145) meq/L Potassium (3.5-5.1) meq/L Chloride (98-107) meq/L Carbon Dioxide (21.0-32.0) meq/L Anion Gap (5-15) meq/L BUN (7-18) mg/dL Creatinine (0.50-1.00) mg/dL Estimated GFR (>89) mL/min Random Glucose (74-106) mg/dL Calcium (8.5-10.1) mg/dL Magnesium 2.2 (1.5-2.5) mg/dL Total Bilirubin (0.2-1.0) mg/dL AST (15-37) U/L ALT (10-53) U/L Alkaline Phosphatase (45-117) U/L Total Creatine Kinase 27 (26-192) U/L Troponin I (0.02-0.05) ng/mL B-Natriuretic Peptide (0-100) pg/mL Total Protein (6.4-8.2) g/dL Albumin (3.4-5.0) g/dL Beta HCG, Quant (0-5) mIU/mL Urine Color Yellow (Yellw/Straw) Urine Clarity Clear (Clear) Urine pH 6.0 (5.0-8.5) Ur Specific [place] 1.017 (1.002-1.035) Urine Protein Negative (Neg-Trace) mg/dL Urine Glucose (UA) Negative (Negative) mg/dL Urine Ketones Negative (Negative) mg/dL Urine Occult Blood Negative (Negative) Urine Nitrate Negative (Negative) Urine Bilirubin Negative (Negative) Urine Urobilinogen Less than 2 (Less than 2) mg/dL Ur Leukocyte Esterase Negative (Negative) Urine WBC Less than 1 (0-5) /hpf Micro UA Comment Culture not ind Ur Microscopic Review Not Reportable Urine Culture Comments Culture not ind 03/08/1818 03/08/18 Range/Units 05:19 05:19 05:19 WBC 8.2 (4.0-11.0) th/mm3 RBC 4.76 (4.00-5.30) mil/mm3 Hgb 14.5 (11.6-15.3) gm/dL Hct 42.7 (35.0-46.0) % MCV 89.8 (80.0-100.0) fL MCH 30.6 (27.0-34.0) pg MCHC 34.0 (32.0-36.0) % RDW 15.0 (11.6-17.2) % Plt Count 289 (150-450) th/mm3 MPV 7.6 (7.0-11.0) fL Neut % (Auto) 57.4 (16.0-70.0) % Lymph % (Auto) 26.8 (9.0-44.0) % [place] % (Auto) 12.0 H (0.0-8.0) % Eos % (Auto) 2.7 (0.0-4.0) % Baso % (Auto) 1.1 (0.0-2.0) % Neut # (Auto) 4.7 (1.8-7.7) th/mm3 Lymph # (Auto) 2.2 (1.0-4.8) th/mm3 [place] # (Auto) 1.0 H (0.0-0.9) th/mm3 Eos # (Auto) 0.2 (0.0-0.4) th/mm3 Baso # (Auto) 0.1 (0.0-0.2) th/mm3 WBC Differential . Differential Comment Auto diff final PT (9.8-11.6) sec INR Ratio APTT (24.3-30.1) sec Sodium 138 (136-145) meq/L Potassium 4.7 (3.5-5.1) meq/L Chloride 104 (98-107) meq/L Carbon Dioxide 25.4 (21.0-32.0) meq/L Anion Gap 9 (5-15) meq/L BUN 18 (7-18) mg/dL Creatinine 0.72 (0.50-1.00) mg/dL Estimated GFR 76 L (>89) mL/min Random Glucose 75 (74-106) mg/dL Calcium 8.1 L (8.5-10.1) mg/dL Magnesium (1.5-2.5) mg/dL Total Bilirubin 0.5 (0.2-1.0) mg/dL AST 49 H (15-37) U/L ALT 18 (10-53) U/L Alkaline Phosphatase 79 (45-117) U/L Total Creatine Kinase (26-192) U/L Troponin I (0.02-0.05) ng/mL B-Natriuretic Peptide (0-100) pg/mL Total Protein 7.8 D (6.4-8.2) g/dL Albumin 2.8 L (3.4-5.0) g/dL Beta HCG, Quant Less than 1 (0-5) mIU/mL Urine Color (Yellw/Straw) Urine Clarity (Clear) Urine pH (5.0-8.5) Ur Specific [place] (1.002-1.035) Urine Protein (Neg-Trace) mg/dL Urine Glucose (UA) (Negative) mg/dL Urine Ketones (Negative) mg/dL Urine Occult Blood (Negative) Urine Nitrate (Negative) Urine Bilirubin (Negative) Urine Urobilinogen (Less than 2) mg/dL Ur Leukocyte Esterase (Negative) Urine WBC (0-5) /hpf Micro UA Comment Ur Microscopic Review Urine Culture Comments Imaging Data Radiologist's impression: Chest X-Ray 03/07/18 20:34 CONCLUSION: No acute cardiopulmonary disease identified. Discharge Plan Discharge Disposition Patient Disposition: 30 Still Patient Discharge Details Diagnosis: CIDP (chronic inflammatory demyelinating polyneuropathy) Physicians Team ED Provider: Jennifer Arevalo Primary Care Provider: Priyanka Mckinnon Attending Provider: Ten Grace Other Providers: Constantino Jonas ; Janeth [facility],Ag[facility] Discharge Interventions Interventions: ED Discharge Assessment Last Done: 03/08/18 00:43 Vital Signs Last Done: 03/07/18 20:00 Status ED Status: Left Department Discharge Information Discharge Date/Time: 03/08/18 01:31
[2018-03-07] MEDS ORDERED: Sodium Chlor 0.9% Inj 500 ML IV.SIG ONE (20:34)
[2018-03-07 21:09] LABS: Baso # (Auto) 0.1 th/mm3 (0.0-0.2); Baso % (Auto) 1.4 % (0.0-2.0); Eos # (Auto) 0.2 th/mm3 (0.0-0.4); Eos % (Auto) 2.3 % (0.0-4.0); Hematocrit 44.7 % (35.0-46.0); Hemoglobin 15.2 gm/dL (11.6-15.3); Lymph # (Auto) 1.9 th/mm3 (1.0-4.8); Lymph % (Auto) 22.6 % (9.0-44.0); Mean Corpuscular Hemoglobin 30.1 pg (27.0-34.0); Mean Corpuscular Volume 88.6 fL (80.0-100.0); Mono # (Auto) 0.9 th/mm3 (0.0-0.9); Mono % (Auto) 11.1 % (0.0-8.0); Neut # (Auto) 5.3 th/mm3 (1.8-7.7); Neut % (Auto) 62.6 % (16.0-70.0); Platelet Count 336 th/mm3 (150-450); Red Blood Count 5.05 mil/mm3 (4.00-5.30); White Blood Count 8.5 th/mm3 (4.0-11.0)
[2018-03-07 21:21] LABS: Activated Partial Thrombo Time 25.2 sec (24.3-30.1); Prothrombin Time 10.2 sec (9.8-11.6)
[2018-03-07 21:22] LABS: Alanine Aminotransferase 18 U/L (10-53); Albumin 3.1 g/dL (3.4-5.0); Anion Gap 10 meq/L (5-15); Aspartate Aminotransferase 22 U/L (15-37); Blood Urea Nitrogen 22 mg/dL (7-18); Calcium 8.7 mg/dL (8.5-10.1); Carbon Dioxide 22.8 meq/L (21.0-32.0); Chloride 98 meq/L (98-107); Glomerular Filtration Rate 68 mL/min (>89); Glucose,Random 110 mg/dL (74-106); Potassium 4.6 meq/L (3.5-5.1); Sodium 131 meq/L (136-145)
[2018-03-07 21:23] LABS: Magnesium 2.2 mg/dL (1.5-2.5)
[2018-03-07 21:27] LABS: Alkaline Phosphatase 90 U/L (45-117); Total Protein 8.6 g/dL (6.4-8.2); Troponin I 0.04 ng/mL (0.02-0.05)
[2018-03-07 21:49] LABS: Bilirubin,Urine Negative (Negative); Clarity,Urine Clear (Clear); Color,Urine Yellow (Yellw/Straw); Glucose,Urine (UA) Negative (Negative); Leukocyte Esterase,Urine Negative (Negative); Nitrite,Urine Negative (Negative); Specific Gravity,Urine 1.017 (1.002-1.035)
[2018-03-07] MEDS ORDERED: Bisacodyl 10 MG Supp RECTAL PRN (22:46)
[2018-03-08] MEDS: Sod Chloride 0.9% Inj 1,000 ML IV.CONT SCH ×3 (00:21→18:16)
[2018-03-08 05:56] LABS: Baso # (Auto) 0.1 th/mm3 (0.0-0.2); Baso % (Auto) 1.1 % (0.0-2.0); Eos # (Auto) 0.2 th/mm3 (0.0-0.4); Eos % (Auto) 2.7 % (0.0-4.0); Hematocrit 42.7 % (35.0-46.0); Hemoglobin 14.5 gm/dL (11.6-15.3); Lymph # (Auto) 2.2 th/mm3 (1.0-4.8); Lymph % (Auto) 26.8 % (9.0-44.0); Mean Corpuscular Hemoglobin 30.6 pg (27.0-34.0); Mean Corpuscular Volume 89.8 fL (80.0-100.0); Mean Platelet Volume 7.6 fL (7.0-11.0); Neut # (Auto) 4.7 th/mm3 (1.8-7.7); Neut % (Auto) 57.4 % (16.0-70.0); Platelet Count 289 th/mm3 (150-450); Red Blood Count 4.76 mil/mm3 (4.00-5.30); White Blood Count 8.2 th/mm3 (4.0-11.0)
[2018-03-08] MEDS ORDERED: Non-Formulary Drug (Levothyroxine [Levothyroxine] 75 MCG) PO SCH (06:00)
[2018-03-08 06:32] LABS: Alanine Aminotransferase 18 U/L (10-53); Albumin 2.8 g/dL (3.4-5.0); Alkaline Phosphatase 79 U/L (45-117); Anion Gap 9 meq/L (5-15); Aspartate Aminotransferase 49 U/L (15-37); Blood Urea Nitrogen 18 mg/dL (7-18); Calcium 8.1 mg/dL (8.5-10.1); Carbon Dioxide 25.4 meq/L (21.0-32.0); Chloride 104 meq/L (98-107); Glomerular Filtration Rate 76 mL/min (>89); Glucose,Random 75 mg/dL (74-106); Sodium 138 meq/L (136-145); Total Protein 7.8 g/dL (6.4-8.2)
[2018-03-08 06:42] LABS: Potassium 4.7 meq/L (3.5-5.1)
[2018-03-08] MEDS: Spironolactone 25 MG Tablet PO SCH (08:09)
[2018-03-08] MEDS: Levothyroxine 75 MCG Tablet PO SCH (08:10)
[2018-03-08] MEDS: Acetaminophen 325 MG Tablet PO SCH (08:53)
[2018-03-08] MEDS: Heparin - SQ 10,000 UNITS/ML Vial SQ SCH ×2 (08:53→20:32)
[2018-03-08] MEDS ORDERED: CHOLECALCIFEROL 4000 UNIT PO SCH (09:00)
[2018-03-08] MEDS ORDERED: Senna/Docusate Sodium 8.6/50 MG Tablet PO SCH (09:00)
[2018-03-08] MEDS ORDERED: COENZYME Q10 30 MG PO SCH (09:00)
[2018-03-08] MEDS ORDERED: IVIG (Immune Globulin) Inj 25 GM in Syringe/Bag 1 EACH IV.SIG SCH (10:00)
[2018-03-08] MEDS: IVIG (Immune Globulin) Inj 25 GM in Syringe/Bag 1 EACH IV.SIG SCH (12:14)
--- NOTE | 2018-03-08 19:20 | ECG ---
Date Performed: 03/07/2018 Time Performed: 19:53:40 PTAGE: 87 years EKG: Sinus rhythm NORMAL ECG PREVIOUS TRACING : 02/06/2018 22.00 Since the previous tracing, no significant change noted DOCTOR: Sherrie Sellers Interpretating Date/Time 03/08/2018 19:18:23
[2018-03-09] MEDS: Levothyroxine 75 MCG Tablet PO SCH (05:24)
[2018-03-09] MEDS: Sod Chloride 0.9% Inj 1,000 ML IV.CONT SCH (07:10)
[2018-03-09] MEDS: Heparin - SQ 10,000 UNITS/ML Vial SQ SCH ×2 (09:53→20:23)
[2018-03-09] MEDS: Acetaminophen 325 MG Tablet PO SCH (09:54)
[2018-03-09] MEDS: Spironolactone 25 MG Tablet PO SCH (09:54)
[2018-03-09] MEDS: IVIG (Immune Globulin) Inj 25 GM in Syringe/Bag 1 EACH IV.SIG SCH (11:07)
[2018-03-09] MEDS ORDERED: hydrALAZINE 25 MG Tablet PO PRN (11:10)
[2018-03-09] MEDS: Acetaminophen 325 MG Tablet PO PRN (23:31)
[2018-03-10] MEDS ORDERED: hydrALAZINE 25 MG Tablet PO ONE (04:04)
[2018-03-10] MEDS: Levothyroxine 75 MCG Tablet PO SCH (05:20)
[2018-03-10] MEDS ORDERED: Dexamethasone Inj 20 MG/5 ML Vial IV.PUSH ONE (07:09)
[2018-03-10] MEDS: Heparin - SQ 10,000 UNITS/ML Vial SQ SCH ×2 (08:55→21:28)
[2018-03-10] MEDS: Acetaminophen 325 MG Tablet PO PRN (08:57)
[2018-03-10] MEDS: Spironolactone 25 MG Tablet PO SCH (08:58)
[2018-03-10] MEDS ORDERED: hydrALAZINE 50 MG Tablet PO SCH (09:00)
[2018-03-10 09:19] LABS: Calcium 8.4 mg/dL (8.5-10.1); Carbon Dioxide 19.6 meq/L (21.0-32.0); Potassium 4.2 meq/L (3.5-5.1)
[2018-03-11] MEDS: Levothyroxine 75 MCG Tablet PO SCH (06:04)
[2018-03-11] MEDS: Heparin - SQ 10,000 UNITS/ML Vial SQ SCH ×2 (09:14→20:44)
[2018-03-11] MEDS: Spironolactone 25 MG Tablet PO SCH (09:15)
[2018-03-11] MEDS: Sod Chloride 0.9% Inj 1,000 ML IV.CONT SCH (09:46)
[2018-03-11] MEDS: Acetaminophen 325 MG Tablet PO PRN (09:46)
[2018-03-11] MEDS: IVIG (Immune Globulin) Inj 25 GM in Syringe/Bag 1 EACH IV.SIG SCH (12:31)
[2018-03-12] MEDS: Levothyroxine 75 MCG Tablet PO SCH (05:36)
[2018-03-12] MEDS: Sod Chloride 0.9% Inj 1,000 ML IV.CONT SCH ×2 (05:36→13:43)
[2018-03-12 07:13] LABS: Hematocrit 44.8 % (35.0-46.0); Hemoglobin 15.5 gm/dL (11.6-15.3); Mean Corpuscular HGB Conc 34.7 % (32.0-36.0); Mean Corpuscular Hemoglobin 30.8 pg (27.0-34.0); Mean Corpuscular Volume 88.9 fL (80.0-100.0); Mean Platelet Volume 8.1 fL (7.0-11.0); Platelet Count 317 th/mm3 (150-450); Red Blood Count 5.04 mil/mm3 (4.00-5.30); Red Cell Distribution Width 14.6 % (11.6-17.2); White Blood Count 11.4 th/mm3 (4.0-11.0)
[2018-03-12 07:36] LABS: Calcium 8.6 mg/dL (8.5-10.1); Carbon Dioxide 21.6 meq/L (21.0-32.0); Potassium 4.2 meq/L (3.5-5.1)
[2018-03-12] MEDS: Spironolactone 25 MG Tablet PO SCH (09:05)
[2018-03-12] MEDS: Heparin - SQ 10,000 UNITS/ML Vial SQ SCH ×2 (09:09→20:35)
[2018-03-12] MEDS: Acetaminophen 325 MG Tablet PO SCH (10:21)
[2018-03-12] MEDS: IVIG (Immune Globulin) Inj 25 GM in Syringe/Bag 1 EACH IV.SIG SCH (10:57)
[2018-03-13] MEDS: Levothyroxine 75 MCG Tablet PO SCH (06:46)
[2018-03-13] MEDS: Sod Chloride 0.9% Inj 1,000 ML IV.CONT SCH ×2 (08:02→16:10)
[2018-03-13] MEDS: Heparin - SQ 10,000 UNITS/ML Vial SQ SCH ×2 (08:37→20:31)
[2018-03-13] MEDS: Spironolactone 25 MG Tablet PO SCH (08:37)
[2018-03-13] MEDS: Acetaminophen 325 MG Tablet PO SCH (10:05)
[2018-03-13] MEDS: IVIG (Immune Globulin) Inj 25 GM in Syringe/Bag 1 EACH IV.SIG SCH (10:56)
[2018-03-14] MEDS: Sod Chloride 0.9% Inj 1,000 ML IV.CONT SCH (03:12)
[2018-03-14] MEDS: Levothyroxine 75 MCG Tablet PO SCH (04:59)
[2018-03-14 05:33] LABS: Baso # (Auto) 0.1 th/mm3 (0.0-0.2); Baso % (Auto) 1.5 % (0.0-2.0); Eos # (Auto) 0.2 th/mm3 (0.0-0.4); Eos % (Auto) 2.9 % (0.0-4.0); Hematocrit 34.5 % (35.0-46.0); Hemoglobin 12.3 gm/dL (11.6-15.3); Lymph # (Auto) 2.8 th/mm3 (1.0-4.8); Lymph % (Auto) 37.6 % (9.0-44.0); Mean Corpuscular HGB Conc 35.6 % (32.0-36.0); Mean Corpuscular Hemoglobin 30.7 pg (27.0-34.0); Mean Corpuscular Volume 86.2 fL (80.0-100.0); Mean Platelet Volume 7.8 fL (7.0-11.0); Mono # (Auto) 0.9 th/mm3 (0.0-0.9); Mono % (Auto) 12.5 % (0.0-8.0); Neut # (Auto) 3.4 th/mm3 (1.8-7.7); Neut % (Auto) 45.5 % (16.0-70.0); Platelet Count 269 th/mm3 (150-450); Red Cell Distribution Width 14.1 % (11.6-17.2); White Blood Count 7.6 th/mm3 (4.0-11.0)
[2018-03-14 06:06] LABS: Calcium 7.8 mg/dL (8.5-10.1); Carbon Dioxide 24.6 meq/L (21.0-32.0); Potassium 4.3 meq/L (3.5-5.1)
[2018-03-14] MEDS: Heparin - SQ 10,000 UNITS/ML Vial SQ SCH (08:38)
[2018-03-14] MEDS: Spironolactone 25 MG Tablet PO SCH (08:38)
== END 2018-03-14 11:36 | disposition home health service (06) ==
LOC: NEPE 19:19 → NEDA 19:19 → NEPGCP 03-08 01:21 → N06 03-12 17:56
PROVIDERS: ADMIT Hospitalist; ATTEND Hospitalist

== ENCOUNTER 2018-04-01 17:49 | Inpatient (IN) ==
--- NOTE | 2018-04-01 22:08 | ED ---
HPI General Chief complaint: Weakness Stated complaint: dr sheth Time Seen by Provider: 04/01/18 21:51 Source: patient and family Mode of arrival: ambulatory Limitations: no limitations History of Present Illness HPI Narrative: 87-year-old female presents to the emergency department for complaint of progressively worsening generalized weakness with history of chronic inflammatory demyelinating polyneuropathy for which she is managed with IVIG. Patient is under the care of her neurologist Dr. Polanco. Patient has been on daily prednisone for the past 10 days but today at 4 PM developed acute weakness of bilateral lower extremities. Patient with typically since diagnosis in December has been presenting with then progressive weakness into the lower extremities is a gradual progression but today seemed to occur somewhat abruptly. Patient was instructed by her neurologist to come directly to the emergency department for admission for IVIG infusion. Patient is in the process of being scheduled for home infusion therapy but due to this presentation was returned to the emergency department for hospital admission until outpatient arrangements can be finalized. Patient's had no injury or fall. No fever or chills. No chest pain or shortness of breath. No report of bladder or bowel incontinence. Patient's had no numbness or sensory deficit of the upper extremities or lower extremities. Patient has been hospitalized 01/10 , 02/06 and 03/11 for same complaint however previous episodes have been more gradual in onset as opposed to today when symptoms seem to become more abrupt since 4 PM. 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) and history of similar; Denies new medication, recent illness, trauma/injury and depression Associated symptoms: Denies chest pain, confusion, dark stools, diaphoresis, dysuria, easy bruising, fever/chills, headaches, loss of appetite, nausea/ vomiting, myalgias, rash, shortness of breath and syncope Related Data Home Medications Medication Instructions Recorded Confirmed prednisone 10 mg PO AC BREAKFAST 04/01/18 04/01/18 prednisone 10 mg PO AC DINNER 04/01/18 04/01/18 Previous Rx's Medication Instructions Recorded aspirin [Aspir-81] 81 mg PO DAILY #30 tab 03/14/18 cholecalciferol (vitamin D3) 4,000 unit PO DAILY #60 tab 03/14/18 [Vitamin D3] coenzyme Q10 [Co Q-10] 30 mg PO DAILY #30 cap 03/14/18 levothyroxine [Synthroid] 75 mcg PO DAILY@0600 #30 tab 03/14/18 losartan 50 mg PO DAILY #30 tab 03/14/18 metoprolol succinate 50 mg PO HS #30 tab 03/14/18 spironolactone 25 mg PO DAILY #30 tab 03/14/18 Allergies Allergy/AdvReac Type Severity Reaction Status Date / Time doxycycline Allergy Severe Nausea/Vomi Verified 03/07/18 19:44 ting guaifenesin AdvReac Severe "MAKES ME Verified 03/07/18 19:44 HIGH" Review of Systems ROS: all other systems reviewed are negative PMFSH Social History Social History Substance History: No History of Abuse Second Hand Smoke Exposure: No Smoking Status: Never smoker How Often Do You Have a Drink Containing Alcohol: Never Recent Travel in [facility] within the Last 8 Weeks: No Recent Out of Country Travel within the Last 8 Weeks: No Immunization History Tetanus Immunization: Unsure Exam Narrative Exam Narrative: GENERAL: Well-developed well-nourished pleasant female mildly anxious GCS 15 SKIN: Focused skin assessment warm/dry. Patient with dry healing biopsy and excision sites to the face and scalp. HEAD: Atraumatic. Normocephalic. EYES: Pupils equal and round and reactive to light. No scleral icterus. No injection or drainage. ENT: No nasal bleeding or discharge. Mucous membranes pink and moist. NECK: Trachea midline. No JVD. CARDIOVASCULAR: Regular rate and rhythm. No murmur appreciated. RESPIRATORY: No accessory muscle use. Clear to auscultation. Breath sounds equal bilaterally. GASTROINTESTINAL: Abdomen soft, non-tender, nondistended. Hepatic and splenic margins not palpable. MUSCULOSKELETAL: No obvious deformities. No clubbing. No cyanosis. No edema. NEUROLOGICAL: Awake and alert. No obvious cranial nerve deficits. Motor grossly within normal limits except for mild target developer strength weakness and bilateral lower extremity weakness. Normal speech. PSYCHIATRIC: Appropriate mood and affect; insight and judgment normal. Course Initial Documented Vital Signs Temperature 98.7 F 04/01/18 18:04 Pulse Rate 76 04/01/18 18:04 Blood Pressure 116/61 04/01/18 18:04 Pulse Oximetry 97 04/01/18 18:04 Last Documented Vital Signs Temperature 98.7 F 04/01/18 18:04 Pulse Rate 66 04/01/18 21:14 Respiratory Rate 16 04/01/18 21:14 Blood Pressure 204/87 H 04/01/18 21:14 Pulse Oximetry 100 04/01/18 21:14 Medical Decision Making MDM Narrative Medical decision making narrative: 87-year-old female with CIDP/chronic inflammatory demyelinating polyneuropathy who is requiring IVIG infusions approximately every 3 weeks. Patient with acute exacerbation this evening. Patient presented to the emergency department around 6 PM after onset of symptoms exacerbating since 4 PM. Patient's neurologist Dr. Polanco was called and covering physician encourage patient to come immediately to the emergency department to start IVIG therapy this evening. Have discussed case with Dr. Vidal who request patient to have IVIG infusion initiated in the emergency department to be infused slowly and to admit patient to [facility] service with neurology consult in the a.m.discussed with Dr Vidal start on ivig tonight 0.4gm/kg slow infusion discussed with Dr Mcdowell --admit w cosult to neurology in the AM Medical Screen Exam Complete: Yes Emergency Medical Condition: Yes Differential Diagnosis Differential Diagnosis: Generalized weakness, exacerbation chronic inflammatory demyelinating polyneuropathy, TIA, Guillain Goodwin Medical Records Medical records reviewed: Yes I reviewed the patient's medical records. Lab Data Lab results reviewed: Yes I reviewed the patient's lab results. Result diagrams: 04/01/18 22:15 04/01/18 22:15 Lab Results 04/01/18 04/01/18 04/01/18 Range/Units 22:15 22:15 22:19 WBC 10.6 (4.0-11.0) th/mm3 RBC 5.31 H (4.00-5.30) mil/mm3 Hgb 16.4 H (11.6-15.3) gm/dL Hct 46.3 H (35.0-46.0) % MCV 87.3 (80.0-100.0) fL MCH 30.9 (27.0-34.0) pg MCHC 35.3 (32.0-36.0) % RDW 13.7 (11.6-17.2) % Plt Count 280 (150-450) th/mm3 MPV 7.4 (7.0-11.0) fL Neut % (Auto) 81.8 H (16.0-70.0) % Lymph % (Auto) 9.5 (9.0-44.0) % [place] % (Auto) 7.4 (0.0-8.0) % Eos % (Auto) 0.7 (0.0-4.0) % Baso % (Auto) 0.6 (0.0-2.0) % Neut # (Auto) 8.7 H (1.8-7.7) th/mm3 Lymph # (Auto) 1.0 (1.0-4.8) th/mm3 [place] # (Auto) 0.8 (0.0-0.9) th/mm3 Eos # (Auto) 0.1 (0.0-0.4) th/mm3 Baso # (Auto) 0.1 (0.0-0.2) th/mm3 WBC Differential . Differential Comment Auto diff final Sodium 133 L (136-145) meq/L Potassium 4.5 (3.5-5.1) meq/L Chloride 98 (98-107) meq/L Carbon Dioxide 25.8 (21.0-32.0) meq/L Anion Gap 9 (5-15) meq/L BUN 15 (7-18) mg/dL Creatinine 0.66 (0.50-1.00) mg/dL Estimated GFR 85 L (>89) mL/min POC Glucose 138 H (68-110) mg/dl Random Glucose 132 H (74-106) mg/dL Calcium 8.3 L (8.5-10.1) mg/dL Magnesium 2.4 (1.5-2.5) mg/dL Total Bilirubin 0.2 (0.2-1.0) mg/dL AST 25 (15-37) U/L ALT 26 (10-53) U/L Alkaline Phosphatase 59 (45-117) U/L Troponin I 0.03 (0.02-0.05) ng/mL Total Protein 7.9 (6.4-8.2) g/dL Albumin 2.9 L (3.4-5.0) g/dL ECG Data EKG Prior to Arrival: No Prior ECG tracings: not available for review Interpretation: EKG: Sinus bradycardia rate [address] elevation or injury pattern change noted Discharge Plan Discharge Disposition Patient Disposition: 30 Still Patient Discharge Condition Condition: Stable Discharge Details Diagnosis: CIDP (chronic inflammatory demyelinating polyneuropathy), HTN (hypertension) Physicians Team ED Provider: Eun Hernandez Primary Care Provider: Priyanka Mckinnon Rxs /Orders / Referrals /Forms Prescriptions: No Action losartan 50 mg Tablet 50 mg PO DAILY Qty: 30 RF: 0 levothyroxine [Synthroid] 75 mcg Tablet 75 mcg PO DAILY@0600 Qty: 30 RF: 0 metoprolol succinate 50 mg Tablet Extended Release 24 Hr 50 mg PO HS Qty: 30 RF: 0 aspirin [Aspir-81] 81 mg Tablet,Delayed Release (Dr/Ec) 81 mg PO DAILY Qty: 30 RF: 0 spironolactone 25 mg Tablet 25 mg PO DAILY Qty: 30 RF: 0 coenzyme Q10 [Co Q-10] 30 mg Capsule 30 mg PO DAILY Qty: 30 RF: 0 cholecalciferol (vitamin D3) [Vitamin D3] 2,000 unit Tablet 4,000 unit PO DAILY Qty: 60 RF: 0 prednisone 10 mg Tablet 10 mg PO AC DINNER RF: 0 prednisone 10 mg Tablet 10 mg PO AC BREAKFAST RF: 0 Status ED Status: With Doctor
[2018-04-01 22:26] LABS: Baso # (Auto) 0.1 th/mm3 (0.0-0.2); Baso % (Auto) 0.6 % (0.0-2.0); Eos # (Auto) 0.1 th/mm3 (0.0-0.4); Eos % (Auto) 0.7 % (0.0-4.0); Hematocrit 46.3 % (35.0-46.0); Hemoglobin 16.4 gm/dL (11.6-15.3); Lymph % (Auto) 9.5 % (9.0-44.0); Mean Corpuscular HGB Conc 35.3 % (32.0-36.0); Mean Corpuscular Hemoglobin 30.9 pg (27.0-34.0); Mean Corpuscular Volume 87.3 fL (80.0-100.0); Mean Platelet Volume 7.4 fL (7.0-11.0); Mono # (Auto) 0.8 th/mm3 (0.0-0.9); Mono % (Auto) 7.4 % (0.0-8.0); Neut # (Auto) 8.7 th/mm3 (1.8-7.7); Neut % (Auto) 81.8 % (16.0-70.0); Platelet Count 280 th/mm3 (150-450); Red Blood Count 5.31 mil/mm3 (4.00-5.30); Red Cell Distribution Width 13.7 % (11.6-17.2); White Blood Count 10.6 th/mm3 (4.0-11.0)
[2018-04-01 22:53] LABS: Alkaline Phosphatase 59 U/L (45-117); Total Protein 7.9 g/dL (6.4-8.2); Troponin I 0.03 ng/mL (0.02-0.05)
[2018-04-01 22:55] LABS: Alanine Aminotransferase 26 U/L (10-53); Albumin 2.9 g/dL (3.4-5.0); Anion Gap 9 meq/L (5-15); Aspartate Aminotransferase 25 U/L (15-37); Blood Urea Nitrogen 15 mg/dL (7-18); Calcium 8.3 mg/dL (8.5-10.1); Carbon Dioxide 25.8 meq/L (21.0-32.0); Chloride 98 meq/L (98-107); Glomerular Filtration Rate 85 mL/min (>89); Glucose,Random 132 mg/dL (74-106); Magnesium 2.4 mg/dL (1.5-2.5); Potassium 4.5 meq/L (3.5-5.1); Sodium 133 meq/L (136-145)
[2018-04-01] MEDS ORDERED: Acetaminophen 325 MG Tablet PO PRN (23:13)
[2018-04-01] MEDS ORDERED: Bisacodyl 10 MG Supp RECTAL PRN (23:13)
--- NOTE | 2018-04-01 23:15 | P.HPIM ---
History of Present Illness Primary Care Physician: Priyanka Mckinnon MD History of Present Illness: This is an 87-year-old female with a PMH of HTN and CIDP who was referred to the ER by Dr. Polanco for initiation of IVIG. Pt reports she follows w/ Dr. Polanco for h/o CIDP, has required multiple treatments of IVIG in the past w/ improvement. Currently on Prednisone daily x10 days, however reports progressive lower extremity weakness and gait instability for approx 1wk. Denies fever, chills or chest pain. On arrival, BP 204/87, HR 66, O2 sat 100% on RA, Afebrile. CBC unremarkable except for hemoglobin 16.4. Chemistry unremarkable. Dr. Vidal consulted by ER physician, recommended IVIG infusion x8hrs to start now. S/p Clonidine in ER w/ improvement in BP. - Diagnosis (1) CIDP (chronic inflammatory demyelinating polyneuropathy) (2) Gait instability (3) HTN (hypertension) Inpatient Certification: I certify that the inpatient services were ordered in accordance with Medicare regulations governing the order. This includes certification that hospital inpatient services are reasonable and necessary and in the case of services not specified as inpatient-only under 42 CFR 419.22(n), that they are appropriately provided as inpatient services in accordance to with the 2-midnight benchmark under 43 CFR 412.3(e) Estimated Total Length of Stay (Days): 2 Plans for Post Hospital Care: Not yet determined Review of Systems PAST FAMILY HISTORY: Reviewed. No h/o DM or CAD All other systems reviewed negative except as stated in HPI [facility] - History History Provided By: Patient, Family Member - Medical History Medical History: Medical History (Last Updated 04/02/18 @ 00:17 by Brenda Rowe) CIDP (chronic inflammatory demyelinating polyneuropathy) Basal cell carcinoma GERD (gastroesophageal reflux disease) High cholesterol Hypertension Hypothyroid - Surgical History Surgical History: Surgical History (Last Reviewed 04/01/18 @ 21:12 by Coty Katz RN) H/O endarterectomy H/O tubal ligation History of appendectomy - Family History Family History: Family History (Last Reviewed 03/12/18 @ 15:15 by Melissa Peguero) Other Family history normal - Tobacco History Second Hand Smoke Exposure: No Smoking Status: Never smoker - Alcohol History How Often Do You Have a Drink Containing Alcohol: Never - Substance Use History Substance History: No History of Abuse - Travel History Recent Travel in the [place] Within the Last 8 Weeks: No Recent Travel Out of the Country Within the Last 8 Weeks: No - Immunization History Tetanus Immunization: Unsure Medications and Allergies Active Medications: Active Medications Acetaminophen (Tylenol) 650 mg PO Q24H SACHIN Stop: 04/06/18 22:59 Diphenhydramine HCl (Benadryl Inj) 50 mg IV.PUSH PRN PRN PRN Reason: ALLERGIC REACTION Stop: 04/07/18 22:58 Diphenhydramine HCl (Benadryl) 25 mg PO Q24H SACHIN Stop: 04/06/18 22:59 Epinephrine HCl (Epinephrine (1:1000) Inj) 0.3 mg OTHER Q10M PRN PRN Reason: Anaphylactic Reaction Stop: 04/07/18 22:58 Dextrose (D5w Inj) 500 mls @ 30 mls/hr OTHER Q24H SACH[facility] Stop: 04/06/18 22:59 Immune Globulin 25 gm/ (Miscellaneous Medication) 250 mls @ 31.25 mls/hr IV.SIG TITRATE SACHIN; Protocol Stop: 04/06/18 23:58 Sodium Chloride (Ns Inj) 500 mls @ 500 mls/hr IV.SIG Q24H [facility] Stop: 04/06/18 22:59 Sodium Chloride (Ns Flush) 2 ml IV.FLUSH PRN PRN PRN Reason: FLUSH AFTER USING IV ACCESS Allergies Allergy/AdvReac Type Severity Reaction Status Date / Time doxycycline Allergy Severe Nausea/Vomi Verified 03/07/18 19:44 ting guaifenesin AdvReac Severe "MAKES ME Verified 03/07/18 19:44 HIGH" Home Medications Medication Instructions Recorded Confirmed Type prednisone 10 mg PO AC BREAKFAST 04/01/18 04/01/18 History prednisone 10 mg PO AC DINNER 04/01/18 04/01/18 History Exam Vital signs: Vital Signs 04/01/18 18:04 04/01/18 21:14 Temperature 98.7 F Pulse Rate 76 66 Respiratory Rate 16 Blood Pressure 116/61 204/87 H Pulse Oximetry 97 100 Intake & Output 04/01/18 04/01/18 04/02/18 06:59 18:59 06:59 Weight 56.699 kg Narrative: PE: GENERAL: Extremely pleasant elderly white female in no acute distress. Daughter at bedside. SKIN: Focused skin assessment warm and dry. S/p multiple biopsies to face/scalp , healing well. HEENT: PERRLA, EOMI. No scleral icterus or conjunctival pallor. No lid lag or facial droop. CARDIOVASCULAR: Regular rate and rhythm. No obvious murmurs to auscultation. No chest tenderness to palpation. RESPIRATORY: No obvious rhonchi or wheezing. Clear to auscultation. Breath sounds equal bilaterally. GASTROINTESTINAL: Abdomen soft, non-tender, nondistended. BS normal. MUSCULOSKELETAL: Extremities without clubbing, cyanosis, or edema. No obvious deformities. NEUROLOGICAL: Awake, alert and oriented x4. No focal neurologic deficits. Moving both upper and lower extremities spontaneously. PSYCHIATRIC: Appropriate mood and affect. Insight and judgment normal. Results - Labs CBC & Chem 7: 04/01/18 22:15 04/01/18 22:15 Labs: Short CBC 04/01/18 Range/Units 22:15 WBC 10.6 (4.0-11.0) th/mm3 Hgb 16.4 H (11.6-15.3) gm/dL Hct 46.3 H (35.0-46.0) % Plt Count 280 (150-450) th/mm3 BMP 04/01/18 22:15 Sodium 133 L Potassium 4.5 Chloride 98 Carbon Dioxide 25.8 BUN 15 Creatinine 0.66 Calcium 8.3 L Cardiac Enzymes 04/01/18 Range/Units 22:15 Troponin I 0.03 (0.02-0.05) ng/mL Liver Function 04/01/18 Range/Units 22:15 Total Bilirubin 0.2 (0.2-1.0) mg/dL AST 25 (15-37) U/L ALT 26 (10-53) U/L Alkaline Phosphatase 59 (45-117) U/L Albumin 2.9 L (3.4-5.0) g/dL Caprini VTE Risk Assessment Caprini VTE Risk Assessment: No/Low Risk (score <= 1) Caprini Risk Assessment Model: Point Value = 1 Point Value = 2 Point Value = 3 Point Value = 5 Age 41-60 Minor surgery BMI > 25 kg/m2 Swollen legs Varicose veins or History of unexplained or recurrent spontaneous Oral contraceptives or hormone replacement Sepsis (< 1 month) Serious lung disease, including pneumonia (< 1 month) Abnormal pulmonary function Acute myocardial infarction Congestive heart failure (< 1 month) History of inflammatory bowel disease Medical patient at bed rest Age 61-74 Arthroscopic surgery Major open surgery (> 45 min) Laparoscopic surgery (> 45 min) Malignancy Confined to bed (> 72 hours) Immobilizing plaster cast Central venous access Age >= 75 History of VTE Family history of VTE Factor V Leiden Prothrombin [id number] Lupus anticoagulant Anticardiolipin antibodies Elevated serum homocysteine Heparin-induced thrombocytopenia Other congenital or acquired thrombophilia Stroke (< 1 month) Elective arthroplasty Hip, pelvis, or leg fracture Acute spinal cord injury (< 1 month) Prophylaxis Regimen: Total Risk Factor Score Risk Level Prophylaxis Regimen 0-1 Low Early ambulation 2 Moderate Order ONE of the following: *Sequential Compression Device (SCD) *Heparin 5000 units SQ BID 3-4 Higher Order ONE of the following medications: *Heparin 5000 units SQ TID *Enoxaparin/Lovenox 40 mg SQ daily (WT < 150 kg, CrCl > 30 mL/min) *Enoxaparin/Lovenox 30 mg SQ daily (WT < 150 kg, CrCl > 10-29 mL/min) *Enoxaparin/Lovenox 30 mg SQ BID (WT < 150 kg, CrCl > 30 mL/min) AND/OR *Sequential Compression Device (SCD) 5 or more Highest Order ONE of the following medications: *Heparin 5000 units SQ TID (Preferred with Epidurals) *Enoxaparin/Lovenox 40 mg SQ daily (WT < 150 kg, CrCl > 30 mL/min) *Enoxaparin/Lovenox 30 mg SQ daily (WT < 150 kg, CrCl > 10-29 mL/min) *Enoxaparin/Lovenox 30 mg SQ BID (WT < 150 kg, CrCl > 30 mL/min) AND *Sequential Compression Device (SCD) Assessment and Plan - Assessment (1) CIDP (chronic inflammatory demyelinating polyneuropathy) Code(s): G61.81 - Chronic inflammatory demyelinating polyneuritis Status: Acute (2) Gait instability Code(s): R26.81 - Unsteadiness on feet Status: Acute (3) HTN (hypertension) Code(s): I10 - Essential (primary) hypertension Status: Acute - Plan A/P: 1. CIPD: w/ Acute Exacerbation, referred to ER by Dr. Polanco for IVIG, Dr. Vidal consulted, will initiate IVIG this evening, Neuro Checks. 2. Gait Instability: secondary to above, consult PT for eval/tx 3. HTN: Uncontrolled. BP 200's on arrival, had not taken evening doses of meds, s/p Clonidine in ER w/ improvement, BP now 160's, will monitor closely, antihypertensives as needed 4. DVT Prophylaxis: SCD/Teds 5. Social work for d/c planning as needed. 6. Case discussed w/ ER physician at length, labs/records/imaging reviewed by me. (3) HTN (hypertension) Qualifiers:
[2018-04-02] MEDS: Acetaminophen 325 MG Tablet PO SCH ×2 (00:37→23:09)
[2018-04-02] MEDS: Sodium Chlor 0.9% Inj 500 ML IV.SIG SCH ×2 (00:37→23:10)
[2018-04-02] MEDS: IVIG (Immune Globulin) Inj 25 GM in Syringe/Bag 1 EACH IV.SIG SCH (01:55)
[2018-04-02 02:27] LABS: Bilirubin,Urine Negative (Negative); Clarity,Urine Clear (Clear); Color,Urine Yellow (Yellw/Straw); Glucose,Urine (UA) 50 mg/dL (Negative); Leukocyte Esterase,Urine Negative (Negative); Mucus,Urine Few /lpf (Occasional); Nitrite,Urine Negative (Negative); Specific Gravity,Urine 1.016 (1.002-1.035); Squamous Epithelial Cell,Urine 1 /hpf (0-5)
[2018-04-02] MEDS: Levothyroxine 75 MCG Tablet PO SCH (05:23)
[2018-04-02] MEDS: Sod Chloride 0.9% Inj 1,000 ML IV.CONT SCH ×2 (05:35→10:19)
[2018-04-02 05:46] LABS: Baso % (Auto) 0.4 % (0.0-2.0); Eos % (Auto) 0.4 % (0.0-4.0); Hematocrit 40.9 % (35.0-46.0); Hemoglobin 14.1 gm/dL (11.6-15.3); Lymph # (Auto) 1.2 th/mm3 (1.0-4.8); Lymph % (Auto) 13.3 % (9.0-44.0); Mean Corpuscular HGB Conc 34.5 % (32.0-36.0); Mean Corpuscular Hemoglobin 30.6 pg (27.0-34.0); Mean Corpuscular Volume 88.7 fL (80.0-100.0); Mean Platelet Volume 7.7 fL (7.0-11.0); Mono # (Auto) 0.5 th/mm3 (0.0-0.9); Mono % (Auto) 5.6 % (0.0-8.0); Neut % (Auto) 80.3 % (16.0-70.0); Platelet Count 258 th/mm3 (150-450); Red Blood Count 4.61 mil/mm3 (4.00-5.30); Red Cell Distribution Width 13.7 % (11.6-17.2); White Blood Count 8.8 th/mm3 (4.0-11.0)
[2018-04-02 05:59] LABS: Alanine Aminotransferase 23 U/L (10-53); Albumin 2.6 g/dL (3.4-5.0); Anion Gap 8 meq/L (5-15); Aspartate Aminotransferase 16 U/L (15-37); Blood Urea Nitrogen 15 mg/dL (7-18); Calcium 8.3 mg/dL (8.5-10.1); Chloride 101 meq/L (98-107); Glomerular Filtration Rate 83 mL/min (>89); Glucose,Random 126 mg/dL (74-106); Potassium 4.2 meq/L (3.5-5.1); Sodium 133 meq/L (136-145)
[2018-04-02 06:02] LABS: Alkaline Phosphatase 49 U/L (45-117); Total Protein 7.3 g/dL (6.4-8.2)
[2018-04-02] MEDS: Spironolactone 25 MG Tablet PO SCH (09:04)
[2018-04-02] MEDS: Senna/Docusate Sodium 8.6/50 MG Tablet PO SCH ×2 (09:04→22:35)
--- NOTE | 2018-04-02 11:56 | MB ---
cc: Cynthia Ashraf MD DATE: 04/02/2018 REASON FOR CONSULTATION: History of CIDP increased weakness. HISTORY OF PRESENT ILLNESS: This is a patient of Dr. Polanco. She is 87 years old with history of CIDP, hypertension, was referred to the ER for increasing weakness. Unfortunately, due to her insurance they were not able to set up home IVIG and the weakness persisted, so she had to come to the ER because she was unable to get up and walk. She is on prednisone daily for the last 10 days, but despite that, progressively got weaker. She had 1 IVIG treatment overnight early this morning and is able to lift her legs a little bit better. She needs a total of 5. She was given clonidine in the ER with improvement in her blood pressure. Initial BP was 204/87. She offers no other complaints. No chest pain, shortness of breath, just the chronic weakness, which is slightly better than yesterday. PAST MEDICAL HISTORY: As stated. She also has basal cell carcinoma. She has had surgery, so she has bruising of the eye and stitches over the right side of her forehead. She has hypertension, hyperlipidemia, hypothyroidism. PAST SURGICAL HISTORY: Carotid endarterectomy, appendectomy, tubal ligation. SOCIAL HISTORY: Does not smoke. No substance abuse. HOME OF SYSTEMS: Please refer to her MAR. PHYSICAL EXAMINATION: VITAL SIGNS: Temperature is 98.9, pulse 60, respiratory rate 16, blood pressure 8:00 this morning was 222/96, saturating at 95% on room air. NECK: Supple. HEART: Regular. NEUROLOGIC: She is awake and alert. She is oriented. She is fluent. Her face is symmetrical. She has ecchymosis over the left eye. Keeps it closed due to the swelling from the surgical area. She has a stitch and a packing gauze over the right mid medial portion of the brow above her nose. Speech is normal. Motor raza, she has diffuse weakness, but can lift arms over her head. Can lift her legs up together couple inches off the bed, best she is a 4/5. DTRs are 1+. Toes withdraws. Cerebellar normal. Gait is withheld. LABORATORY DATA: Reviewed. Sodium is 133, glucose 126, GFR 86, calcium 8.3. Albumin 2.6. CBC this morning, neutrophils 80.3. Urine, few mucus, otherwise really unremarkable. ASSESSMENT AND PLAN: An 87-year-old woman with chronic inflammatory demyelinating polyneuropathy, increasing weakness. Recommend continue IVIG for a total of 5 days, get her out of bed with physical therapy, control her blood pressure if the clonidine can be used p.r.n., but if she is not on antihypertensive, certainly antihypertensive medicine should be initiated. Restart her home medications. PT evaluation, SCDs or TEDs for DVT prevention and discharge planning once her IVIG has been completed. Continue current recommendations. MD JOSEPH Quintero/shawna , 11:28 AM , 11:37 AM
--- NOTE | 2018-04-02 13:52 | P.PNIM ---
Subjective Interval history: Patient reports she is feeling better today. She reports her leg strength is slightly improved. She is able to lift them off of the bed. Physical Exam Vital signs: Vital Signs 04/01/18 18:04 04/01/18 21:14 04/01/18 22:30 Temperature 98.7 F Pulse Rate 76 66 59 L Respiratory Rate 16 16 Blood Pressure 116/61 204/87 H 177/80 H Pulse Oximetry 97 100 99 04/01/18 23:00 04/02/18 00:00 04/02/18 01:55 Temperature 97 F L Pulse Rate 58 L 50 L 55 L Respiratory Rate 16 16 16 Blood Pressure 166/79 H 169/76 H 148/79 H Pulse Oximetry 98 96 04/02/18 02:16 04/02/18 02:30 04/02/18 03:29 Temperature 98 F 97.8 F Pulse Rate 54 L 55 L 51 L Respiratory Rate 16 16 15 Blood Pressure 151/72 H 155/75 H 136/65 Pulse Oximetry 98 98 98 04/02/18 04:00 04/02/18 04:35 04/02/18 05:00 Temperature 97.4 F L Pulse Rate 56 L 55 L 54 L Respiratory Rate 16 16 Blood Pressure 154/76 H 148/86 H Pulse Oximetry 97 98 04/02/18 06:00 04/02/18 08:00 04/02/18 12:35 Temperature 98.9 F 97.8 F Pulse Rate 60 68 67 Respiratory Rate 16 16 16 Blood Pressure 174/84 H 222/96 H 91/45 L Pulse Oximetry 95 99 Intake & Output 04/01/18 04/02/18 04/02/18 18:59 06:59 18:59 Intake Total 500 / 500 Output Total 800 / 800 Balance -300 / -300 Weight 56.699 kg 56.8 kg Intake: IV 500 / 500 NS Inj 500 ML @ 500 mls/hr IV. 500 / 500 SIG Q24H [facility] Rx#:[id number] Output: Urine 800 / 800 Narrative: GENERAL: Elderly female in no acute distress CARDIOVASCULAR: Normal rate and regular rhythm without murmurs, gallops, or rubs. RESPIRATORY: Good respiratory efforts. Breath sounds equal and clear to auscultation bilaterally. GASTROINTESTINAL: Abdomen soft, non-tender, non-distended. Normal active bowel sounds MUSCULOSKELETAL: Extremities without cyanosis, or edema. NEURO: Alert & Oriented x4 to person, place, time, situation. Moves all ext x4. Lower extremity strength is 4 out of 5. PSYCH: Appropriate mood and affect. Results - Labs CBC & Chem 7: 04/02/18 04:35 04/02/18 04:35 Laboratory Results - last 24 hr 04/01/18 04/01/18 04/01/18 22:15 22:15 22:19 WBC 10.6 RBC 5.31 H Hgb 16.4 H Hct 46.3 H MCV 87.3 MCH 30.9 MCHC 35.3 RDW 13.7 Plt Count 280 MPV 7.4 Neut % (Auto) 81.8 H Lymph % (Auto) 9.5 Harmon % (Auto) 7.4 Eos % (Auto) 0.7 Baso % (Auto) 0.6 Neut # (Auto) 8.7 H Lymph # (Auto) 1.0 Harmon # (Auto) 0.8 Eos # (Auto) 0.1 Baso # (Auto) 0.1 WBC Differential . Differential Comment Auto diff final Sodium 133 L Potassium 4.5 Chloride 98 Carbon Dioxide 25.8 Anion Gap 9 BUN 15 Creatinine 0.66 Estimated GFR 85 L POC Glucose 138 H Random Glucose 132 H Calcium 8.3 L Magnesium 2.4 Total Bilirubin 0.2 AST 25 ALT 26 Alkaline Phosphatase 59 Troponin I 0.03 Total Protein 7.9 Albumin 2.9 L Urine Color Urine Clarity Urine pH Ur Specific Warren Urine Protein Urine Glucose (UA) Urine Ketones Urine Occult Blood Urine Nitrate Urine Bilirubin Urine Urobilinogen Ur Leukocyte Esterase Urine RBC Urine WBC Ur Squamous Epith Cells Urine Mucus Micro UA Comment Ur Microscopic Review Urine Culture Comments 04/02/18 04/02/18 04/02/18 01:47 04:35 04:35 WBC 8.8 RBC 4.61 Hgb 14.1 D Hct 40.9 MCV 88.7 MCH 30.6 MCHC 34.5 RDW 13.7 Plt Count 258 MPV 7.7 Neut % (Auto) 80.3 H Lymph % (Auto) 13.3 Harmon % (Auto) 5.6 Eos % (Auto) 0.4 Baso % (Auto) 0.4 Neut # (Auto) 7.0 Lymph # (Auto) 1.2 Harmon # (Auto) 0.5 Eos # (Auto) 0.0 Baso # (Auto) 0.0 WBC Differential . Differential Comment Auto diff final Sodium 133 L Potassium 4.2 Chloride 101 Carbon Dioxide 24.0 Anion Gap 8 BUN 15 Creatinine 0.67 Estimated GFR 83 L POC Glucose Random Glucose 126 H Calcium 8.3 L Magnesium Total Bilirubin 0.3 AST 16 ALT 23 Alkaline Phosphatase 49 Troponin I Total Protein 7.3 D Albumin 2.6 L Urine Color Yellow Urine Clarity Clear Urine pH 6.0 Ur Specific Warren 1.016 Urine Protein Negative Urine Glucose (UA) 50 Urine Ketones Negative Urine Occult Blood Negative Urine Nitrate Negative Urine Bilirubin Negative Urine Urobilinogen Less than 2 Ur Leukocyte Esterase Negative Urine RBC 1 Urine WBC 4 Ur Squamous Epith Cells 1 Urine Mucus Few H Micro UA Comment Culture not ind Ur Microscopic Review Not Reportable Urine Culture Comments Culture not ind Assessment and Plan - Assessment (1) CIDP (chronic inflammatory demyelinating polyneuropathy) Code(s): G61.81 - Chronic inflammatory demyelinating polyneuritis Status: Acute (2) Gait instability Code(s): R26.81 - Unsteadiness on feet Status: Acute (3) HTN (hypertension) Code(s): I10 - Essential (primary) hypertension Status: Acute - Plan 87-year-old female with chronic inflammatory demyelinating polyneuropathy who presented with acute exacerbation. chronic inflammatory demyelinating polyneuropathy: -Appreciate input from neurology. Continue IVIG for a total of 5 days. - Neurochecks - PT HTN: Uncontrolled. BP 200's on arrival -The patient's home blood pressure medications including metoprolol, losartan, and spironolactone have been started. - Continue clonidine as needed. Will consider adding amlodipine if control continues to be an issue. DVT Prophylaxis: SCD/Teds Discharge Planning: Continue IVIG for 5 days. Anticipate discharge date of 04/07/18. Will need SNF versus home health care. (3) HTN (hypertension) Qualifiers:
--- NOTE | 2018-04-02 19:42 | ECG ---
Date Performed: 04/02/2018 Time Performed: 04:20:20 PTAGE: 87 years EKG: Sinus bradycardia Poor R wave progression - probable normal variant Borderline ECG PREVIOUS TRACING : 04/01/2018 22.24 Since the previous tracing, no significant change noted DOCTOR: Evaristo Haas Interpretating Date/Time 04/02/2018 19:41:55
--- NOTE | 2018-04-02 19:55 | ECG ---
Date Performed: 04/01/2018 Time Performed: 22:24:13 PTAGE: 87 years EKG: SINUS BRADYCARDIA BORDERLINE ECG PREVIOUS TRACING : 03/07/2018 19.53 Since the previous tracing, no significant change noted DOCTOR: Evaristo Haas Interpretating Date/Time 04/02/2018 19:55:30
[2018-04-03] MEDS: IVIG (Immune Globulin) Inj 25 GM in Syringe/Bag 1 EACH IV.SIG SCH (00:32)
[2018-04-03 04:10] LABS: Hematocrit 41.9 % (35.0-46.0); Hemoglobin 14.8 gm/dL (11.6-15.3); Mean Corpuscular HGB Conc 35.3 % (32.0-36.0); Mean Corpuscular Hemoglobin 31.2 pg (27.0-34.0); Mean Corpuscular Volume 88.4 fL (80.0-100.0); Mean Platelet Volume 7.5 fL (7.0-11.0); Platelet Count 227 th/mm3 (150-450); Red Blood Count 4.74 mil/mm3 (4.00-5.30); White Blood Count 9.4 th/mm3 (4.0-11.0)
[2018-04-03 04:34] LABS: Calcium 7.6 mg/dL (8.5-10.1); Carbon Dioxide 23.8 meq/L (21.0-32.0); Potassium 4.7 meq/L (3.5-5.1)
[2018-04-03] MEDS: Levothyroxine 75 MCG Tablet PO SCH (06:46)
[2018-04-03] MEDS: Spironolactone 25 MG Tablet PO SCH (08:31)
[2018-04-03] MEDS: Senna/Docusate Sodium 8.6/50 MG Tablet PO SCH ×2 (08:32→21:30)
--- NOTE | 2018-04-03 12:41 | P.PNIM ---
Subjective Interval history: Patient reports she is feeling better today. She is sitting up in the chair. Lower extremity weakness improved. Physical Exam Vital signs: Vital Signs 04/02/18 16:00 04/02/18 16:52 04/02/18 20:00 Temperature 98.2 F 98.3 F Pulse Rate 57 L 68 Respiratory Rate 20 Blood Pressure 128/62 154/77 H Pulse Oximetry 96 04/03/18 00:00 04/03/18 00:32 04/03/18 00:45 Temperature 98.0 F Pulse Rate 60 60 60 Respiratory Rate 18 18 18 Blood Pressure 146/76 H 146/66 H 146/66 H Pulse Oximetry 99 99 04/03/18 01:00 04/03/18 02:00 04/03/18 03:00 Temperature Pulse Rate 59 L 61 58 L Respiratory Rate 18 18 18 Blood Pressure 152/73 H 154/80 H 156/72 H Pulse Oximetry 100 100 100 04/03/18 04:00 04/03/18 05:00 04/03/18 05:51 Temperature 97.4 F L Pulse Rate 59 L 55 L 59 L Respiratory Rate 18 18 18 Blood Pressure 159/78 H 160/74 H 164/73 H Pulse Oximetry 99 99 04/03/18 06:47 04/03/18 08:18 04/03/18 09:20 Temperature 98.3 F 97.8 F Pulse Rate 63 64 Respiratory Rate 18 18 16 Blood Pressure 203/89 H 180/94 H 115/53 L Pulse Oximetry 100 100 98 04/03/18 11:06 04/03/18 11:18 04/03/18 12:16 Temperature 98 F Pulse Rate 72 67 Respiratory Rate 16 16 Blood Pressure 104/42 L 136/69 170/82 H Pulse Oximetry 99 99 04/03/18 12:25 Temperature Pulse Rate Respiratory Rate Blood Pressure 160/80 H Pulse Oximetry Intake & Output 04/02/18 04/03/18 04/03/18 18:59 06:59 18:59 Intake Total 450 / 450 980 / 980 Output Total 1100 / 1100 Balance -650 / -650 980 / 980 Intake: IV 450 / 450 500 / 500 Privigen Inj 25 GM In Bag/ 250 / 250 Syringe 1 EACH @ 31.25 mls/hr IV.SIG TITRATE [facility] Rx#:[id number] NS Inj 500 ML @ 500 mls/hr IV. 500 / 500 SIG Q24H [facility] Rx#:[id number] D5W Inj 500 ML @ 30 mls/hr 200 / 200 OTHER Q24H [facility] Rx#:[id number] Oral 480 / 480 Output: Urine 1100 / 1100 Other: # Voids 3 Date of Last Bowel Movement 04/02/18 # Bowel Movements 1 Narrative: GENERAL: Elderly female in no acute distress CARDIOVASCULAR: Normal rate and regular rhythm without murmurs, gallops, or rubs. RESPIRATORY: Good respiratory efforts. Breath sounds equal and clear to auscultation bilaterally. GASTROINTESTINAL: Abdomen soft, non-tender, non-distended. Normal active bowel sounds MUSCULOSKELETAL: Extremities without cyanosis, or edema. NEURO: Alert & Oriented x4 to person, place, time, situation. Moves all ext x4. Lower extremity strength is 4 out of 5. PSYCH: Appropriate mood and affect. Results - Labs CBC & Chem 7: 04/03/18 03:50 04/03/18 03:50 Laboratory Results - last 24 hr 04/03/18 04/03/18 03:50 03:50 WBC 9.4 RBC 4.74 Hgb 14.8 Hct 41.9 MCV 88.4 MCH 31.2 MCHC 35.3 RDW 14.0 Plt Count 227 MPV 7.5 Sodium 136 Potassium 4.7 Chloride 103 Carbon Dioxide 23.8 Anion Gap 9 BUN 22 H Creatinine 0.69 Estimated GFR 80 L Random Glucose 81 Calcium 7.6 L Assessment and Plan - Assessment (1) CIDP (chronic inflammatory demyelinating polyneuropathy) Code(s): G61.81 - Chronic inflammatory demyelinating polyneuritis Status: Acute (2) Gait instability Code(s): R26.81 - Unsteadiness on feet Status: Acute (3) HTN (hypertension) Code(s): I10 - Essential (primary) hypertension Status: Acute - Plan 87-year-old female with chronic inflammatory demyelinating polyneuropathy who presented with acute exacerbation. chronic inflammatory demyelinating polyneuropathy: -Appreciate input from neurology. Continue IVIG for a total of 5 days. - Neurochecks - PT to evaluate. Will likely need SNF placement HTN: BP 200's on arrival -The patient's home blood pressure medications including metoprolol, losartan, and spironolactone have been started. - Continue clonidine as needed. Blood pressure labile. Continue to monitor closely. Will consider adding amlodipine if control continues to be an issue. DVT Prophylaxis: Lovenox Discharge Planning: Continue IVIG for 5 days. Anticipate discharge date of 04/07/18. Will need SNF versus home health care. (3) HTN (hypertension) Qualifiers:
[2018-04-03] MEDS: Enoxaparin Inj 40 MG/0.4 ML Syringe SQ SCH (14:53)
[2018-04-03] MEDS: Acetaminophen 325 MG Tablet PO SCH (23:10)
[2018-04-03] MEDS: Sodium Chlor 0.9% Inj 500 ML IV.SIG SCH (23:10)
[2018-04-04] MEDS: IVIG (Immune Globulin) Inj 25 GM in Syringe/Bag 1 EACH IV.SIG SCH (00:26)
[2018-04-04] MEDS: Levothyroxine 75 MCG Tablet PO SCH (05:41)
[2018-04-04 07:19] LABS: Hematocrit 40.1 % (35.0-46.0); Hemoglobin 14.2 gm/dL (11.6-15.3); Mean Corpuscular HGB Conc 35.6 % (32.0-36.0); Mean Corpuscular Hemoglobin 31.5 pg (27.0-34.0); Mean Corpuscular Volume 88.5 fL (80.0-100.0); Mean Platelet Volume 7.8 fL (7.0-11.0); Platelet Count 215 th/mm3 (150-450); Red Blood Count 4.52 mil/mm3 (4.00-5.30); Red Cell Distribution Width 14.1 % (11.6-17.2); White Blood Count 6.9 th/mm3 (4.0-11.0)
[2018-04-04 07:31] LABS: Calcium 7.8 mg/dL (8.5-10.1); Carbon Dioxide 25.8 meq/L (21.0-32.0); Potassium 4.2 meq/L (3.5-5.1)
[2018-04-04] MEDS: Spironolactone 25 MG Tablet PO SCH (09:50)
[2018-04-04] MEDS: Senna/Docusate Sodium 8.6/50 MG Tablet PO SCH ×2 (10:16→21:46)
[2018-04-04] MEDS: Enoxaparin Inj 40 MG/0.4 ML Syringe SQ SCH (14:45)
--- NOTE | 2018-04-04 15:14 | P.PNIM ---
Subjective Interval history: Patient reports she is feeling better today. She believes she is getting stronger. Ambulated with PT with the use of a walker. Physical Exam Vital signs: Vital Signs 04/03/18 16:36 04/03/18 18:00 04/03/18 20:00 Temperature 98.8 F 98.2 F Pulse Rate 78 71 74 Respiratory Rate 16 16 Blood Pressure 161/86 H 138/72 Pulse Oximetry 99 97 04/03/18 23:51 04/04/18 00:00 04/04/18 00:26 Temperature 97.9 F Pulse Rate 67 67 67 Respiratory Rate 17 16 Blood Pressure 153/60 H 153/60 H Pulse Oximetry 98 04/04/18 04:00 04/04/18 07:56 04/04/18 10:10 Temperature 97.7 F 98 F 97.9 F Pulse Rate 73 60 Respiratory Rate 16 16 16 Blood Pressure 140/65 138/79 116/56 L Pulse Oximetry 98 99 99 04/04/18 12:45 04/04/18 12:47 Temperature 98.5 F Pulse Rate 73 Respiratory Rate 17 Blood Pressure 109/53 L Pulse Oximetry 98 Intake & Output 04/03/18 04/04/18 04/04/18 18:59 06:59 18:59 Intake Total 750 / 750 1080 / 1080 350 / 350 Output Total 1200 / 1200 1250 / 1250 Balance -450 / -450 -170 / -170 350 / 350 Weight 55.7 kg Intake: IV 250 / 250 600 / 600 350 / 350 Privigen Inj 25 GM In Bag/ 250 / 250 250 / 250 Syringe 1 EACH @ 31.25 mls/hr IV.SIG TITRATE [facility] Rx#:[id number] NS Inj 500 ML @ 500 mls/hr IV. 500 / 500 SIG Q24H [facility] Rx#:[id number] D5W Inj 500 ML @ 30 mls/hr 100 / 100 100 / 100 OTHER Q24H [facility] Rx#:[id number] Oral 500 / 500 480 / 480 Output: Urine 1200 / 1200 1250 / 1250 Other: Date of Last Bowel Movement 04/03/18 04/04/18 # Bowel Movements 2 1 Narrative: GENERAL: Elderly female in no acute distress CARDIOVASCULAR: Normal rate and regular rhythm without murmurs, gallops, or rubs. RESPIRATORY: Good respiratory efforts. Breath sounds equal and clear to auscultation bilaterally. GASTROINTESTINAL: Abdomen soft, non-tender, non-distended. Normal active bowel sounds MUSCULOSKELETAL: Extremities without cyanosis, or edema. NEURO: Alert & Oriented x4 to person, place, time, situation. Moves all ext x4. Lower extremity strength is 4+ out of 5. PSYCH: Appropriate mood and affect. Results - Labs CBC & Chem 7: 04/04/18 05:58 04/04/18 05:58 Laboratory Results - last 24 hr 04/04/18 04/04/18 05:58 05:58 WBC 6.9 RBC 4.52 Hgb 14.2 Hct 40.1 MCV 88.5 MCH 31.5 MCHC 35.6 RDW 14.1 Plt Count 215 MPV 7.8 Sodium 133 L Potassium 4.2 Chloride 102 Carbon Dioxide 25.8 Anion Gap 5 BUN 19 H Creatinine 0.76 Estimated GFR 72 L Random Glucose 79 Calcium 7.8 L Assessment and Plan - Assessment (1) CIDP (chronic inflammatory demyelinating polyneuropathy) Code(s): G61.81 - Chronic inflammatory demyelinating polyneuritis Status: Acute (2) Gait instability Code(s): R26.81 - Unsteadiness on feet Status: Acute (3) HTN (hypertension) Code(s): I10 - Essential (primary) hypertension Status: Acute - Plan 87-year-old female with chronic inflammatory demyelinating polyneuropathy who presented with acute exacerbation. chronic inflammatory demyelinating polyneuropathy: -Appreciate input from neurology. Continue IVIG for a total of 5 days. End date 04/06/18 - Neurochecks -Continue PT efforts. Will likely need SNF placement HTN: BP 200's on arrival -The patient's home blood pressure medications including metoprolol, losartan, and spironolactone have been started. - Continue clonidine as needed. Blood pressure is controlled. Continue to monitor closely. DVT Prophylaxis: Lovenox Discharge Planning: Continue IVIG for 5 days. Anticipate discharge date of 04/07/18. Will need SNF versus home health care. (3) HTN (hypertension) Qualifiers:
[2018-04-04] MEDS: Sodium Chlor 0.9% Inj 500 ML IV.SIG SCH (23:16)
[2018-04-04] MEDS: Acetaminophen 325 MG Tablet PO SCH (23:17)
[2018-04-05] MEDS: IVIG (Immune Globulin) Inj 25 GM in Syringe/Bag 1 EACH IV.SIG SCH ×2 (00:41→23:36)
[2018-04-05] MEDS: Levothyroxine 75 MCG Tablet PO SCH (05:48)
[2018-04-05] MEDS: Spironolactone 25 MG Tablet PO SCH (08:35)
[2018-04-05] MEDS: Senna/Docusate Sodium 8.6/50 MG Tablet PO SCH ×2 (08:36→21:30)
--- NOTE | 2018-04-05 14:04 | P.PNIM ---
Subjective Interval history: Patient reports she is feeling okay today. Getting stronger. No other issues. Physical Exam Vital signs: Vital Signs 04/04/18 16:00 04/04/18 17:22 04/04/18 20:02 Temperature 98.1 F Pulse Rate 64 66 Respiratory Rate 16 Blood Pressure 142/69 H Pulse Oximetry 98 04/04/18 20:15 04/04/18 21:56 04/05/18 00:05 Temperature 97.7 F Pulse Rate 70 60 60 Respiratory Rate 16 Blood Pressure 118/64 119/65 Pulse Oximetry 99 04/05/18 00:40 04/05/18 01:00 04/05/18 01:15 Temperature 98 F 97.7 F 97.5 F L Pulse Rate 58 L 60 60 Respiratory Rate 16 16 16 Blood Pressure 144/73 H 129/64 152/68 H Pulse Oximetry 100 97 99 04/05/18 01:30 04/05/18 01:45 04/05/18 02:45 Temperature 97.6 F 97.4 F L 97.8 F Pulse Rate 58 L 59 L 60 Respiratory Rate 16 18 16 Blood Pressure 146/68 H 132/66 147/78 H Pulse Oximetry 99 98 100 04/05/18 03:45 04/05/18 04:09 04/05/18 04:45 Temperature 97.7 F 98.1 F Pulse Rate 62 55 L 60 Respiratory Rate 16 16 Blood Pressure 173/83 H 155/81 H Pulse Oximetry 100 98 04/05/18 05:43 04/05/18 06:42 04/05/18 07:17 Temperature 98 F 97.8 F Pulse Rate 58 L 60 56 L Respiratory Rate 16 16 Blood Pressure 141/80 H 175/74 H Pulse Oximetry 99 99 04/05/18 08:33 04/05/18 11:50 Temperature 98 F 98.6 F Pulse Rate 63 70 Respiratory Rate 16 20 Blood Pressure 147/69 H 149/74 H Pulse Oximetry 98 98 Intake & Output 04/04/18 04/05/18 04/05/18 18:59 06:59 18:59 Intake Total 1070 / 1070 840 / 840 250 / 250 Output Total 575 / 575 2200 / 2200 Balance 495 / 495 -1360 / -1360 250 / 250 Weight 57.1 kg Intake: IV 350 / 350 600 / 600 250 / 250 Privigen Inj 25 GM In Bag/ 250 / 250 250 / 250 Syringe 1 EACH @ 31.25 mls/hr IV.SIG TITRATE SACHIN Rx#:[id number] NS Inj 500 ML @ 500 mls/hr IV. 500 / 500 SIG Q24H [facility] Rx#:[id number] D5W Inj 500 ML @ 30 mls/hr 100 / 100 100 / 100 OTHER Q24H [facility] Rx#:[id number] Oral 720 / 720 240 / 240 Output: Urine 575 / 575 2200 / 2200 Other: Date of Last Bowel Movement 04/04/18 Narrative: GENERAL: Elderly female in no acute distress CARDIOVASCULAR: Normal rate and regular rhythm without murmurs, gallops, or rubs. RESPIRATORY: Good respiratory efforts. Breath sounds equal and clear to auscultation bilaterally. GASTROINTESTINAL: Abdomen soft, non-tender, non-distended. Normal active bowel sounds MUSCULOSKELETAL: Extremities without cyanosis, or edema. NEURO: Alert & Oriented x4 to person, place, time, situation. Moves all ext x4. Lower extremity strength is 4+ out of 5. PSYCH: Appropriate mood and affect. Results - Labs CBC & Chem 7: 04/04/18 05:58 04/04/18 05:58 Assessment and Plan - Assessment (1) CIDP (chronic inflammatory demyelinating polyneuropathy) Code(s): G61.81 - Chronic inflammatory demyelinating polyneuritis Status: Acute (2) Gait instability Code(s): R26.81 - Unsteadiness on feet Status: Acute (3) HTN (hypertension) Code(s): I10 - Essential (primary) hypertension Status: Acute - Plan 87-year-old female with chronic inflammatory demyelinating polyneuropathy who presented with acute exacerbation. chronic inflammatory demyelinating polyneuropathy: -Appreciate input from neurology. Continue IVIG for a total of 5 days. End date 04/06/18 - Neurochecks -Continue PT efforts. Will need SNF placement. Will discuss with case management. HTN: BP 200's on arrival -The patient's home blood pressure medications including metoprolol, losartan, and spironolactone have been started. - Continue clonidine as needed. Blood pressure is controlled. Continue to monitor closely. DVT Prophylaxis: Lovenox Discharge Planning: Continue IVIG for a total of 5 days. Anticipate discharge date of 04/07/18. Will need SNF. (3) HTN (hypertension) Qualifiers:
[2018-04-05] MEDS: Enoxaparin Inj 40 MG/0.4 ML Syringe SQ SCH (15:27)
[2018-04-05] MEDS: Sodium Chlor 0.9% Inj 500 ML IV.SIG SCH (22:24)
[2018-04-05] MEDS: Acetaminophen 325 MG Tablet PO SCH (22:25)
[2018-04-06] MEDS: Levothyroxine 75 MCG Tablet PO SCH (05:48)
[2018-04-06] MEDS: Senna/Docusate Sodium 8.6/50 MG Tablet PO SCH ×2 (09:28→21:20)
[2018-04-06] MEDS: Spironolactone 25 MG Tablet PO SCH (09:28)
[2018-04-06] MEDS: Enoxaparin Inj 40 MG/0.4 ML Syringe SQ SCH (14:44)
--- NOTE | 2018-04-06 15:56 | P.PNIM ---
Subjective Interval history: Patient reports she is feeling ok today. Participating with PT. No new issues. Physical Exam Vital signs: Vital Signs 04/05/18 18:00 04/05/18 20:00 04/05/18 20:55 Temperature 98.1 F Pulse Rate 64 76 70 Respiratory Rate 16 Blood Pressure 129/67 Pulse Oximetry 97 04/05/18 23:35 04/05/18 23:36 04/05/18 23:55 Temperature 98 F 97.6 F Pulse Rate 61 61 60 Respiratory Rate 16 16 16 Blood Pressure 113/56 L 113/56 L 117/56 L Pulse Oximetry 98 97 04/06/18 00:09 04/06/18 00:10 04/06/18 00:25 Temperature 98 F Pulse Rate 58 L 59 L 60 Respiratory Rate 16 16 Blood Pressure 114/65 117/79 Pulse Oximetry 98 98 04/06/18 00:40 04/06/18 01:41 04/06/18 02:39 Temperature 97.9 F 98.1 F 97.6 F Pulse Rate 57 L 62 58 L Respiratory Rate 16 16 16 Blood Pressure 106/53 L 139/72 130/63 Pulse Oximetry 97 99 97 04/06/18 03:47 04/06/18 03:59 04/06/18 04:42 Temperature 97.6 F 97.8 F Pulse Rate 59 L 56 L 60 Respiratory Rate 16 Blood Pressure 134/76 126/60 Pulse Oximetry 98 97 04/06/18 05:43 04/06/18 06:39 04/06/18 07:26 Temperature 97.8 F 97.8 F Pulse Rate 56 L 58 L 57 L Respiratory Rate 16 16 Blood Pressure 131/77 154/84 H Pulse Oximetry 99 99 04/06/18 08:00 Temperature 98.0 F Pulse Rate 71 Respiratory Rate 16 Blood Pressure 127/60 Pulse Oximetry 97 Intake & Output 04/05/18 04/06/18 04/06/18 18:59 06:59 18:59 Intake Total 1070 / 1070 725 / 725 250 / 250 Output Total 1300 / 1300 2200 / 2200 Balance -230 / -230 -1475 / -1475 250 / 250 Weight 56.4 kg Intake: IV 250 / 250 525 / 525 250 / 250 Privigen Inj 25 GM In Bag/ 250 / 250 250 / 250 Syringe 1 EACH @ 31.25 mls/hr IV.SIG TITRATE SACHIN Rx#:[id number] NS Inj 500 ML @ 500 mls/hr IV. 505 / 505 SIG Q24H [facility] Rx#:[id number] D5W Inj 500 ML @ 30 mls/hr 20 / 20 OTHER Q24H [facility] Rx#:[id number] Oral 820 / 820 200 / 200 Output: Urine 1300 / 1300 2200 / 2200 Other: Date of Last Bowel Movement 04/05/18 04/05/18 04/05/18 # Bowel Movements 1 Narrative: GENERAL: Elderly female in no acute distress CARDIOVASCULAR: Normal rate and regular rhythm without murmurs, gallops, or rubs. RESPIRATORY: Good respiratory efforts. Breath sounds equal and clear to auscultation bilaterally. GASTROINTESTINAL: Abdomen soft, non-tender, non-distended. Normal active bowel sounds MUSCULOSKELETAL: Extremities without cyanosis, or edema. NEURO: Alert & Oriented x4 to person, place, time, situation. Moves all ext x4. Lower extremity strength is 4+ out of 5. PSYCH: Appropriate mood and affect. Results - Labs CBC & Chem 7: 04/04/18 05:58 04/04/18 05:58 Assessment and Plan - Assessment (1) CIDP (chronic inflammatory demyelinating polyneuropathy) Code(s): G61.81 - Chronic inflammatory demyelinating polyneuritis Status: Acute (2) Gait instability Code(s): R26.81 - Unsteadiness on feet Status: Acute (3) HTN (hypertension) Code(s): I10 - Essential (primary) hypertension Status: Acute - Plan 87-year-old female with chronic inflammatory demyelinating polyneuropathy who presented with acute exacerbation. chronic inflammatory demyelinating polyneuropathy: -Appreciate input from neurology. Continue IVIG for a total of 5 days. End date 04/06/18 - Neurochecks -Continue PT efforts. Plan for DC tomorrow to [facility] HTN: BP 200's on arrival -The patient's home blood pressure medications including metoprolol, losartan, and spironolactone have been started. - Continue clonidine as needed. Blood pressure is controlled. Continue to monitor closely. DVT Prophylaxis: Lovenox Discharge Planning: Continue IVIG for a total of 5 days. Anticipate discharge date tomorrow to [facility] (3) HTN (hypertension) Qualifiers:
--- NOTE | 2018-04-06 16:32 | P.PNNEU ---
Subjective Subjective Comments: No cp, no dyspnea, no sutton, no focal weakness, no vision loss; feeling stronger Active Medications: Active Medications Acetaminophen (Tylenol) 650 mg PO Q24H [facility] Stop: 04/06/18 22:59 Last Admin: 04/05/18 22:25 Dose: 650 mg Acetaminophen (Tylenol) 650 mg PO Q4H PRN PRN Reason: Temp > 100.4 Al Hydroxide/Mg Hydroxide (Milk Of Magnari Liq) 30 ml PO Q12H PRN PRN Reason: Mild Constipation Aspirin (Ecotrin) 81 mg PO DAILY [facility] Last Admin: 04/06/18 09:28 Dose: 81 mg Bisacodyl (Dulcolax Supp) 10 mg RECTAL DAILY PRN PRN Reason: SEVERE CONSITIPATION Clonidine HCl (Catapres) 0.1 mg PO Q6H PRN PRN Reason: SEE LABEL COMMENTS Last Admin: 04/04/18 05:43 Dose: 0.1 mg Diphenhydramine HCl (Benadryl Inj) 50 mg IV.PUSH PRN PRN PRN Reason: ALLERGIC REACTION Stop: 04/07/18 22:58 Diphenhydramine HCl (Benadryl) 25 mg PO Q24H [facility] Stop: 04/06/18 22:59 Last Admin: 04/05/18 22:25 Dose: 25 mg Enoxaparin Sodium (Lovenox Inj) 40 mg SQ Q24H [facility] Last Admin: 04/06/18 14:44 Dose: 40 mg Epinephrine HCl (Epinephrine (1:1000) Inj) 0.3 mg OTHER Q10M PRN PRN Reason: Anaphylactic Reaction Stop: 04/07/18 22:58 Dextrose (D5w Inj) 500 mls @ 30 mls/hr OTHER Q24H [facility] Stop: 04/06/18 22:59 Last Admin: 04/05/18 23:30 Dose: 30 mls/hr Immune Globulin 25 gm/ (Miscellaneous Medication) 250 mls @ 31.25 mls/hr IV.SIG TITRATE SACHIN; Protocol Stop: 04/06/18 23:58 Last Infusion: 04/06/18 14:09 Dose: Infused Sodium Chloride (Ns Inj) 500 mls @ 500 mls/hr IV.SIG Q24H [facility] Stop: 04/06/18 22:59 Last Infusion: 04/05/18 23:32 Dose: Infused Lactulose (Lactulose Liq) 30 ml PO DAILY PRN PRN Reason: SEVERE CONSITIPATION Levothyroxine Sodium (Synthroid) 75 mcg PO DAILY@0600 [facility] Last Admin: 04/06/18 05:48 Dose: 75 mcg Losartan Potassium (Cozaar) 50 mg PO DAILY [facility] Last Admin: 04/06/18 09:28 Dose: 50 mg Metoprolol Succinate (Toprol Xl) 50 mg PO HS [facility] Last Admin: 04/05/18 21:30 Dose: 50 mg Ondansetron HCl (Zofran Inj) 4 mg IV.PUSH Q6H PRN PRN Reason: NAUSEA OR VOMITING Last Admin: 04/02/18 22:33 Dose: 4 mg Senna/Docusate Sodium (Sahra-Colace) 1 tab PO BID [facility] Last Admin: 04/06/18 09:28 Dose: Not Given Sennosides (Senokot) 17.2 mg PO Q12H PRN PRN Reason: Moderate Constipation Sodium Chloride (Ns Flush) 2 ml IV.FLUSH PRN PRN PRN Reason: FLUSH AFTER USING IV ACCESS Last Admin: 04/02/18 22:36 Dose: 2 ml Spironolactone (Aldactone) 25 mg PO DAILY [facility] Last Admin: 04/06/18 09:28 Dose: 25 mg Allergies/Adverse Reactions: Allergies Allergy/AdvReac Type Severity Reaction Status Date / Time doxycycline Allergy Severe Nausea/Vomi Verified 03/07/18 19:44 ting guaifenesin AdvReac Severe "MAKES ME Verified 03/07/18 19:44 HIGH" Review of Systems All other systems reviewed negative except as stated in HPI Physical Exam Vital signs: Vital Signs 04/05/18 18:00 04/05/18 20:00 04/05/18 20:55 Temperature 98.1 F Pulse Rate 64 76 70 Respiratory Rate 16 Blood Pressure 129/67 Pulse Oximetry 97 04/05/18 23:35 04/05/18 23:36 04/05/18 23:55 Temperature 98 F 97.6 F Pulse Rate 61 61 60 Respiratory Rate 16 16 16 Blood Pressure 113/56 L 113/56 L 117/56 L Pulse Oximetry 98 97 04/06/18 00:09 04/06/18 00:10 04/06/18 00:25 Temperature 98 F Pulse Rate 58 L 59 L 60 Respiratory Rate 16 16 Blood Pressure 114/65 117/79 Pulse Oximetry 98 98 04/06/18 00:40 04/06/18 01:41 04/06/18 02:39 Temperature 97.9 F 98.1 F 97.6 F Pulse Rate 57 L 62 58 L Respiratory Rate 16 16 16 Blood Pressure 106/53 L 139/72 130/63 Pulse Oximetry 97 99 97 04/06/18 03:47 04/06/18 03:59 04/06/18 04:42 Temperature 97.6 F 97.8 F Pulse Rate 59 L 56 L 60 Respiratory Rate 16 Blood Pressure 134/76 126/60 Pulse Oximetry 98 97 04/06/18 05:43 04/06/18 06:39 04/06/18 07:26 Temperature 97.8 F 97.8 F Pulse Rate 56 L 58 L 57 L Respiratory Rate 16 16 Blood Pressure 131/77 154/84 H Pulse Oximetry 99 99 04/06/18 08:00 04/06/18 12:00 Temperature 98.0 F 98.0 F Pulse Rate 71 71 Respiratory Rate 16 16 Blood Pressure 127/60 116/57 L Pulse Oximetry 97 99 Intake & Output 04/05/18 04/06/18 04/06/18 18:59 06:59 18:59 Intake Total 1070 / 1070 725 / 725 250 / 250 Output Total 1300 / 1300 2200 / 2200 Balance -230 / -230 -1475 / -1475 250 / 250 Weight 56.4 kg Intake: IV 250 / 250 525 / 525 250 / 250 Privigen Inj 25 GM In Bag/ 250 / 250 250 / 250 Syringe 1 EACH @ 31.25 mls/hr IV.SIG TITRATE SACHIN Rx#:[id number] NS Inj 500 ML @ 500 mls/hr IV. 505 / 505 SIG Q24H [facility] Rx#:[id number] D5W Inj 500 ML @ 30 mls/hr 20 / 20 OTHER Q24H [facility] Rx#:[id number] Oral 820 / 820 200 / 200 Output: Urine 1300 / 1300 2200 / 2200 Other: Date of Last Bowel Movement 04/05/18 04/05/18 04/05/18 # Bowel Movements 1 Narrative: GENERAL: in NAD, SKIN: Right nasal high bridge left periorbital mild forehead bruising from recent skin surgery for cancer HEAD: Atraumatic. Normocephalic. EYES: Pupils equal and round. No scleral icterus. ENT: No nasal bleeding or discharge. Mucous membranes pink and moist. NECK: Trachea midline. No JVD. CARDIOVASCULAR: Regular rate and rhythm. RESPIRATORY: No accessory muscle use. GASTROINTESTINAL: Abdomen soft, non-tender, nondistended. MUSCULOSKELETAL: Extremities without clubbing, cyanosis, or edema. No obvious deformities. NEUROLOGICAL: Awake and alert. No aphasia, oriented x3 fluent articulate, No facial asymmetry, OU 3-2mm, eomi, VFF, No drift, mild hip flexor weakness strength 4 out of 5 distally 5- out of 5 no pronator drift in the upper extremities reflexes trace plantarflex her no clonus, slight reduced pinprick distal extremity PSYCHIATRIC: Appropriate mood and affect; insight and judgment normal. - Constitutional no acute distress - Routine HEENT Exam Head: Present: normocephalic Review/Management - Diagnosis (1) CIDP (chronic inflammatory demyelinating polyneuropathy) Code(s): G61.81 - Chronic inflammatory demyelinating polyneuritis Status: Acute Current Visit: No (2) Gait instability Code(s): R26.81 - Unsteadiness on feet Status: Acute Current Visit: No (3) HTN (hypertension) Code(s): I10 - Essential (primary) hypertension Status: Acute Current Visit : Yes (4) Neuropathy Code(s): G62.9 - Polyneuropathy, unspecified Status: Acute Current Visit: No (5) 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, unspecified Status: Acute Current Visit: No - Review/Management Plan: Relapse Requiring IVIG every 2-3 weeks; difficulty getting it outpatient due to authorization from insurance company Recommendation Complete IVIG 5 out of 5 treatments Prednisone 30 mg p.o. every morning daily Appreciate medical service Therapy We will follow with you (3) HTN (hypertension) Qualifiers:
[2018-04-06] MEDS: predniSONE 10 MG Tablet PO SCH (17:34)
[2018-04-07 04:49] LABS: Hematocrit 39.2 % (35.0-46.0); Hemoglobin 14.3 gm/dL (11.6-15.3); Mean Corpuscular Hemoglobin 31.2 pg (27.0-34.0); Mean Corpuscular Volume 85.7 fL (80.0-100.0); Mean Platelet Volume 7.6 fL (7.0-11.0); Platelet Count 237 th/mm3 (150-450); Red Blood Count 4.58 mil/mm3 (4.00-5.30); Red Cell Distribution Width 13.9 % (11.6-17.2); White Blood Count 7.4 th/mm3 (4.0-11.0)
[2018-04-07 04:59] LABS: Mean Corpuscular HGB Conc 36.4 % (32.0-36.0)
[2018-04-07 05:04] LABS: Calcium 8.2 mg/dL (8.5-10.1); Carbon Dioxide 22.9 meq/L (21.0-32.0); Potassium 4.5 meq/L (3.5-5.1)
[2018-04-07] MEDS: Levothyroxine 75 MCG Tablet PO SCH (05:36)
--- NOTE | 2018-04-07 08:31 | P.PNNEU ---
Subjective Subjective Comments: no acute events, no cp/dyspnea, slept well Active Medications: Active Medications Acetaminophen (Tylenol) 650 mg PO Q4H PRN PRN Reason: Temp > 100.4 Al Hydroxide/Mg Hydroxide (Milk Of Magnesia Liq) 30 ml PO Q12H PRN PRN Reason: Mild Constipation Aspirin (Ecotrin) 81 mg PO DAILY [facility] Last Admin: 04/06/18 09:28 Dose: 81 mg Bisacodyl (Dulcolax Supp) 10 mg RECTAL DAILY PRN PRN Reason: SEVERE CONSITIPATION Clonidine HCl (Catapres) 0.1 mg PO Q6H PRN PRN Reason: SEE LABEL COMMENTS Last Admin: 04/04/18 05:43 Dose: 0.1 mg Diphenhydramine HCl (Benadryl Inj) 50 mg IV.PUSH PRN PRN PRN Reason: ALLERGIC REACTION Stop: 04/07/18 22:58 Enoxaparin Sodium (Lovenox Inj) 40 mg SQ Q24H [facility] Last Admin: 04/06/18 14:44 Dose: 40 mg Epinephrine HCl (Epinephrine (1:1000) Inj) 0.3 mg OTHER Q10M PRN PRN Reason: Anaphylactic Reaction Stop: 04/07/18 22:58 Lactulose (Lactulose Liq) 30 ml PO DAILY PRN PRN Reason: SEVERE CONSITIPATION Levothyroxine Sodium (Synthroid) 75 mcg PO DAILY@0600 [facility] Last Admin: 04/07/18 05:36 Dose: 75 mcg Losartan Potassium (Cozaar) 50 mg PO DAILY [facility] Last Admin: 04/06/18 09:28 Dose: 50 mg Metoprolol Succinate (Toprol Xl) 50 mg PO HS [facility] Last Admin: 04/06/18 21:20 Dose: 50 mg Ondansetron HCl (Zofran Inj) 4 mg IV.PUSH Q6H PRN PRN Reason: NAUSEA OR VOMITING Last Admin: 04/02/18 22:33 Dose: 4 mg Prednisone (Deltasone) 30 mg PO DAILY [facility] Last Admin: 04/06/18 17:34 Dose: 30 mg Senna/Docusate Sodium (Sahra-Colace) 1 tab PO BID [facility] Last Admin: 04/06/18 21:20 Dose: Not Given Sennosides (Senokot) 17.2 mg PO Q12H PRN PRN Reason: Moderate Constipation Sodium Chloride (Ns Flush) 2 ml IV.FLUSH PRN PRN PRN Reason: FLUSH AFTER USING IV ACCESS Last Admin: 04/06/18 21:23 Dose: 2 ml Spironolactone (Aldactone) 25 mg PO DAILY [facility] Last Admin: 04/06/18 09:28 Dose: 25 mg Allergies/Adverse Reactions: Allergies Allergy/AdvReac Type Severity Reaction Status Date / Time doxycycline Allergy Severe Nausea/Vomi Verified 03/07/18 19:44 ting guaifenesin AdvReac Severe "MAKES ME Verified 03/07/18 19:44 HIGH" Review of Systems All other systems reviewed negative except as stated in HPI Physical Exam Vital signs: Vital Signs 04/06/18 12:00 04/06/18 16:00 04/06/18 20:06 Temperature 98.0 F 98.8 F Pulse Rate 75 79 72 Respiratory Rate 16 18 Blood Pressure 116/57 L 151/79 H Pulse Oximetry 99 97 04/06/18 20:55 04/06/18 23:06 04/06/18 23:58 Temperature 98.5 F 98.6 F Pulse Rate 64 67 65 Respiratory Rate 16 16 Blood Pressure 131/70 157/85 H Pulse Oximetry 97 97 04/07/18 03:51 04/07/18 04:02 Temperature 97.6 F Pulse Rate 64 61 Respiratory Rate 16 Blood Pressure 151/79 H Pulse Oximetry 97 Intake & Output 04/06/18 04/07/18 04/07/18 18:59 06:59 18:59 Intake Total 2062 / 2062 440 / 440 Output Total 1200 / 1200 2300 / 2300 Balance 862 / 862 -1860 / -1860 Weight 55.1 kg Intake: IV 750 / 750 Privigen Inj 25 GM In Bag/ 250 / 250 Syringe 1 EACH @ 31.25 mls/hr IV.SIG TITRATE [facility] Rx#:[id number] D5W Inj 500 ML @ 30 mls/hr 500 / 500 OTHER Q24H [facility] Rx#:[id number] Oral 1312 / 1312 440 / 440 Output: Urine 1200 / 1200 2300 / 2300 Other: # Voids 1 Date of Last Bowel Movement 04/05/18 04/05/18 # Bowel Movements 1 1 Narrative: GENERAL: in NAD, SKIN: Right nasal high bridge left periorbital mild forehead bruising from recent skin surgery for cancer HEAD: Atraumatic. Normocephalic. EYES: Pupils equal and round. No scleral icterus. ENT: No nasal bleeding or discharge. Mucous membranes pink and moist. NECK: Trachea midline. No JVD. CARDIOVASCULAR: Regular rate and rhythm. RESPIRATORY: No accessory muscle use. GASTROINTESTINAL: Abdomen soft, non-tender, nondistended. MUSCULOSKELETAL: Extremities without clubbing, cyanosis, or edema. No obvious deformities. NEUROLOGICAL: Awake and alert. No aphasia, oriented x3 fluent articulate, No facial asymmetry, OU 3-2mm, eomi, VFF, No drift, mild hip flexor weakness strength 4 out of 5 distally 5- out of 5 no pronator drift in the upper extremities reflexes trace plantarflex her no clonus, slight reduced pinprick distal extremity PSYCHIATRIC: Appropriate mood and affect; insight and judgment normal. - Constitutional no acute distress - Routine HEENT Exam Head: Present: normocephalic Eye: Present: EOMI Objective Laboratory Results - last 24 hr 04/07/18 04/07/18 03:23 03:23 WBC 7.4 RBC 4.58 Hgb 14.3 Hct 39.2 MCV 85.7 MCH 31.2 MCHC 36.4 H RDW 13.9 Plt Count 237 MPV 7.6 Sodium 128 L Potassium 4.5 Chloride 97 L Carbon Dioxide 22.9 Anion Gap 8 BUN 20 H Creatinine 0.76 Estimated GFR 72 L Random Glucose 159 H Calcium 8.2 L Review/Management - Diagnosis (1) CIDP (chronic inflammatory demyelinating polyneuropathy) Code(s): G61.81 - Chronic inflammatory demyelinating polyneuritis Status: Acute Current Visit: No (2) Gait instability Code(s): R26.81 - Unsteadiness on feet Status: Acute Current Visit: No (3) HTN (hypertension) Code(s): I10 - Essential (primary) hypertension Status: Acute Current Visit : Yes (4) Neuropathy Code(s): G62.9 - Polyneuropathy, unspecified Status: Acute Current Visit: No (5) 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, unspecified Status: Acute Current Visit: No - Review/Management Plan: Relapse Requiring IVIG every 2-3 weeks; difficulty getting it outpatient due to authorization from insurance company Recommendation neuro stable Complete IVIG 5 out of 5 treatments Prednisone 30 mg p.o. every morning daily diabetic diet, vit d supplementation Appreciate medical service Therapy We will follow with you (3) HTN (hypertension) Qualifiers:
[2018-04-07] MEDS: Spironolactone 25 MG Tablet PO SCH (09:01)
[2018-04-07] MEDS: predniSONE 10 MG Tablet PO SCH (09:01)
[2018-04-07] MEDS: Senna/Docusate Sodium 8.6/50 MG Tablet PO SCH (09:03)
--- NOTE | 2018-04-07 09:29 | P.DS ---
Date of admission: 04/01/18 23:08 Primary care physician: Priyanka Mckinnon MD Brief History from admission: HPI as documented by the admitting physician: This is an 87-year-old female with a PMH of HTN and CIDP who was referred to the ER by Dr. Polanco for initiation of IVIG. Pt reports she follows w/ Dr. Polanco for h/o CIDP, has required multiple treatments of IVIG in the past w/ improvement. Currently on Prednisone daily x10 days, however reports progressive lower extremity weakness and gait instability for approx 1wk. Denies fever, chills or chest pain. On arrival, BP 204/87, HR 66, O2 sat 100% on RA, Afebrile. CBC unremarkable except for hemoglobin 16.4. Chemistry unremarkable. Dr. Vidal consulted by ER physician, recommended IVIG infusion x8hrs to start now. S/p Clonidine in ER w/ improvement in BP. Patient update on day of discharge: Patient reports she is feeling okay today. Eager to go to rehab. She is working with her neurologist and insurance company to have IVIG scheduled outpatient have a couple of weeks. DS: Diagnosis - Discharge Diagnosis (1) CIDP (chronic inflammatory demyelinating polyneuropathy) Status: Acute (2) Gait instability Status: Acute (3) HTN (hypertension) Status: Acute DS: Summary Hospital Course: 87-year-old female with chronic inflammatory demyelinating polyneuropathy who presented with acute exacerbation. chronic inflammatory demyelinating polyneuropathy: -Appreciate input from neurology. Patient treated with IVIG for total of 5 days. She is to continue on prednisone at increased dose of 30 mg daily per neurology recommendations. - Patient is discharged to SNF to continue rehabilitation efforts. She will follow-up outpatient with neurology for scheduled IV IV treatment outpatient. HTN: BP 200's on arrival -The patient's home blood pressure medications including metoprolol, losartan, and spironolactone restarted and the patient's blood pressure was controlled. - Time Spent with Patient Total time spent providing and/or coordinating discharge services: Greater than 30 minutes - Quality: VTE Deep Vein Thrombosis/Pulmonary Embolism Present on Admission: No Exam Vital signs: Vital Signs 04/06/18 12:00 04/06/18 16:00 04/06/18 20:06 Temperature 98.0 F 98.8 F Pulse Rate 75 79 72 Respiratory Rate 16 18 Blood Pressure 116/57 L 151/79 H Pulse Oximetry 99 97 04/06/18 20:55 04/06/18 23:06 04/06/18 23:58 Temperature 98.5 F 98.6 F Pulse Rate 64 67 65 Respiratory Rate 16 16 Blood Pressure 131/70 157/85 H Pulse Oximetry 97 97 04/07/18 03:51 04/07/18 04:02 04/07/18 08:00 Temperature 97.6 F 98.4 F Pulse Rate 64 61 70 Respiratory Rate 16 16 Blood Pressure 151/79 H 177/88 H Pulse Oximetry 97 98 Intake & Output 04/06/18 04/07/18 04/07/18 18:59 06:59 18:59 Intake Total 2062 / 2062 440 / 440 Output Total 1200 / 1200 2300 / 2300 Balance 862 / 862 -1860 / -1860 Weight 55.1 kg Intake: IV 750 / 750 Privigen Inj 25 GM In Bag/ 250 / 250 Syringe 1 EACH @ 31.25 mls/hr IV.SIG TITRATE SACHIN Rx#:[id number] Inj 500 ML @ 30 mls/hr 500 / 500 OTHER Q24H SACHIN Rx#:[id number] Oral 1312 / 1312 440 / 440 Output: Urine 1200 / 1200 2300 / 2300 Other: # Voids 1 Date of Last Bowel Movement 04/05/18 04/05/18 # Bowel Movements 1 1 Narrative: GENERAL: Elderly female in no acute distress CARDIOVASCULAR: Normal rate and regular rhythm without murmurs, gallops, or rubs. RESPIRATORY: Good respiratory efforts. Breath sounds equal and clear to auscultation bilaterally. GASTROINTESTINAL: Abdomen soft, non-tender, non-distended. Normal active bowel sounds MUSCULOSKELETAL: Extremities without cyanosis, or edema. NEURO: Alert & Oriented x4 to person, place, time, situation. Moves all ext x4. Lower extremity strength is 4+ out of 5. PSYCH: Appropriate mood and affect. Results Procedures completed during hospitalization: None Labs on day of discharge: Labs from last 24 hours 04/07/18 04/07/18 03:23 03:23 WBC 7.4 RBC 4.58 Hgb 14.3 Hct 39.2 MCV 85.7 MCH 31.2 MCHC 36.4 H RDW 13.9 Plt Count 237 MPV 7.6 Sodium 128 L Potassium 4.5 Chloride 97 L Carbon Dioxide 22.9 Anion Gap 8 BUN 20 H Creatinine 0.76 Estimated GFR 72 L Random Glucose 159 H Calcium 8.2 L Discharge Plan - Discharge Disposition Patient Disposition: 03 Discharge to SNF - Discharge Condition Condition: Stable - Discharge Order Discharge Orders: Discharge Order (Routine); Ordered 04/07/18 Ordered By: Lexie Osei - Physicians Team Primary Care Provider: Priyanka Mckinnon Attending Provider: Lexie Osei Other Providers: Cynthia Ashraf MD ; [employer] ; [facility],Agency
== END 2018-04-07 12:32 ==
LOC: NEPC 17:49 → NEDA 23:08 → HCIN 04-02 00:10 → HCIS 04-06 08:51 → HCIN 04-06 08:57
PROVIDERS: ADMIT Family Medicine; ATTEND Family Medicine

== ENCOUNTER 2018-06-02 12:15 | Inpatient (IN) ==
--- NOTE | 2018-06-02 12:50 | ED ---
HPI General Chief Complaint: Shortness of Breath/Dyspnea Stated Complaint: Doc Sent/SOB Time Seen by Provider: 06/02/18 12:33 Source: patient Mode of arrival: ambulatory Limitations: no limitations History of Present Illness 87-year-old female presents with complaint of shortness of breath and swelling to her lower extremities for the past week. Patient notes chest pressure couple days ago. Denies any active chest pain. She denies any other associated symptoms that she can recall. She denies any prior history of this. She denies any history of heart failure. She states she had a couple heart test a couple months ago that were okay but she is not sure which ones may be a stress test after I described them. She does not believe she has had a heart catheterization. She states she feels worse when she moves around. When she called her primary doctor today they advised for her to come to the emergency room. She denies modifying factors other than movement. MD Complaint: Reports shortness of breath Onset (ago): week(s) Severity: mild Consistency/Duration: progressively worsening Relieving factors: rest Exacerbating factors: exertion Associated symptoms: Reports other (Lower leg edema) Treatment prior to arrival: Reports none Related Data Home oxygen amount: none Home Medications Medication Instructions Recorded Confirmed ascorbic acid (vitamin C) [Vitamin 500 mg PO DAILY 06/02/18 06/02/18 C] brimonidine 1 drp EACH EYE BID 06/02/18 06/02/18 cholecalciferol (vitamin D3) 2,000 unit PO DAILY 06/02/18 06/02/18 [Vitamin D3] hydralazine 25 - 50 mg PO DAILY PRN 06/02/18 06/02/18 levobunolol 1 drp EACH EYE DAILY 06/02/18 06/02/18 losartan 50 mg PO HS 06/02/18 06/02/18 prednisone 10 mg PO DAILY 06/02/18 06/02/18 Previous Rx's Medication Instructions Recorded aspirin [Aspir-81] 81 mg PO DAILY #30 tab 03/14/18 coenzyme Q10 [Co Q-10] 30 mg PO DAILY #30 cap 03/14/18 levothyroxine [Synthroid] 75 mcg PO DAILY@0600 #30 tab 03/14/18 metoprolol succinate 50 mg PO HS #30 tab 03/14/18 spironolactone 25 mg PO DAILY #30 tab 03/14/18 Allergies Allergy/AdvReac Type Severity Reaction Status Date / Time doxycycline Allergy Severe Nausea/Vomi Verified 03/07/18 19:44 ting guaifenesin AdvReac Severe "MAKES ME Verified 03/07/18 19:44 HIGH" Review of Systems ROS: all other systems reviewed are negative [facility] Medical History Medical History Basal cell carcinoma (Acute) CIDP (chronic inflammatory demyelinating polyneuropathy) (Acute) GERD (gastroesophageal reflux disease) (Acute) High cholesterol (Acute) Hypertension (Acute) Hypothyroid (Acute) Surgical History Surgical History H/O endarterectomy (Acute) H/O tubal ligation (Acute) History of appendectomy (Acute) Family History Family History Other Family history normal Social History Social History Substance History: No History of Abuse Second Hand Smoke Exposure: No Smoking Status: Never smoker How Often Do You Have a Drink Containing Alcohol: Never Recent Travel in [place] within the Last 8 Weeks: No Recent Out of Country Travel within the Last 8 Weeks: No Exam Narrative Exam Narrative: GENERAL: 88 y/o female in no apparent distress SKIN: Focused skin assessment warm/dry. HEAD: Atraumatic. Normocephalic. EYES: Pupils equal and round. No scleral icterus. No injection or drainage. ENT: No nasal bleeding or discharge. Mucous membranes pink and moist. NECK: Trachea midline. No JVD. CARDIOVASCULAR: Regular rate and rhythm. No murmur appreciated. RESPIRATORY: No accessory muscle use. Clear to auscultation at apices. Breath sounds equal bilaterally. GASTROINTESTINAL: Abdomen soft, non-tender, nondistended. MUSCULOSKELETAL: No obvious deformities. No clubbing. No cyanosis. mild bilateral lower extremity edema NEUROLOGICAL: Awake. Motor grossly within normal limits. Normal speech. PSYCHIATRIC: Appropriate mood and affect; insight and judgment normal. Course Reevaluation(s) Reevaluation #1: On lab work patient has history of hyponatremia with prior of 128. Today is 124. X-ray shows some edema and was given Lasix. BNP only elevated to 186. She will need echocardiogram and serial EKG and troponin given intermittent chest pain and her sodium can be monitored. This is likely chronic in nature. Reevaluation #2: patient updated and agrees to admit Consultations Consultation #1: dr jefferson agrees to admit Initial Documented Vital Signs Temperature 97.6 F 06/02/18 12:17 Pulse Rate 76 06/02/18 12:17 Respiratory Rate 20 06/02/18 12:17 Blood Pressure 182/79 H 06/02/18 12:17 Pulse Oximetry 98 06/02/18 12:17 Last Documented Vital Signs Temperature 97.6 F 06/02/18 12:17 Pulse Rate 64 06/02/18 13:15 Respiratory Rate 20 06/02/18 12:17 Blood Pressure 182/79 H 06/02/18 12:17 Pulse Oximetry 96 06/02/18 13:15 Medical Decision Making MDM Narrative Medical decision making narrative: We will check blood work, chest x-ray, Doppler ultrasound and reevaluate Medical Screen Exam Complete: Yes Emergency Medical Condition: Yes Differential Diagnosis Differential Diagnosis: CHF, anemia, renal failure Lab Data Lab results reviewed: Yes I reviewed the patient's lab results. Result diagrams: 06/02/18 12:50 06/02/18 12:50 Lab Results 06/02/18 06/02/18 06/02/18 Range/Units 12:50 12:50 12:50 WBC 8.6 (4.0-11.0) th/mm3 RBC 3.95 L (4.00-5.30) mil/mm3 Hgb 13.3 (11.6-15.3) gm/dL Hct 36.8 (35.0-46.0) % MCV 93.2 (80.0-100.0) fL MCH 33.8 (27.0-34.0) pg MCHC 36.3 H (32.0-36.0) % RDW 15.6 (11.6-17.2) % Plt Count 251 (150-450) th/mm3 MPV 7.3 (7.0-11.0) fL Prelim Diff (Auto) Slide review pending Neut % (Auto) 81.3 H (16.0-70.0) % Lymph % (Auto) 7.7 L (9.0-44.0) % [place] % (Auto) 8.5 H (0.0-8.0) % Eos % (Auto) 1.1 (0.0-4.0) % Baso % (Auto) 1.4 (0.0-2.0) % Neut # (Auto) 7.0 (1.8-7.7) th/mm3 Lymph # (Auto) 0.7 L (1.0-4.8) th/mm3 [place] # (Auto) 0.7 (0.0-0.9) th/mm3 Eos # (Auto) 0.1 (0.0-0.4) th/mm3 Baso # (Auto) 0.1 (0.0-0.2) th/mm3 WBC Differential . Diff Scan Auto diff confirmed Differential Comment . PT (9.8-11.6) sec INR Ratio APTT (23.4-31.7) sec Sodium 124 L* (136-145) meq/L Potassium 4.5 (3.5-5.1) meq/L Chloride 93 L (98-107) meq/L Carbon Dioxide 23.3 (21.0-32.0) meq/L Anion Gap 8 (5-15) meq/L BUN 15 (7-18) mg/dL Creatinine 0.74 (0.50-1.00) mg/dL Estimated GFR 74 L (>89) mL/min Random Glucose 132 H (74-106) mg/dL Calcium 8.3 L (8.5-10.1) mg/dL Magnesium (1.5-2.5) mg/dL Total Bilirubin 0.9 (0.2-1.0) mg/dL AST 27 (15-37) U/L ALT 28 (10-53) U/L Alkaline Phosphatase 70 (45-117) U/L Total Creatine Kinase (26-192) U/L Troponin I 0.03 (0.02-0.05) ng/mL B-Natriuretic Peptide 186 H (0-100) pg/mL Total Protein 9.4 H (6.4-8.2) g/dL Albumin 2.9 L (3.4-5.0) g/dL 06/02/18 06/02/18 Range/Units 12:50 12:50 WBC (4.0-11.0) th/mm3 RBC (4.00-5.30) mil/mm3 Hgb (11.6-15.3) gm/dL Hct (35.0-46.0) % MCV (80.0-100.0) fL MCH (27.0-34.0) pg MCHC (32.0-36.0) % RDW (11.6-17.2) % Plt Count (150-450) th/mm3 MPV (7.0-11.0) fL Prelim Diff (Auto) Neut % (Auto) (16.0-70.0) % Lymph % (Auto) (9.0-44.0) % [place] % (Auto) (0.0-8.0) % Eos % (Auto) (0.0-4.0) % Baso % (Auto) (0.0-2.0) % Neut # (Auto) (1.8-7.7) th/mm3 Lymph # (Auto) (1.0-4.8) th/mm3 [place] # (Auto) (0.0-0.9) th/mm3 Eos # (Auto) (0.0-0.4) th/mm3 Baso # (Auto) (0.0-0.2) th/mm3 WBC Differential Diff Scan Differential Comment PT 9.9 (9.8-11.6) sec INR 1.0 Ratio APTT 26.8 (23.4-31.7) sec Sodium (136-145) meq/L Potassium (3.5-5.1) meq/L Chloride (98-107) meq/L Carbon Dioxide (21.0-32.0) meq/L Anion Gap (5-15) meq/L BUN (7-18) mg/dL Creatinine (0.50-1.00) mg/dL Estimated GFR (>89) mL/min Random Glucose (74-106) mg/dL Calcium (8.5-10.1) mg/dL Magnesium 2.3 (1.5-2.5) mg/dL Total Bilirubin (0.2-1.0) mg/dL AST (15-37) U/L ALT (10-53) U/L Alkaline Phosphatase (45-117) U/L Total Creatine Kinase 25 L (26-192) U/L Troponin I (0.02-0.05) ng/mL B-Natriuretic Peptide (0-100) pg/mL Total Protein (6.4-8.2) g/dL Albumin (3.4-5.0) g/dL Imaging Data Attestation: I personally reviewed and interpreted this imaging study as follows : Radiologist's impression: Chest X-Ray 06/02/18 12:34 CONCLUSION: Moderate interstitial changes that could be edema. No significant cardiomegaly. Venous Doppler Study 06/02/18 12:50 CONCLUSION: 1. Negative for deep venous thrombosis Discharge Plan Discharge Disposition Patient Disposition: ED Admit(ED Internal Use Only) Discharge Order Discharge Orders: ED Use Only Admit Order (Routine); Ordered 06/02/18 Ordered By: Jessica Rossi Discharge Details Diagnosis: CHF (congestive heart failure), Acute hyponatremia Physicians Team ED Provider: Jessica Rossi Primary Care Provider: NON STAFF,PROVIDER Rxs /Orders / Referrals /Forms Prescriptions: No Action levothyroxine [Synthroid] 75 mcg Tablet 75 mcg PO DAILY@0600 Qty: 30 RF: 0 metoprolol succinate 50 mg Tablet Extended Release 24 Hr 50 mg PO HS Qty: 30 RF: 0 aspirin [Aspir-81] 81 mg Tablet,Delayed Release (Dr/Ec) 81 mg PO DAILY Qty: 30 RF: 0 spironolactone 25 mg Tablet 25 mg PO DAILY Qty: 30 RF: 0 coenzyme Q10 [Co Q-10] 30 mg Capsule 30 mg PO DAILY Qty: 30 RF: 0 losartan 50 mg tablet 50 mg PO HS RF: 0 prednisone 10 mg tablet 10 mg PO DAILY RF: 0 cholecalciferol (vitamin D3) [Vitamin D3] 2,000 unit tablet 2,000 unit PO DAILY RF: 0 hydralazine 25 mg Tablet 25 - 50 mg PO DAILY PRN (Reason: Blood Pressure) RF: 0 ascorbic acid (vitamin C) [Vitamin C] 500 mg Tablet 500 mg PO DAILY RF: 0 levobunolol 0.5 % Drops 1 drp EACH EYE DAILY RF: 0 brimonidine 0.2 % Drops 1 drp EACH EYE BID RF: 0 Status ED Status: Admitted Observation Patient
[2018-06-02 13:23] LABS: Baso # (Auto) 0.1 th/mm3 (0.0-0.2); Baso % (Auto) 1.4 % (0.0-2.0); Eos # (Auto) 0.1 th/mm3 (0.0-0.4); Eos % (Auto) 1.1 % (0.0-4.0); Hematocrit 36.8 % (35.0-46.0); Hemoglobin 13.3 gm/dL (11.6-15.3); Lymph # (Auto) 0.7 th/mm3 (1.0-4.8); Lymph % (Auto) 7.7 % (9.0-44.0); Mean Corpuscular Hemoglobin 33.8 pg (27.0-34.0); Mean Corpuscular Volume 93.2 fL (80.0-100.0); Mean Platelet Volume 7.3 fL (7.0-11.0); Mono # (Auto) 0.7 th/mm3 (0.0-0.9); Mono % (Auto) 8.5 % (0.0-8.0); Neut % (Auto) 81.3 % (16.0-70.0); Platelet Count 251 th/mm3 (150-450); Red Blood Count 3.95 mil/mm3 (4.00-5.30); Red Cell Distribution Width 15.6 % (11.6-17.2); White Blood Count 8.6 th/mm3 (4.0-11.0)
[2018-06-02 13:24] LABS: Mean Corpuscular HGB Conc 36.3 % (32.0-36.0)
[2018-06-02 13:30] LABS: Activated Partial Thrombo Time 26.8 sec (23.4-31.7); Prothrombin Time 9.9 sec (9.8-11.6)
--- NOTE | 2018-06-02 13:42 | XR ---
EXAM DATE: 06/02/2018 1:16 PM EST AGE/SEX: 87 years / Female INDICATIONS: Chest pain. CLINICAL DATA: This is the patient's initial encounter. Patient reports that signs and symptoms have been present for 1 day and indicates a pain score of 3/10. MEDICAL/SURGICAL HISTORY: . Chronic inflammatory demyelinating polyneuropathy None. COMPARISON: [facility] [place], CHEST 1V SINGLE AP, 03/07/2018. . FINDINGS: Moderate interstitial changes. No other consolidation, pleural effusion or pneumothorax. Asymmetrical apical pleural thickening with some pleural calcifications in the apex. Normal heart size And The portion of the bony skeleton visualized is unremarkable. CONCLUSION: Moderate interstitial changes that could be edema. No significant cardiomegaly. Electronically signed by: Ricki Akers MD 06/02/2018 1:40 PM EST
--- NOTE | 2018-06-02 13:43 | US ---
EXAM DATE: 06/02/2018 1:34 PM EST AGE/SEX: 87 years / Female INDICATIONS: Bilateral leg swelling. CLINICAL DATA: This is the patient's initial encounter. Patient reports that signs and symptoms have been present for 1 week and indicates a pain score of 0/10. MEDICAL/SURGICAL HISTORY: Gastroesophageal reflux disease. Hypertension. Hypothyroidism. Bas al cell carcinoma. Chronic inflammatory demyelinating polyneuropathy. High cholesterol. Tubal ligati on. Appendectomy. Endarterectomy. COMPARISON: No prior exams available for comparison. TECHNIQUE: Venous ultrasound of both lower extremities was performed from the inguinal ligament to t he proximal calf. Real-time, color Doppler and spectral tracing, compression and augmentation techni ques were used. FINDINGS: Right Leg: Normal compression of the deep venous system from the inguinal region to the proximal yumiko f. No echogenic clot is seen. Normal response of the venous system to augmentation and respiration. Left Leg: Normal compression of the deep venous system from the inguinal region to the proximal calf . No echogenic clot is seen. Normal response of the venous system to augmentation and respiration. Other: None. CONCLUSION: 1. Negative for deep venous thrombosis Electronically signed by: Ricki Akers MD 06/02/2018 1:41 PM EST
[2018-06-02 13:46] LABS: Alanine Aminotransferase 28 U/L (10-53); Albumin 2.9 g/dL (3.4-5.0); Anion Gap 8 meq/L (5-15); Aspartate Aminotransferase 27 U/L (15-37); Blood Urea Nitrogen 15 mg/dL (7-18); Calcium 8.3 mg/dL (8.5-10.1); Carbon Dioxide 23.3 meq/L (21.0-32.0); Chloride 93 meq/L (98-107); Glomerular Filtration Rate 74 mL/min (>89); Glucose,Random 132 mg/dL (74-106); Magnesium 2.3 mg/dL (1.5-2.5); Potassium 4.5 meq/L (3.5-5.1)
[2018-06-02 13:48] LABS: Sodium 124 meq/L (136-145)
[2018-06-02 13:51] LABS: Alkaline Phosphatase 70 U/L (45-117); Total Protein 9.4 g/dL (6.4-8.2); Troponin I 0.03 ng/mL (0.02-0.05)
--- NOTE | 2018-06-02 15:11 | P.HPIM ---
History of Present Illness Primary Care Physician: PROVIDER NON STAFF Chief Complaint: shortness of breath History of Present Illness: patient is a 87 y/o female with history of CIDP, hypertension who presented to ER with worsening shortness of breath. she says that it started few weeks ago and it seems that it's been getting worse the past two weeks. she doesn't report any PND or orthopnea but she says that her functional status now is limited because of generalized weakness and exertional dyspnea. she doesn't report fever,chills, productive cough. she says that she noticed that her legs are a little swollen. she doesn't report any weight gain. Review of Systems Review of Systems: all other systems reviewed are negative [facility] Medical History Medical History Basal cell carcinoma (Acute) CIDP (chronic inflammatory demyelinating polyneuropathy) (Acute) GERD (gastroesophageal reflux disease) (Acute) High cholesterol (Acute) Hypertension (Acute) Hypothyroid (Acute) Surgical History Surgical History H/O endarterectomy (Acute) H/O tubal ligation (Acute) History of appendectomy (Acute) Social History Social History Substance History: No History of Abuse Second Hand Smoke Exposure: No Smoking Status: Never smoker How Often Do You Have a Drink Containing Alcohol: Never Recent Travel in [facility] within the Last 8 Weeks: No Recent Out of Country Travel within the Last 8 Weeks: No Immunization History Tetanus Immunization: <5 Years Medications and Allergies Allergies Allergy/AdvReac Type Severity Reaction Status Date / Time doxycycline Allergy Severe Nausea/Vomi Verified 03/07/18 19:44 ting guaifenesin AdvReac Severe "MAKES ME Verified 03/07/18 19:44 HIGH" Home Medications Medication Instructions Recorded Confirmed Type ascorbic acid (vitamin C) [Vitamin 500 mg PO DAILY 06/02/18 06/02/18 History C] brimonidine 1 drp EACH EYE BID 06/02/18 06/02/18 History cholecalciferol (vitamin D3) 2,000 unit PO DAILY 06/02/18 06/02/18 History [Vitamin D3] hydralazine 25 - 50 mg PO DAILY PRN 06/02/18 06/02/18 History levobunolol 1 drp EACH EYE DAILY 06/02/18 06/02/18 History losartan 50 mg PO HS 06/02/18 06/02/18 History prednisone 10 mg PO DAILY 06/02/18 06/02/18 History Active Medications: Active Medications Aspirin (Ecotrin) 81 mg PO DAILY SACHIN Brimonidine Tartrate (Alphagan 0.2% Opth Drops) drops EACH EYE BID SACHIN Furosemide (Lasix Inj) 40 mg IV.PUSH DAILY SACHIN Levobunolol HCl (Betagan 0.5% Opth Drops) drop EACH EYE DAILY SACHIN Metoprolol Succinate (Toprol Xl) 50 mg PO HS SACHIN Prednisone (Deltasone) 10 mg PO DAILY SACHIN Sodium Chloride (Ns Flush) 2 ml IV.FLUSH UNSCH PRN PRN Reason: FLUSH AFTER USING IV ACCESS Physical Exam Vital signs: Last Vital Signs Temp 97.6 F 06/02/18 12:17 Pulse 64 06/02/18 13:15 Resp 20 06/02/18 12:17 BP 182/79 H 06/02/18 12:17 Pulse Ox 96 06/02/18 13:15 Intake & Output 05/31/18 06/01/18 06/02/18 06/03/18 06:59 06:59 06:59 06:59 Weight 56.699 kg Constitutional no acute distress Routine HEENT Exam Eye: Present PERRL Routine Neck Exam Present supple Routine Respiratory Exam Present CTA bilaterally Comments: diminished air entry in bases. Routine Cardiovascular Exam Present RRR Routine Abdominal Exam Present soft Routine Extremities Exam Present edema Routine Neurological Exam Present alert and oriented X3 Results Labs CBC & Chem 7: 06/02/18 12:50 06/02/18 12:50 Imaging Impressions Chest X-Ray 06/02/18 12:34 CONCLUSION: Moderate interstitial changes that could be edema. No significant cardiomegaly. Venous Doppler Study 06/02/18 12:50 CONCLUSION: 1. Negative for deep venous thrombosis Caprini VTE Risk Assessment Caprini VTE Risk Assessment: Moderate/High Risk (score >= 2) Caprini Risk Assessment Model: Point Value = 1 Point Value = 2 Point Value = 3 Point Value = 5 Age 41-60 Minor surgery BMI > 25 kg/m2 Swollen legs Varicose veins or History of unexplained or recurrent spontaneous Oral contraceptives or hormone replacement Sepsis (< 1 month) Serious lung disease, including pneumonia (< 1 month) Abnormal pulmonary function Acute myocardial infarction Congestive heart failure (< 1 month) History of inflammatory bowel disease Medical patient at bed rest Age 61-74 Arthroscopic surgery Major open surgery (> 45 min) Laparoscopic surgery (> 45 min) Malignancy Confined to bed (> 72 hours) Immobilizing plaster cast Central venous access Age >= 75 History of VTE Family history of VTE Factor V Leiden Prothrombin [id number] Lupus anticoagulant Anticardiolipin antibodies Elevated serum homocysteine Heparin-induced thrombocytopenia Other congenital or acquired thrombophilia Stroke (< 1 month) Elective arthroplasty Hip, pelvis, or leg fracture Acute spinal cord injury (< 1 month) Prophylaxis Regimen: Total Risk Factor Score Risk Level Prophylaxis Regimen 0-1 Low Early ambulation 2 Moderate Order ONE of the following: *Sequential Compression Device (SCD) *Heparin 5000 units SQ BID 3-4 Higher Order ONE of the following medications: *Heparin 5000 units SQ TID *Enoxaparin/Lovenox 40 mg SQ daily (WT < 150 kg, CrCl > 30 mL/min) *Enoxaparin/Lovenox 30 mg SQ daily (WT < 150 kg, CrCl > 10-29 mL/min) *Enoxaparin/Lovenox 30 mg SQ BID (WT < 150 kg, CrCl > 30 mL/min) AND/OR *Sequential Compression Device (SCD) 5 or more Highest Order ONE of the following medications: *Heparin 5000 units SQ TID (Preferred with Epidurals) *Enoxaparin/Lovenox 40 mg SQ daily (WT < 150 kg, CrCl > 30 mL/min) *Enoxaparin/Lovenox 30 mg SQ daily (WT < 150 kg, CrCl > 10-29 mL/min) *Enoxaparin/Lovenox 30 mg SQ BID (WT < 150 kg, CrCl > 30 mL/min) AND *Sequential Compression Device (SCD) Assessment and Plan Plan A/P - CHF ( worsening sob and bilateral pedal edema); continue with IV Lasix- check echo- will consider cardiology evaluation pending clinical course and echo result. -Hyponatremia- likely due to fluid overload; continue diuretics and monitor the sodium level closely. check serum/ urine osmolality- urine sodium level. -Hypertension ; resume Metoprolol- vasotec as needed- will continue to monitor BP and adjust the regimen as needed. -CIDP- on IVIG ( recent dose ; few days ago)- continue Prednisone- -DVT prophylaxis with subq lovenox -consult PT -alternative code as per d/w the patient ( no intubation). Discussed Condition With: ER physician, the patient and her daughter at the bedside. Discharge Planning: home when stable- pending work-up.
--- NOTE | 2018-06-02 17:05 | ECG ---
Date Performed: 06/02/2018 Time Performed: 13:05:02 PTAGE: 87 years EKG: Sinus rhythm NORMAL ECG I see no definite change from prior electrocardiogram although prior EKG has artifact pre sent. PREVIOUS TRACING : 04/02/2018 04.20 DOCTOR: Saulo Crain Interpretating Date/Time 06/02/2018 17:04:12
--- NOTE | 2018-06-02 17:06 | ECHRPT ---
Indication: HEART FAILURE CONCLUSIONS Normal left ventricular size. Wall thickness is normal. The left ventricular systolic function is normal with an estimated ejection fraction in the range of 55-60%. Calcification of both mitral valve leaflets. [id number] mitral valve regurgitation. Diffuse calcification of the aortic valve. There is trace tricuspid valve regurgitation. The estimated pulmonary arterial pressure is 33 mmHg. BP: / HR: Rhythm: MEASUREMENTS (Male / Female) Normal Values Technical Quality: 2D ECHO LV Diastolic Diameter PLAX 3.1 cm 4.2 - 5.9 / 3.9 - 5.3 cm LV Systolic Diameter PLAX 2.2 cm IVS Diastolic Thickness 0.8 cm 0.6 - 1.0 / 0.6 - 0.9 cm LVPW Diastolic Thickness 0.8 cm 0.6 - 1.0 / 0.6 - 0.9 cm LV Relative Wall Thickness 0.5 RV Internal Dim ED PLAX 2.8 cm LVOT Diameter 1.7 cm Aortic Root Diameter 2.3 cm LA Systolic Diameter LX 2.8 cm 3.0 - 4.0 / 2.7 - 3.8 cm M-MODE AV Cusp Separation MM 1.2 cm DOPPLER AV Peak Velocity 124.0 cm/s AV Peak Gradient 6.2 mmHg LVOT Peak Velocity 108.0 cm/s LVOT Peak Gradient 4.7 mmHg AV Area Cont Eq pk 2.0 cm MV Peak Velocity 106.0 cm/s MV Peak Gradient 4.5 mmHg MV Mean Velocity 56.5 cm/s MV Mean Gradient 2.0 mmHg MR Peak Velocity 383.0 cm/s MR Peak Gradient 58.7 mmHg Mitral E Point Velocity 79.0 cm/s Mitral A Point Velocity 99.7 cm/s Mitral E to A Ratio 0.8 LV E' Lateral Velocity 7.6 cm/s Mitral E to LV E' Lateral Ratio 10.4 LV E' Septal Velocity 6.1 cm/s Mitral E to LV E' Septal Ratio 12.9 TR Peak Velocity 240.0 cm/s TR Peak Gradient 23.0 mmHg Right Atrial Pressure 10.0 mmHg Pulmonary Artery Systolic Pressu 33.0 mmHg Right Ventricular Systolic Press 33.0 mmHg PV Peak Velocity 56.8 cm/s PV Peak Gradient 1.3 mmHg FINDINGS LEFT VENTRICLE Normal left ventricular size. Wall thickness is normal. The left ventricular systolic function is normal with an estimated ejection fraction in the range of 55-60%. RIGHT VENTRICLE Normal right ventricular size and systolic function. LEFT ATRIUM The left atrial size is normal. RIGHT ATRIUM The right atrial size is normal. ATRIAL SEPTUM Normal atrial septal thickness without atrial level shunting by limited color doppler interrogation. AORTA The aortic root and proximal ascending aorta are normal in size on limited imaging. MITRAL VALVE Calcification of both mitral valve leaflets. [id number] mitral valve regurgitation. AORTIC VALVE Diffuse calcification of the aortic valve. TRICUSPID VALVE There is trace tricuspid valve regurgitation. The estimated pulmonary arterial pressure is 33 mmHg. PULMONARY VALVE No pulmonary valve regurgitation or stenosis. VESSELS The inferior vena cava is normal in size. PERICARDIUM No pericardial effusion. Harpreet Roy MD, FACC (Electronically Signed) Final Date:02 June 2018 17:05
[2018-06-02] MEDS: Brimonidine 0.2% Opth Drops 5 ML Bottle EACH EYE SCH (21:11)
[2018-06-02 22:53] LABS: Sodium 123 meq/L (136-145)
[2018-06-02] MEDS ORDERED: Sodium Chloride 1 GM Tablet PO ONE (23:42)
[2018-06-02] MEDS ORDERED: Sodium Chloride 0.9% 2 ML Flush PRN IV.FLUSH (23:58)
[2018-06-03 08:04] LABS: Carbon Dioxide 24.3 meq/L (21.0-32.0); Potassium 3.6 meq/L (3.5-5.1)
[2018-06-03] MEDS ORDERED: Sodium Chloride 0.9% 2 ML Flush BID IV.FLUSH SCH (09:00)
[2018-06-03] MEDS ORDERED: Enoxaparin Inj 40 MG/0.4 ML Syringe SQ SCH (09:00)
[2018-06-03] MEDS ORDERED: LEVOBUNOLOL 0.5% EACH EYE SCH (09:00)
[2018-06-03] MEDS ORDERED: predniSONE 10 MG Tablet PO SCH (09:00)
[2018-06-03] MEDS ORDERED: OPTH EACH EYE SCH (09:00)
[2018-06-03] MEDS: Brimonidine 0.2% Opth Drops 5 ML Bottle EACH EYE SCH (10:07)
[2018-06-03 12:57] VITALS: BP 111/49; RESP 12; TEMP 97.4; O2SAT 98
--- NOTE | 2018-06-03 13:55 | P.PNIM ---
Physical Exam Vital signs: Vital Signs 06/02/18 17:17 06/02/18 20:00 06/02/18 20:10 Temperature 97.6 F Pulse Rate 72 66 68 Respiratory Rate 20 17 Blood Pressure 144/65 H 143/69 H Pulse Oximetry 96 06/02/18 23:44 06/03/18 00:00 06/03/18 00:15 Temperature 98.0 F Pulse Rate 66 68 Respiratory Rate 17 Blood Pressure 94/52 L 91/54 L Pulse Oximetry 98 06/03/18 04:00 06/03/18 08:00 06/03/18 12:00 Temperature 98.5 F 98.0 F 97.4 F L Pulse Rate 66 60 70 Respiratory Rate 18 14 12 Blood Pressure 108/59 L 123/68 111/49 L Pulse Oximetry 96 96 98 Intake & Output 06/02/18 06/03/18 06/03/18 18:59 06:59 18:59 Intake Total 480 / 480 Balance 480 / 480 Weight 56.699 kg 60 kg Intake: Oral 480 / 480 Other: # Voids 2 Date of Last Bowel Movement 06/02/18 Results - Labs CBC & Chem 7: 06/02/18 12:50 06/03/18 06:20 Laboratory Results - last 24 hr 06/02/18 06/02/18 06/02/18 12:50 12:50 12:50 WBC Differential . Diff Scan Auto diff confirmed Sodium 124 L* Potassium 4.5 Chloride 93 L Carbon Dioxide 23.3 Anion Gap 8 BUN 15 Creatinine 0.74 Estimated GFR 74 L Random Glucose 132 H Osmolality Calcium 8.3 L Magnesium Total Bilirubin 0.9 AST 27 ALT 28 Alkaline Phosphatase 70 Total Creatine Kinase Troponin I 0.03 B-Natriuretic Peptide 186 H Total Protein 9.4 H Albumin 2.9 L 06/02/18 06/02/18 06/03/18 12:50 21:21 06:20 WBC Differential Diff Scan Sodium 123 L* 127 L Potassium 3.6 D Chloride 93 L Carbon Dioxide 24.3 Anion Gap 10 BUN 20 H Creatinine 0.85 Estimated GFR 63 L Random Glucose 77 Osmolality 272 L Calcium 8.0 L Magnesium 2.3 Total Bilirubin AST ALT Alkaline Phosphatase Total Creatine Kinase 25 L Troponin I B-Natriuretic Peptide Total Protein Albumin - Imaging Impressions Chest X-Ray 06/02/18 12:34 CONCLUSION: Moderate interstitial changes that could be edema. No significant cardiomegaly. Venous Doppler Study 06/02/18 12:50 CONCLUSION: 1. Negative for deep venous thrombosis
--- NOTE | 2018-06-03 14:15 | P.DS ---
Date of admission: 06/02/18 16:26 Primary care physician: PROVIDER NON STAFF Brief History from admission: patient is a 87 y/o female with history of CIDP, hypertension who presented to ER with worsening shortness of breath. she says that it started few weeks ago and it seems that it's been getting worse the past two weeks. she doesn't report any PND or orthopnea but she says that her functional status now is limited because of generalized weakness and exertional dyspnea. she doesn't report fever,chills, productive cough. She also noticed that her lower extremities had pitting edema. DS: Summary Hospital Course: 1. Likely CHF with preserved ejection fraction 2. Hyponatremia likely chronic and from fluid overload. This patient is an 87-year-old female with a diagnosis of CIDP, hypertension, hypothyroidism, gastroesophageal reflux disease. The patient was admitted with complaints of shortness of breath and orthopnea. On physical examination she was found to have bilateral lower extremity swelling. Initially there was a concern that the patient may have a DVT. Ultrasound of bilateral extremities was done which was negative. Chest x-ray showed bilateral pulmonary vascular congestion, BNP was slightly elevated. EKG was done which showed sinus rhythm no acute ST segment or T wave changes. Troponins were negative. There was a concern that the patient may have congestive heart failure. The patient was started on IV Lasix and received 2 days of IV Lasix while in house. Her bilateral lower extremity swelling has improved. She is currently on room air without any complaints of shortness of breath. The patient was able to ambulate around the unit without any complaints of shortness of breath. A 2D echocardiogram was done which showed ejection fraction of 55-60%. The patient may have CHF with preserved ejection fraction. 20 mill grams of p.o. Lasix daily will be added to the patient's medication regimen. Continue beta- hari. I recommended that she follow-up with her primary care physician within 1 week and a renal panel should be checked in order to monitor the patient's sodium level. As per the patient and her daughter the patient has chronic hyponatremia and her baseline serum sodium is around 128. On admission her serum sodium was around 124 which improved after the initiation of IV Lasix. I believe her hyponatremia was partly due to fluid overload. Patient will be discharged home today. She can also follow-up with neurology for her chronic inflammatory demyelinating polyneuropathy. After follow-up with her primary care doctor she can also be evaluated outpatient by cardiology for further management recommendations regarding her questionable congestive heart failure. 3. Hypertension Continue home meds for hypertension. 4. Hypothyroidism Continue levothyroxine. 5. CIDP Continue to follow-up outpatient with Dr. Ram. Continue prednisone. - Time Spent with Patient Total time spent providing and/or coordinating discharge services: Greater than 30 minutes - Quality: VTE Deep Vein Thrombosis/Pulmonary Embolism Present on Admission: No Exam Vital signs: Vital Signs 06/02/18 17:17 06/02/18 20:00 06/02/18 20:10 Temperature 97.6 F Pulse Rate 72 66 68 Respiratory Rate 20 17 Blood Pressure 144/65 H 143/69 H Pulse Oximetry 96 06/02/18 23:44 06/03/18 00:00 06/03/18 00:15 Temperature 98.0 F Pulse Rate 66 68 Respiratory Rate 17 Blood Pressure 94/52 L 91/54 L Pulse Oximetry 98 06/03/18 04:00 06/03/18 08:00 06/03/18 12:00 Temperature 98.5 F 98.0 F 97.4 F L Pulse Rate 66 60 70 Respiratory Rate 18 14 12 Blood Pressure 108/59 L 123/68 111/49 L Pulse Oximetry 96 96 98 Intake & Output 06/02/18 06/03/18 06/03/18 18:59 06:59 18:59 Intake Total 480 / 480 Balance 480 / 480 Weight 56.699 kg 60 kg Intake: Oral 480 / 480 Other: # Voids 2 Date of Last Bowel Movement 06/02/18 Narrative: General patient in no acute distress HEENT extraocular movements are intact, clear oropharyngeal mucosa, no JVD Cardiovascular S1-S2 audible, RRR, no murmurs rubs or gallops Respiratory clear to auscultation bilaterally Abdomen soft, nontender, nondistended, normal bowel sounds Extremities no lower extremity edema. Neuro cranial nerves II through XII intact Results Procedures completed during hospitalization: None Labs on day of discharge: Labs from last 24 hours 06/03/18 06/02/18 06/02/18 06:20 21:21 12:50 Sodium 127 L 123 L* Potassium 3.6 D Chloride 93 L Carbon Dioxide 24.3 Anion Gap 10 BUN 20 H Creatinine 0.85 Estimated GFR 63 L Random Glucose 77 Osmolality 272 L Calcium 8.0 L Total Bilirubin 0.9 Alkaline Phosphatase 70 Troponin I 0.03 Total Protein 9.4 H - Impressions ITS Impressions Chest X-Ray 06/02/18 12:34 CONCLUSION: Moderate interstitial changes that could be edema. No significant cardiomegaly. Venous Doppler Study 06/02/18 12:50 CONCLUSION: 1. Negative for deep venous thrombosis Discharge Plan - Discharge Disposition Patient Disposition: 01 Discharge Home - Discharge Condition Condition: Stable - Discharge Order Discharge Orders: Discharge Order (Routine); Ordered 06/03/18 Ordered By: Ivy Clancy ED Use Only Admit Order (Routine); Ordered 06/02/18 Ordered By: Jessica Rossi - Physicians Team Primary Care Provider: NON STAFF,PROVIDER Attending Provider: Ivy Clancy Other Providers: Janeth Fowler
[2018-06-03 15:50] VITALS: PULSE 68
== END 2018-06-03 15:23 | disposition home or self-care (01) ==
LOC: NEDA 12:15 → NEPC 12:15 → N04 18:00
PROVIDERS: ADMIT Hospitalist; ATTEND Hospitalist

== ENCOUNTER 2018-06-17 00:41 | Inpatient (IN) ==
--- NOTE | 2018-06-17 01:01 | ED ---
HPI General Chief Complaint: Chest Pain Stated Complaint: Trouble breathing x 1 hr Time Seen by Provider: 06/17/18 03:01 Source: patient Mode of arrival: ambulatory Limitations: no limitations History of Present Illness HPI narrative: 87-year-old female presents to the emergency department in the care of family for evaluation of chest pain and shortness of breath since around 11:30 PM asadjackie. Symptoms have been present for about an hour. Patient states chest pain has resolved. Shortness of breath persist. Patient has been seen numerous times in the [place] system for issues with chronic inflammatory demyelinating polyneuropathy, poorly controlled hypertension, and CHF. No recent febrile illness. No change in medications. Patient was told to take additional blood pressure medication with elevation of BP. Tonight patient had elevated blood pressure and took 2 hydralazine prior to arrival to the emergency department and feels symptomatically improved at this time. Has been seen by Dr Haas as recently as 12/2017 and reportedly told "heart was fine". MD complaint: Reports chest pain and other (dyspnea) STEMI Alert: No Onset (ago): hour(s) (1) Time: 23:28 Duration: constant and improved Onset: during rest Pain location: Reports substernal Severity: moderate Quality: Reports tightness and heaviness Pain radiation: Reports none Relieving factors: nothing Exacerbating factors: nothing Context: Reports recent illness (Frequent ER visits and hospitalizations related to chronic inflammatory demyelinating polyneuropathy hypertension and CHF) Associated symptoms: Reports dyspnea and leg swelling; Denies nausea, vomiting, diaphoresis, sense of impending doom, syncope, palpitations, fever and cough Treatments prior to arrival chest pain: Reports none Related Data On Oral Contraceptives: No Home Medications Medication Instructions Recorded Confirmed ascorbic acid (vitamin C) [Vitamin 500 mg PO DAILY 06/02/18 06/17/18 C] brimonidine 1 drp EACH EYE BID 06/02/18 06/17/18 cholecalciferol (vitamin D3) 2,000 unit PO DAILY 06/02/18 06/17/18 [Vitamin D3] hydralazine 25 - 50 mg PO DAILY PRN 06/02/18 06/17/18 levobunolol 1 drp EACH EYE DAILY 06/02/18 06/17/18 losartan 50 mg PO HS 06/02/18 06/17/18 prednisone 10 mg PO DAILY 06/02/18 06/17/18 Previous Rx's Medication Instructions Recorded aspirin [Aspir-81] 81 mg PO DAILY #30 tab 03/14/18 coenzyme Q10 [Co Q-10] 30 mg PO DAILY #30 cap 03/14/18 levothyroxine [Synthroid] 75 mcg PO DAILY@0600 #30 tab 03/14/18 metoprolol succinate 50 mg PO HS #30 tab 03/14/18 spironolactone 25 mg PO DAILY #30 tab 03/14/18 furosemide 20 mg PO DAILY #30 tab 06/03/18 Allergies Allergy/AdvReac Type Severity Reaction Status Date / Time doxycycline Allergy Severe Nausea/Vomi Verified 03/07/18 19:44 ting guaifenesin AdvReac Severe "MAKES ME Verified 03/07/18 19:44 HIGH" Review of Systems ROS: all other systems reviewed are negative [facility] Medical History Medical History Basal cell carcinoma (Acute) CIDP (chronic inflammatory demyelinating polyneuropathy) (Acute) GERD (gastroesophageal reflux disease) (Acute) High cholesterol (Acute) Hypertension (Acute) Hypothyroid (Acute) Surgical History Surgical History H/O endarterectomy (Acute) H/O tubal ligation (Acute) History of appendectomy (Acute) Family History Family History Father CAD (coronary artery disease) Other Family history normal Social History Social History Substance History: No History of Abuse Second Hand Smoke Exposure: No Smoking Status: Never smoker How Often Do You Have a Drink Containing Alcohol: Never Recent Travel in [facility] within the Last 8 Weeks: No Recent Out of Country Travel within the Last 8 Weeks: No Exam Narrative Exam Narrative: GENERAL: Well-nourished, well-developed patient. SKIN: Focused skin assessment warm/dry. HEAD: Normocephalic. EYES: No scleral icterus. No injection or drainage. NECK: Supple, trachea midline. No JVD or lymphadenopathy. CARDIOVASCULAR: Regular rate and rhythm without murmurs, gallops, or rubs. RESPIRATORY: Breath sounds equal bilaterally few left basilar crackles. No accessory muscle use. GASTROINTESTINAL: Abdomen soft, non-tender, nondistended. MUSCULOSKELETAL: No cyanosis, less than 1 +pitting pedal edema. BACK: Nontender without obvious deformity. No CVA tenderness. Course Initial Documented Vital Signs Temperature 98.1 F 06/17/18 01:11 Pulse Rate 80 06/17/18 01:11 Respiratory Rate 20 06/17/18 01:11 Blood Pressure 144/65 H 06/17/18 01:11 Pulse Oximetry 96 06/17/18 01:11 Last Documented Vital Signs Temperature 98.1 F 06/17/18 01:11 Pulse Rate 68 06/17/18 04:31 Respiratory Rate 16 06/17/18 04:31 Blood Pressure 111/59 L 06/17/18 04:31 Pulse Oximetry 100 06/17/18 04:31 Medical Decision Making MDM Narrative Medical decision making narrative: 87-year-old female presents to the emergency department by private transportation for complaint of chest pain shortness of breath and high blood pressure. Patient placed on cardiac technologist IV access obtained specimens collected and sent for resulting presently chest pain-free. At 3 AM patient remains asymptomatic no recurrence of chest discomfort chest pain and no shortness of breath also denies any referred neck jaw back shoulder arm pain shortness of breath or sweats. Patient feels well. Blood pressure is well controlled. EKG shows sinus rhythm rate of 80 QS anteroseptally age indeterminate with no acute ST elevation artifact present at baseline. First troponin is 0.07, this is mildly elevated CK is not elevated patient has persistent hyponatremia of 129 this is improved from prior serum sodiums as of 06/02/18. Discussed with patient with family at bedside previous cardiac evaluation does not know if she has had a cardiac stress test but has not had a cardiac catheterization. Chest x-ray shows no evidence of vascular congestion and BNP is not elevated. Call placed to [facility] service for admission heparin drip ordered will admit to stepdown; per Dr. Woods plan will be to admit to stepdown unit at [place] with repeat cardiac enzymes with anticoagulation if enzyme is elevated will need to transfer to [facility]. Medical Screen Exam Complete: Yes Emergency Medical Condition: Yes Differential Diagnosis Differential Diagnosis: Chest pain CHF ACS NE uncontrolled hypertension PE Medical Records Medical records reviewed: Yes I reviewed the patient's medical records. Lab Data Lab results reviewed: Yes I reviewed the patient's lab results. Result diagrams: 06/17/18 01:25 06/17/18 01:25 Lab Results 06/17/18 06/17/18 06/17/18 Range/Units 01:25 01:25 01:25 CBC w Diff Auto diff final WBC 9.2 (4.0-11.0) th/mm3 RBC 3.64 L (4.00-5.30) mil/mm3 Hgb 11.6 (11.6-15.3) gm/dL Hct 32.5 L (35.0-46.0) % MCV 89.4 (80.0-100.0) fL MCH 31.9 (27.0-34.0) pg MCHC 35.6 (32.0-36.0) % RDW 15.0 (11.6-17.2) % Plt Count 444 D (150-450) th/mm3 MPV 6.9 L (7.0-11.0) fL Neut % (Auto) 66.3 (16.0-70.0) % Lymph % (Auto) 17.1 (9.0-44.0) % Mcleod % (Auto) 11.7 H (0.0-8.0) % Eos % (Auto) 1.6 (0.0-4.0) % Baso % (Auto) 3.3 H (0.0-2.0) % Neut # (Auto) 6.1 (1.8-7.7) th/mm3 Lymph # (Auto) 1.6 (1.0-4.8) th/mm3 Mcleod # (Auto) 1.1 H (0.0-0.9) th/mm3 Eos # (Auto) 0.1 (0.0-0.4) th/mm3 Baso # (Auto) 0.3 H (0.0-0.2) th/mm3 WBC Differential . Differential Comment . PT (9.8-11.6) sec INR Ratio APTT (23.4-31.7) sec Sodium 129 L (136-145) meq/L Potassium 4.2 (3.5-5.1) meq/L Chloride 98 (98-107) meq/L Carbon Dioxide 21.2 (21.0-32.0) meq/L Anion Gap 10 (5-15) meq/L BUN 18 (7-18) mg/dL Creatinine 0.64 (0.50-1.00) mg/dL Estimated GFR 88 L (>89) mL/min Random Glucose 118 H (74-106) mg/dL Calcium 8.1 L (8.5-10.1) mg/dL Magnesium 2.2 (1.5-2.5) mg/dL Total Bilirubin 0.7 (0.2-1.0) mg/dL AST 25 (15-37) U/L ALT 23 (10-53) U/L Alkaline Phosphatase 68 (45-117) U/L Total Creatine Kinase 21 L (26-192) U/L Troponin I 0.07 H (0.02-0.05) ng/mL B-Natriuretic Peptide 164 H (0-100) pg/mL Total Protein 8.2 (6.4-8.2) g/dL Albumin 2.6 L (3.4-5.0) g/dL 06/17/18 Range/Units 01:25 CBC w Diff WBC (4.0-11.0) th/mm3 RBC (4.00-5.30) mil/mm3 Hgb (11.6-15.3) gm/dL Hct (35.0-46.0) % MCV (80.0-100.0) fL MCH (27.0-34.0) pg MCHC (32.0-36.0) % RDW (11.6-17.2) % Plt Count (150-450) th/mm3 MPV (7.0-11.0) fL Neut % (Auto) (16.0-70.0) % Lymph % (Auto) (9.0-44.0) % Mcleod % (Auto) (0.0-8.0) % Eos % (Auto) (0.0-4.0) % Baso % (Auto) (0.0-2.0) % Neut # (Auto) (1.8-7.7) th/mm3 Lymph # (Auto) (1.0-4.8) th/mm3 Mcleod # (Auto) (0.0-0.9) th/mm3 Eos # (Auto) (0.0-0.4) th/mm3 Baso # (Auto) (0.0-0.2) th/mm3 WBC Differential Differential Comment PT 9.8 (9.8-11.6) sec INR 1.0 Ratio APTT 26.1 (23.4-31.7) sec Sodium (136-145) meq/L Potassium (3.5-5.1) meq/L Chloride (98-107) meq/L Carbon Dioxide (21.0-32.0) meq/L Anion Gap (5-15) meq/L BUN (7-18) mg/dL Creatinine (0.50-1.00) mg/dL Estimated GFR (>89) mL/min Random Glucose (74-106) mg/dL Calcium (8.5-10.1) mg/dL Magnesium (1.5-2.5) mg/dL Total Bilirubin (0.2-1.0) mg/dL AST (15-37) U/L ALT (10-53) U/L Alkaline Phosphatase (45-117) U/L Total Creatine Kinase (26-192) U/L Troponin I (0.02-0.05) ng/mL B-Natriuretic Peptide (0-100) pg/mL Total Protein (6.4-8.2) g/dL Albumin (3.4-5.0) g/dL Imaging Data Radiologist's impression: Chest X-Ray 06/17/18 00:56 CONCLUSION: 1. Stable senescent changes and calcified biapical pleural plaque. 2. No acute abnormality or significant interval change. ECG Data EKG Prior to Arrival: No Attestation: I personally reviewed and interpreted this ECG as follows: (EKG: Sinus rhythm rate [address] elevation injury pattern change age- indeterminate anterior NE) Discharge Plan Discharge Disposition Patient Disposition: ED Admit(ED Internal Use Only) Discharge Order Discharge Orders: ED Use Only Admit Order (Routine); Ordered 06/17/18 Ordered By: Eun Hernandez Discharge Details Diagnosis: Chest pain, Elevated troponin I level Physicians Team ED Provider: Eun Hernandez Primary Care Provider: Priyanka Mckinnon Attending Provider: Melba Woods Other Providers: Paddy Spicer Status ED Status: Admitted Patient
[2018-06-17 01:39] LABS: Baso # (Auto) 0.3 th/mm3 (0.0-0.2); Baso % (Auto) 3.3 % (0.0-2.0); Eos # (Auto) 0.1 th/mm3 (0.0-0.4); Eos % (Auto) 1.6 % (0.0-4.0); Hematocrit 32.5 % (35.0-46.0); Hemoglobin 11.6 gm/dL (11.6-15.3); Lymph # (Auto) 1.6 th/mm3 (1.0-4.8); Lymph % (Auto) 17.1 % (9.0-44.0); Mean Corpuscular HGB Conc 35.6 % (32.0-36.0); Mean Corpuscular Hemoglobin 31.9 pg (27.0-34.0); Mean Corpuscular Volume 89.4 fL (80.0-100.0); Mean Platelet Volume 6.9 fL (7.0-11.0); Mono # (Auto) 1.1 th/mm3 (0.0-0.9); Mono % (Auto) 11.7 % (0.0-8.0); Neut # (Auto) 6.1 th/mm3 (1.8-7.7); Neut % (Auto) 66.3 % (16.0-70.0); Platelet Count 444 th/mm3 (150-450); Red Blood Count 3.64 mil/mm3 (4.00-5.30); White Blood Count 9.2 th/mm3 (4.0-11.0)
--- NOTE | 2018-06-17 02:10 | XR ---
EXAM DATE: 06/17/2018 1:35 AM EST AGE/SEX: 87 years / Female INDICATIONS: Short of breath. CLINICAL DATA: This is the patient's initial encounter. Patient reports that signs and symptoms have been present for 1 day and indicates a pain score of 0/10. MEDICAL/SURGICAL HISTORY: . Chronic inflammatory demyelinating polyneuropathy. None. COMPARISON: [facility], CHEST 1V SINGLE AP, 06/02/2018. . FINDINGS: Mild diffuse interstitial prominence. Pleural calcifications near the apices bilaterally. Cardiomedia stinal contours are within normal limits. Bony thorax is intact. CONCLUSION: 1. Stable senescent changes and calcified biapical pleural plaque. 2. No acute abnormality or significant interval change. Electronically signed by: Giovanny Hunter MD Board Certified Radiologist 06/17/2018 2:08 AM SÁNCHEZ More
[2018-06-17 02:18] LABS: Chloride 98 meq/L (98-107); Potassium 4.2 meq/L (3.5-5.1); Sodium 129 meq/L (136-145)
[2018-06-17 02:21] LABS: Calcium 8.1 mg/dL (8.5-10.1)
[2018-06-17 02:22] LABS: Albumin 2.6 g/dL (3.4-5.0); Anion Gap 10 meq/L (5-15); Blood Urea Nitrogen 18 mg/dL (7-18); Carbon Dioxide 21.2 meq/L (21.0-32.0); Glucose,Random 118 mg/dL (74-106); Magnesium 2.2 mg/dL (1.5-2.5)
[2018-06-17 02:25] LABS: Alanine Aminotransferase 23 U/L (10-53); Aspartate Aminotransferase 25 U/L (15-37); Glomerular Filtration Rate 88 mL/min (>89)
[2018-06-17 02:27] LABS: Total Protein 8.2 g/dL (6.4-8.2)
[2018-06-17 02:28] LABS: Alkaline Phosphatase 68 U/L (45-117)
[2018-06-17 02:30] LABS: Troponin I 0.07 ng/mL (0.02-0.05)
[2018-06-17 02:45] LABS: Creatine Kinase 21 U/L (26-192)
[2018-06-17] MEDS ORDERED: Acetaminophen 325 MG Tablet PO PRN (03:16)
[2018-06-17] MEDS ORDERED: Bisacodyl 10 MG Supp RECTAL PRN (03:16)
[2018-06-17] MEDS ORDERED: Heparin 10,000 UNITS/10 ML Vial (for IV use) IV.PUSH STA (03:18)
[2018-06-17] MEDS ORDERED: Heparin Drip 25,000 UNIT/250 ML BAG IV.CONT PRN (03:18)
[2018-06-17 03:52] LABS: Activated Partial Thrombo Time 26.1 sec (23.4-31.7); Prothrombin Time 9.8 sec (9.8-11.6)
[2018-06-17 07:17] LABS: Troponin I 0.07 ng/mL (0.02-0.05)
--- NOTE | 2018-06-17 08:11 | ECG ---
Date Performed: 06/17/2018 Time Performed: 00:52:00 PTAGE: 87 years EKG: Sinus rhythm POSSIBLE ANTERIOR MYOCARDIAL INFARCTION ABNORMAL ECG PREVIOUS TRACING : 06/02/2018 13.05 Compared to previous tracing, the patient has a change in t he precordial progression concerning for anterior TN, age indeterminate. Clinical correlation is francine mmended DOCTOR: Karolina Fernández Interpretating Date/Time 06/17/2018 08:10:56
--- NOTE | 2018-06-17 08:21 | MB ---
cc: Vamshi Juárez MD DATE: 06/17/2018 REASON FOR CONSULTATION: Atypical chest pain. HISTORY OF PRESENT ILLNESS: The patient is a very pleasant, 87 almost 88-year-old woman who follows with my partner, Dr. Haas, who apparently has had relatively recent testing and was told her heart was essentially normal for her age. The patient presented with vague chest tightness and shortness of breath and felt should be checked out, so she presented to [facility] where her troponins were very minimally elevated and thus I was consulted. The patient is completely asymptomatic now without any residual chest pain, shortness of breath. No lightheadedness, dizziness, syncope. PAST MEDICAL HISTORY: Hypertension, chronic inflammatory demyelinating polyneuropathy, hypertension, chart history of CHF. HOME MEDICATIONS: Aspirin 81 mg daily, Lasix 20 mg daily, hydralazine 25 mg p.r.n., losartan 50 mg at bedtime, metoprolol succinate 50 mg at bedtime, prednisone 10 mg daily, Aldactone 25 mg daily. ALLERGIES: DOXYCYCLINE, GUAIFENESIN. PHYSICAL EXAMINATION: VITAL SIGNS: Afebrile, respiratory rate 18, BP 116/57 down from 150/76, saturating 97 on room air. GENERAL: Pleasant woman in no distress. NECK: No JVD. LUNGS: Clear to auscultation bilaterally. CARDIOVASCULAR: Regular rate and rhythm. No murmurs appreciated. ABDOMEN: Benign. EXTREMITIES: No edema. DIAGNOSTIC DATA: White count 9.2, hemoglobin 11.6, platelets 444. INR is 1.0. Sodium 129, potassium 4.2, chloride 98, bicarbonate 21.2, BUN 18, creatinine 0.64, glucose 118. Troponin, 0.07, 0.07. Total CKs are low. BNP is 164. EKG shows sinus rhythm with no acute ST or T-wave changes. IMPRESSION: Atypical chest pain. The patient had vague chest tightness with some shortness of breath/wheezing, all of which has resolved. Her EKG is nonischemic. Her troponins are only minimally elevated. The patient says it has been 6 months or more since her last stress test and wishes to have it repeated while she is here, so I will arrange for that stress test. If it is nonischemic and she continues to feel well, I do feel that her condition is stable and she can be discharged home to follow up with Dr. Haas. Thank you again for the opportunity to participate in this patient's care. MD VALERIANO Francis/sandra , 08:07 AM , 08:14 AM
[2018-06-17] MEDS: Senna/Docusate Sodium 8.6/50 MG Tablet PO SCH ×2 (10:13→20:27)
[2018-06-17] MEDS ORDERED: Regadenoson Inj 0.4 MG/5 ML Syringe IV.PUSH ONE (11:26)
[2018-06-17 13:59] LABS: Troponin I 0.07 ng/mL (0.02-0.05)
--- NOTE | 2018-06-17 14:07 | NM ---
EXAM DATE: 06/17/2018 1:41 PM EST AGE/SEX: 87 years / Female INDICATIONS:Angina. . Chest pain and short of breath. CLINICAL DATA: This is the patient's initial encounter. Patient reports that signs and symptoms have been present for 1 day and indicates a pain score of 4/10. MEDICAL/SURGICAL HISTORY: Gastroesophageal reflux disease. Hypertension. Hypercholesterolemia . Chronic Inflammatory Demyelinating Polyneuropathy Appendectomy. Tubal ligation. Endarterectomy. COMPARISON: No prior exams available for comparison. DOSE: 8.7 mCi Tc 99m Myoview at rest 26.2 mCi [id number] at stress 0.4 mg Lexiscan STRESS SYMPTOMS: Chest tightness. EJECTION FRACTION: >70 % TECHNIQUE: The patient underwent pharmacologic stress with infusion of prescribed dose. Continuous ECG tracing was monitored during stress. Gated SPECT imaging was performed after stress and conventi onal SPECT imaging was performed at rest. The examination was performed on a SPECT/CT scanner, both attenuation and non-corrected datasets were reviewed. FINDINGS: Distribution: The maximum perfused segment at stress is in the inferior wall. Perfusion Study: The pattern of perfusion at stress is within normal limits. Gated Study: There are intact wall motion and wall thickening without hypokinetic or dyskinetic segm ents. The ejection fraction is calculated at >70%. RISK CATEGORY: Low (<1% Annual Motality Rate) CONCLUSION: 1. Unremarkable myocardial perfusion examination. Electronically signed by: Fabián Mayer MD Board Certified Radiologist 06/17/2018 2:06 PM EST
--- NOTE | 2018-06-17 15:34 | P.HP ---
History of Present Illness Primary Care Physician: Priyanka Mckinnon MD Chief Complaint: Chest pain, shortness of breath History of Present Illness: This is an 87-year-old female patient with a known medical history of hypertension who presented to the ED with complaints of chest pain or shortness of breath. Patient states that she was lying in bed last evening around 2330 she developed a tightness in her midsternal chest, states that the pain did not radiate, was associated with shortness of breath lasted roughly 15 minutes away and went away on its own. Patient denies any associated nausea, vomiting or sweating. It should be noted that patient has been given hydralazine as a new medication from her kidney doctor for hypertension as needed. She states she took 2 hydralazine tablets last evening due to elevated blood pressure and shortly after she developed these symptoms. Patient's daughter is at bedside and helping with gathering information, supposedly on Thursday evening she had similar episode of chest tightness shortly after taking this hydralazine. Patient does live at home alone, is able to perform all ADLs per self. She follows with Dr. Haas, cardiology, last seen in December of this year which at that time she had a full cardiac workup and was told that her heart was fine. She also follows with Dr. 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 It should also be noted that the daughter has noticed a correlation between her chest tightness symptoms and a couple days after receiving her IVIG. Patient denies any recent illness including fever, chills, cough, headache, abdominal pain, nausea, vomiting, diarrhea or dysuria. - Diagnosis (1) Dyspnea (2) Chest pain Inpatient Certification: I certify that the inpatient services were ordered in accordance with Medicare regulations governing the order. This includes certification that hospital inpatient services are reasonable and necessary and in the case of services not specified as inpatient-only under 42 CFR 419.22(n), that they are appropriately provided as inpatient services in accordance to with the 2-midnight benchmark under 43 CFR 412.3(e) Estimated Total Length of Stay (Days): 2 Plans for Post Hospital Care: Not yet determined Review of Systems All other systems reviewed negative except as stated in [facility] - History History Provided By: Patient - Medical History Medical History: Medical History (Last Reviewed 06/17/18 @ 16:28 by Autumn Motley) Basal cell carcinoma CIDP (chronic inflammatory demyelinating polyneuropathy) GERD (gastroesophageal reflux disease) High cholesterol Hypertension Hypothyroid - Surgical History Surgical History: Surgical History (Last Reviewed 06/17/18 @ 16:28 by Autumn Motley) H/O endarterectomy H/O tubal ligation History of appendectomy - Family History Family History: Family History (Last Reviewed 06/17/18 @ 16:28 by Autumn Motley) Father CAD (coronary artery disease) Other Family history normal - Social History I have reviewed the patient's Social History: Yes - Tobacco History Second Hand Smoke Exposure: No Smoking Status: Never smoker - Alcohol History How Often Do You Have a Drink Containing Alcohol: Never - Substance Use History Substance History: No History of Abuse - Travel History Recent Travel in the [place] Within the Last 8 Weeks: No Recent Travel Out of the Country Within the Last 8 Weeks: No - Immunization History Tetanus Immunization: <5 Years Medications and Allergies Active Medications: Active Medications Acetaminophen (Tylenol) 650 mg PO Q4H PRN PRN Reason: Temp > 100.4 Last Admin: 06/17/18 14:07 Dose: 650 mg Al Hydroxide/Mg Hydroxide (Milk Of Magnesia Liq) 30 ml PO Q12H PRN PRN Reason: Mild Constipation Bisacodyl (Dulcolax Supp) 10 mg RECTAL DAILY PRN PRN Reason: SEVERE CONSITIPATION Heparin Sodium/Dextrose (Heparin/D5w 25,000 U/250 Ml) 25,000 unit in 250 mls @ 0 mls/hr IV.CONT TITRATE PRN; Protocol PRN Reason: Per Protocol Last Titration: 06/17/18 14:39 Dose: 600 units/hr, 6 mls/hr Lactulose (Lactulose Liq) 30 ml PO DAILY PRN PRN Reason: SEVERE CONSITIPATION Ondansetron HCl (Zofran Inj) 4 mg IV.PUSH Q6H PRN PRN Reason: NAUSEA OR VOMITING Senna/Docusate Sodium (Sahra-Colace) 1 tab PO BID [facility] Last Admin: 06/17/18 10:13 Dose: Not Given Sennosides (Senokot) 17.2 mg PO Q12H PRN PRN Reason: Moderate Constipation Sodium Chloride (Ns Flush) 2 ml IV.FLUSH BID [facility] Last Admin: 06/17/18 09:11 Dose: Not Given Sodium Chloride (Ns Flush) 2 ml IV.FLUSH PRN PRN PRN Reason: FLUSH AFTER USING IV ACCESS Allergies Allergy/AdvReac Type Severity Reaction Status Date / Time doxycycline Allergy Severe Nausea/Vomi Verified 03/07/18 19:44 ting guaifenesin AdvReac Severe "MAKES ME Verified 03/07/18 19:44 HIGH" Home Medications Medication Instructions Recorded Confirmed Type ascorbic acid (vitamin C) [Vitamin 500 mg PO DAILY 06/02/18 06/17/18 History C] brimonidine 1 drp EACH EYE BID 06/02/18 06/17/18 History cholecalciferol (vitamin D3) 2,000 unit PO DAILY 06/02/18 06/17/18 History [Vitamin D3] hydralazine 25 - 50 mg PO DAILY PRN 06/02/18 06/17/18 History levobunolol 1 drp EACH EYE DAILY 06/02/18 06/17/18 History losartan 50 mg PO HS 06/02/18 06/17/18 History prednisone 10 mg PO DAILY 06/02/18 06/17/18 History Exam Vital signs: Vital Signs 06/17/18 01:11 06/17/18 01:14 06/17/18 01:16 Temperature 98.1 F Pulse Rate 80 80 Respiratory Rate 20 Blood Pressure 144/65 H Pulse Oximetry 96 96 96 06/17/18 01:30 06/17/18 04:14 06/17/18 04:31 Temperature Pulse Rate 68 Respiratory Rate 16 Blood Pressure 150/76 H 111/59 L Pulse Oximetry 96 100 06/17/18 07:02 06/17/18 08:56 06/17/18 10:43 Temperature Pulse Rate 74 70 70 Respiratory Rate 18 18 18 Blood Pressure 116/57 L 114/58 L 118/72 Pulse Oximetry 97 96 06/17/18 13:18 06/17/18 14:05 Temperature Pulse Rate 68 Respiratory Rate 18 Blood Pressure 146/71 H Pulse Oximetry 93 L 89 L Intake & Output 06/16/18 06/17/18 06/17/18 18:59 06:59 18:59 Weight 63.6 kg Narrative: GENERAL: Well-developed, well-nourished elderly female patient in [place]. On room air with no shortness of breath. SKIN: Warm and dry. No rash. HEAD: Normocephalic. Atraumatic. EYES: Pupils equal and round. No scleral icterus. No injection or drainage. ENT: No nasal bleeding or discharge. Mucous membranes pink and moist. NECK: Supple. Trachea midline. CARDIOVASCULAR: Regular rate and rhythm. S1, S2 noted. No murmur appreciated. RESPIRATORY: No accessory muscle use. Clear to auscultation. Breath sounds equal bilaterally. GASTROINTESTINAL: Abdomen soft, non-tender, nondistended. Normoactive bowel sounds x4. MUSCULOSKELETAL: No obvious deformities. Extremities without clubbing, cyanosis , or edema. NEUROLOGICAL: Awake and alert. No obvious cranial nerve deficits. Motor grossly within normal limits. 5/5 muscle strength in bilateral upper and lower extremities. Normal speech. PSYCHIATRIC: Appropriate mood and affect; insight and judgment normal. Results - Labs CBC & Chem 7: 06/17/18 01:25 06/17/18 01:25 Labs: Laboratory Results - last 24 hr 06/17/18 06/17/18 06/17/18 01:25 01:25 01:25 CBC w Diff Auto diff final WBC 9.2 RBC 3.64 L Hgb 11.6 Hct 32.5 L MCV 89.4 MCH 31.9 MCHC 35.6 RDW 15.0 Plt Count 444 D MPV 6.9 L Neut % (Auto) 66.3 Lymph % (Auto) 17.1 [place] % (Auto) 11.7 H Eos % (Auto) 1.6 Baso % (Auto) 3.3 H Neut # (Auto) 6.1 Lymph # (Auto) 1.6 [place] # (Auto) 1.1 H Eos # (Auto) 0.1 Baso # (Auto) 0.3 H WBC Differential . Differential Comment . PT INR APTT Sodium 129 L Potassium 4.2 Chloride 98 Carbon Dioxide 21.2 Anion Gap 10 BUN 18 Creatinine 0.64 Estimated GFR 88 L Random Glucose 118 H Calcium 8.1 L Magnesium 2.2 Total Bilirubin 0.7 AST 25 ALT 23 Alkaline Phosphatase 68 Total Creatine Kinase 21 L Troponin I 0.07 H B-Natriuretic Peptide 164 H Total Protein 8.2 Albumin 2.6 L 06/17/18 06/17/18 06/17/18 01:25 06:38 09:39 CBC w Diff WBC RBC Hgb Hct MCV MCH MCHC RDW Plt Count MPV Neut % (Auto) Lymph % (Auto) [place] % (Auto) Eos % (Auto) Baso % (Auto) Neut # (Auto) Lymph # (Auto) [place] # (Auto) Eos # (Auto) Baso # (Auto) WBC Differential Differential Comment PT 9.8 INR 1.0 APTT 26.1 87.4 H D Sodium Potassium Chloride Carbon Dioxide Anion Gap BUN Creatinine Estimated GFR Random Glucose Calcium Magnesium Total Bilirubin AST ALT Alkaline Phosphatase Total Creatine Kinase 28 Troponin I 0.07 H B-Natriuretic Peptide Total Protein Albumin 06/17/18 13:15 CBC w Diff WBC RBC Hgb Hct MCV MCH MCHC RDW Plt Count MPV Neut % (Auto) Lymph % (Auto) [place] % (Auto) Eos % (Auto) Baso % (Auto) Neut # (Auto) Lymph # (Auto) [place] # (Auto) Eos # (Auto) Baso # (Auto) WBC Differential Differential Comment PT INR APTT Sodium Potassium Chloride Carbon Dioxide Anion Gap BUN Creatinine Estimated GFR Random Glucose Calcium Magnesium Total Bilirubin AST ALT Alkaline Phosphatase Total Creatine Kinase 20 L Troponin I 0.07 H B-Natriuretic Peptide Total Protein Albumin - Imaging Impressions Myocardial Perfusion Scan Nuc Med 06/17/18 00:00 CONCLUSION: 1. Unremarkable myocardial perfusion examination. Chest X-Ray 06/17/18 00:56 CONCLUSION: 1. Stable senescent changes and calcified biapical pleural plaque. 2. No acute abnormality or significant interval change. Caprini VTE Risk Assessment Caprini VTE Risk Assessment: Moderate/High Risk (score >= 2) Caprini Risk Assessment Model: Point Value = 1 Point Value = 2 Point Value = 3 Point Value = 5 Age 41-60 Minor surgery BMI > 25 kg/m2 Swollen legs Varicose veins or History of unexplained or recurrent spontaneous Oral contraceptives or hormone replacement Sepsis (< 1 month) Serious lung disease, including pneumonia (< 1 month) Abnormal pulmonary function Acute myocardial infarction Congestive heart failure (< 1 month) History of inflammatory bowel disease Medical patient at bed rest Age 61-74 Arthroscopic surgery Major open surgery (> 45 min) Laparoscopic surgery (> 45 min) Malignancy Confined to bed (> 72 hours) Immobilizing plaster cast Central venous access Age >= 75 History of VTE Family history of VTE Factor V Leiden Prothrombin [id number] Lupus anticoagulant Anticardiolipin antibodies Elevated serum homocysteine Heparin-induced thrombocytopenia Other congenital or acquired thrombophilia Stroke (< 1 month) Elective arthroplasty Hip, pelvis, or leg fracture Acute spinal cord injury (< 1 month) Prophylaxis Regimen: Total Risk Factor Score Risk Level Prophylaxis Regimen 0-1 Low Early ambulation 2 Moderate Order ONE of the following: *Sequential Compression Device (SCD) *Heparin 5000 units SQ BID 3-4 Higher Order ONE of the following medications: *Heparin 5000 units SQ TID *Enoxaparin/Lovenox 40 mg SQ daily (WT < 150 kg, CrCl > 30 mL/min) *Enoxaparin/Lovenox 30 mg SQ daily (WT < 150 kg, CrCl > 10-29 mL/min) *Enoxaparin/Lovenox 30 mg SQ BID (WT < 150 kg, CrCl > 30 mL/min) AND/OR *Sequential Compression Device (SCD) 5 or more Highest Order ONE of the following medications: *Heparin 5000 units SQ TID (Preferred with Epidurals) *Enoxaparin/Lovenox 40 mg SQ daily (WT < 150 kg, CrCl > 30 mL/min) *Enoxaparin/Lovenox 30 mg SQ daily (WT < 150 kg, CrCl > 10-29 mL/min) *Enoxaparin/Lovenox 30 mg SQ BID (WT < 150 kg, CrCl > 30 mL/min) AND *Sequential Compression Device (SCD) Assessment and Plan - Assessment (1) Dyspnea Code(s): R06.00 - Dyspnea, unspecified Status: Acute (2) Chest pain Code(s): R07.9 - Chest pain, unspecified Status: Acute - Plan This is an 87-year-old female patient with: Chest pain, apical -Patient presented with chest tightness and shortness of breath times 1 day. -Serial EKGs and serial troponins have been ordered, serial troponins are mildly elevated, ACS has been ruled out. EKG reviewed showing sinus rhythm with controlled heart rate, no ST changes. -Cardiology has been consulted, appreciate input and recommendations. Heparin gtt was ordered and Lexiscan was ordered. -Patient underwent a cardiac Lexiscan, report reviewed adequate EF and no ischemia. Patient developed shortness of breath, mild hypoxia and some continued chest pain after the stress test was moved up to ICU for closer monitoring. Upon assessment tonight patient's symptoms have completely resolved , she is on room air lying in bed comfortably without any chest pain. Originally thought that patient may have a pulmonary embolism because of her hypoxia. Will defer CTA since symptoms have improved. If continued symptoms can be done overnight. -Patient will be continued on cardiac telemetry, monitor for any arrhythmias. -Chest x-ray was reviewed, does show some vascular congestion although BNP is not elevated. -Will also discontinue home hydralazine, this could be contributing to her symptoms at home. -If patient is stable overnight patient will be discharged home follow-up with reverse logistics analyst. Hypertension, chronic Continue medications. Monitor blood pressure trends. Chronic inflammatory demyelinating polyneuropathy -Follows with Dr. Cole Escalera, receives IVIG every 3 weeks. Last administration was on 06/12/18. -We will. DVT prophylaxis: SCDs. Heparin. (2) Chest pain Qualifiers: Chest pain type: precordial pain Qualified Code(s): R07.2 - Precordial pain
[2018-06-17] MEDS: MethylPREDNISolone Sod Succinate Inj 40 MG/ML Vial IV.PUSH SCH ×2 (18:22→22:20)
--- NOTE | 2018-06-17 19:49 | ECG ---
Date Performed: 06/17/2018 Time Performed: 06:53:30 PTAGE: 87 years EKG: Sinus rhythm LOW QRS VOLTAGE IN PRECORDIAL LEADS POSSIBLE ANTERIOR MYOCARDIAL INFARCTION Since the previous ambika ng, no significant change noted ABNORMAL ECG PREVIOUS TRACING : 06/17/2018 00.52 DOCTOR: Karolina Fernández Interpretating Date/Time 06/17/2018 19:47:30
[2018-06-18 05:07] LABS: Potassium 4.3 meq/L (3.5-5.1)
[2018-06-18 05:09] LABS: Baso # (Auto) 0.2 th/mm3 (0.0-0.2); Baso % (Auto) 2.2 % (0.0-2.0); Eos % (Auto) 0.1 % (0.0-4.0); Hematocrit 33.4 % (35.0-46.0); Hemoglobin 11.3 gm/dL (11.6-15.3); Lymph % (Auto) 12.9 % (9.0-44.0); Mean Corpuscular HGB Conc 33.8 % (32.0-36.0); Mean Corpuscular Hemoglobin 31.1 pg (27.0-34.0); Mean Corpuscular Volume 91.8 fL (80.0-100.0); Mean Platelet Volume 7.8 fL (7.0-11.0); Mono # (Auto) 0.2 th/mm3 (0.0-0.9); Neut # (Auto) 6.3 th/mm3 (1.8-7.7); Neut % (Auto) 82.8 % (16.0-70.0); Platelet Count 413 th/mm3 (150-450); Red Blood Count 3.64 mil/mm3 (4.00-5.30); Red Cell Distribution Width 14.9 % (11.6-17.2); White Blood Count 7.7 th/mm3 (4.0-11.0)
[2018-06-18 05:10] LABS: Calcium 7.9 mg/dL (8.5-10.1)
[2018-06-18 05:11] LABS: Carbon Dioxide 21.7 meq/L (21.0-32.0)
[2018-06-18] MEDS: MethylPREDNISolone Sod Succinate Inj 40 MG/ML Vial IV.PUSH SCH (05:12)
[2018-06-18] MEDS ORDERED: Levothyroxine 75 MCG Tablet PO SCH (06:00)
[2018-06-18] MEDS: Brimonidine 0.2% Opth Drops 5 ML Bottle EACH EYE SCH ×2 (06:13→08:15)
--- NOTE | 2018-06-18 08:02 | P.PNIM ---
Subjective Interval history: Patient is seen sitting up in bed. She tells me that she is feeling well and would like to go home if possible. She has had no further repeats of chest pain. No shortness of breath. No dizziness or syncope. No nausea vomiting or diarrhea. Physical Exam Vital signs: Last Vital Signs Temp 98 F 06/18/18 04:00 Pulse 68 06/18/18 04:00 Resp 18 06/18/18 04:00 BP 122/60 06/18/18 04:00 Pulse Ox 95 06/18/18 05:50 Intake & Output 06/16/18 06/17/18 06/18/18 06/19/18 06:59 06:59 06:59 06:59 Weight 63.6 kg 62.1 kg Narrative: GENERAL: Well-developed, well-nourished elderly female patient in [facility]. Breathing comfortably on room air. SKIN: Warm and dry. No rash. HEAD: Normocephalic. Atraumatic. CARDIOVASCULAR: Regular rate and rhythm. S1, S2 noted. No murmur appreciated. RESPIRATORY: No accessory muscle use. Clear to auscultation. Breath sounds equal bilaterally. GASTROINTESTINAL: Abdomen soft, non-tender, nondistended. Normoactive bowel sounds x4. MUSCULOSKELETAL: No obvious deformities. Extremities without clubbing, cyanosis , or edema. NEUROLOGICAL: Awake and alert. No obvious cranial nerve deficits. Motor grossly within normal limits. Normal speech. PSYCHIATRIC: Appropriate mood and affect; insight and judgment normal. Results Labs CBC & Chem 7: 06/18/18 04:27 06/18/18 04:27 Labs: Microbiology 06/17/18 13:00 Stool Stool Occult Blood (MARK) - Final Hemoccult negative Imaging Imaging: Impressions Myocardial Perfusion Scan Nuc Med 06/17/18 00:00 CONCLUSION: 1. Unremarkable myocardial perfusion examination. Assessment and Plan (1) Dyspnea: Code(s): R06.00 - Dyspnea, unspecified Status: Resolved (2) Chest pain: Code(s): R07.9 - Chest pain, unspecified Status: Resolved Plan This is an 87-year-old female patient with: Chest pain, apical -resolved -Patient presented with chest tightness and shortness of breath times 1 day. -Serial EKGs and serial troponins have been ordered, serial troponins are mildly elevated, ACS has been ruled out. EKG reviewed showing sinus rhythm with controlled heart rate, no ST changes. -Cardiology has been consulted, appreciate input and recommendations. Cardiology recommending outpatient follow-up -Patient underwent a cardiac Lexiscan, report reviewed adequate EF and no ischemia. Patient developed shortness of breath, mild hypoxia and some continued chest pain after the stress test was moved up to ICU for closer monitoring. Upon assessment tonight patient's symptoms have completely resolved , she is on room air lying in bed comfortably without any chest pain. Originally thought that patient may have a pulmonary embolism because of her hypoxia. Will defer CTA since symptoms have improved. No further symptoms noted. -Patient will be continued on cardiac telemetry, monitor for any arrhythmias. -Chest x-ray was reviewed, does show some vascular congestion although BNP is not elevated. -Will also discontinue home hydralazine, this could be contributing to her symptoms at home. Hypertension, chronic; stable Continue medications. Monitor blood pressure trends. Chronic inflammatory demyelinating polyneuropathy -chronic; stable -Follows with Dr. Cole Escalera, receives IVIG every 3 weeks. Last administration was on 06/12/18. DVT prophylaxis: SCDs. Heparin. Discharge planning: Home today; follow-up with cardiology as outpatient. Progress Note: Quality VTE Deep Vein Thrombosis/Pulmonary Embolism Present on Admission: No _ (1) Dyspnea Qualifiers: Dyspnea type: (2) Chest pain Qualifiers: Chest pain type: precordial pain Ischemic chest pain type: Qualified Code(s ): R07.2 - Precordial pain
[2018-06-18] MEDS: Senna/Docusate Sodium 8.6/50 MG Tablet PO SCH (08:15)
--- NOTE | 2018-06-18 08:23 | P.DS ---
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 Patient states that she was lying in bed last evening around 2330 she developed a tightness in her midsternal chest, states that the pain did not radiate, was associated with shortness of breath lasted roughly 15 minutes away and went away on its own. Patient denies any associated nausea, vomiting or sweating. It should be noted that patient has been given hydralazine as a new medication from her kidney doctor for hypertension as needed. She states she took 2 hydralazine tablets last evening due to elevated blood pressure and shortly after she developed these symptoms. Patient's daughter is at bedside and helping with gathering information, supposedly on Thursday evening she had similar episode of chest tightness shortly after taking this hydralazine. Patient does live at home alone, is able to perform all ADLs per self. She follows with Dr. Haas, cardiology, last seen in December of this year which at that time she had a full cardiac workup and was told that her heart was fine. She also follows with Dr. 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 It should also be noted that the daughter has noticed a correlation between her chest tightness symptoms and a couple days after receiving her IVIG. Patient denies any recent illness including fever, chills, cough, headache, abdominal pain, nausea, vomiting, diarrhea or dysuria. DS: Diagnosis Discharge Diagnosis (1) Dyspnea: Status: Resolved (2) Chest pain: Status: Resolved DS: Summary This is an 87-year-old female patient with: Chest pain, apical -resolved -Patient presented with chest tightness and shortness of breath times 1 day. -Serial EKGs and serial troponins have been ordered, serial troponins are mildly elevated, ACS has been ruled out. EKG reviewed showing sinus rhythm with controlled heart rate, no ST changes. -Cardiology has been consulted, appreciate input and recommendations. Cardiology recommending outpatient follow-up -Patient underwent a cardiac Lexiscan, report reviewed adequate EF and no ischemia. Patient developed shortness of breath, mild hypoxia and some continued chest pain after the stress test was moved up to ICU for closer monitoring. Upon assessment tonight patient's symptoms have completely resolved , she is on room air lying in bed comfortably without any chest pain. Originally thought that patient may have a pulmonary embolism because of her hypoxia. Will defer CTA since symptoms have improved. No further symptoms noted. -Chest x-ray was reviewed, does show some vascular congestion although BNP is not elevated. -Will also discontinue home hydralazine, this could be contributing to her symptoms at home. Hypertension, chronic; stable Continue medications. Monitor blood pressure trends. Chronic inflammatory demyelinating polyneuropathy -chronic; stable -Follows with Dr. Cole Escalera, receives IVIG every 3 weeks. Last administration was on 06/12/18. DVT prophylaxis while hospitalized: SCDs. Heparin. Time Spent with Patient Total time spent providing and/or coordinating discharge services: <30 min Quality: VTE Deep Vein Thrombosis/Pulmonary Embolism Present on Admission: No Exam Narrative Exam Narrative: GENERAL: Well-nourished, well-developed adult female in no obvious distress. SKIN: Warm and dry. HEAD: Atraumatic. Normocephalic. CARDIOVASCULAR: Regular rate and rhythm. RESPIRATORY: No accessory muscle use. Clear to auscultation. Breath sounds equal bilaterally. GASTROINTESTINAL: Abdomen soft, non-tender, non-distended. Positive bowel sounds. MUSCULOSKELETAL: Extremities without clubbing, cyanosis, or edema. No obvious deformities. NEUROLOGICAL: Awake and alert. No obvious cranial nerve deficits. Motor grossly within normal limits. Normal speech. PSYCHIATRIC: Appropriate mood and affect; insight and judgment good. Results Labs on day of discharge: Labs from last 24 hours 06/18/18 06/18/18 06/18/18 04:27 04:27 04:27 CBC w Diff Slide review pending WBC 7.7 RBC 3.64 L Hgb 11.3 L Hct 33.4 L MCV 91.8 MCH 31.1 MCHC 33.8 RDW 14.9 Plt Count 413 MPV 7.8 Neut % (Auto) 82.8 H Lymph % (Auto) 12.9 Callahan % (Auto) 2.0 Eos % (Auto) 0.1 Baso % (Auto) 2.2 H Neut # (Auto) 6.3 Lymph # (Auto) 1.0 Callahan # (Auto) 0.2 Eos # (Auto) 0.0 Baso # (Auto) 0.2 WBC Differential . Diff Scan Auto diff confirmed Differential Comment . APTT 64.8 H Sodium 130 L Potassium 4.3 Chloride 99 Carbon Dioxide 21.7 Anion Gap 9 BUN 12 Creatinine 0.77 Estimated GFR 71 L Random Glucose 158 H Calcium 7.9 L Total Creatine Kinase Troponin I 06/17/18 06/17/18 06/17/18 22:30 16:10 13:15 CBC w Diff WBC RBC Hgb Hct MCV MCH MCHC RDW Plt Count MPV Neut % (Auto) Lymph % (Auto) Callahan % (Auto) Eos % (Auto) Baso % (Auto) Neut # (Auto) Lymph # (Auto) Callahan # (Auto) Eos # (Auto) Baso # (Auto) WBC Differential Diff Scan Differential Comment APTT 74.5 H 69.6 H D Sodium Potassium Chloride Carbon Dioxide Anion Gap BUN Creatinine Estimated GFR Random Glucose Calcium Total Creatine Kinase 20 L Troponin I 0.07 H 06/17/18 09:39 CBC w Diff WBC RBC Hgb Hct MCV MCH MCHC RDW Plt Count MPV Neut % (Auto) Lymph % (Auto) Callahan % (Auto) Eos % (Auto) Baso % (Auto) Neut # (Auto) Lymph # (Auto) Callahan # (Auto) Eos # (Auto) Baso # (Auto) WBC Differential Diff Scan Differential Comment APTT 87.4 H D Sodium Potassium Chloride Carbon Dioxide Anion Gap BUN Creatinine Estimated GFR Random Glucose Calcium Total Creatine Kinase Troponin I Impressions ITS Impressions Myocardial Perfusion Scan Nuc Med 06/17/18 00:00 CONCLUSION: 1. Unremarkable myocardial perfusion examination. Chest X-Ray 06/17/18 00:56 CONCLUSION: 1. Stable senescent changes and calcified biapical pleural plaque. 2. No acute abnormality or significant interval change. Discharge Plan Discharge Disposition Patient Disposition: 01 Discharge Home Discharge Condition Condition: Stable Discharge Order Discharge Orders: Discharge Order (Routine); Ordered 06/18/18 Ordered By: Serina Leong Discharge Details Anticipated Discharge Date: 06/18/18 Physicians Team ED Provider: Eun Hernandez Primary Care Provider: Priyanka Mckinnon Attending Provider: Mino Patricia Other Providers: Paddy Spicer ; Janeth Fowler Rxs /Orders / Referrals /Forms Prescriptions: Continue levothyroxine [Synthroid] 75 mcg Tablet 75 mcg PO DAILY@0600 Qty: 30 RF: 0 metoprolol succinate 50 mg Tablet Extended Release 24 Hr 50 mg PO HS Qty: 30 RF: 0 aspirin [Aspir-81] 81 mg Tablet,Delayed Release (Dr/Ec) 81 mg PO DAILY Qty: 30 RF: 0 spironolactone 25 mg Tablet 25 mg PO DAILY Qty: 30 RF: 0 coenzyme Q10 [Co Q-10] 30 mg Capsule 30 mg PO DAILY Qty: 30 RF: 0 losartan 50 mg tablet 50 mg PO HS RF: 0 prednisone 10 mg tablet 10 mg PO DAILY RF: 0 cholecalciferol (vitamin D3) [Vitamin D3] 2,000 unit tablet 2,000 unit PO DAILY RF: 0 ascorbic acid (vitamin C) [Vitamin C] 500 mg Tablet 500 mg PO DAILY RF: 0 levobunolol 0.5 % Drops 1 drp EACH EYE DAILY RF: 0 brimonidine 0.2 % Drops 1 drp EACH EYE BID RF: 0 furosemide 20 mg Tablet 20 mg PO DAILY Qty: 30 RF: 0 Discontinued hydralazine 25 mg Tablet 25 - 50 mg PO DAILY PRN (Reason: Blood Pressure) RF: 0 Referrals: Priyanka Mckinnon MD [Primary Care Provider] - See Instructions Evaristo Haas MD [Physician] - See Instructions Discharge Instructions Patient Printed Instructions: Chest Pain (ED), Heart Healthy Diet (DC), Chronic Hypertension (ED), Hypertensive Crisis (ED) Additional Instructions: Please stop your hydralazine until your see either your primary care or patient coordinator front desk. Please call both providers and make follow up appointments. Status ED Status: Left Department Discharge Information Discharge Date/Time: 06/18/18 09:50
[2018-06-18 08:25] VITALS: BP 150/78; PULSE 74; RESP 16; TEMP 98.2
[2018-06-18 08:39] VITALS: O2SAT 95
[2018-06-18] MEDS ORDERED: predniSONE 10 MG Tablet PO SCH (09:00)
[2018-06-18] MEDS ORDERED: LEVOBUNOLOL 0.5% EACH EYE SCH (09:00)
[2018-06-18] MEDS ORDERED: Furosemide 20 MG Tablet PO SCH (09:00)
[2018-06-18] MEDS ORDERED: COENZYME Q10 30 MG PO SCH (09:00)
[2018-06-18] MEDS ORDERED: Ascorbic Acid 500 MG Tablet PO SCH (09:00)
[2018-06-18] MEDS ORDERED: Spironolactone 25 MG Tablet PO SCH (09:00)
[2018-06-18] MEDS ORDERED: OPTH EACH EYE SCH (09:00)
--- NOTE | 2018-06-18 20:48 | ECG ---
Date Performed: 06/17/2018 Time Performed: 14:16:49 PTAGE: 87 years EKG: Sinus rhythm POSSIBLE ANTERIOR MYOCARDIAL INFARCTION ABNORMAL ECG WARNING: DATA QUALITY MAY AFFECT INTERPRETATION PREVIOUS TRACING : 06/17/2018 06.53 DOCTOR: Gi Tabor Interpretating Date/Time 06/18/2018 20:42:42
== END 2018-06-18 09:50 | disposition home or self-care (01) | DRG 204 ==
LOC: PHED 00:41 → PHEDA 03:19 → PHEDH 07:19 → PHICU 15:00
PROVIDERS: ADMIT Internal Medicine; ATTEND Internal Medicine
DX: G61.81 Chronic inflammatory demyelinating polyneuritis; Z90.49 Acquired absence of other specified parts of digestive tract; Z79.890 Hormone replacement therapy; I50.9 Heart failure, unspecified; M79.89 Other specified soft tissue disorders; I11.0 Hypertensive heart disease with heart failure; R06.00 Dyspnea, unspecified; K21.9 Gastro-esophageal reflux disease without esophagitis; R07.2 Precordial pain; R06.2 Wheezing; Z85.828 Personal history of other malignant neoplasm of skin; R74.8 Abnormal levels of other serum enzymes; E03.9 Hypothyroidism, unspecified; Z79.82 Long term (current) use of aspirin; Z82.49 Family history of ischemic heart disease and other diseases of the circulatory system; R09.02 Hypoxemia; E78.00 Pure hypercholesterolemia, unspecified; Z98.51 Tubal ligation status
CPT/HCPCS: 71010; 71045; 78452; 80048; 80053; 82272; 82550; 83520; 83735; 83880; 84484; 85025; 85610; 85730; 93005; 93017; 99285; A9502; J1644; J2785; J2920